=== PATIENT | female | born 1935 | race Caucasian/White ===

== ENCOUNTER 2017-10-09 12:12 | Inpatient (IN) | payer MEDICARE, OTHER ==
[~2017-10-09] VITALS: Ht 152.4 cm; Wt 46.4 kg
[2017-10-09] VITALS (8 sets, daily range): BP systolic 124–179; BP diastolic 59–77; PULSE 78–100; RESP 18–35; TEMP 97.6–98.8; O2SAT 95–99
[~2017-10-09 12:12] MED LIST: ADVAI250I PO; BACL10TA PO; CARI350T19 PO; CHOL4POW4 PO; CITA20 PO; CYPR4TAB PO; DUONI NEB; ENAL10 PO; FURO1TAB93 PO; HYDR10SO PO; IPRAAER INH; KLOR20TA6 PO; LIDO5T TOP; MONT5CHW2 PO; NEBUMIS6 INH; ONDA4 PO; PRED5TAB PO; PREV30CA36 PO; PROM6.257 PO; SPIRCAP INH; SUMA100T2 PO; SYNT100T PO; VALI10TA PO; VIGA0.5D EACH EYE; ZOLP10TA3 PO
[2017-10-09] MEDS ORDERED: IOHEXOL 350 MG/ML 10 ML VIAL (for RAD DIAG) IVCONTRAST ONE (12:13)
--- NOTE | 2017-10-09 12:39 | PD ---
HPI Chief Complaint: Abdominal Pain Time Seen by Provider: 12:16 Travel History International Travel<30 days: No Contact w/Intl Traveler<30days: No Traveled to known affect area: No History of Present Illness HPI The patient is a 82-year-old female who presents to the emergency department with her son from their physician's office for evaluation of chronic abdominal pain. The patient was seen by her primary physician earlier today, Dr. Donald, and sent to the emergency department for evaluation of chronic ongoing abdominal pain. The patient has had severe epigastric abdominal pain for approximately 1 year. She underwent outpatient endoscopy by her range aide, Dr. Del Cid, and was placed on Carafate. However, the patient continues to have pain and now complains of generalized abdominal pain. She also complains of pain from "my toes to my head ", as well as chronic low back pain, and occasional shortness of breath. The patient does have a history of COPD and CHF, states the shortness of breath is intermittent and occasionally exacerbated by pain. She denies any current nausea, vomiting, or diarrhea. She does have a history of multiple abdominal surgeries in the past including hysterectomy, appendectomy, cholecystectomy, and removal of small bowel. She denies any current fever, chills, or sweats. She does complain of intermittent dysuria. PFSH Past Medical History Hx Anticoagulant Therapy: Yes Arthritis: Yes Asthma: No Anxiety: Yes Depression: Yes Heart Rhythm Problems: No Cancer: No Cardiovascular Problems: Yes High Cholesterol: Yes Chest Pain: Yes Congestive Heart Failure: Yes COPD: Yes Cerebrovascular Accident: Yes Diabetes: No Diminished Hearing: No Endocrine: Yes GERD: Yes Genitourinary: Yes Headaches: Yes Hepatitis: No Hiatal Hernia: No Hypertension: Yes Immune Disorder: No Kidney Stones: Yes Musculoskeletal: Yes Neurologic: Yes Psychiatric: Yes Reproductive: No Respiratory: Yes Migraines: Yes Pneumonia: Yes Renal Failure: No Seizures: No Sleep Apnea: No Thyroid Disease: Yes Ulcer: No : 2 Para: 2 Past Surgical History Abdominal Surgery: Yes (PARTIAL SMALL BOWEL REMOVAL) Body Medical Devices: plates in neck Cholecystectomy: Yes Endocrine Surgery: Yes (THYROID) Gynecologic Surgery: Yes Hysterectomy: Yes Neurologic Surgery: Yes (CERVICAL FUSION) Pacemaker: No Social History Alcohol Use: Yes (OCCASSIONAL) Tobacco Use: Yes (1 PPD) Substance Use: No Allergies-Medications (Allergen,Severity, Reaction): Coded Allergies: levofloxacin (Unverified Allergy, Severe, HEADACHE, NAUSEA, VOMITING, 01/23) meperidine (Unverified Adverse Reaction, Unknown, HALLUCINATIONS, 01/23/17) Reported Meds & Prescriptions Reported Meds & Active Scripts Active K-Dur (Potassium Chloride) 20 Meq Tabcr 20 Meq PO DAILY 30 Days Nebulizer (Miscellaneous Medication) Mis 1 Unit INH DIRECTED Resp: Albuterol/Ipratropium 2.5 Mg/0.5 Mg (Albuterol/Ipratropium) 1 Amp Nebu 1 Ampule NEB Q6HR NEB PRN Prednisone 5 Mg Tab 5 Mg PO DIRECTED 10 Days 40 mg po daily for two days then 30 mg po daily for two days then 20 mg po daily for two days then 10 mg po daily for two days then 5 mg po daily for two days then stop. Reported Lidoderm Patch 5% (Lidocaine HCl) 1 Patch Patch 1 Patch TOP DAILY PRN Apply patch to the most painful area. Patch(es) may remain in place for up to 12 hours in any 24 hour period. Lioresal 10 Mg Tab (Baclofen) 10 Mg Tab 10 Mg PO TID Cyproheptadine Hcl (Cyproheptadine HCl) 4 Mg Tab 4 Mg PO DAILY Ambien 10 Mg Tab (Zolpidem Tartrate) 10 Mg Tab 10 Mg PO HS Vigamox Opth (Moxifloxacin HCl) 0.5 % Thony 1 Drop EACH EYE QID Celexa 20 Mg Tab (Citalopram Hydrobromide) 20 Mg Tab 20 Mg PO DAILY Prevacid (Lansoprazole) 30 Mg Capcr 30 Mg PO DAILY Phenergan W/Codeine (Promethazine W/Codeine) 6.25-10 mg/5 ml Ml 5 Ml PO Q8HR Cholestyramine (Cholestyramine Resin) 4 Gm Pow 4 Gm PO TID PRN Advair Diskus 250/50 (Salmeterol Xinafoate/Fluticasone) Fluticasone/Salmeterol 250/50 Inh 1 Puff PO BID PRN Zofran 4 Mg Tab (Ondansetron Hcl) 4 Mg Tab 4 Mg PO DAILY PRN Combivent Respimat (Albuterol/Ipratropium) Respimat Aer 2 Puff INH TID Spiriva Handihaler (Tiotropium [place]) 18 Mcg Cap 1 Puff INH DAILY DO NOT SWALLOW CAPSULES Singulair (Montelukast Sodium) 5 Mg Chw 10 Mg PO DAILY Hydrocodone/Acetaminophen 10 mg/325 mg 1 Tab 1 Tab PO 3-4TIMES PER DAY PRN Imitrex (Sumatriptan Succinate) 100 Mg Tab 100 Mg PO DIRECTED PRN Carisoprodol 350 Mg Tab 350 Mg PO BID PRN Valium (Diazepam) 10 Mg Tab 10 Mg PO TID PRN Synthroid (Levothyroxine Sodium) 100 Mcg Tab 100 Mcg PO DAILY Vasotec 10 Mg Tab (Enalapril Maleate) 10 Mg Tab 10 Mg PO DAILY Lasix (Furosemide) 40 Mg Tab 40 Mg PO DAILY Review of Systems Except as stated in HPI: all other systems reviewed are Neg Cardiovascular: No: Chest Pain or Discomfort Respiratory: Positive: Shortness of Breath Gastrointestinal: Positive: Abdominal Pain, No: Nausea, Vomiting, Diarrhea Genitourinary: Positive: Dysuria Musculoskeletal: Positive: Weakness, Pain Neurologic: No: Change in Mentation Physical Exam Narrative GENERAL: Awake, alert, pleasant 82-year-old female who appears her stated age and is in no acute respiratory distress. SKIN: Focused skin assessment warm/dry. HEAD: Atraumatic. Normocephalic. EYES: No injection or drainage. ENT: No nasal bleeding or discharge. Mucous membranes pink and moist. NECK: Trachea midline. No JVD. CARDIOVASCULAR: Regular, tachycardic with a heart rate of 110. RESPIRATORY: No accessory muscle use. Few scattered wheezes and a few rhonchi right base. GASTROINTESTINAL: Abdomen soft, diffuse tenderness. Well-healed scar midline of the abdomen as well as the upper quadrants bilaterally. MUSCULOSKELETAL: No obvious deformities. No clubbing. No cyanosis. Bilateral lower extremity pitting edema. NEUROLOGICAL: Awake and alert. No obvious cranial nerve deficits. Motor grossly within normal limits. Normal speech. PSYCHIATRIC: Appropriate mood and affect; insight and judgment normal. Data Data Last Documented VS Vital Signs Date Time Temp Pulse Resp B/P (MAP) Pulse Ox O2 Delivery O2 Flow Rate FiO2 10/09/17 16:48 87 25 143/64 (90) 98 Nasal Cannula 3.00 10/09/17 12:32 98.8 Orders Orders Complete Blood Count With Diff (10/09/17 12:31) Comprehensive Metabolic Panel (10/09/17 12:31) Lipase (10/09/17 12:31) Lactic Acid (10/09/17 12:31) Urinalysis - C+S If Indicated (10/09/17 12:31) Ct Abd/Pel W Iv Contrast(Rout) (10/09/17 12:31) Iv Access Insert/Monitor (10/09/17 12:31) Ecg Monitoring (10/09/17 12:31) Oximetry (10/09/17 12:31) Morphine Inj (Morphine Inj) (10/09/17 12:45) Ondansetron Inj (Zofran Inj) (10/09/17 12:45) Sodium Chloride 0.9% Flush (Ns Flush) (10/09/17 12:45) Electrocardiogram (10/09/17 12:31) Chest, Single Ap (10/09/17 12:31) Famotidine Inj (Pepcid Inj) (10/09/17 12:45) Sodium Chlorid 0.9% 500 Ml Inj (Ns 500 M (10/09/17 12:45) Albuterol-Ipratropium Neb (Duoneb Neb) (10/09/17 12:45) Oral Contrast - Adult (10/09/17 12:44) B-Type Natriuretic Peptide (10/09/17 14:20) Diatrizoate Liq ( Gastroview Liq) (10/09/17 14:26) Morphine Inj (Morphine Inj) (10/09/17 15:00) Iohexol 350 Inj (Omnipaque 350 Inj) (10/09/17 12:13) Furosemide Inj (Lasix Inj) (10/09/17 16:30) Admit Order (Ed Use Only) (10/09/17 16:52) Labs Laboratory Tests Test 10/09/17 13:00 10/09/17 13:05 White Blood Count 9.7 TH/MM3 Red Blood Count 3.74 MIL/MM3 Hemoglobin 8.6 GM/DL Hematocrit 28.3 % Mean Corpuscular Volume 75.6 FL Mean Corpuscular Hemoglobin 23.0 PG Mean Corpuscular Hemoglobin Concent 30.4 % Red Cell Distribution Width 19.1 % Platelet Count 228 TH/MM3 Mean Platelet Volume 8.4 FL Neutrophils (%) (Auto) 84.6 % Lymphocytes (%) (Auto) 6.5 % Monocytes (%) (Auto) 8.1 % Eosinophils (%) (Auto) 0.1 % Basophils (%) (Auto) 0.7 % Neutrophils # (Auto) 8.2 TH/MM3 Lymphocytes # (Auto) 0.6 TH/MM3 Monocytes # (Auto) 0.8 TH/MM3 Eosinophils # (Auto) 0.0 TH/MM3 Basophils # (Auto) 0.1 TH/MM3 CBC Comment DIFF FINAL Differential Comment Blood Urea Nitrogen 9 MG/DL Creatinine 0.44 MG/DL Random Glucose 145 MG/DL Total Protein 6.6 GM/DL Albumin 3.1 GM/DL Calcium Level 8.0 MG/DL Alkaline Phosphatase 126 U/L Aspartate Amino Transf (AST/SGOT) 13 U/L Alanine Aminotransferase (ALT/SGPT) 11 U/L Total Bilirubin 0.2 MG/DL Sodium Level 137 MEQ/L Potassium Level 3.3 MEQ/L Chloride Level 93 MEQ/L Carbon Dioxide Level 38.1 MEQ/L Anion Gap 6 MEQ/L Estimat Glomerular Filtration Rate 137 ML/MIN Lactic Acid Level 3.0 mmol/L B-Type Natriuretic Peptide 1073 PG/ML Lipase 152 U/L Urine Color LIGHT-YELLOW Urine Turbidity CLEAR Urine pH 7.0 Urine Specific [place] 1.008 Urine Protein 30 mg/dL Urine Glucose (UA) NEG mg/dL Urine Ketones NEG mg/dL Urine Occult Blood NEG Urine Nitrite NEG Urine Bilirubin NEG Urine Urobilinogen LESS THAN 2.0 MG/DL Urine Leukocyte Esterase TRACE Urine WBC LESS THAN 1 /hpf Urine Squamous Epithelial Cells 5 /hpf Urine Bacteria OCC /hpf Microscopic Urinalysis Comment CULT NOT INDICATED MDM Medical Decision Making Medical Screen Exam Complete: Yes Emergency Medical Condition: Yes Medical Record Reviewed: Yes Interpretation(s) EKG reveals sinus rhythm with occasional supraventricular premature complex. Minimal voltage criteria for LVH. Q-wave noted in lead V1 and V2. Laboratory Tests Test 10/09/17 13:00 10/09/17 13:05 White Blood Count 9.7 TH/MM3 Red Blood Count 3.74 MIL/MM3 Hemoglobin 8.6 GM/DL Hematocrit 28.3 % Mean Corpuscular Volume 75.6 FL Mean Corpuscular Hemoglobin 23.0 PG Mean Corpuscular Hemoglobin Concent 30.4 % Red Cell Distribution Width 19.1 % Platelet Count 228 TH/MM3 Mean Platelet Volume 8.4 FL Neutrophils (%) (Auto) 84.6 % Lymphocytes (%) (Auto) 6.5 % Monocytes (%) (Auto) 8.1 % Eosinophils (%) (Auto) 0.1 % Basophils (%) (Auto) 0.7 % Neutrophils # (Auto) 8.2 TH/MM3 Lymphocytes # (Auto) 0.6 TH/MM3 Monocytes # (Auto) 0.8 TH/MM3 Eosinophils # (Auto) 0.0 TH/MM3 Basophils # (Auto) 0.1 TH/MM3 CBC Comment DIFF FINAL Differential Comment Blood Urea Nitrogen 9 MG/DL Creatinine 0.44 MG/DL Random Glucose 145 MG/DL Total Protein 6.6 GM/DL Albumin 3.1 GM/DL Calcium Level 8.0 MG/DL Alkaline Phosphatase 126 U/L Aspartate Amino Transf (AST/SGOT) 13 U/L Alanine Aminotransferase (ALT/SGPT) 11 U/L Total Bilirubin 0.2 MG/DL Sodium Level 137 MEQ/L Potassium Level 3.3 MEQ/L Chloride Level 93 MEQ/L Carbon Dioxide Level 38.1 MEQ/L Anion Gap 6 MEQ/L Estimat Glomerular Filtration Rate 137 ML/MIN Lactic Acid Level 3.0 mmol/L Lipase 152 U/L Urine Color LIGHT-YELLOW Urine Turbidity CLEAR Urine pH 7.0 Urine Specific [place] 1.008 Urine Protein 30 mg/dL Urine Glucose (UA) NEG mg/dL Urine Ketones NEG mg/dL Urine Occult Blood NEG Urine Nitrite NEG Urine Bilirubin NEG Urine Urobilinogen LESS THAN 2.0 MG/DL Urine Leukocyte Esterase TRACE Urine WBC LESS THAN 1 /hpf Urine Squamous Epithelial Cells 5 /hpf Urine Bacteria OCC /hpf Microscopic Urinalysis Comment CULT NOT INDICATED Last Impressions Chest X-Ray 10/09/17 1231 Signed Impressions: Service Date/Time: Monday, October 09, 2017 12:40 - CONCLUSION: Chronic left lower lobe infiltrates. Mild central vascular engorgement. Joby Bell MD Abdomen/Pelvis CT 10/09/17 1231 Signed Impressions: Service Date/Time: Monday, October 09, 2017 15:27 - CONCLUSION: 1. Abnormal appearance to the lower pole left kidney with 1.8 cm smooth margined intermediate density lesion suggesting possible mass. 2. Expected findings post cholecystectomy. Joby Bell MD Differential Diagnosis Differential diagnosis includes peptic ulcer disease, gastritis, pancreatitis, chronic pain, mesenteric ischemia, abdominal adhesions, chronic pain. Narrative Course IV was established, labs are drawn and sent, the patient was placed on cardiac telemetry monitoring and continuous pulse oximetry monitoring. The patient was administered morphine, Zofran, and IV fluids. CT of the abdomen and pelvis with IV and oral contrast was ordered. Chest x-ray was obtained. EKG was ordered and interpreted. X-ray reveals mild central vascular engorgement. The patient was administered Lasix 40 mg intravenously. Patient is on home oxygen at 3 L, when taken off oxygen the emergency department her O2 sat falls into the 60s, she was placed on 4 L which brought her oxygen saturation up to 92%. The patient CT the abdomen and pelvis does reveal a left renal smooth mass that measures 1.8 cm, otherwise laboratory evaluation is unremarkable. The patient does have CHF with hypoxia, elevated heart rate and lactic acid, therefore, will be admitted. Possible left kidney mass can be worked up as an outpatient. The patient's primary physician is Dr. Donald, therefore, the on-call medical service was paged for admission. The patient may benefit from diuresis and echocardiogram. I discussed the patient with Dr. Castillo who agrees with admission. Physician Communication Physician Communication The on-call medical service was paged for admission. I discussed the patient with Dr. Castillo who agrees with admission. Diagnosis Primary Impression: CHF (congestive heart failure) Qualified Codes: I50.9 - Heart failure, unspecified Additional Impressions: Hypoxia Chronic abdominal pain Admitting Information Admitting Physician Requests: Admit Condition: Stable Luis Mccoy MD October 09, 2017 12:39
[2017-10-09] MEDS ORDERED: RESP: ALBUTEROL 2.5 MG/IPRATROPIUM 0.5 MG NEB (SCH) NEB ONE (12:45)
[2017-10-09] MEDS ORDERED: MORPHINE SULFATE 4 MG/ML INJ IV PUSH ONE ×2 (12:45→15:00)
[2017-10-09] MEDS ORDERED: ONDANSETRON HCL 4 MG/2 ML VIAL IVP ONE (12:45)
[2017-10-09] MEDS ORDERED: SODIUM CHLORID 0.9% 500 ML INJ 500 ML IV ONE (12:45)
[2017-10-09] MEDS ORDERED: FAMOTIDINE 20 MG/2 ML VIAL IV PUSH ONE (12:45)
--- NOTE | 2017-10-09 13:09 | RADRPT ---
EXAM DATE/TIME: 10/09/2017 12:40 [facility] COMPARISON: CHEST SINGLE AP, October 22, 2015, 15:34. INDICATIONS : Stomach pains with upper abdomen pressure. Shortness of breath with wheezing. MEDICAL HISTORY : Cardiovascular disease. Hypertension SURGICAL HISTORY : None. ENCOUNTER: Initial ACUITY: 1 day PAIN SCORE: 0/10 LOCATION: Bilateral chest FINDINGS: There is mild indistinctness of the central bronchopulmonary markings, similar to prior. Ill-defined infiltrates in the left lower lung similar to prior. Both hemidiaphragms are well delineated. Mild patient rotation towards the left. CONCLUSION: Chronic left lower lobe infiltrates. Mild central vascular engorgement. Joby Bell MD on October 09, 2017 at 13:06 Board Certified Radiologist. This report was verified electronically.
[2017-10-09 13:20] LABS: BACTERIA, URINE OCC /hpf; BILIRUBIN, URINE NEG (NEG); BLOOD, URINE NEG (NEG); GLUCOSE,URINE NEG (NEG); KETONE, URINE NEG (NEG); NITRITE,URINE NEG (NEG); SQUAMOUS EPITHELIAL CELL URINE 5 /hpf (0-5); URINE COLOR LIGHT-YELLOW (YELLW/STRAW); URINE LEUKOCYTE ESTERASE TRACE (NEG)
[2017-10-09 13:24] LABS: AUTOMATED NEUTROPHIL # 8.2 TH/MM3 (1.8-7.7); BASOPHIL # 0.1 TH/MM3 (0-0.2); BASOPHIL % 0.7 % (0.0-2.0); EOSINOPHIL % 0.1 % (0.0-4.0); HEMATOCRIT 28.3 % (35.0-46.0); HEMOGLOBIN 8.6 GM/DL (11.6-15.3); LYMPH % 6.5 % (9.0-44.0); LYMPHOCYTE # 0.6 TH/MM3 (1.0-4.8); MEAN CELL VOLUME 75.6 FL (80.0-100.0); MEAN CORPUSCULAR HGB CONC 30.4 % (32.0-36.0); MEAN PLATELET VOLUME 8.4 FL (7.0-11.0); MONO % 8.1 % (0.0-8.0); MONOCYTE # 0.8 TH/MM3 (0-0.9); NEUT % 84.6 % (16.0-70.0); PLATELET COUNT 228 TH/MM3 (150-450); RED BLOOD COUNT 3.74 MIL/MM3 (4.00-5.30); RED CELL DISTRIBUTION WIDTH 19.1 % (11.6-17.2); WHITE BLOOD COUNT 9.7 TH/MM3 (4.0-11.0)
[2017-10-09 13:36] LABS: ALBUMIN 3.1 GM/DL (3.4-5.0); ALT (GPT) 11 U/L (10-53); AST (GOT) 13 U/L (15-37); BICARBONATE 38.1 MEQ/L (21.0-32.0); BLOOD UREA NITROGEN 9 MG/DL (7-18); CHLORIDE 93 MEQ/L (98-107); CREATININE 0.44 MG/DL (0.50-1.00); GLOMERULAR FILTRATION RATE 137 ML/MIN (>89); GLUCOSE,RANDOM 145 MG/DL (74-106); SODIUM (NA) 137 MEQ/L (136-145)
[2017-10-09 13:39] LABS: ALKALINE PHOSPHATASE 126 U/L (45-117); TOTAL BILIRUBIN ADULT 0.2 MG/DL (0.2-1.0); TOTAL PROTEIN 6.6 GM/DL (6.4-8.2)
[2017-10-09] MEDS ORDERED: DIATRIZOATE MEGLUM/DIATRIZOATE SOD 9 ML CUP ONE (14:26)
[2017-10-09] MEDS ORDERED: MORPHINE SULFATE 2 MG/ML SYRINGE IV PUSH ONE (14:45)
--- NOTE | 2017-10-09 16:14 | RADRPT ---
EXAM DATE/TIME: 10/09/2017 15:27 [facility] COMPARISON: No previous studies available for comparison. INDICATIONS : Diffuse abdomen pain IV CONTRAST: 75 cc Omnipaque 350 (iohexol) IV ORAL CONTRAST: Prescribed oral contrast ingested. RADIATION DOSE: 6.64 CTDIvol (mGy) MEDICAL HISTORY : Cerebrovascular disease. Cardiovascular disease Hypertension.COPD SURGICAL HISTORY : Appendectomy. Cholecystectomy.Hysterectomy. ENCOUNTER: Initial ACUITY: 2 months PAIN SCALE: 10/10 LOCATION: abdomen/pelvis TECHNIQUE: Volumetric scanning of the abdomen and pelvis was performed. Using automated exposure control and ad justment of the mA and/or kV according to patient size, radiation dose was kept as low as reasonably achievable to obtain optimal diagnostic quality images. DICOM format image data is available electro nically for review and comparison. FINDINGS: LOWER LUNGS: The visualized lower lungs are clear. LIVER: Cholecystectomy with gas in the biliary system of the left lobe stop no solid or cystic lesion seen i n the hepatic parenchyma stop SPLEEN: Normal size without lesion. PANCREAS: Within normal limits. KIDNEYS: Right kidney is normal in appearance. There is focal atrophy of the cortex lower pole and there is a n oval 1.8 cm intermediate density lesion in the lower pole left kidney, mean CT density 87 Hounsfiel d units. ADRENAL GLANDS: Within normal limits. VASCULAR: There is no aortic aneurysm. BOWEL/MESENTERY: No dilated loops of small or large bowel. Oral contrast passes through to the right colon. ABDOMINAL WALL: Within normal limits. RETROPERITONEUM: There is no lymphadenopathy. BLADDER: No wall thickening or mass. REPRODUCTIVE: Within normal limits. INGUINAL: There is no lymphadenopathy or hernia. MUSCULOSKELETAL: Diffuse osteopenia. Moderate scoliosis of the thoracolumbar spine convex to the left with discogenic degenerative changes. No focal destructive lesions. CONCLUSION: 1. Abnormal appearance to the lower pole left kidney with 1.8 cm smooth margined intermediate density lesion suggesting possible mass. 2. Expected findings post cholecystectomy. Joby Bell MD on October 09, 2017 at 15:59 Board Certified Radiologist. This report was verified electronically.
[2017-10-09] MEDS ORDERED: FUROSEMIDE 40 MG/4 ML VIAL IV PUSH ONE (16:30)
--- NOTE | 2017-10-09 17:15 | HHI.HP ---
[facility] Primary [facility] Physician Unknown Admission Diagnosis Congestive heart failure, tachypnea, hypoxia, chronic abdominal pain Diagnoses: (1) COPD exacerbation (2) CHF (congestive heart failure) (3) Blood in stool (4) Hypoxia (5) Chronic abdominal pain Chief Complaint: abdominal pain Travel History International Travel<30 Days: No Contact w/Intl Traveler <30 Da: No Traveled to Known Affected Are: No History of Present Illness 82-year-old female with past medical history significant for CHF, aortic regurgitation, anasarca, COPD on home O2, depression, hypothyroidism, lumbar/ cervical radiculopathy, multiple gastrointestinal surgeries, chronic abdominal pain, and stomach ulcers who presents to the emergency department with complaints of worsening abdominal pain, nausea, black stools, and overall not feeling well. Patient is seen and examined in her room with son at bedside. Son reports patients PCP was called to to make him aware of patient's abdominal pain, patient was directed to the emergency department by her PCP. She reports that she has a long history of abdominal surgeries dating back to the 70s. Patient is not the best historian and son who was at bedside does not know exact dates or procedures patient has had in the past. She reports that pain has been chronic since the 70s although has been worsening in the past several weeks. She is unable to describe the pain but states that it is in her lower part and radiates across. She also endorses some nausea with no vomiting , able to eat and drink and keep food down Son reports that he has also noticed blood in patient's stool ranging from a color of dark red to black for the past several weeks as well. She also suffers from chronic diarrhea but this will vary. Her last endoscopy and colonoscopy was about 8 months ago with her grid trimmer Dr. Soler. She was told that she had stomach ulcers and was placed on oral Carafate. Patient is noted to be in mild respiratory distress, when asked about how long this has been going on patient reports that she is very tired and does not answer further questioning. Son reports that patient wears 3 L of oxygen at home for her COPD and is on multiple inhalers however does not regularly use albuterol as these will trigger migraines. She does report that she has been chewing on more ice chips than usual recently. She has also been taking Lasix at home as instructed by her PCP, at times she will take 40 mg and at times only 20.She denies any fevers, chills, or chest pain. Review of Systems Except as stated in HPI: all other systems reviewed are Neg Past Family Social History Past Medical History COPD on home O2 3L CHF HTN HLD ? 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 Stomach ulcers Past Surgical History 2 cervical surgeries portions of intestine removed appendix gallbladder total hysterectomy eye surgery with implants Reported Medications Medication reconciliation yet to be completed by nurse. Allergies: Coded Allergies: levofloxacin (Unverified Allergy, Severe, HEADACHE, NAUSEA, VOMITING, 01/23) meperidine (Unverified Adverse Reaction, Unknown, HALLUCINATIONS, 01/23/17) Active Ordered Medications Current Medications Medications (Trade) Dose Ordered Sig/Karen Route Start Time Stop Time Status Last Admin (NS Flush) 2 ml UNSCH PRN IV FLUSH 10/09/17 12:45 (Tylenol) 650 mg Q4H PRN PO 10/09/17 17:45 UNV (Zofran Inj) 4 mg Q6H PRN IVP 10/09/17 17:45 UNV ([facility] Mary 10-325 Mg) 1 tab Q4H PRN PO 10/09/17 17:45 UNV (Percocet 5-325 Mg) 1 tab Q6H PRN PO 10/09/17 17:45 UNV (Morphine Inj) 2 mg Q3H PRN IV PUSH 10/09/17 17:45 UNV (Narcan Inj) 0.4 mg UNSCH PRN IV PUSH 10/09/17 17:45 UNV (Shannon-Colace) 1 tab BID PO 10/09/17 21:00 UNV (Milk Of Magnesia Liq) 30 ml Q12H PRN PO 10/09/17 17:45 UNV (Senokot) 17.2 mg Q12H PRN PO 10/09/17 17:45 UNV (Dulcolax Supp) 10 mg DAILY PRN RECTAL 10/09/17 17:45 UNV (Lactulose Liq) 30 ml DAILY PRN PO 10/09/17 17:45 UNV (KCl) 40 meq ONCE ONCE PO 10/09/17 17:45 10/09/17 17:46 UNV (KCl) 20 meq DAILY PO 10/10/17 09:00 UNV (Lasix Inj) 20 mg DAILY IV PUSH 10/10/17 09:00 UNV (Protonix Inj) 40 mg Q12H IV PUSH 10/09/17 17:45 UNV Family History Father: cancer 2 brothers: back problems Social History Tobacco: 1/2 PPD X40yrs Alcohol use: one Illicit drug use: denies Physical Exam Vital Signs Vital Signs Date Time Temp Pulse Resp B/P (MAP) Pulse Ox O2 Delivery O2 Flow Rate FiO2 10/09/17 16:48 87 25 143/64 (90) 98 Nasal Cannula 3.00 10/09/17 15:09 98 22 145/68 (93) 95 Nasal Cannula 3.00 10/09/17 13:14 93 35 124/59 (80) 97 Nasal Cannula 3.00 10/09/17 12:32 98.8 100 28 179/77 (111) 96 Physical Exam GENERAL: Well-developed thin female who appears stated age in mild respiratory distress after coming off of bedpan. SKIN: No rashes, ecchymoses or lesions. Cool and dry, pale. HEAD: Atraumatic. Normocephalic. EYES: Pupils equal round. Extraocular motions intact. No scleral icterus. No injection or drainage. ENT: Nose without bleeding, throat without erythema or exudate. Airway patent. NECK: Trachea midline. No JVD or lymphadenopathy. Supple, nontender, no meningeal signs. CARDIOVASCULAR: Regular rate and rhythm without murmurs, gallops, or rubs. RESPIRATORY: Diminished at bases with scattered expiratory wheezing. No rales, or rhonchi. GASTROINTESTINAL: Abdomen soft, nondistended. No hepato-splenomegaly, or palpable masses. Tenderness along lower abdomen. Normal active bowel sounds. MUSCULOSKELETAL: Extremities without clubbing or cyanosis. No joint tenderness, effusion, or edema noted. No calf tenderness. Leg with bilateral trace edema. NEUROLOGICAL: Awake and alert oriented x3. Cranial nerves II through XII grossly intact. Motor and sensory grossly within normal limits. 4/5 muscle strength in all muscle groups. Normal speech. Laboratory Laboratory Tests Test 10/09/17 13:00 10/09/17 13:05 White Blood Count 9.7 Red Blood Count 3.74 Hemoglobin 8.6 Hematocrit 28.3 Mean Corpuscular Volume 75.6 Mean Corpuscular Hemoglobin 23.0 Mean Corpuscular Hemoglobin Concent 30.4 Red Cell Distribution Width 19.1 Platelet Count 228 Mean Platelet Volume 8.4 Neutrophils (%) (Auto) 84.6 Lymphocytes (%) (Auto) 6.5 Monocytes (%) (Auto) 8.1 Eosinophils (%) (Auto) 0.1 Basophils (%) (Auto) 0.7 Neutrophils # (Auto) 8.2 Lymphocytes # (Auto) 0.6 Monocytes # (Auto) 0.8 Eosinophils # (Auto) 0.0 Basophils # (Auto) 0.1 CBC Comment DIFF FINAL Differential Comment Blood Urea Nitrogen 9 Creatinine 0.44 Random Glucose 145 Total Protein 6.6 Albumin 3.1 Calcium Level 8.0 Alkaline Phosphatase 126 Aspartate Amino Transf (AST/SGOT) 13 Alanine Aminotransferase (ALT/SGPT) 11 Total Bilirubin 0.2 Sodium Level 137 Potassium Level 3.3 Chloride Level 93 Carbon Dioxide Level 38.1 Anion Gap 6 Estimat Glomerular Filtration Rate 137 Lactic Acid Level 3.0 B-Type Natriuretic Peptide 1073 Lipase 152 Urine Color LIGHT-YELLOW Urine Turbidity CLEAR Urine pH 7.0 Urine Specific Somers 1.008 Urine Protein 30 Urine Glucose (UA) NEG Urine Ketones NEG Urine Occult Blood NEG Urine Nitrite NEG Urine Bilirubin NEG Urine Urobilinogen LESS THAN 2.0 Urine Leukocyte Esterase TRACE Urine WBC LESS THAN 1 Urine Squamous Epithelial Cells 5 Urine Bacteria OCC Microscopic Urinalysis Comment CULT NOT INDICATED Result Diagram: 10/09/17 1300 10/09/17 1300 Imaging Last Impressions Chest X-Ray 10/09/17 1231 Signed Impressions: Service Date/Time: Monday, October 09, 2017 12:40 - CONCLUSION: Chronic left lower lobe infiltrates. Mild central vascular engorgement. Joby Bell MD Abdomen/Pelvis CT 10/09/17 1231 Signed Impressions: Service Date/Time: Monday, October 09, 2017 15:27 - CONCLUSION: 1. Abnormal appearance to the lower pole left kidney with 1.8 cm smooth margined intermediate density lesion suggesting possible mass. 2. Expected findings post cholecystectomy. MD Roseline Hidalgoi VTE Risk Assessment Eddyrinrey VTE Risk Assessment: Mod/High Risk (score >= 2) VTE Pharm Contraindication: Concern for GI bleed Caprini Risk Assessment Model Point Value = 1 Point Value = 2 Point Value = 3 Point Value = 5 Age 41-60 Minor surgery BMI > 25 kg/m2 Swollen legs Varicose veins or History of unexplained or recurrent spontaneous Oral contraceptives or hormone replacement Sepsis (< 1 month) Serious lung disease, including pneumonia (< 1 month) Abnormal pulmonary function Acute myocardial infarction Congestive heart failure (< 1 month) History of inflammatory bowel disease Medical patient at bed rest Age 61-74 Arthroscopic surgery Major open surgery (> 45 min) Laparoscopic surgery (> 45 min) Malignancy Confined to bed (> 72 hours) Immobilizing plaster cast Central venous access Age >= 75 History of VTE Family history of VTE Factor V Leiden Prothrombin [id number] Lupus anticoagulant Anticardiolipin antibodies Elevated serum homocysteine Heparin-induced thrombocytopenia Other congenital or acquired thrombophilia Stroke (< 1 month) Elective arthroplasty Hip, pelvis, or leg fracture Acute spinal cord injury (< 1 month) Prophylaxis Regimen Total Risk Factor Score Risk Level Prophylaxis Regimen 0-1 Low Early ambulation 2 Moderate Order ONE of the following: *Sequential Compression Device (SCD) *Heparin 5000 units SQ BID 3-4 Higher Order ONE of the following medications: *Heparin 5000 units SQ TID *Enoxaparin/Lovenox 40 mg SQ daily (WT < 150 kg, CrCl > 30 mL/min) *Enoxaparin/Lovenox 30 mg SQ daily (WT < 150 kg, CrCl > 10-29 mL/min) *Enoxaparin/Lovenox 30 mg SQ BID (WT < 150 kg, CrCl > 30 mL/min) AND/OR *Sequential Compression Device (SCD) 5 or more Highest Order ONE of the following medications: *Heparin 5000 units SQ TID (Preferred with Epidurals) *Enoxaparin/Lovenox 40 mg SQ daily (WT < 150 kg, CrCl > 30 mL/min) *Enoxaparin/Lovenox 30 mg SQ daily (WT < 150 kg, CrCl > 10-29 mL/min) *Enoxaparin/Lovenox 30 mg SQ BID (WT < 150 kg, CrCl > 30 mL/min) AND *Sequential Compression Device (SCD) Assessment and Plan Assessment and Plan 82-year-old female with past medical history significant for CHF, aortic regurgitation, anasarca, COPD on home O2, depression, hypothyroidism, lumbar/ cervical radiculopathy, multiple gastrointestinal surgeries, chronic abdominal pain, and stomach ulcers who presents to the emergency department with complaints of worsening abdominal pain, nausea, black stools, and overall not feeling well. Patient is seen and examined in her room with son at bedside. Son reports patients PCP was called to to make him aware of patient's abdominal pain, patient was directed to the emergency department by her PCP. Intractable abdominal pain Black/maroon stools -Patient with history of multiple abdominal surgeries in the past, and chronic pain in the abdomen now worsening. -Microcytic anemia noted on CBC, appears chronic compared to priors, however reports of changes in stool color -CT of abdomen and pelvis reviewed, abnormal appearance of lower pole and the left kidneys with possible mass, no dilated loops of small or large bowel, no lymphadenopathy. -Will check Hemoccult -Consult GI for further evaluation of possible GI bleed (last endoscopy/ colonoscopy was about 8 months ago with ulcers identified per son), evaluation and recommendations greatly appreciated. -Pain control with oral [facility] Mary and IV morphine for breakthrough pain -IV Protonix 40 mg twice daily, as needed Zofran for nausea Microcytic anemia -Looking back through prior hospitalizations in 2016, her labs on presentation are similar to priors although RDW is slightly higher at 19.1 -Check iron studies - ? [facility] GI services consulted, appreciate recommendations. CHF exacerbation -Chest x-ray reviewed, mild indistinctness of the central bronchial pulmonary markings, infiltrates in the left lower lung similar to priors, mild central vascular engorgement. -BNP 1073, on admission tachypneic with respiratory rate of 28. CBC with microcytic anemia -EKG reviewed, sinus rhythm with occasional supraventricular premature complexes -Will check 2D echo -Received 40 mg of IV Lasix in the ED, continue IV Lasix 20 mg daily along with 20 meq's of KCl p.o. -Monitor electrolytes & response COPD mildly exacerbated -Patient wears chronic O2 at home 3 L nasal cannula -Uses multiple inhalers at home, avoid albuterol due to migraines -Scattered wheezing on exam, will provide prednisone 40 mg p.o. 5 days -DuoNeb treatments as needed, Imitrex for possible migraines per -Incentive spirometer, PT/OT -Continue Combivent, Advair, and Singulair. -Continue home dose Valium 10 mg 3 times daily as needed for anxiety Hypothyroidism -Continue home dose of levothyroxine 100 MCG's daily Hypokalemia -Potassium on admission 3.3, will provide with 40 meq's of KCl p.o. - Recheck labs in the AM Left lower pole renal mass - CT of abd/pelvis with incidental finding of 1.8 cm intermediate density lesion in the lower pole of the left kidney -Can follow-up as outpatient for further evaluation Insomnia Chronic neck and back pain -Continue home dose of Ambien 10 mg nightly -As needed Saint Mary, IV morphine for breakthrough pain. We will also continue home dose of baclofen 10 mg 3 times a day. Tobacco abuse -Reiterated importance of tobacco cessation DVT prophylaxis-SCDs secondary to suspected GI Discussed with patient and son at bedside. Discussed with The exam, history, and the medical decision-making described in the above note were completed with the assistance of the mid-level provider. I reviewed and agree with the findings presented. I attest that I had a [id number] encounter with the patient on the same day, and personally performed and documented my assessment and findings in the medical record. Patient reports feeling tired. Very poor historian. - [place] as above - GI consult. -Incidental finding of left kidney needs outpatient follow up. Physician Certification 2 Midnight Certification Type: Admission for Inpatient Services Order for Inpatient Services The services are ordered in accordance with Medicare regulations or non- Medicare payer requirements, as applicable. In the case of services not specified as inpatient-only, they are appropriately provided as inpatient services in accordance with the 2-midnight benchmark. Estimated LOS (days): 4 days is the estimated time the patient will need to remain in the hospital, assuming treatment plan goals are met and no additional complications. Post-Hospital Plan: Not yet determined Problem Qualifiers (1) CHF (congestive heart failure): Qualified Codes: I50.9 - Heart failure, unspecified Osman Yarbrough October 09, 2017 17:15 Paddy Castillo MD October 09, 2017 19:52
[2017-10-09] MEDS ORDERED: PROT40TA PO (17:41)
[2017-10-09] MEDS ORDERED: RESP: ALBUTEROL 2.5 MG/IPRATROPIUM 0.5 MG NEB (PRN) NEB (17:45)
[2017-10-09] MEDS ORDERED: MORPHINE SULFATE 2 MG/ML SYRINGE IV PUSH PRN (17:45)
[2017-10-09] MEDS ORDERED: NALOXONE HCL 0.4 MG/ML AMP IV PUSH PRN (17:45)
[2017-10-09] MEDS ORDERED: oxyCODONE/ACETAMINOPHEN 5 MG/325 MG TAB PO PRN (17:45)
[2017-10-09] MEDS ORDERED: POTASSIUM CHLORIDE 20 MEQ CONTROLLED RELEASE TAB PO ONE (17:45)
[2017-10-09] MEDS ORDERED: LACTULOSE SYRUP 20 GM/30 ML CUP PO PRN (17:45)
[2017-10-09] MEDS ORDERED: SENNOSIDES 8.6 MG TAB PO PRN (17:45)
[2017-10-09] MEDS ORDERED: BISACODYL 10 MG SUPP RECTAL PRN (17:45)
[2017-10-09] MEDS ORDERED: ACETAMINOPHEN 325 MG TAB PO PRN (17:45)
[2017-10-09] MEDS ORDERED: MAGNESIUM HYDROXIDE SUSP 30 ML CUP PO PRN (17:45)
[2017-10-09] MEDS ORDERED: SPIRCAP INH (18:01)
[2017-10-09] MEDS ORDERED: POTA-163 PO (18:01)
[2017-10-09] MEDS ORDERED: IMIT100T PO (18:01)
[2017-10-09] MEDS ORDERED: VIGA0.5D EACH EYE (18:01)
[2017-10-09] MEDS ORDERED: LIDO1PAD52 TOPICAL (18:01)
[2017-10-09] MEDS ORDERED: SOMA350T PO (18:01)
[2017-10-09] MEDS ORDERED: ZOFR4TAB PO (18:01)
[2017-10-09] MEDS ORDERED: LEVO100T5 PO (18:01)
[2017-10-09] MEDS ORDERED: DIAZ10 PO (18:01)
[2017-10-09] MEDS ORDERED: FURO1TAB60 PO (18:01)
[2017-10-09] MEDS ORDERED: BACL10TA PO (18:01)
[2017-10-09] MEDS ORDERED: AMBI10TA PO (18:01)
[2017-10-09] MEDS ORDERED: ADVA250A INH (18:01)
[2017-10-09] MEDS ORDERED: VASO10TA8 PO (18:01)
[2017-10-09] MEDS ORDERED: MONT10TA2 PO (18:01)
[2017-10-09] MEDS ORDERED: IPRASOL NEB (18:01)
[2017-10-09] MEDS ORDERED: IPRAAER INH (18:01)
[2017-10-09] MEDS ORDERED: PROM6.256 PO (18:01)
[2017-10-09] MEDS ORDERED: MORPHINE SULFATE 4 MG/ML INJ IV PUSH PRN (18:15)
[2017-10-09] MEDS ORDERED: NON-FORMULARY DRUG (Fluticasone-Salmeterol Inh (Advair Diskus Inh) 1 PUFF) INH PRN (18:30)
[2017-10-09] MEDS ORDERED: SUMAtriptan SUCCINATE 25 MG TAB PO PRN (18:30)
[2017-10-09] MEDS ORDERED: ACETAMINOPHEN/HYDROcodone 325 MG/5 MG TAB PO PRN (18:45)
[2017-10-09] MEDS ORDERED: BUDESONIDE-FORMOTEROL 160/4.5 MCG INHALER INH PRN (19:15)
[2017-10-09] MEDS: ZOLPIDEM TARTRATE 10 MG TAB PO SCH (21:00)
[2017-10-09] MEDS ORDERED: methylPREDNISolone SOD SUCC 40 MG/1 ML VIAL IV PUSH SCH (21:00)
[2017-10-09] MEDS: DOCUSATE SODIUM 50 MG/SENNA 8.6 MG TAB PO SCH (21:06)
[2017-10-09] MEDS: PANTOPRAZOLE SODIUM 40 MG VIAL IV PUSH SCH (21:06)
[2017-10-09] MEDS: ACETAMINOPHEN/HYDROcodone 325 MG/10 MG TAB PO PRN (23:15)
[2017-10-09] MEDS: ONDANSETRON HCL 4 MG/2 ML VIAL IVP PRN (23:15)
[2017-10-10] VITALS (7 sets, daily range): BP systolic 115–153; BP diastolic 55–68; PULSE 78–92; RESP 17–20; TEMP 97.3–98.7; O2SAT 92–98
[2017-10-10] MEDS: LEVOTHYROXINE SODIUM 100 MCG TAB PO SCH (05:20)
[2017-10-10] MEDS: DOCUSATE SODIUM 50 MG/SENNA 8.6 MG TAB PO SCH ×2 (08:40→20:44)
[2017-10-10] MEDS: PANTOPRAZOLE SODIUM 40 MG VIAL IV PUSH SCH ×2 (08:40→20:44)
[2017-10-10] MEDS: POTASSIUM CHLORIDE 20 MEQ CONTROLLED RELEASE TAB PO SCH (08:40)
[2017-10-10] MEDS: FUROSEMIDE 20 MG/2 ML VIAL IV PUSH SCH (08:40)
[2017-10-10] MEDS: predniSONE 20 MG TAB PO SCH (08:40)
[2017-10-10] MEDS: ENALAPRIL MALEATE 10 MG TAB PO SCH (08:40)
[2017-10-10] MEDS: BACLOFEN 10 MG TAB PO SCH ×3 (08:40→17:10)
[2017-10-10] MEDS: MONTELUKAST SODIUM 10 MG TAB PO SCH (08:41)
[2017-10-10 08:52] LABS: % SATURATION IRON PROFILE 1.2 % (20-50); ALBUMIN 2.8 GM/DL (3.4-5.0); ALKALINE PHOSPHATASE 120 U/L (45-117); ALT (GPT) 12 U/L (10-53); AST (GOT) 16 U/L (15-37); BICARBONATE 42.8 MEQ/L (21.0-32.0); BLOOD UREA NITROGEN 8 MG/DL (7-18); CHLORIDE 91 MEQ/L (98-107); CREATININE 0.29 MG/DL (0.50-1.00); GLOMERULAR FILTRATION RATE 221 ML/MIN (>89); GLUCOSE,RANDOM 96 MG/DL (74-106); IRON (FE) 6 MCG/DL (50-170); SODIUM (NA) 137 MEQ/L (136-145); TOTAL BILIRUBIN ADULT 0.2 MG/DL (0.2-1.0); TOTAL IRON BINDING CAPACITY 487 MCG/DL (250-450)
[2017-10-10] MEDS ORDERED: NON-FORMULARY DRUG (Ipratropium-Albuterol Inh (Combivent Respimat Inh) 2 PUFF) INH SCH (09:00)
--- NOTE | 2017-10-10 09:45 | EKG ---
Date Performed: 10/09/2017 Time Performed: 12:51:35 PTAGE: 82 years EKG: Sinus rhythm WITH OCCASIONAL SUPRAVENTRICULAR PREMATURE COMPLEXES MINIMAL VOLTAGE CRITERIA FOR LVH, CONSIDER NORM AL VARIANT Possible SEPTAL MYOCARDIAL INFARCTION Nonspecific ST abnormality ABNORMAL ECG PREVIOUS TRACING : 10/23/2015 07.53 DOCTOR: Polo Barrow Interpretating Date/Time 10/10/2017 09:44:34
[2017-10-10 11:54] LABS: AUTOMATED NEUTROPHIL # 6.2 TH/MM3 (1.8-7.7); BASOPHIL # 0.1 TH/MM3 (0-0.2); EOSINOPHIL % 0.1 % (0.0-4.0); HEMATOCRIT 29.7 % (35.0-46.0); HEMOGLOBIN 8.6 GM/DL (11.6-15.3); LYMPH % 6.3 % (9.0-44.0); LYMPHOCYTE # 0.4 TH/MM3 (1.0-4.8); MEAN CORPUSCULAR HEMOGLOBIN 22.4 PG (27.0-34.0); MEAN PLATELET VOLUME 8.3 FL (7.0-11.0); MONO % 6.5 % (0.0-8.0); MONOCYTE # 0.5 TH/MM3 (0-0.9); NEUT % 86.1 % (16.0-70.0); PLATELET COUNT 201 TH/MM3 (150-450); RED BLOOD COUNT 3.86 MIL/MM3 (4.00-5.30); WHITE BLOOD COUNT 7.2 TH/MM3 (4.0-11.0)
[2017-10-10] MEDS: ALBUTEROL SULFATE 90 MCG/ACT HFA 8 GM INHALER INH SCH ×3 (12:32→17:17)
[2017-10-10] MEDS: ACETAMINOPHEN/HYDROcodone 325 MG/10 MG TAB PO PRN ×2 (14:14→18:04)
--- NOTE | 2017-10-10 14:22 | HHI.PR ---
Subjective Remarks Follow up GI bleed, CHF, COPD. Patient states that she is very hungry. Waiting on lunch tray. No further bleeding reported. Denies chest pain. Still some dyspnea. Objective Vitals Vital Signs Date Time Temp Pulse Resp B/P (MAP) Pulse Ox O2 Delivery O2 Flow Rate FiO2 10/10/17 12:00 98.7 92 19 151/67 (95) 96 10/10/17 08:46 97.3 80 17 153/68 (96) 95 10/10/17 04:00 97.6 78 18 126/60 (82) 97 10/10/17 00:00 97.6 84 18 130/63 (85) 97 10/09/17 22:00 Nasal Cannula 4.00 10/09/17 20:00 97.6 78 18 127/62 (83) 97 10/09/17 19:14 10/09/17 19:00 97.6 78 18 127/62 (83) 97 10/09/17 18:46 87 28 124/61 (82) 95 Nasal Cannula 4.00 10/09/17 17:54 99 Nasal Cannula 3.00 10/09/17 16:48 87 25 143/64 (90) 98 Nasal Cannula 3.00 10/09/17 15:09 98 22 145/68 (93) 95 Nasal Cannula 3.00 I/O 10/09/17 10/09/17 10/09/17 10/10/17 10/10/17 10/10/17 07:00 15:00 23:00 07:00 15:00 23:00 Intake Total 500 ml 240 ml Balance 500 ml 240 ml Intake Oral 240 ml IV Total 500 ml # Voids 3 Result Diagram: 10/10/17 1133 10/10/17 0736 Imaging Last Impressions Chest X-Ray 10/09/17 1231 Signed Impressions: Service Date/Time: Monday, October 09, 2017 12:40 - CONCLUSION: Chronic left lower lobe infiltrates. Mild central vascular engorgement. Jboy Bell MD Abdomen/Pelvis CT 10/09/17 1231 Signed Impressions: Service Date/Time: Monday, October 09, 2017 15:27 - CONCLUSION: 1. Abnormal appearance to the lower pole left kidney with 1.8 cm smooth margined intermediate density lesion suggesting possible mass. 2. Expected findings post cholecystectomy. Joby Bell MD Objective Remarks General: Elderly female in no acute distress. Heart: Regular rate and rhythm. No murmur. Lungs: Decreased breath sounds in both bases. Mild scattered wheeze. Breathing is nonlabored. Abdomen: Soft, mild diffuse tenderness to palpation without rebound or guarding , nondistended. Extremities: No lower extremity edema. Psych: Alert and oriented. Neuro: Normal speech. No focal deficits noted. Procedures None Urinary Catheter: No Vascular Central Line Catheter: No A/P Problem List: (1) COPD exacerbation ICD Code: J44.1 - Chronic obstructive pulmonary disease with (acute) exacerbation Status: Acute (2) CHF (congestive heart failure) ICD Code: I50.9 - Heart failure, unspecified Status: Acute (3) Blood in stool ICD Code: K92.1 - Melena (4) Hypoxia ICD Code: R09.02 - Hypoxemia; G89.29 - Other chronic pain Status: Acute (5) Chronic abdominal pain ICD Code: R10.9 - Unspecified abdominal pain; G89.29 - Other chronic pain Status: Acute Assessment and Plan 1. Abdominal pain, dark stools: Patient has had multiple abdominal surgeries in the past and has chronic abdominal pain. She was noted to have anemia. GI consult is pending for evaluation of possible GI bleed. Continue pain control, PPI, Zofran. 2. Microcytic anemia: Possibly secondary to GI bleed. H&H low, but stable. Monitor labs. Transfuse if necessary. 3. CHF exacerbation: Echocardiogram ordered. BNP elevated. Continue Lasix. 4. COPD: Continue oxygen. Patient is on chronic home O2 at 3 L continuous. Continue prednisone, bronchodilators. 5. Anxiety: Valium as needed. 6. Hypothyroidism: Continue Synthroid. 7. Hypokalemia: Supplement potassium. Monitor labs. 8. Left lower pole renal mass: Incidental finding on CT. Outpatient follow-up. 9. Insomnia: Continue Ambien. 10. Chronic neck and back pain: Continue pain control. Continue home dose of baclofen. 11. Tobacco abuse: Patient has been counseled to quit smoking. 12. DVT prophylaxis: SCDs. Avoid chemical prophylaxis secondary to possible GI bleed. Problem Qualifiers (1) CHF (congestive heart failure): Qualified Codes: I50.9 - Heart failure, unspecified Itz Trevino MD October 10, 2017 14:22
--- NOTE | 2017-10-10 14:25 | PD.CONS ---
HPI History of Present Illness This is a 82 year old frail elderly female who entered the hospital on 10/09/2017 with admission diagnosis of hypoxia, chronic abdominal pain, and congestive heart failure. According to the record patient has had multiple gastrointestinal surgeries and has been treated for stomach ulcers and chronic abdominal pain nausea and a history of melena. According to the nurse that is caring for her she has had no melena to her knowledge and notes that stools are dark green today according to the record son states that patient has had some dark red to black stools over the past few weeks. Current hemoglobin is 8.6, normal WBC count is 7.2, normal LFTs and bilirubin count and low albumin 2.8. She also has iron deficiency anemia according to the labs. Currently patient is very drowsy and is unable to answer any simple questions during my exam she is moaning to any tactile stimulation. According to the record patient has been nauseated and unable to keep any food down. Patient does wear home O2 3 L nasal cannula and does have a history of COPD. Abdominal pelvic CT scan was done on 10/09/2017 show an abnormal appearance to the lower pole left kidney with a 1.8 cm smooth margined intermediate density lesion suggesting a possible mass. Expected findings post cholecystectomy. There is no family present. GI was consulted for her chronic abdominal pain and noted some possible dark tarry stools. PFSH Past Medical History COPD on home O2 3L CHF HTN HLD ? 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 Stomach ulcers Past Surgical History 2 cervical surgeries portions of intestine removed appendix gallbladder total hysterectomy eye surgery with implants Coded Allergies: levofloxacin (Unverified Allergy, Severe, HEADACHE, NAUSEA, VOMITING, 01/23) meperidine (Unverified Adverse Reaction, Unknown, HALLUCINATIONS, 01/23/17) Medications Administered Medications Medications (Trade) Dose Ordered Sig/Karen Route PRN Reason Start Time Stop Time Status Last Admin Dose Admin Ondansetron HCl (Zofran Inj) 4 mg Q6H PRN IVP NAUSEA OR VOMITING 10/09/17 17:45 10/09/17 23:15 Acetaminophen/ Hydrocodone Bitart (Hazel 10-325 Mg) 1 tab Q4H PRN PO PAIN SCALE 6 TO 10 10/09/17 17:45 10/09/17 23:15 Senna/Docusate Sodium (Shannon-Colace) 1 tab BID PO 10/09/17 21:00 10/10/17 08:40 Potassium Chloride (KCl) 20 meq DAILY PO 10/10/17 09:00 10/10/17 08:40 Furosemide (Lasix Inj) 20 mg DAILY IV PUSH 10/10/17 09:00 10/10/17 08:40 Pantoprazole Sodium (Protonix Inj) 40 mg Q12H IV PUSH 10/09/17 20:00 10/10/17 08:40 Montelukast Sodium (Singulair) 10 mg DAILY PO 10/10/17 09:00 10/10/17 08:41 Enalapril Maleate (Vasotec) 10 mg DAILY PO 10/10/17 09:00 10/10/17 08:40 Levothyroxine Sodium (Synthroid) 100 mcg DAILY@0600 PO 10/10/17 06:00 10/10/17 05:20 Baclofen (Lioresal) 10 mg TID PO 10/10/17 09:00 10/10/17 12:32 Prednisone (Deltasone) 40 mg DAILY PO 10/10/17 09:00 10/15/17 08:59 10/10/17 08:40 Albuterol Sulfate (Proair Hfa Inh) 2 puff TID INH 10/10/17 09:00 10/10/17 12:32 Family History Father: cancer 2 brothers: back problems Social History Tobacco: 1/2 PPD X40yrs Alcohol use: one Illicit drug use: denies GI Exam Vitals I&O Vital Signs Date Time Temp Pulse Resp B/P (MAP) Pulse Ox O2 Delivery O2 Flow Rate FiO2 10/10/17 12:00 98.7 92 19 151/67 (95) 96 10/10/17 08:46 97.3 80 17 153/68 (96) 95 10/10/17 04:00 97.6 78 18 126/60 (82) 97 10/10/17 00:00 97.6 84 18 130/63 (85) 97 10/09/17 22:00 Nasal Cannula 4.00 10/09/17 20:00 97.6 78 18 127/62 (83) 97 10/09/17 19:14 10/09/17 19:00 97.6 78 18 127/62 (83) 97 10/09/17 18:46 87 28 124/61 (82) 95 Nasal Cannula 4.00 10/09/17 17:54 99 Nasal Cannula 3.00 10/09/17 16:48 87 25 143/64 (90) 98 Nasal Cannula 3.00 10/09/17 15:09 98 22 145/68 (93) 95 Nasal Cannula 3.00 I/O 10/09/17 10/09/17 10/09/17 10/10/17 10/10/17 10/10/17 07:00 15:00 23:00 07:00 15:00 23:00 Intake Total 500 ml 240 ml Balance 500 ml 240 ml Intake Oral 240 ml IV Total 500 ml # Voids 3 Imaging Last Impressions Chest X-Ray 10/09/17 1231 Signed Impressions: Service Date/Time: Monday, October 09, 2017 12:40 - CONCLUSION: Chronic left lower lobe infiltrates. Mild central vascular engorgement. Joby Bell MD Abdomen/Pelvis CT 10/09/17 1231 Signed Impressions: Service Date/Time: Monday, October 09, 2017 15:27 - CONCLUSION: 1. Abnormal appearance to the lower pole left kidney with 1.8 cm smooth margined intermediate density lesion suggesting possible mass. 2. Expected findings post cholecystectomy. Joby Bell MD Laboratory Test 10/09/17 21:23 10/10/17 07:36 10/10/17 11:33 Lactic Acid Level 0.7 mmol/L Blood Urea Nitrogen 8 MG/DL Creatinine 0.29 MG/DL Random Glucose 96 MG/DL Total Protein 6.0 GM/DL Albumin 2.8 GM/DL Calcium Level 8.0 MG/DL Alkaline Phosphatase 120 U/L Aspartate Amino Transf (AST/SGOT) 16 U/L Alanine Aminotransferase (ALT/SGPT) 12 U/L Total Bilirubin 0.2 MG/DL Sodium Level 137 MEQ/L Potassium Level 4.3 MEQ/L Chloride Level 91 MEQ/L Carbon Dioxide Level 42.8 MEQ/L Anion Gap 3 MEQ/L Estimat Glomerular Filtration Rate 221 ML/MIN Iron Level 6 MCG/DL Total Iron Binding Capacity 487 MCG/DL Percent Iron Saturation 1.2 % White Blood Count 7.2 TH/MM3 Red Blood Count 3.86 MIL/MM3 Hemoglobin 8.6 GM/DL Hematocrit 29.7 % Mean Corpuscular Volume 77.0 FL Mean Corpuscular Hemoglobin 22.4 PG Mean Corpuscular Hemoglobin Concent 29.0 % Red Cell Distribution Width 19.0 % Platelet Count 201 TH/MM3 Mean Platelet Volume 8.3 FL Neutrophils (%) (Auto) 86.1 % Lymphocytes (%) (Auto) 6.3 % Monocytes (%) (Auto) 6.5 % Eosinophils (%) (Auto) 0.1 % Basophils (%) (Auto) 1.0 % Neutrophils # (Auto) 6.2 TH/MM3 Lymphocytes # (Auto) 0.4 TH/MM3 Monocytes # (Auto) 0.5 TH/MM3 Eosinophils # (Auto) 0.0 TH/MM3 Basophils # (Auto) 0.1 TH/MM3 CBC Comment DIFF FINAL Differential Comment Physical Examination HEENT: Pale, frail, normocephalic; atraumatic; no jaundice. NECK: Neck is supple, thin CHEST: Generalized diminished breath sounds but no obvious rhonchi or wheezing CARDIAC: Distant, regular ABDOMEN: Soft, nondistended, increased moaning with light palpation with some possible diffuse discomfort, bowel sounds are present in all four quadrants. EXTREMITIES: No lower extremity edema. SKIN: Pale, no rash; no jaundice. 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 Nurse denies any dark melena stools today states they are dark green, according to the record son states dark red to black off and on for the last few weeks. Also noted chronic diarrhea off the known in the record but no diarrhea none today. According to the record her last EGD and colonoscopy were about [address] Ryder FRITZ Iron deficiency anemia per patient's labs Anemia with current hemoglobin 8.6, 7.2 WBC count. If patient has been on iron supplements or vitamins or received any Pepto-Bismol, unknown, this could contribute to dark stools Patient has normal bilirubin and LFT counts albumin low at 2.8. Currently patient is very lethargic and unable to answer simple questions most of my information is being gathered from the record. Nurse also states no melena stools today, dark green According to CT scan that was done on 10/09/2017 with abnormal left kidney lesion with possible mass. Possible evaluation? Plan Diet as tolerated but caution due to lethargy Hemoccult stool Monitor labs with special attention to hemoglobin PPI Antiemetics Monitor intake and output Consider EGD if patient is symptomatic with possible melena stools or GI bleeding. Further recommendations to follow Patient was seen per myself and Dr. Gaytan, note was written on his behalf Monie Stevens October 10, 2017 14:25
--- NOTE | 2017-10-10 15:52 | PD.CONS ---
HPI Service Urology Consult Requested By Dr Trevino Reason for Consult Left renal lesion Primary Care Physician Unknown Diagnosis: (1) COPD exacerbation ICD Code: J44.1 - Chronic obstructive pulmonary disease with (acute) exacerbation (2) CHF (congestive heart failure) ICD Code: I50.9 - Heart failure, unspecified (3) Blood in stool ICD Code: K92.1 - Melena (4) Hypoxia ICD Code: R09.02 - Hypoxemia; G89.29 - Other chronic pain (5) Chronic abdominal pain ICD Code: R10.9 - Unspecified abdominal pain; G89.29 - Other chronic pain (6) Lesion of left [place] kidney ICD Code: N28.9 - Disorder of kidney and ureter, unspecified History of Present Illness 82-year-old female with past medical history significant for CHF, aortic regurgitation, anasarca, COPD on home O2, depression, hypothyroidism, lumbar/ cervical radiculopathy, multiple gastrointestinal surgeries, chronic abdominal pain, and stomach ulcers who presented to the emergency department on 10/09/17 with complaints of worsening abdominal pain, nausea, black stools, and overall not feeling well. She is not a good historian so other doctor's notes were used to write HPI as well. Patient also noted to be in mild respiratory distress at ER. Son reports that patient wears 3 L of oxygen at home for her COPD and is on multiple inhalers however does not regularly use albuterol as these will trigger migraines. She does report that she has been chewing on more ice chips than usual recently. She has also been taking Lasix at home as instructed by her PCP, at times she will take 40 mg and at times only 20.She denies any fevers, chills, or chest pain. Urology consulted for a finding of left renal lesion on CT scan 1.8cm in size. Pt has no c/o. no f/c/n/v, no related pain, no hematuria. Voids mostly in diaper due to UUI. Labs are ok in terms of Cr level and WBCs, but has anemia. Urine is normal. She is being evaluated for possible GI bleeding and COPD/CHF with SOB Review of Systems Except as stated in HPI: all other systems reviewed are Neg Past Family Social History Past Medical History COPD on home O2 3L CHF HTN HLD ? 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 Stomach ulcers Past Surgical History 2 cervical surgeries portions of intestine removed appendix gallbladder total hysterectomy eye surgery with implants Allergies: Coded Allergies: levofloxacin (Unverified Allergy, Severe, HEADACHE, NAUSEA, VOMITING, 01/23) meperidine (Unverified Adverse Reaction, Unknown, HALLUCINATIONS, 01/23/17) Family History Father: cancer 2 brothers: back problems Social History Tobacco: 1/2 PPD X40yrs Alcohol use: occasional Illicit drug use: denies Physical Exam Vital Signs Date Time Temp Pulse Resp B/P (MAP) Pulse Ox O2 Delivery O2 Flow Rate FiO2 10/10/17 12:00 98.7 92 19 151/67 (95) 96 10/10/17 08:46 97.3 80 17 153/68 (96) 95 10/10/17 04:00 97.6 78 18 126/60 (82) 97 10/10/17 00:00 97.6 84 18 130/63 (85) 97 10/09/17 22:00 Nasal Cannula 4.00 10/09/17 20:00 97.6 78 18 127/62 (83) 97 10/09/17 19:14 10/09/17 19:00 97.6 78 18 127/62 (83) 97 10/09/17 18:46 87 28 124/61 (82) 95 Nasal Cannula 4.00 10/09/17 17:54 99 Nasal Cannula 3.00 10/09/17 16:48 87 25 143/64 (90) 98 Nasal Cannula 3.00 Physical Exam GENERAL: This is a well-nourished, well-developed patient, in no apparent distress. SKIN: No rashes, ecchymoses or lesions. Cool and dry. HEAD: Atraumatic. Normocephalic. CARDIOVASCULAR: Regular rate and rhythm without murmurs, gallops, or rubs. RESPIRATORY: Breath sounds diminished, + Wheezing GASTROINTESTINAL: Abdomen soft, nondistended. No hepato-splenomegaly, or palpable masses. Slightly tender GENITOURINARY: Bladder is not distended, no CVAT MUSCULOSKELETAL: Extremities without clubbing, cyanosis, or edema. . NEUROLOGICAL: Awake and alert. Cranial nerves II through XII intact. Lab results reviewed: Yes Laboratory Tests Test 10/09/17 21:23 10/10/17 07:36 10/10/17 11:33 Lactic Acid Level 0.7 Blood Urea Nitrogen 8 Creatinine 0.29 Random Glucose 96 Total Protein 6.0 Albumin 2.8 Calcium Level 8.0 Alkaline Phosphatase 120 Aspartate Amino Transf (AST/SGOT) 16 Alanine Aminotransferase (ALT/SGPT) 12 Total Bilirubin 0.2 Sodium Level 137 Potassium Level 4.3 Chloride Level 91 Carbon Dioxide Level 42.8 Anion Gap 3 Estimat Glomerular Filtration Rate 221 Iron Level 6 Total Iron Binding Capacity 487 Percent Iron Saturation 1.2 White Blood Count 7.2 Red Blood Count 3.86 Hemoglobin 8.6 Hematocrit 29.7 Mean Corpuscular Volume 77.0 Mean Corpuscular Hemoglobin 22.4 Mean Corpuscular Hemoglobin Concent 29.0 Red Cell Distribution Width 19.0 Platelet Count 201 Mean Platelet Volume 8.3 Neutrophils (%) (Auto) 86.1 Lymphocytes (%) (Auto) 6.3 Monocytes (%) (Auto) 6.5 Eosinophils (%) (Auto) 0.1 Basophils (%) (Auto) 1.0 Neutrophils # (Auto) 6.2 Lymphocytes # (Auto) 0.4 Monocytes # (Auto) 0.5 Eosinophils # (Auto) 0.0 Basophils # (Auto) 0.1 CBC Comment DIFF FINAL Differential Comment Result Diagram: 10/10/17 1133 10/10/17 0736 Personally reviewed images: Yes Imaging Last Impressions Chest X-Ray 10/09/17 1231 Signed Impressions: Service Date/Time: Monday, October 09, 2017 12:40 - CONCLUSION: Chronic left lower lobe infiltrates. Mild central vascular engorgement. Joby Bell MD Abdomen/Pelvis CT 10/09/17 1231 Signed Impressions: Service Date/Time: Monday, October 09, 2017 15:27 - CONCLUSION: 1. Abnormal appearance to the lower pole left kidney with 1.8 cm smooth margined intermediate density lesion suggesting possible mass. 2. Expected findings post cholecystectomy. Joby Bell MD Assessment and Plan Assessment and Plan 82y.o F with other medical issues. CT scan found possible left 1.8cm renal mass - Continue care as per primary team - No acute intervention - Renal US to evaluate mass with another study - Renal mass less than 3cm can be observed and does not require any intervention - Pt will need to f/u with Urologist after discharge Urology remains available as needed. Discussed Condition With Dr Lawindy attending who agrees with this plan Problem Qualifiers (1) CHF (congestive heart failure): Qualified Codes: I50.9 - Heart failure, unspecified Malik Tillman October 10, 2017 15:52
[2017-10-10] MEDS: TIOTROPIUM BROMIDE 18 MCG INH INH SCH (17:17)
[2017-10-10] MEDS ORDERED: SUMAtriptan SUCCINATE 50 MG TAB PO PRN (18:45)
--- NOTE | 2017-10-10 19:16 | RADRPT ---
EXAM DATE/TIME: 10/10/2017 18:29 [facility] COMPARISON: CT ABDOMEN & PELVIS W CONTRAST, October 09, 2017, 15:27. INDICATIONS : Abnormal CT. MEDICAL HISTORY : Stroke. Congestive heart failure. Hypercholesterolemia. Thyroid disease. Glasses. Anticoagulant thera py. Chest pain. Hypertension. COPD. Dyspnea. Gastroesophageal reflux disease. Kidney stones. Arthriti s. Depression. Anxiety. SURGICAL HISTORY : Appendectomy. Cholecystectomy. Hysterectomy. Cervical fusion. ENCOUNTER: Initial ACUITY: 1 day PAIN SCORE: 3/10 LOCATION: Bilateral flank MEASUREMENTS: RIGHT KIDNEY: 9.9 x 5.1 x 4.7 cm LEFT KIDNEY: 10.6 x 4.2 x 4.3 cm FINDINGS: RIGHT KIDNEY: Renal cortex is normal in thickness and echotexture. No hydronephrosis, stone, or mass. LEFT KIDNEY: Renal cortex is normal in thickness and echotexture. No hydronephrosis or stone. Questionable mass c entrally measuring 2.7 x 2.2 x 1.8 cm. Minimally complex cyst along the lower pole left kidney. This measures 13 x 14 x 12 mm. BLADDER: Within normal limits given the degree of distension. CONCLUSION: 1. Questionable central mass left kidney measuring 2.7 cm. Contrasted MRI recommended. 2. Minimally complex cyst lower pole left kidney Abhijeet Mahan MD on October 10, 2017 at 19:11 Board Certified Radiologist. This report was verified electronically.
[2017-10-10] MEDS: SODIUM CHLORIDE 0.9% FLUSH 10 ML FLUSH IV FLUSH PRN (20:43)
[2017-10-10] MEDS: ZOLPIDEM TARTRATE 10 MG TAB PO SCH (20:43)
[2017-10-11] VITALS (7 sets, daily range): BP systolic 121–149; BP diastolic 50–71; PULSE 79–86; RESP 18–24; TEMP 98–98.6; O2SAT 91–100
[2017-10-11] MEDS: ACETAMINOPHEN/HYDROcodone 325 MG/10 MG TAB PO PRN ×4 (05:37→23:01)
[2017-10-11] MEDS: LEVOTHYROXINE SODIUM 100 MCG TAB PO SCH (05:37)
[2017-10-11 06:52] LABS: HEMATOCRIT 27.2 % (35.0-46.0); MEAN CELL VOLUME 76.8 FL (80.0-100.0); MEAN CORPUSCULAR HEMOGLOBIN 22.6 PG (27.0-34.0); MEAN PLATELET VOLUME 8.7 FL (7.0-11.0); PLATELET COUNT 163 TH/MM3 (150-450); RED BLOOD COUNT 3.54 MIL/MM3 (4.00-5.30); WHITE BLOOD COUNT 8.5 TH/MM3 (4.0-11.0)
[2017-10-11 07:03] LABS: MEAN CORPUSCULAR HGB CONC 29.4 % (32.0-36.0)
[2017-10-11 07:17] LABS: BICARBONATE 41.6 MEQ/L (21.0-32.0); CALCIUM 8.4 MG/DL (8.5-10.1); CREATININE 0.41 MG/DL (0.50-1.00)
[2017-10-11 09:12] LABS: BASOPHILS 1 % (0-2); LYMPHOCYTES 5 % (9-44); MONOCYTES 3 % (0-8); NEUTROPHIL # MANUAL DIFF 7.7 TH/MM3 (1.8-7.7); POLYS (SEG NEUTROPHILS) 91 % (16-70)
[2017-10-11] MEDS: MONTELUKAST SODIUM 10 MG TAB PO SCH (10:08)
[2017-10-11] MEDS: DOCUSATE SODIUM 50 MG/SENNA 8.6 MG TAB PO SCH ×2 (10:08→20:59)
[2017-10-11] MEDS: BACLOFEN 10 MG TAB PO SCH ×3 (10:08→19:27)
[2017-10-11] MEDS: predniSONE 20 MG TAB PO SCH (10:08)
[2017-10-11] MEDS: FUROSEMIDE 20 MG/2 ML VIAL IV PUSH SCH (10:09)
[2017-10-11] MEDS: POTASSIUM CHLORIDE 20 MEQ CONTROLLED RELEASE TAB PO SCH (10:09)
[2017-10-11] MEDS: PANTOPRAZOLE SODIUM 40 MG VIAL IV PUSH SCH ×2 (10:10→20:59)
[2017-10-11] MEDS: ALBUTEROL SULFATE 90 MCG/ACT HFA 8 GM INHALER INH SCH ×3 (10:10→19:28)
[2017-10-11] MEDS: FLUTICASONE PROPIONATE 50 MCG/ACT 16 GM NASAL SPRAY NASAL SCH (10:10)
[2017-10-11] MEDS: ENALAPRIL MALEATE 10 MG TAB PO SCH (10:11)
[2017-10-11] MEDS: TIOTROPIUM BROMIDE 18 MCG INH INH SCH (10:11)
[2017-10-11] MEDS: ONDANSETRON HCL 4 MG/2 ML VIAL IVP PRN (12:00)
--- NOTE | 2017-10-11 13:27 | HHI.GIFU ---
Subjective Remarks Pt resting in bed, lying on her side Complaining of generalized abdominal pain, states chronic 3 BMs documented since yesterday Reports some nausea, denies vomiting (Didi Knox) Objective Vitals I&O Vital Signs Date Time Temp Pulse Resp B/P (MAP) Pulse Ox O2 Delivery O2 Flow Rate FiO2 10/11/17 06:53 22 10/11/17 04:00 98.1 85 19 138/52 (80) 100 10/11/17 00:00 98.3 82 19 131/59 (83) 100 10/10/17 20:15 Nasal Cannula 4.00 10/10/17 20:00 98.2 88 20 117/55 (75) 92 10/10/17 19:41 98 21 10/10/17 16:00 98.1 81 19 115/56 (75) 98 I/O 10/10/17 10/10/17 10/10/17 10/11/17 10/11/17 10/11/17 07:00 15:00 23:00 07:00 15:00 23:00 Intake Total 240 ml 240 ml Balance 240 ml 240 ml Intake Oral 240 ml 240 ml # Voids 3 3 Laboratory Laboratory Tests Test 10/11/17 05:20 White Blood Count 8.5 Red Blood Count 3.54 Hemoglobin 8.0 Hematocrit 27.2 Mean Corpuscular Volume 76.8 Mean Corpuscular Hemoglobin 22.6 Mean Corpuscular Hemoglobin Concent 29.4 Red Cell Distribution Width 19.0 Platelet Count 163 Mean Platelet Volume 8.7 CBC Comment AUTO DIFF Differential Total Cells Counted 100 Neutrophils % (Manual) 91 Lymphocytes % 5 Monocytes % 3 Basophils % 1 Neutrophils # (Manual) 7.7 Differential Comment FINAL DIFF MANUAL Platelet Estimate NORMAL Platelet Morphology Comment NORMAL Blood Urea Nitrogen 15 Creatinine 0.41 Random Glucose 88 Calcium Level 8.4 Sodium Level 136 Potassium Level 5.0 Chloride Level 92 Carbon Dioxide Level 41.6 Anion Gap 2 Estimat Glomerular Filtration Rate 149 Physical Exam HEENT: Normocephalic; atraumatic CHEST: Diffuse wheezing - 4 L O2 via NC CARDIAC: RRR ABDOMEN: Soft, diffuse tenderness, bowel sounds active EXTREMITIES: No clubbing, cyanosis, or edema. SKIN: Normal; no rash; no jaundice. 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 Expected findings post cholecystectomy. 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 Also has history of PUD. Last EGD and colonoscopy [address] Del Cid - Constipation- takes chronic laxatives which cause diarrhea- states would rather have diarrhea then be constipated - Nausea- chronic, states occasional emesis in the morning. Denies relation to food. - Anemia- Microcytic, reports intermittent black stools but does not think she has had any recently Iron-6 [id number] %sat-01.2 Plan: Pt unlikely to tolerate prep for colonoscopy, will do EGD tomorrow Obtain consent NPO after MN Monitor H/H Transfuse as needed Protonix Stool studies Further recommendations based on findings of above Pt has been seen and examined by myself and Dr. Gaytan and this note is written on his behalf (Didi Knox) Plan Patient was seen and examined, agree with above note, patient would agree to have an upper endoscopy tomorrow so we will obtain that the prep for colonoscopy (Tash Gaytan MD) Didi Knox October 11, 2017 13:27 Tash Gaytan MD October 11, 2017 20:22
--- NOTE | 2017-10-11 15:06 | HHI.PR ---
Subjective Remarks Follow up GI bleed, CHF, COPD. Patient states that she feels "not very good" today. She just returned from echocardiogram. Reports pain "all over". Feels hungry. No nausea or vomiting. No chest pain. She does report dyspnea with any exertion. Objective Vitals Vital Signs Date Time Temp Pulse Resp B/P (MAP) Pulse Ox O2 Delivery O2 Flow Rate FiO2 10/11/17 14:50 21 10/11/17 12:00 98.6 79 22 121/50 (73) 98 10/11/17 08:00 98.5 86 20 137/62 (87) 94 10/11/17 08:00 Nasal Cannula 4.00 10/11/17 06:53 22 10/11/17 04:00 98.1 85 19 138/52 (80) 100 10/11/17 00:00 98.3 82 19 131/59 (83) 100 10/10/17 20:15 Nasal Cannula 4.00 10/10/17 20:00 98.2 88 20 117/55 (75) 92 10/10/17 19:41 98 21 10/10/17 16:00 98.1 81 19 115/56 (75) 98 I/O 10/10/17 10/10/17 10/10/17 10/11/17 10/11/17 10/11/17 07:00 15:00 23:00 07:00 15:00 23:00 Intake Total 240 ml 240 ml Balance 240 ml 240 ml Intake Oral 240 ml 240 ml # Voids 3 3 Result Diagram: 10/11/17 0520 10/11/17 0520 Imaging Last Impressions Renal Ultrasound 10/10/17 0000 Signed Impressions: Service Date/Time: Tuesday, October 10, 2017 18:29 - CONCLUSION: 1. Questionable central mass left kidney measuring 2.7 cm. Contrasted MRI recommended. 2. Minimally complex cyst lower pole left kidney Abhijeet Mahan MD Chest X-Ray 10/09/17 1231 Signed Impressions: Service Date/Time: Monday, October 09, 2017 12:40 - CONCLUSION: Chronic left lower lobe infiltrates. Mild central vascular engorgement. Joby Bell MD Abdomen/Pelvis CT 10/09/17 1231 Signed Impressions: Service Date/Time: Monday, October 09, 2017 15:27 - CONCLUSION: 1. Abnormal appearance to the lower pole left kidney with 1.8 cm smooth margined intermediate density lesion suggesting possible mass. 2. Expected findings post cholecystectomy. Joby Bell MD Objective Remarks General: Elderly female in no acute distress. Heart: Regular rate and rhythm. No murmur. Lungs: Decreased breath sounds in both bases. Mild scattered wheeze. Breathing is nonlabored. Abdomen: Soft, mild diffuse tenderness to palpation without rebound or guarding , nondistended. Extremities: No lower extremity edema. Psych: Alert and oriented. Neuro: Normal speech. No focal deficits noted. Procedures None Urinary Catheter: No Vascular Central Line Catheter: No A/P Problem List: (1) COPD exacerbation ICD Code: J44.1 - Chronic obstructive pulmonary disease with (acute) exacerbation Status: Acute (2) CHF (congestive heart failure) ICD Code: I50.9 - Heart failure, unspecified Status: Acute (3) Blood in stool ICD Code: K92.1 - Melena (4) Hypoxia ICD Code: R09.02 - Hypoxemia; G89.29 - Other chronic pain Status: Acute (5) Chronic abdominal pain ICD Code: R10.9 - Unspecified abdominal pain; G89.29 - Other chronic pain Status: Acute (6) Lesion of left [place] kidney ICD Code: N28.9 - Disorder of kidney and ureter, unspecified Assessment and Plan 1. Abdominal pain, dark stools: Patient has had multiple abdominal surgeries in the past and has chronic abdominal pain. She was noted to have anemia. Appreciate GI recommendations. Planning for EGD tomorrow. Continue pain control, PPI, Zofran. 2. Microcytic anemia: Possibly secondary to GI bleed. H&H low, but stable. Monitor labs. Transfuse if necessary. 3. CHF exacerbation: Echocardiogram ordered. BNP elevated. Continue Lasix. 4. COPD: Continue oxygen. Patient is on chronic home O2 at 3 L continuous. Continue prednisone, bronchodilators. 5. Anxiety: Valium as needed. 6. Hypothyroidism: Continue Synthroid. 7. Hypokalemia: Improved. 8. Left lower pole renal mass: Incidental finding on CT. Appreciate urology recommendations. Follow-up as outpatient. 9. Insomnia: Continue Ambien. 10. Chronic neck and back pain: Continue pain control. Continue home dose of baclofen. 11. Tobacco abuse: Patient has been counseled to quit smoking. 12. DVT prophylaxis: SCDs. Avoid chemical prophylaxis secondary to possible GI bleed. 13. Consult palliative care for assistance with symptom control and for clarification of goals of care. Discharge Planning Pending clinical improvement. Problem Qualifiers (1) CHF (congestive heart failure): Qualified Codes: I50.9 - Heart failure, unspecified Itz Trevino MD October 11, 2017 15:06
--- NOTE | 2017-10-11 16:34 | PD.CONS ---
Consult Service Palliative Care Consult Requested By [facility] Primary Care Physician Unknown Reason for Consultation a. To assist with evaluation and management of symptoms including:pain b. To assist medical decision maker(s) with: better understanding of current medical conditions; weighing benefits/burdens of medical treatment options; making medical treatment decisions. HPI History of Present Illness Patient is a 82-year-old that came to the emergency department on 10/09/2017 from the physician's office for evaluation of chronic abdominal pain. Patient also has significant history of CHF and COPD. Patient reportedly has severe epigastric abdominal pain for approximately 1 year. Patient underwent outpatient endoscopy and was placed on Carafate. However patient continues to complain of generalized abdominal pain. Is reported by the patient in the ER the patient hurts from head to toe. Patient has had multiple abdominal surgeries including hysterectomy, appendectomy, cholecystectomy, removal of small bowels. Patient has a history of chronic back pain. In the ER: * Temperature is 90.1, pulse is 100, respirations 28, blood pressure is 179/77 * WBCs 9.7, hemoglobin is 8.6, hematocrit is 28.3, platelet is 228 * Sodium is 137, potassium 3.3, chloride 93, bicarb is 30.1, BUN is 9, creatinine 0.44 * AST is 13, ALT is 11, alk phos is 126 * Albumin 3.1 * BNP is 1073 * Chest x-ray shows chronic left lower lobe infiltrates. Mild central vascular engorgement. * CT of the abdomen and the pelvis shows a 1.8 cm smooth margined intermediate density lesion suggests thinning possible mass. * Abnormal appearance to the lower pole left kidney with 1.8 cm smooth margins and intermediate density lesion suggesting possible mass. Expected finding post cholecystectomy. Patient was admitted to the hospital with CHF and hypoxia, elevated heart rate and lactic acid. Is also a possible left kidney mass. Patient is transferred to hospitalist care. There is report of change in stool color. GI was consulted for further evaluation of possible GI bleed. Patient given IV fluids, morphine and Berwyn for breakthrough pain. 2D echo was ordered. Lasix was given. Nebulizers, O2 was provided. Patient's Combivent and Advair and Singulair was continued. 10/10/2017-GI was consulted for her chronic abdominal pain and possibly dark tarry stool. GI ordered Hemoccult of stool. Labs is monitored. PPI given. GI noted will consider EGD if patient is symptomatic with possible melena stools. Urology was also consulted. They have stated that the renal mass less than 3 cm time be observed but does not require any intervention. Recommend follow-up with urologist after discharge. 10/11/2017-patient reports some nausea, denies vomiting. Continue to complain about generalized abdominal pain. Patient has had 3 BMs documented since yesterday. GI stated that patient unlikely to tolerate prep for colonoscopy. GI will do EGD tomorrow. Patient did her echocardiogram today. Results are still pending. Palliative care was consulted to provide assistance in pain management and review goals of treatment. Today patient has had 1 dose of morphine 2 mg IV. Patient has also had 2 doses of Berwyn 10 mg p.o. every 4 as needed pain. Patient received Zofran 4 mg every 6 hours as needed nausea and has had 1 dose. Patient also is on prednisone daily. On my visit pt has abdominal pain that rate as 10/10, generalized, constant, dull. Pt also complain of back pain, and neck. Pain. She has endorse she has had pain for the past 18 years, its been chronic. She endorse no one knows why she is in such pain. She states every time I come to the hospital, they try to get wean me off pain meds. She states she has had hospitalization in [facility]. Pt's sons at bedside. In terms of pain managment, I had a very long discussion with the patient and family. I review with them there is no "perfect" pain medications and it is very difficulty to bring the pain down to 0 with no side effects. Pt with end stage condition who need liberalization of pain meds, where goals of treatment is purely comfort oriented is mostly in a hospice setting. Given pt's ongoing decision is to proceed with her procedure and medical workup , chronic pain history in excess of 10 years, underlying chronic condition such as copd and chf where pt can decompensate, realistically I don't think I can bring the pain score down to 0 without side effects. Initial step would be to get pain score to 6-7/10. That may be as reasonable as we can get during this hospitalization. Expectation was reviewed with pt and family and they seem amenable. At this point pt is a full code, She as well as the sons want continue workup and treatment as this point, so goals of care is not hospice appropriate. Given pt's currently is npo, the adjustment I will make will be pt's iv morphine. Given pt's usually take 10 mg of hydrocodone at home po. 2 mg of IV morphine is likely insufficient. We will increase that today. Titratition of oral meds will need to commence after EGD. I suspect given pt's chronic pain history, she has a lot of tolerance to pain meds. Likely will need to change it another class of opiates such as oxycodone. Function/Cognitive Trajectory copd, dependent of O2 3L. She has had chronic pain for many years. She gets dyspneic on exertion. There is no weight loss, and pt state she has been stable. Review of Systems ROS Limitations: Clinical Condition Constitutional: COMPLAINS OF: Fatigue, DENIES: Weight loss Endocrine: DENIES: Heat/cold intolerance Eyes: DENIES: Eye inflammation Ears, nose, mouth, throat: DENIES: Vertigo Respiratory: COMPLAINS OF: Shortness of breath Cardiovascular: COMPLAINS OF: Dyspnea on Exertion, DENIES: Palpitations Gastrointestinal: COMPLAINS OF: Abdominal pain, Black stools Musculoskeletal: COMPLAINS OF: Muscle aches, Stiffness, Back pain Integumentary: DENIES: Abnormal pigmentation Hematologic/Lymphatics: DENIES: Lymphadenopathy Neurologic: COMPLAINS OF: Headache (migraines) Psychiatric: DENIES: Anxiety, Confusion Past Family Social History Coded Allergies: levofloxacin (Unverified Allergy, Severe, HEADACHE, NAUSEA, VOMITING, 01/23) meperidine (Unverified Adverse Reaction, Unknown, HALLUCINATIONS, 01/23/17) Past Medical History COPD on home O2 3L CHF HTN HLD ? 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 Stomach ulcers Past Surgical History 2 cervical surgeries portions of intestine removed appendix gallbladder total hysterectomy eye surgery with implants Reported Medications Combivent Duo nebs Spiriva Comparison of Toradol Baclofen Enalapril Diazepam Ambien Imitrex Furosemide Advair Singular Vigamox Zofran Protonix Levothyroxine Lidocaine patch daily Current Medications Medications (Trade) Dose Ordered Sig/Karen Route Start Time Stop Time Status Last Admin (NS Flush) 2 ml UNSCH PRN IV FLUSH 10/09/17 12:45 10/10/17 20:43 (Tylenol) 650 mg Q4H PRN PO 10/09/17 17:45 (Zofran Inj) 4 mg Q6H PRN IVP 10/09/17 17:45 10/11/17 12:00 (Berwyn 10-325 Mg) 1 tab Q4H PRN PO 10/09/17 17:45 10/11/17 10:11 (Narcan Inj) 0.4 mg UNSCH PRN IV PUSH 10/09/17 17:45 (Shannon-Colace) 1 tab BID PO 10/09/17 21:00 10/11/17 10:08 (Milk Of Magnesia Liq) 30 ml Q12H PRN PO 10/09/17 17:45 (Senokot) 17.2 mg Q12H PRN PO 10/09/17 17:45 (Dulcolax Supp) 10 mg DAILY PRN RECTAL 10/09/17 17:45 (Lactulose Liq) 30 ml DAILY PRN PO 10/09/17 17:45 (KCl) 20 meq DAILY PO 10/10/17 09:00 Future Hold 10/11/17 10:09 (Lasix Inj) 20 mg DAILY IV PUSH 10/10/17 09:00 10/11/17 10:09 (Protonix Inj) 40 mg Q12H IV PUSH 10/09/17 20:00 10/11/17 10:10 (Duoneb Neb) 1 ampule Q4HR NEB PRN NEB 10/09/17 17:45 (Morphine Inj) 2 mg Q3H PRN IV PUSH 10/09/17 18:15 10/11/17 06:53 (Singulair) 10 mg DAILY PO 10/10/17 09:00 10/11/17 10:08 (Vasotec) 10 mg DAILY PO 10/10/17 09:00 10/11/17 10:11 (Synthroid) 100 mcg DAILY@0600 PO 10/10/17 06:00 10/11/17 05:37 (Lioresal) 10 mg TID PO 10/10/17 09:00 10/11/17 10:08 (Valium) 10 mg TID PRN PO 10/09/17 18:45 (Ambien) 10 mg HS PO 10/09/17 21:00 10/10/17 20:43 (Berwyn 5-325 Mg) 1 tab Q4H PRN PO 10/09/17 18:45 (Deltasone) 40 mg DAILY PO 10/10/17 09:00 10/15/17 08:59 10/11/17 10:08 (Symbicort 160-4.5 Mcg Inh) 2 puff BID PRN INH 10/09/17 19:15 (Proair Hfa Inh) 2 puff TID INH 10/10/17 09:00 10/11/17 10:10 (Spiriva Inh) 18 mcg DAILY INH 10/10/17 09:00 10/11/17 10:11 (Imitrex) 100 mg DAILY PRN PO 10/10/17 18:45 (Flonase Roderick Spr) 1 spray DAILY NASAL 10/11/17 09:00 10/11/17 10:10 Family History Father: cancer 2 brothers: back problems Substance Use Tobacco: Half pack per day for 40 years Alcohol: No Prescription med abuse: No Illicits: No Psychosocial History Originally from [place], [place]. - spouse from cancer. Have 2 sons. 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 Living Will: Never completed Health Care Surrogate: Never completed Durable Power of [employer] Laborer: Never completed Physical Exam Vital Signs Date Time Temp Pulse Resp B/P (MAP) Pulse Ox O2 Delivery O2 Flow Rate FiO2 10/11/17 14:50 21 10/11/17 12:00 98.6 79 22 121/50 (73) 98 10/11/17 08:00 98.5 86 20 137/62 (87) 94 10/11/17 08:00 Nasal Cannula 4.00 10/11/17 06:53 22 10/11/17 04:00 98.1 85 19 138/52 (80) 100 10/11/17 00:00 98.3 82 19 131/59 (83) 100 10/10/17 20:15 Nasal Cannula 4.00 10/10/17 20:00 98.2 88 20 117/55 (75) 92 10/10/17 19:41 98 21 Exam Draft CONSTITUTIONAL/GENERAL: This is an adequately nourished patient, in no apparent distress. TUBES/LINES/DRAINS: SKIN: No jaundice, rashes, or lesions. Ecchymoses on upper extremities. No wounds seen anteriorly. Skin temperature appropriate. Not diaphoretic. HEAD: Atraumatic. Normocephalic. EYES: Pupils equal and round and reactive. Extraocular motions intact. No scleral icterus. No injection or drainage. Fundi not examined. ENT: Hearing grossly normal. Nose without bleeding or purulent drainage. Throat without visible erythema, exudates, masses, or lesions. NECK: Trachea midline. Supple, nontender. No palpable thyroid enlargement or nodularity. CARDIOVASCULAR: Regular rate and rhythm without murmurs, gallops, or rubs. No JVD. Peripheral pulses symmetric. RESPIRATORY/CHEST: Symmetric, unlabored respirations. Clear to auscultation. Breath sounds equal bilaterally. No wheezes, rales, or rhonchi. GASTROINTESTINAL: Abdomen soft, non-tender, nondistended. No hepato-splenomegaly , or palpable masses. No guarding. Bowel sounds present. GENITOURINARY: Without palpable bladder distension. Johnson catheter in place. MUSCULOSKELETAL: Extremities without clubbing, cyanosis, or edema. No joint tenderness or effusion noted. No calf tenderness. No mottling or clubbing. LYMPHATICS: No palpable cervical or supraclavicular adenopathy. NEUROLOGICAL: Awake and alert. Motor and sensory grossly within normal limits. Follows commands. Cognitively sharp. Moves all extremities. PSYCHIATRIC: No obvious anxiety/depression. no apparent hallucinations or other psychotic thought process. Diagnostic Tests Laboratory Laboratory Tests Test 10/09/17 13:00 10/09/17 13:05 10/09/17 21:23 10/10/17 07:36 White Blood Count 9.7 TH/MM3 (4.0-11.0) Red Blood Count 3.74 MIL/MM3 (4.00-5.30) Hemoglobin 8.6 GM/DL (11.6-15.3) Hematocrit 28.3 % (35.0-46.0) Mean Corpuscular Volume 75.6 FL (80.0-100.0) Mean Corpuscular Hemoglobin 23.0 PG (27.0-34.0) Mean Corpuscular Hemoglobin Concent 30.4 % (32.0-36.0) Red Cell Distribution Width 19.1 % (11.6-17.2) Platelet Count 228 TH/MM3 (150-450) Mean Platelet Volume 8.4 FL (7.0-11.0) Neutrophils (%) (Auto) 84.6 % (16.0-70.0) Lymphocytes (%) (Auto) 6.5 % (9.0-44.0) Monocytes (%) (Auto) 8.1 % (0.0-8.0) Eosinophils (%) (Auto) 0.1 % (0.0-4.0) Basophils (%) (Auto) 0.7 % (0.0-2.0) Neutrophils # (Auto) 8.2 TH/MM3 (1.8-7.7) Lymphocytes # (Auto) 0.6 TH/MM3 (1.0-4.8) Monocytes # (Auto) 0.8 TH/MM3 (0-0.9) Eosinophils # (Auto) 0.0 TH/MM3 (0-0.4) Basophils # (Auto) 0.1 TH/MM3 (0-0.2) CBC Comment DIFF FINAL Differential Comment Blood Urea Nitrogen 9 MG/DL (7-18) 8 MG/DL (7-18) Creatinine 0.44 MG/DL (0.50-1.00) 0.29 MG/DL (0.50-1.00) Random Glucose 145 MG/DL (74-106) 96 MG/DL (74-106) Total Protein 6.6 GM/DL (6.4-8.2) 6.0 GM/DL (6.4-8.2) Albumin 3.1 GM/DL (3.4-5.0) 2.8 GM/DL (3.4-5.0) Calcium Level 8.0 MG/DL (8.5-10.1) 8.0 MG/DL (8.5-10.1) Alkaline Phosphatase 126 U/L (45-117) 120 U/L (45-117) Aspartate Amino Transf (AST/SGOT) 13 U/L (15-37) 16 U/L (15-37) Alanine Aminotransferase (ALT/SGPT) 11 U/L (10-53) 12 U/L (10-53) Total Bilirubin 0.2 MG/DL (0.2-1.0) 0.2 MG/DL (0.2-1.0) Sodium Level 137 MEQ/L (136-145) 137 MEQ/L (136-145) Potassium Level 3.3 MEQ/L (3.5-5.1) 4.3 MEQ/L (3.5-5.1) Chloride Level 93 MEQ/L (98-107) 91 MEQ/L (98-107) Carbon Dioxide Level 38.1 MEQ/L (21.0-32.0) 42.8 MEQ/L (21.0-32.0) Anion Gap 6 MEQ/L (5-15) 3 MEQ/L (5-15) Estimat Glomerular Filtration Rate 137 ML/MIN (>89) 221 ML/MIN (>89) Lactic Acid Level 3.0 mmol/L (0.4-2.0) 0.7 mmol/L (0.4-2.0) B-Type Natriuretic Peptide 1073 PG/ML (0-100) Lipase 152 U/L (73-393) Urine Color LIGHT-YELLOW (YELLW/STRAW) Urine Turbidity CLEAR (CLEAR) Urine pH 7.0 (5.0-8.5) Urine Specific [place] 1.008 (1.002-1.035) Urine Protein 30 mg/dL (NEG-TRACE) Urine Glucose (UA) NEG mg/dL (NEG) Urine Ketones NEG mg/dL (NEG) Urine Occult Blood NEG (NEG) Urine Nitrite NEG (NEG) Urine Bilirubin NEG (NEG) Urine Urobilinogen LESS THAN 2.0 MG/DL (LESS Urine Leukocyte Esterase TRACE (NEG) Urine WBC LESS THAN 1 /hpf (0-5) Urine Squamous Epithelial Cells 5 /hpf (0-5) Urine Bacteria OCC /hpf (NONE) Microscopic Urinalysis Comment CULT NOT INDICATED Iron Level 6 MCG/DL (50-170) Total Iron Binding Capacity 487 MCG/DL (250-450) Percent Iron Saturation 1.2 % (20-50) Test 10/10/17 11:33 10/11/17 05:20 White Blood Count 7.2 TH/MM3 (4.0-11.0) 8.5 TH/MM3 (4.0-11.0) Red Blood Count 3.86 MIL/MM3 (4.00-5.30) 3.54 MIL/MM3 (4.00-5.30) Hemoglobin 8.6 GM/DL (11.6-15.3) 8.0 GM/DL (11.6-15.3) Hematocrit 29.7 % (35.0-46.0) 27.2 % (35.0-46.0) Mean Corpuscular Volume 77.0 FL (80.0-100.0) 76.8 FL (80.0-100.0) Mean Corpuscular Hemoglobin 22.4 PG (27.0-34.0) 22.6 PG (27.0-34.0) Mean Corpuscular Hemoglobin Concent 29.0 % (32.0-36.0) 29.4 % (32.0-36.0) Red Cell Distribution Width 19.0 % (11.6-17.2) 19.0 % (11.6-17.2) Platelet Count 201 TH/MM3 (150-450) 163 TH/MM3 (150-450) Mean Platelet Volume 8.3 FL (7.0-11.0) 8.7 FL (7.0-11.0) Neutrophils (%) (Auto) 86.1 % (16.0-70.0) Lymphocytes (%) (Auto) 6.3 % (9.0-44.0) Monocytes (%) (Auto) 6.5 % (0.0-8.0) Eosinophils (%) (Auto) 0.1 % (0.0-4.0) Basophils (%) (Auto) 1.0 % (0.0-2.0) Neutrophils # (Auto) 6.2 TH/MM3 (1.8-7.7) Lymphocytes # (Auto) 0.4 TH/MM3 (1.0-4.8) Monocytes # (Auto) 0.5 TH/MM3 (0-0.9) Eosinophils # (Auto) 0.0 TH/MM3 (0-0.4) Basophils # (Auto) 0.1 TH/MM3 (0-0.2) CBC Comment DIFF FINAL AUTO DIFF Differential Comment FINAL DIFF MANUAL Differential Total Cells Counted 100 Neutrophils % (Manual) 91 % (16-70) Lymphocytes % 5 % (9-44) Monocytes % 3 % (0-8) Basophils % 1 % (0-2) Neutrophils # (Manual) 7.7 TH/MM3 (1.8-7.7) Platelet Estimate NORMAL (NORMAL) Platelet Morphology Comment NORMAL (NORMAL) Blood Urea Nitrogen 15 MG/DL (7-18) Creatinine 0.41 MG/DL (0.50-1.00) Random Glucose 88 MG/DL (74-106) Calcium Level 8.4 MG/DL (8.5-10.1) Sodium Level 136 MEQ/L (136-145) Potassium Level 5.0 MEQ/L (3.5-5.1) Chloride Level 92 MEQ/L (98-107) Carbon Dioxide Level 41.6 MEQ/L (21.0-32.0) Anion Gap 2 MEQ/L (5-15) Estimat Glomerular Filtration Rate 149 ML/MIN (>89) Result Diagram: 10/11/17 0520 10/11/17 0520 Imaging Last Impressions Renal Ultrasound 10/10/17 0000 Signed Impressions: Service Date/Time: Tuesday, October 10, 2017 18:29 - CONCLUSION: 1. Questionable central mass left kidney measuring 2.7 cm. Contrasted MRI recommended. 2. Minimally complex cyst lower pole left kidney Abhijeet Mahan MD Chest X-Ray 10/09/17 1231 Signed Impressions: Service Date/Time: Monday, October 09, 2017 12:40 - CONCLUSION: Chronic left lower lobe infiltrates. Mild central vascular engorgement. Joby Bell MD Abdomen/Pelvis CT 10/09/17 1231 Signed Impressions: Service Date/Time: Monday, October 09, 2017 15:27 - CONCLUSION: 1. Abnormal appearance to the lower pole left kidney with 1.8 cm smooth margined intermediate density lesion suggesting possible mass. 2. Expected findings post cholecystectomy. Joby Bell MD Patient/Family Conference Present at Family Conference: priyanka blackman Family Conference Time (mins): 45 Family Conference Location: Bedside Issues Discussed: * Palliative care role, purpose, approach * Additional medical, psychosocial, and spiritual history * Patients general health, functional status, and cognitive changes in the months leading up to the current hospitalization * Patient/family understanding of the current medical problems * Patient/family understanding of prognosis * Patients goals of care as best understood from advance directives and/or conversations and/or values * Current medical treatment options and benefits/burdens of those options * Likely scenarios comparing ongoing aggressive care with a transition to comfort measures only * Questions answered to the best of my ability * Palliative care contact information provided Assessment and Plan Disease Oriented Problem List: (1) CHF (congestive heart failure) (2) Blood in stool (3) Shortness of breath (4) COPD exacerbation (5) Pain Symptom Scale: (1) Pain 0-10 Scale: 10 (2) Dyspnea 0-10 Scale: 0 Pertinent Non-Medical Issues Psychosocial: Originally from [place]. - spouse from cancer. Have 2 sons. 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 did not give denomination Legal: did not want to complete advance directives today. Ethical issues impacting care: none at this point. Important Contacts Angela Waters- [phone] and other son: Prognosis 82 year old with chf, copd, chronic pain, multiple surgeries. EF pending. Echo peding. May be appropriate for hospice if goals of care was comforted oriented. Currently it is not. Code Status: Full Code Plan == code: Full. Reviewed with sons at bedside. Did not want to talk about trach or peg. == health care proxy- no health care surrogate designated. Patient is . Sons will would be health care proxies. == goals of therapy.: no comfort oriented at this point. Family/pt want continue workup for abdominal pain. Hospice was introduced during review of pain management. goals of care is not comfort oriented. == Pain: abdominal back/ neck: mulitifactorial- has hx of chornic pain, numerous abdominal surgeries, tolerance to pain meds. Pt's sons at bedside during discussion on pain management. In terms of pain management, I had a very long discussion with the patient and family. I review with them there is no "perfect' pain medications and it is very difficulty to bring the pain down to 0 with no side effects. Pt with end stage condition who need liberalization of pain meds, where goals of treatment is purely comfort oriented is mostly in a hospice setting. Given pt's ongoing decision is to proceed with her procedure and medical workup , chronic pain history in excess of 10 years, underlying chronic condition such as copd and chf where pt can decompensate, realistically I don't think I can bring the pain score down to 0 without side effects. Initial step would be to get pain score to 6-7/10. That may be as reasonable as we can get during this hospitalization. Expectation was reviewed with pt and family and they seem amenable. Given pt's currently is npo, the adjustment I will make will be pt's iv morphine. Given pt's usually take 10 mg of hydrocodone at home po. 2 mg of IV morphine is likely insufficient. We will increase that today, Morphine 3 mg iv q 3 hours prn. Risk was reviewed with pt and family. Titratition of oral meds will need to commence after EGD pt is NPO. I suspect given pt's chronic pain history, she has a lot of tolerance to pain meds. Likely will need to change it another med such as oxycodone 10 mg po/sl q 4 hours prn. Again as pt is npo, I will hold off on titrating oral pain meds. == palliative care will continue to follow to make recommendation for symptom management, and review goals of treatment. Thank you for the opportunity to participate in the care of Ms. Moy. Attestation To help prompt me to consider important information that might be impacting today's encounter and assessment, information from prior notes written by myself or my colleagues may have been "brought forward" into today's note. My signature on this note, however, is an attestation that I personally performed the exam, history, and/or decision-making noted today, and, unless otherwise indicated, the interactions with patient, family, and staff as well as the review of records all occurred today. I also attest that the listed assessment and stated plan reflect my best clinical judgment today based on the combination of historical information, prior notes, and today's exam/ interactions. When time spent is documented, it refers only to time spent today by the signer, or if indicated, combined time spent today by collaborating physician/nurse practitioner. Jase Estrada MD October 11, 2017 16:34
--- NOTE | 2017-10-11 17:09 | PD.CONS ---
Consult Service Palliative Care Consult Requested By Dr. Trevino . Primary Care Physician Dr. Donald . Reason for Consultation a. To assist with evaluation and management of symptoms including: b. To assist medical decision maker(s) with: better understanding of current medical conditions; weighing benefits/burdens of medical treatment options; making medical treatment decisions. HPI History of Present Illness Ms. Moy is a 82-year-old female with a past medical history of CHF, aortic regurgitation, anasarca, COPD and O2 dependent, lumbar/cervical radiculopathy, hypothyroidism, depression, chronic abdominal pain, GERD and stomach ulcers. Patient presented to the ER on 0 10/09/17 with complaints of worsening abdominal pain, nausea, and black stools. Patient reported in the ER that she has had multiple abdominal surgeries in the past. Prior to presenting to the ER patient and family called PCP to inform him of worsening symptoms and patient was advised to go to the emergency room. Patient`s last endoscopy and colonoscopy by Dr. Del Cid were done approximately 8 months ago and she was notified that she had stomach ulcers and was placed on oral Carafate. ER course: * Vital signs: Temperature 98.8, pulse 87, respirations 25, BP 143/64, O2 saturation 98% on O2 3 L nasal cannula * EKG reveals sinus rhythm with occasional supraventricular premature complex. Minimal voltage criteria for LVH. Q waves noted in lead V1 and V2 * Laboratory workup revealing WBC 9.7, hemoglobin 8.6, hematocrit 28.3, platelet count 228, sodium 137, potassium 3.3, BUN/creatinine 9/0.44, random glucose 145, total bilirubin 0.2, AST 1 3, ALT 11, alkaline phosphatase 126, total protein 6.6, albumin 3.1, lipase 152. * Urinalysis negative * Chest x-ray revealed chronic left lower lobe infiltrates and mild central vascular engorgement. * Abdomen/pelvis CT revealed abnormal appearance of the lower pole left kidney with 0.8 cm smooth margined intermediate density patient suggesting possible mass. Expected findings post cholecystectomy. * Morphine Sulfate, Furosemide and Zofran administered in ER * Patient admitted under the services of [facility] for further evaluation. GI Dr. Gaytan consulted on 10/10/2017 for evaluation of patient with chronic abdominal pain and possible dark tarry stools, recommended consideration of EGD if patient is symptomatic or his GI bleeding. Urology Dr. Hernández consulted on 10/10/17 for evaluation of patient with a left renal lesion, recommended renal ultrasound to evaluate mass with them at this time. Urology also noted that a renal mass less than 3 cm can be observed with no requirement of any intervention. Clinical course complicated with nausea, and abdominal pain. Patient GI notes plan is to do EGD tomorrow 10/12/17. Review of Systems Gastrointestinal: COMPLAINS OF: Abdominal pain, Black stools, DENIES: Diarrhea Hematologic/Lymphatics: COMPLAINS OF: Bruising Past Family Social History Coded Allergies: levofloxacin (Unverified Allergy, Severe, HEADACHE, NAUSEA, VOMITING, 01/23) meperidine (Unverified Adverse Reaction, Unknown, HALLUCINATIONS, 01/23/17) Past Medical History Congestive heart failure COPD on home O2 3 L Aortic regurgitation Depression Hypothyroidism Lumbar radiculopathy Cervical radiculopathy s/p cervical fusion Urinary tract infection Hypertension Hyperlipidemia ? 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 Past Surgical History Norma small bowel removal Appendectomy Cholecystectomy x2 Cervical surgeries Hysterectomy and left oophorectomy eye surgery with implants . Reported Medications Ambien (Zolpidem Tartrate) 10 Mg Tab 10 Mg PO HS Spiriva Handihaler (Tiotropium Inh) 18 Mcg Cap 1 Puff INH DAILY Imitrex (Sumatriptan Succinate) 100 Mg Tab 100 Mg PO DAILY PRN Promethazine-Codeine Liq 6.25-10 Mg/5 Ml Syrp 5 Ml PO Q8HR Potassium Chloride ER (Potassium Chloride) 20 Meq Tab 20 Meq PO DAILY Zofran (Ondansetron HCl) 4 Mg Tab 4 Mg PO DAILY PRN Vigamox Opth Drops (Moxifloxacin Opth Drops) 0.5 % Soln 1 Drop EACH EYE QID Singulair (Montelukast Sodium) 10 Mg Tab 10 Mg PO DAILY Lidocaine Patch 12 HR (Lidocaine) 5 % Patch 1 Patch TOPICAL DAILY PRN Levothyroxine (Levothyroxine Sodium) 100 Mcg Tab 100 Mcg PO DAILY Combivent Respimat Inh (Ipratropium-Albuterol Inh) 20-100 Intermediate/Act Aero 2 Puff INH TID Lasix (Furosemide) 40 Mg Tab 40 Mg PO DAILY Advair Diskus Inh (Fluticasone-Salmeterol Inh) 250-50 Mcg/Blist Aer 1 Puff INH BID PRN Vasotec (Enalapril Maleate) 10 Mg Tab 10 Mg PO DAILY Valium (Diazepam) 10 Mg Tab 10 Mg PO TID PRN Soma (Carisoprodol) 350 Mg Tab 350 Mg PO BID PRN Baclofen 10 Mg Tab 10 Mg PO TID Duoneb (Ipratropium-Albuterol Neb) 0.5-2.5 Mg/3 Ml Neb 3 Ml NEB Q6HR PRN Protonix (Pantoprazole Sodium) 40 Mg Tab 40 Mg PO DAILY . Current Medications Medications (Trade) Dose Ordered Sig/Karen Route Start Time Stop Time Status Last Admin (NS Flush) 2 ml UNSCH PRN IV FLUSH 10/09/17 12:45 10/10/17 20:43 (Tylenol) 650 mg Q4H PRN PO 10/09/17 17:45 (Zofran Inj) 4 mg Q6H PRN IVP 10/09/17 17:45 10/11/17 12:00 ([place] 10-325 Mg) 1 tab Q4H PRN PO 10/09/17 17:45 10/11/17 10:11 (Narcan Inj) 0.4 mg UNSCH PRN IV PUSH 10/09/17 17:45 (Shannon-Colace) 1 tab BID PO 10/09/17 21:00 10/11/17 10:08 (Milk Of Magnesia Liq) 30 ml Q12H PRN PO 10/09/17 17:45 (Senokot) 17.2 mg Q12H PRN PO 10/09/17 17:45 (Dulcolax Supp) 10 mg DAILY PRN RECTAL 10/09/17 17:45 (Lactulose Liq) 30 ml DAILY PRN PO 10/09/17 17:45 (KCl) 20 meq DAILY PO 10/10/17 09:00 Future Hold 10/11/17 10:09 (Lasix Inj) 20 mg DAILY IV PUSH 10/10/17 09:00 10/11/17 10:09 (Protonix Inj) 40 mg Q12H IV PUSH 10/09/17 20:00 10/11/17 10:10 (Duoneb Neb) 1 ampule Q4HR NEB PRN NEB 10/09/17 17:45 (Morphine Inj) 2 mg Q3H PRN IV PUSH 10/09/17 18:15 10/11/17 06:53 (Singulair) 10 mg DAILY PO 10/10/17 09:00 10/11/17 10:08 (Vasotec) 10 mg DAILY PO 10/10/17 09:00 10/11/17 10:11 (Synthroid) 100 mcg DAILY@0600 PO 10/10/17 06:00 10/11/17 05:37 (Lioresal) 10 mg TID PO 10/10/17 09:00 10/11/17 10:08 (Valium) 10 mg TID PRN PO 10/09/17 18:45 (Ambien) 10 mg HS PO 10/09/17 21:00 10/10/17 20:43 ([place] 5-325 Mg) 1 tab Q4H PRN PO 10/09/17 18:45 (Deltasone) 40 mg DAILY PO 10/10/17 09:00 10/15/17 08:59 10/11/17 10:08 (Symbicort 160-4.5 Mcg Inh) 2 puff BID PRN INH 10/09/17 19:15 (Proair Hfa Inh) 2 puff TID INH 10/10/17 09:00 10/11/17 10:10 (Spiriva Inh) 18 mcg DAILY INH 10/10/17 09:00 10/11/17 10:11 (Imitrex) 100 mg DAILY PRN PO 10/10/17 18:45 (Flonase Roderick Spr) 1 spray DAILY NASAL 10/11/17 09:00 10/11/17 10:10 Family History Father had cancer 2 brothers have back problems . Substance Use Tobacco: Half pack per day 40 years Alcohol: Prescription med abuse: Denies Illicits: Denies . Ethical and Legal Issues None identified at this time. . Physical Exam Vital Signs Date Time Temp Pulse Resp B/P (MAP) Pulse Ox O2 Delivery O2 Flow Rate FiO2 10/11/17 14:50 21 10/11/17 12:00 98.6 79 22 121/50 (73) 98 10/11/17 08:00 98.5 86 20 137/62 (87) 94 10/11/17 08:00 Nasal Cannula 4.00 10/11/17 06:53 22 10/11/17 04:00 98.1 85 19 138/52 (80) 100 10/11/17 00:00 98.3 82 19 131/59 (83) 100 10/10/17 20:15 Nasal Cannula 4.00 10/10/17 20:00 98.2 88 20 117/55 (75) 92 10/10/17 19:41 98 21 Exam CONSTITUTIONAL/GENERAL: This is an adequately nourished patient, in no apparent distress. TUBES/LINES/DRAINS: SKIN: No jaundice, rashes, or lesions. Ecchymoses on upper extremities. No wounds seen anteriorly. Skin temperature appropriate. Not diaphoretic. HEAD: Atraumatic. Normocephalic. EYES: Pupils equal and round and reactive. Extraocular motions intact. No scleral icterus. No injection or drainage. Fundi not examined. ENT: Hearing grossly normal. Nose without bleeding or purulent drainage. Throat without visible erythema, exudates, masses, or lesions. NECK: Trachea midline. Supple, nontender. No palpable thyroid enlargement or nodularity. CARDIOVASCULAR: Regular rate and rhythm without murmurs, gallops, or rubs. No JVD. Peripheral pulses symmetric. RESPIRATORY/CHEST: Symmetric, unlabored respirations. Clear to auscultation. Breath sounds equal bilaterally. No wheezes, rales, or rhonchi. GASTROINTESTINAL: Abdomen soft, non-tender, nondistended. No hepato-splenomegaly , or palpable masses. No guarding. Bowel sounds present. GENITOURINARY: Without palpable bladder distension. Johnson catheter in place. MUSCULOSKELETAL: Extremities without clubbing, cyanosis, or edema. No joint tenderness or effusion noted. No calf tenderness. No mottling or clubbing. LYMPHATICS: No palpable cervical or supraclavicular adenopathy. NEUROLOGICAL: Awake and alert. Motor and sensory grossly within normal limits. Follows commands. Cognitively sharp. Moves all extremities. PSYCHIATRIC: No obvious anxiety/depression. no apparent hallucinations or other psychotic thought process. Diagnostic Tests Laboratory Laboratory Tests Test 10/09/17 13:00 10/09/17 13:05 10/09/17 21:23 10/10/17 07:36 White Blood Count 9.7 TH/MM3 (4.0-11.0) Red Blood Count 3.74 MIL/MM3 (4.00-5.30) Hemoglobin 8.6 GM/DL (11.6-15.3) Hematocrit 28.3 % (35.0-46.0) Mean Corpuscular Volume 75.6 FL (80.0-100.0) Mean Corpuscular Hemoglobin 23.0 PG (27.0-34.0) Mean Corpuscular Hemoglobin Concent 30.4 % (32.0-36.0) Red Cell Distribution Width 19.1 % (11.6-17.2) Platelet Count 228 TH/MM3 (150-450) Mean Platelet Volume 8.4 FL (7.0-11.0) Neutrophils (%) (Auto) 84.6 % (16.0-70.0) Lymphocytes (%) (Auto) 6.5 % (9.0-44.0) Monocytes (%) (Auto) 8.1 % (0.0-8.0) Eosinophils (%) (Auto) 0.1 % (0.0-4.0) Basophils (%) (Auto) 0.7 % (0.0-2.0) Neutrophils # (Auto) 8.2 TH/MM3 (1.8-7.7) Lymphocytes # (Auto) 0.6 TH/MM3 (1.0-4.8) Monocytes # (Auto) 0.8 TH/MM3 (0-0.9) Eosinophils # (Auto) 0.0 TH/MM3 (0-0.4) Basophils # (Auto) 0.1 TH/MM3 (0-0.2) CBC Comment DIFF FINAL Differential Comment Blood Urea Nitrogen 9 MG/DL (7-18) 8 MG/DL (7-18) Creatinine 0.44 MG/DL (0.50-1.00) 0.29 MG/DL (0.50-1.00) Random Glucose 145 MG/DL (74-106) 96 MG/DL (74-106) Total Protein 6.6 GM/DL (6.4-8.2) 6.0 GM/DL (6.4-8.2) Albumin 3.1 GM/DL (3.4-5.0) 2.8 GM/DL (3.4-5.0) Calcium Level 8.0 MG/DL (8.5-10.1) 8.0 MG/DL (8.5-10.1) Alkaline Phosphatase 126 U/L (45-117) 120 U/L (45-117) Aspartate Amino Transf (AST/SGOT) 13 U/L (15-37) 16 U/L (15-37) Alanine Aminotransferase (ALT/SGPT) 11 U/L (10-53) 12 U/L (10-53) Total Bilirubin 0.2 MG/DL (0.2-1.0) 0.2 MG/DL (0.2-1.0) Sodium Level 137 MEQ/L (136-145) 137 MEQ/L (136-145) Potassium Level 3.3 MEQ/L (3.5-5.1) 4.3 MEQ/L (3.5-5.1) Chloride Level 93 MEQ/L (98-107) 91 MEQ/L (98-107) Carbon Dioxide Level 38.1 MEQ/L (21.0-32.0) 42.8 MEQ/L (21.0-32.0) Anion Gap 6 MEQ/L (5-15) 3 MEQ/L (5-15) Estimat Glomerular Filtration Rate 137 ML/MIN (>89) 221 ML/MIN (>89) Lactic Acid Level 3.0 mmol/L (0.4-2.0) 0.7 mmol/L (0.4-2.0) B-Type Natriuretic Peptide 1073 PG/ML (0-100) Lipase 152 U/L (73-393) Urine Color LIGHT-YELLOW (YELLW/STRAW) Urine Turbidity CLEAR (CLEAR) Urine pH 7.0 (5.0-8.5) Urine Specific [place] 1.008 (1.002-1.035) Urine Protein 30 mg/dL (NEG-TRACE) Urine Glucose (UA) NEG mg/dL (NEG) Urine Ketones NEG mg/dL (NEG) Urine Occult Blood NEG (NEG) Urine Nitrite NEG (NEG) Urine Bilirubin NEG (NEG) Urine Urobilinogen LESS THAN 2.0 MG/DL (LESS Urine Leukocyte Esterase TRACE (NEG) Urine WBC LESS THAN 1 /hpf (0-5) Urine Squamous Epithelial Cells 5 /hpf (0-5) Urine Bacteria OCC /hpf (NONE) Microscopic Urinalysis Comment CULT NOT INDICATED Iron Level 6 MCG/DL (50-170) Total Iron Binding Capacity 487 MCG/DL (250-450) Percent Iron Saturation 1.2 % (20-50) Test 5/2/18 11:33 10/11/17 05:20 White Blood Count 7.2 TH/MM3 (4.0-11.0) 8.5 TH/MM3 (4.0-11.0) Red Blood Count 3.86 MIL/MM3 (4.00-5.30) 3.54 MIL/MM3 (4.00-5.30) Hemoglobin 8.6 GM/DL (11.6-15.3) 8.0 GM/DL (11.6-15.3) Hematocrit 29.7 % (35.0-46.0) 27.2 % (35.0-46.0) Mean Corpuscular Volume 77.0 FL (80.0-100.0) 76.8 FL (80.0-100.0) Mean Corpuscular Hemoglobin 22.4 PG (27.0-34.0) 22.6 PG (27.0-34.0) Mean Corpuscular Hemoglobin Concent 29.0 % (32.0-36.0) 29.4 % (32.0-36.0) Red Cell Distribution Width 19.0 % (11.6-17.2) 19.0 % (11.6-17.2) Platelet Count 201 TH/MM3 (150-450) 163 TH/MM3 (150-450) Mean Platelet Volume 8.3 FL (7.0-11.0) 8.7 FL (7.0-11.0) Neutrophils (%) (Auto) 86.1 % (16.0-70.0) Lymphocytes (%) (Auto) 6.3 % (9.0-44.0) Monocytes (%) (Auto) 6.5 % (0.0-8.0) Eosinophils (%) (Auto) 0.1 % (0.0-4.0) Basophils (%) (Auto) 1.0 % (0.0-2.0) Neutrophils # (Auto) 6.2 TH/MM3 (1.8-7.7) Lymphocytes # (Auto) 0.4 TH/MM3 (1.0-4.8) Monocytes # (Auto) 0.5 TH/MM3 (0-0.9) Eosinophils # (Auto) 0.0 TH/MM3 (0-0.4) Basophils # (Auto) 0.1 TH/MM3 (0-0.2) CBC Comment DIFF FINAL AUTO DIFF Differential Comment FINAL DIFF MANUAL Differential Total Cells Counted 100 Neutrophils % (Manual) 91 % (16-70) Lymphocytes % 5 % (9-44) Monocytes % 3 % (0-8) Basophils % 1 % (0-2) Neutrophils # (Manual) 7.7 TH/MM3 (1.8-7.7) Platelet Estimate NORMAL (NORMAL) Platelet Morphology Comment NORMAL (NORMAL) Blood Urea Nitrogen 15 MG/DL (7-18) Creatinine 0.41 MG/DL (0.50-1.00) Random Glucose 88 MG/DL (74-106) Calcium Level 8.4 MG/DL (8.5-10.1) Sodium Level 136 MEQ/L (136-145) Potassium Level 5.0 MEQ/L (3.5-5.1) Chloride Level 92 MEQ/L (98-107) Carbon Dioxide Level 41.6 MEQ/L (21.0-32.0) Anion Gap 2 MEQ/L (5-15) Estimat Glomerular Filtration Rate 149 ML/MIN (>89) Result Diagram: 10/11/17 0520 10/11/17 0520 Imaging Last Impressions Renal Ultrasound 10/10/17 0000 Signed Impressions: Service Date/Time: Tuesday, October 10, 2017 18:29 - CONCLUSION: 1. Questionable central mass left kidney measuring 2.7 cm. Contrasted MRI recommended. 2. Minimally complex cyst lower pole left kidney Abhijeet Mahan MD Chest X-Ray 10/09/17 1231 Signed Impressions: Service Date/Time: Monday, October 09, 2017 12:40 - CONCLUSION: Chronic left lower lobe infiltrates. Mild central vascular engorgement. Joby Bell MD Abdomen/Pelvis CT 10/09/17 1231 Signed Impressions: Service Date/Time: Monday, October 09, 2017 15:27 - CONCLUSION: 1. Abnormal appearance to the lower pole left kidney with 1.8 cm smooth margined intermediate density lesion suggesting possible mass. 2. Expected findings post cholecystectomy. Joby Bell MD Patient/Family Conference Issues Discussed: * Palliative care role, purpose, approach * Additional medical, psychosocial, and spiritual history * Patients general health, functional status, and cognitive changes in the months leading up to the current hospitalization * Patient/family understanding of the current medical problems * Patient/family understanding of prognosis * Patients goals of care as best understood from advance directives and/or conversations and/or values * Current medical treatment options and benefits/burdens of those options * Likely scenarios comparing ongoing aggressive care with a transition to comfort measures only * Questions answered to the best of my ability * Palliative care contact information provided Assessment and Plan Disease Oriented Problem List: (1) COPD exacerbation (2) CHF (congestive heart failure) (3) Blood in stool (4) Hypoxia Symptom Scale: (1) Pain (2) Shortness of breath Pertinent Non-Medical Issues Psychosocial: Spiritual: Legal: Ethical issues impacting care: Important Contacts Spouse-Chinmay Root [phone] Son- Angela Waters [phone] . Plan PLAN: Legal decision maker: Goals: CODE STATUS: SYMPTOMS: Palliative care will continue to follow the patient during hospital course as condition evolves, to assist patient/decision-maker with understanding of their medical conditions, weighing benefits/burdens of treatment options, for clarification of goals of treatment. Additionally will assist with any symptoms of palliative concern Thank you for the opportunity to participate in the care of Ms. Moy. Jaclyn Man October 11, 2017 17:09
[2017-10-11] MEDS ORDERED: MORPHINE SULFATE 4 MG/ML INJ IV PUSH ONE (18:00)
--- NOTE | 2017-10-11 20:51 | ECHRPT ---
Indication: HEART FAILURE CONCLUSIONS Normal left ventricular size. Wall thickness is normal. Normal LV systolic function (EF 60%). The left atrial size is mlmo-ar-nyfxtbdowu dilated. The right atrial size is moderately dilated. Mitral valve sclerosis. Tdsc-ot-jqccumnt mitral valve regurgitation. Mild thickening of the aortic valve leaflets. Bcuu-cx-ufoyjodh aortic valve regurgitation. There is moderate tricuspid valve regurgitation. The estimated pulmonary arterial pressure is 59 mmHg. Mild pulmonary valve regurgitation. BP: 138 / 52 HR: 85 Rhythm: Sinus MEASUREMENTS (Male / Female) Normal Values Technical Quality:Fair 2D ECHO LVOT Diameter 1.8 cm Aortic Root Diameter 2.8 cm M-MODE LV Diastolic Diameter MM 4.7 cm 4.2 - 5.9 / 3.9 - 5.3 cm LV Systolic Diameter MM 3.4 cm LV Ejection Fraction MM Teich 52.7 % IVS Diastolic Thickness MM 0.8 cm 0.6 - 1.0 / 0.6 - 0.9 cm LVPW Diastolic Thickness MM 0.8 cm 0.6 - 1.0 / 0.6 - 0.9 cm LV Relative Wall Thickness MM 0.3 0.24 - 0.42 / 0.22 - 0.42 RV Diastolic Diameter MM 2.8 cm AV Cusp Separation MM 1.8 cm DOPPLER AV Peak Velocity 154.0 cm/s AV Peak Gradient 9.5 mmHg AV Mean Gradient 5.0 mmHg AV Velocity Time Integral 32.7 cm LVOT Peak Velocity 98.2 cm/s LVOT Peak Gradient 3.9 mmHg LVOT Velocity Time Integral 17.2 cm AV Area Cont Eq vti 1.3 cm AV Area Cont Eq pk 1.6 cm Mitral E Point Velocity 117.5 cm/s Mitral A Point Velocity 131.0 cm/s Mitral E to A Ratio 0.9 LV E' Lateral Velocity 6.8 cm/s Mitral E to LV E' Lateral Ratio 17.2 LV E' Septal Velocity 6.8 cm/s Mitral E to LV E' Septal Ratio 17.2 TR Peak Velocity 350.0 cm/s TR Peak Gradient 49.0 mmHg Right Atrial Pressure 10.0 mmHg Pulmonary Artery Systolic Pressu 59.0 mmHg Right Ventricular Systolic Press 59.0 mmHg PV Peak Velocity 51.1 cm/s PV Peak Gradient 1.0 mmHg FINDINGS LEFT VENTRICLE Normal left ventricular size. The left ventricular systolic function is normal with an estimated ejection fraction of 60%. Wall thickness is normal. RIGHT VENTRICLE Normal right ventricular size and systolic function. LEFT ATRIUM The left atrial size is rbxd-cj-sdjmbozvcx dilated. RIGHT ATRIUM The right atrial size is moderately dilated. ATRIAL SEPTUM No atrial level shunt is demonstrated by color flow Doppler interrogation. AORTA The aortic root and proximal ascending aorta are normal in size on limited imaging. MITRAL VALVE Puzf-lz-qliukbzt mitral valve regurgitation. AORTIC VALVE Mild thickening of the aortic valve leaflets. Cwrt-hf-fnqxpilc aortic valve regurgitation. TRICUSPID VALVE There is moderate tricuspid valve regurgitation. The estimated pulmonary arterial pressure is 59 mmHg. There is estimated moderate pulmonary hypertension present (range 50-60 mmHg). PULMONARY VALVE Mild pulmonary valve regurgitation. VESSELS The inferior vena cava is normal in size. PERICARDIUM No pericardial effusion. Soraya Leo MD, FACC (Electronically Signed) Final Date:11 Oct 2017 20:49
[2017-10-11] MEDS: SODIUM CHLORIDE 0.9% FLUSH 10 ML FLUSH IV FLUSH PRN (20:59)
[2017-10-11] MEDS: ZOLPIDEM TARTRATE 10 MG TAB PO SCH (20:59)
[2017-10-12] VITALS (10 sets, daily range): BP systolic 101–151; BP diastolic 56–66; PULSE 73–91; RESP 16–22; TEMP 97.3–99.1; O2SAT 90–98
[2017-10-12] MEDS: SODIUM CHLORIDE 0.9% FLUSH 10 ML FLUSH IV FLUSH PRN ×2 (00:02→08:36)
[2017-10-12] MEDS: MORPHINE SULFATE 4 MG/ML INJ IV PUSH PRN ×3 (00:02→19:13)
[2017-10-12] MEDS: ACETAMINOPHEN/HYDROcodone 325 MG/10 MG TAB PO PRN ×4 (02:54→20:51)
[2017-10-12] MEDS: LEVOTHYROXINE SODIUM 100 MCG TAB PO SCH (06:41)
[2017-10-12 07:38] LABS: AUTOMATED NEUTROPHIL # 10.4 TH/MM3 (1.8-7.7); BASOPHIL % 0.3 % (0.0-2.0); EOSINOPHIL % 0.1 % (0.0-4.0); HEMATOCRIT 29.3 % (35.0-46.0); HEMOGLOBIN 8.5 GM/DL (11.6-15.3); LYMPH % 9.3 % (9.0-44.0); LYMPHOCYTE # 1.2 TH/MM3 (1.0-4.8); MEAN CELL VOLUME 76.1 FL (80.0-100.0); MONOCYTE # 0.9 TH/MM3 (0-0.9); NEUT % 83.3 % (16.0-70.0); PLATELET COUNT 161 TH/MM3 (150-450); RED BLOOD COUNT 3.85 MIL/MM3 (4.00-5.30); WHITE BLOOD COUNT 12.5 TH/MM3 (4.0-11.0)
[2017-10-12 08:04] LABS: BICARBONATE 38.8 MEQ/L (21.0-32.0); CREATININE 0.37 MG/DL (0.50-1.00)
[2017-10-12] MEDS: DOCUSATE SODIUM 50 MG/SENNA 8.6 MG TAB PO SCH ×2 (08:33→20:51)
[2017-10-12] MEDS: predniSONE 20 MG TAB PO SCH (08:33)
[2017-10-12] MEDS: FUROSEMIDE 20 MG/2 ML VIAL IV PUSH SCH (08:34)
[2017-10-12] MEDS: ENALAPRIL MALEATE 10 MG TAB PO SCH (08:36)
[2017-10-12] MEDS: MONTELUKAST SODIUM 10 MG TAB PO SCH (08:36)
[2017-10-12] MEDS: BACLOFEN 10 MG TAB PO SCH ×3 (08:36→20:51)
[2017-10-12] MEDS: PANTOPRAZOLE SODIUM 40 MG VIAL IV PUSH SCH ×2 (08:36→20:51)
[2017-10-12] MEDS: FLUTICASONE PROPIONATE 50 MCG/ACT 16 GM NASAL SPRAY NASAL SCH (08:37)
[2017-10-12] MEDS: ALBUTEROL SULFATE 90 MCG/ACT HFA 8 GM INHALER INH SCH ×3 (08:38→18:00)
[2017-10-12] MEDS: TIOTROPIUM BROMIDE 18 MCG INH INH SCH (08:38)
--- NOTE | 2017-10-12 12:50 | HHI.HCPN ---
Reason for visit a. To assist with evaluation and management of symptoms including:pain b. To assist medical decision maker(s) with: better understanding of current medical conditions; weighing benefits/burdens of medical treatment options; making medical treatment decisions. Subjective/Interval History Pt's son is at bedside. Patient and son both endorse increase of pain did help. She did say pain is still there, but improved. Pain is abdominal, and back. She could not rate her pain for me. Son at bedside said it was better. Patient is getting ready for EGD. Review again that hydrocodone may not be as effective anymore as she likely has a tolerance to it. We would likely need to switch to another class of opiates. Again a emphasize pain could not be controlled to a pain level of 0 withough side effects such as sedation. Family expectation is that the pain is tolerable enough to go home with. Also they understand titration of pain meds, likely will need out patient managment by primary care after discharge. They were appreciative of visit. Family/friend interactions see hpi Advance Directives Living Will: Never completed Health Care Surrogate: Never completed Durable Power of Communications Equipment Operator: Never completed Objective Vital Signs Date Time Temp Pulse Resp B/P (MAP) Pulse Ox O2 Delivery O2 Flow Rate FiO2 10/12/17 10:35 75 142/57 (85) 91 10/12/17 08:00 98.8 91 18 141/60 (87) 93 10/12/17 04:00 97.5 82 18 117/66 (83) 95 10/12/17 04:00 Nasal Cannula 3.00 10/12/17 00:00 98.0 87 19 151/63 (92) 90 10/12/17 00:00 Nasal Cannula 3.00 10/11/17 20:30 94 Nasal Cannula 3.00 10/11/17 20:00 Nasal Cannula 3.00 10/11/17 20:00 98.0 80 18 141/67 (91) 94 10/11/17 16:00 98.1 84 24 149/71 (97) 91 10/11/17 14:50 21 Physical Exam CONSTITUTIONAL/GENERAL: This is an adequately nourished patient, in no apparent distress. TUBES/LINES/DRAINS: SKIN: No jaundice, rashes, or lesions. Ecchymoses on upper extremities. No wounds seen anteriorly. Skin temperature appropriate. Not diaphoretic. HEAD: Atraumatic. Normocephalic. EYES: Pupils equal and round and reactive. Extraocular motions intact. No scleral icterus. No injection or drainage. Fundi not examined. ENT: Hearing grossly normal. Nose without bleeding or purulent drainage. Throat without visible erythema, exudates, masses, or lesions. NECK: Trachea midline. Supple, nontender. No palpable thyroid enlargement or nodularity. CARDIOVASCULAR: Regular rate and rhythm without murmurs, gallops, or rubs. No JVD. Peripheral pulses symmetric. RESPIRATORY/CHEST: Symmetric, unlabored respirations. Clear to auscultation. Breath sounds equal bilaterally. No wheezes, rales, or rhonchi. GASTROINTESTINAL: Abdomen soft, non-tender, nondistended. No hepato-splenomegaly , or palpable masses. No guarding. Bowel sounds present. GENITOURINARY: Without palpable bladder distension. Johnson catheter in place. MUSCULOSKELETAL: Extremities without clubbing, cyanosis, or edema. No joint tenderness or effusion noted. No calf tenderness. No mottling or clubbing. LYMPHATICS: No palpable cervical or supraclavicular adenopathy. NEUROLOGICAL: Awake and alert. Motor and sensory grossly within normal limits. Follows commands. Cognitively sharp. Moves all extremities. PSYCHIATRIC: No obvious anxiety/depression. no apparent hallucinations or other psychotic thought process. Diagnostic Tests Laboratory Laboratory Tests Test 10/09/17 13:00 10/09/17 13:05 10/09/17 21:23 10/10/17 07:36 White Blood Count 9.7 TH/MM3 (4.0-11.0) Red Blood Count 3.74 MIL/MM3 (4.00-5.30) Hemoglobin 8.6 GM/DL (11.6-15.3) Hematocrit 28.3 % (35.0-46.0) Mean Corpuscular Volume 75.6 FL (80.0-100.0) Mean Corpuscular Hemoglobin 23.0 PG (27.0-34.0) Mean Corpuscular Hemoglobin Concent 30.4 % (32.0-36.0) Red Cell Distribution Width 19.1 % (11.6-17.2) Platelet Count 228 TH/MM3 (150-450) Mean Platelet Volume 8.4 FL (7.0-11.0) Neutrophils (%) (Auto) 84.6 % (16.0-70.0) Lymphocytes (%) (Auto) 6.5 % (9.0-44.0) Monocytes (%) (Auto) 8.1 % (0.0-8.0) Eosinophils (%) (Auto) 0.1 % (0.0-4.0) Basophils (%) (Auto) 0.7 % (0.0-2.0) Neutrophils # (Auto) 8.2 TH/MM3 (1.8-7.7) Lymphocytes # (Auto) 0.6 TH/MM3 (1.0-4.8) Monocytes # (Auto) 0.8 TH/MM3 (0-0.9) Eosinophils # (Auto) 0.0 TH/MM3 (0-0.4) Basophils # (Auto) 0.1 TH/MM3 (0-0.2) CBC Comment DIFF FINAL Differential Comment Blood Urea Nitrogen 9 MG/DL (7-18) 8 MG/DL (7-18) Creatinine 0.44 MG/DL (0.50-1.00) 0.29 MG/DL (0.50-1.00) Random Glucose 145 MG/DL (74-106) 96 MG/DL (74-106) Total Protein 6.6 GM/DL (6.4-8.2) 6.0 GM/DL (6.4-8.2) Albumin 3.1 GM/DL (3.4-5.0) 2.8 GM/DL (3.4-5.0) Calcium Level 8.0 MG/DL (8.5-10.1) 8.0 MG/DL (8.5-10.1) Alkaline Phosphatase 126 U/L (45-117) 120 U/L (45-117) Aspartate Amino Transf (AST/SGOT) 13 U/L (15-37) 16 U/L (15-37) Alanine Aminotransferase (ALT/SGPT) 11 U/L (10-53) 12 U/L (10-53) Total Bilirubin 0.2 MG/DL (0.2-1.0) 0.2 MG/DL (0.2-1.0) Sodium Level 137 MEQ/L (136-145) 137 MEQ/L (136-145) Potassium Level 3.3 MEQ/L (3.5-5.1) 4.3 MEQ/L (3.5-5.1) Chloride Level 93 MEQ/L (98-107) 91 MEQ/L (98-107) Carbon Dioxide Level 38.1 MEQ/L (21.0-32.0) 42.8 MEQ/L (21.0-32.0) Anion Gap 6 MEQ/L (5-15) 3 MEQ/L (5-15) Estimat Glomerular Filtration Rate 137 ML/MIN (>89) 221 ML/MIN (>89) Lactic Acid Level 3.0 mmol/L (0.4-2.0) 0.7 mmol/L (0.4-2.0) B-Type Natriuretic Peptide 1073 PG/ML (0-100) Lipase 152 U/L (73-393) Urine Color LIGHT-YELLOW (YELLW/STRAW) Urine Turbidity CLEAR (CLEAR) Urine pH 7.0 (5.0-8.5) Urine Specific [place] 1.008 (1.002-1.035) Urine Protein 30 mg/dL (NEG-TRACE) Urine Glucose (UA) NEG mg/dL (NEG) Urine Ketones NEG mg/dL (NEG) Urine Occult Blood NEG (NEG) Urine Nitrite NEG (NEG) Urine Bilirubin NEG (NEG) Urine Urobilinogen LESS THAN 2.0 MG/DL (LESS Urine Leukocyte Esterase TRACE (NEG) Urine WBC LESS THAN 1 /hpf (0-5) Urine Squamous Epithelial Cells 5 /hpf (0-5) Urine Bacteria OCC /hpf (NONE) Microscopic Urinalysis Comment CULT NOT INDICATED Iron Level 6 MCG/DL (50-170) Total Iron Binding Capacity 487 MCG/DL (250-450) Percent Iron Saturation 1.2 % (20-50) Test 10/10/17 11:33 10/11/17 05:20 10/12/17 06:41 White Blood Count 7.2 TH/MM3 (4.0-11.0) 8.5 TH/MM3 (4.0-11.0) 12.5 TH/MM3 (4.0-11.0) Red Blood Count 3.86 MIL/MM3 (4.00-5.30) 3.54 MIL/MM3 (4.00-5.30) 3.85 MIL/MM3 (4.00-5.30) Hemoglobin 8.6 GM/DL (11.6-15.3) 8.0 GM/DL (11.6-15.3) 8.5 GM/DL (11.6-15.3) Hematocrit 29.7 % (35.0-46.0) 27.2 % (35.0-46.0) 29.3 % (35.0-46.0) Mean Corpuscular Volume 77.0 FL (80.0-100.0) 76.8 FL (80.0-100.0) 76.1 FL (80.0-100.0) Mean Corpuscular Hemoglobin 22.4 PG (27.0-34.0) 22.6 PG (27.0-34.0) 22.0 PG (27.0-34.0) Mean Corpuscular Hemoglobin Concent 29.0 % (32.0-36.0) 29.4 % (32.0-36.0) 29.0 % (32.0-36.0) Red Cell Distribution Width 19.0 % (11.6-17.2) 19.0 % (11.6-17.2) 19.0 % (11.6-17.2) Platelet Count 201 TH/MM3 (150-450) 163 TH/MM3 (150-450) 161 TH/MM3 (150-450) Mean Platelet Volume 8.3 FL (7.0-11.0) 8.7 FL (7.0-11.0) 9.0 FL (7.0-11.0) Neutrophils (%) (Auto) 86.1 % (16.0-70.0) 83.3 % (16.0-70.0) Lymphocytes (%) (Auto) 6.3 % (9.0-44.0) 9.3 % (9.0-44.0) Monocytes (%) (Auto) 6.5 % (0.0-8.0) 7.0 % (0.0-8.0) Eosinophils (%) (Auto) 0.1 % (0.0-4.0) 0.1 % (0.0-4.0) Basophils (%) (Auto) 1.0 % (0.0-2.0) 0.3 % (0.0-2.0) Neutrophils # (Auto) 6.2 TH/MM3 (1.8-7.7) 10.4 TH/MM3 (1.8-7.7) Lymphocytes # (Auto) 0.4 TH/MM3 (1.0-4.8) 1.2 TH/MM3 (1.0-4.8) Monocytes # (Auto) 0.5 TH/MM3 (0-0.9) 0.9 TH/MM3 (0-0.9) Eosinophils # (Auto) 0.0 TH/MM3 (0-0.4) 0.0 TH/MM3 (0-0.4) Basophils # (Auto) 0.1 TH/MM3 (0-0.2) 0.0 TH/MM3 (0-0.2) CBC Comment DIFF FINAL AUTO DIFF DIFF FINAL Differential Comment FINAL DIFF MANUAL Differential Total Cells Counted 100 Neutrophils % (Manual) 91 % (16-70) Lymphocytes % 5 % (9-44) Monocytes % 3 % (0-8) Basophils % 1 % (0-2) Neutrophils # (Manual) 7.7 TH/MM3 (1.8-7.7) Platelet Estimate NORMAL (NORMAL) Platelet Morphology Comment NORMAL (NORMAL) Blood Urea Nitrogen 15 MG/DL (7-18) 13 MG/DL (7-18) Creatinine 0.41 MG/DL (0.50-1.00) 0.37 MG/DL (0.50-1.00) Random Glucose 88 MG/DL (74-106) 78 MG/DL (74-106) Calcium Level 8.4 MG/DL (8.5-10.1) 9.0 MG/DL (8.5-10.1) Sodium Level 136 MEQ/L (136-145) 133 MEQ/L (136-145) Potassium Level 5.0 MEQ/L (3.5-5.1) 5.3 MEQ/L (3.5-5.1) Chloride Level 92 MEQ/L (98-107) 90 MEQ/L (98-107) Carbon Dioxide Level 41.6 MEQ/L (21.0-32.0) 38.8 MEQ/L (21.0-32.0) Anion Gap 2 MEQ/L (5-15) 4 MEQ/L (5-15) Estimat Glomerular Filtration Rate 149 ML/MIN (>89) 167 ML/MIN (>89) Result Diagram: 10/12/1741 10/12/17640 Assessment and Plan Disease Oriented Problem List: (1) CHF (congestive heart failure) (2) Blood in stool (3) Shortness of breath (4) COPD exacerbation (5) Pain Symptom Scale: (1) Pain 0-10 Scale: Unable to quantify (2) Dyspnea 0-10 Scale: 0 Pertinent Non-Medical Issues Psychosocial: Originally from [place], Iived in [place] for many years. - spouse from cancer. Have 2 sons. 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 Spiritual:rastafari. did not give denomination Legal: did not want to complete advance directives today. Ethical issues impacting care: none at this point. Important Contacts Angela Waters- [phone] and other son: Prognosis 82 year old with chf, copd, chronic pain, multiple surgeries. EF pending. Echo peding. May be appropriate for hospice if goals of care was comforted oriented. Currently it is not. Code Status: Full Code Plan == code: Full. Reviewed with sons at bedside. Did not want to talk about trach or peg. == health care proxy- no health care surrogate designated. Patient is . Pt's 2 Sons will would be health care proxies. == goals of therapy.: no comfort oriented at this point. Family/pt want continue workup for abdominal pain. Hospice was introduced during review of pain management. goals of care is not comfort oriented. == Pain: abdominal back/ neck: mulitifactorial- has hx of chornic pain, numerous abdominal surgeries, tolerance to pain meds. Again today spoke about pain mangement. Pt's son at bedside during discussion on pain management. I review with them there is no perfect pain medications and it is very difficulty to bring the pain down to 0 with no side effects. Pt with end stage condition who need liberalization of pain meds, where goals of treatment is purely comfort oriented is mostly in a hospice setting. Given pt's ongoing decision is to proceed with her procedure and medical workup , chronic pain history in excess of 10 years, underlying chronic condition such as copd and chf where pt can decompensate, realistically I don't think I can bring the pain score down to 0 without side effects. Initial step would be to get pain score to 6-7/10. That may be as reasonable as we can get during this hospitalization. Expectation was reviewed with pt and family and they seem amenable. Continue Morphine 3 mg iv q 3 hours prn. Risk was reviewed with pt and family. Titratition of oral meds will need to commence after EGD pt is NPO. I suspect given pt's chronic pain history, she has a lot of tolerance to hydrocodone. Likely will need to change it another med such as oxycodone 10 mg po/sl q 4 hours prn pain. If not effective may consider oxycodon 15 mg po/sl q 4 hours prn. Further titration may need to be done as an outpatient with pt's primary care. == palliative care will continue to follow to make recommendation for symptom management, and review goals of treatment. Attestation To help prompt me to consider important information that might be impacting today's encounter and assessment, information from prior notes written by myself or my colleagues may have been "brought forward" into today's note. My signature on this note, however, is an attestation that I personally performed the exam, history, and/or decision-making noted today, and, unless otherwise indicated, the interactions with patient, family, and staff as well as the review of records all occurred today. I also attest that the listed assessment and stated plan reflect my best clinical judgment today based on the combination of historical information, prior notes, and today's exam/ interactions. When time spent is documented, it refers only to time spent today by the signer, or if indicated, combined time spent today by collaborating physician/nurse practitioner. Jase Estrada MD October 12, 2017 12:50
--- NOTE | 2017-10-12 13:20 | HHI.PR ---
Subjective Remarks Follow up GI bleed, CHF, COPD. Patient reporting back pain. Dyspnea is stable. Objective Vitals Vital Signs Date Time Temp Pulse Resp B/P (MAP) Pulse Ox O2 Delivery O2 Flow Rate FiO2 10/12/17 12:53 98.4 85 22 109/56 (73) 92 10/12/17 10:35 75 142/57 (85) 91 10/12/17 08:00 98.8 91 18 141/60 (87) 93 10/12/17 04:00 97.5 82 18 117/66 (83) 95 10/12/17 04:00 Nasal Cannula 3.00 10/12/17 00:00 98.0 87 19 151/63 (92) 90 10/12/17 00:00 Nasal Cannula 3.00 10/11/17 20:30 94 Nasal Cannula 3.00 10/11/17 20:00 Nasal Cannula 3.00 10/11/17 20:00 98.0 80 18 141/67 (91) 94 10/11/17 16:00 98.1 84 24 149/71 (97) 91 10/11/17 14:50 21 I/O 10/11/17 10/11/17 10/11/17 10/12/17 10/12/17 10/12/17 07:00 15:00 23:00 07:00 15:00 23:00 Intake Total 240 ml 540 ml Output Total 800 ml Balance 240 ml -260 ml Intake Oral 240 ml 540 ml Output Urine Total 800 ml # Voids 3 # Bowel Movements 0 Result Diagram: 10/12/17 0641 10/12/17 0641 Imaging Last Impressions Renal Ultrasound 10/10/17 0000 Signed Impressions: Service Date/Time: Tuesday, October 10, 2017 18:29 - CONCLUSION: 1. Questionable central mass left kidney measuring 2.7 cm. Contrasted MRI recommended. 2. Minimally complex cyst lower pole left kidney Abhijeet Mahan MD Chest X-Ray 10/09/17 1231 Signed Impressions: Service Date/Time: Monday, October 09, 2017 12:40 - CONCLUSION: Chronic left lower lobe infiltrates. Mild central vascular engorgement. Joby Bell MD Abdomen/Pelvis CT 10/09/17 1231 Signed Impressions: Service Date/Time: Genie, October 09, 2017 15:27 - CONCLUSION: 1. Abnormal appearance to the lower pole left kidney with 1.8 cm smooth margined intermediate density lesion suggesting possible mass. 2. Expected findings post cholecystectomy. Joby Bell MD Objective Remarks General: Elderly female in no acute distress. Heart: Regular rate and rhythm. No murmur. Lungs: Decreased breath sounds in both bases. Scattered rhonchi. Breathing is nonlabored. Abdomen: Soft, nontender, nondistended. Extremities: No lower extremity edema. Psych: Alert and oriented. Neuro: Normal speech. No focal deficits noted. Procedures None Urinary Catheter: No Vascular Central Line Catheter: No A/P Problem List: (1) COPD exacerbation ICD Code: J44.1 - Chronic obstructive pulmonary disease with (acute) exacerbation Status: Acute (2) CHF (congestive heart failure) ICD Code: I50.9 - Heart failure, unspecified Status: Acute (3) Blood in stool ICD Code: K92.1 - Melena (4) Hypoxia ICD Code: R09.02 - Hypoxemia; G89.29 - Other chronic pain Status: Acute (5) Chronic abdominal pain ICD Code: R10.9 - Unspecified abdominal pain; G89.29 - Other chronic pain Status: Acute (6) Lesion of left [place] kidney ICD Code: N28.9 - Disorder of kidney and ureter, unspecified Assessment and Plan 1. Abdominal pain, dark stools: Patient has had multiple abdominal surgeries in the past and has chronic abdominal pain. She was noted to have anemia. Appreciate GI recommendations. Going for EGD now. Continue pain control, PPI, Zofran. 2. Microcytic anemia: Possibly secondary to GI bleed. H&H low, but stable. Monitor labs. Transfuse if necessary. 3. CHF exacerbation: Echocardiogram shows ejection fraction of 60% with mild to moderate mitral valve regurgitation and mild to moderate aortic valve regurgitation. BNP elevated on admission. Continue Lasix. 4. COPD: Continue oxygen. Patient is on chronic home O2 at 3 L continuous. Continue prednisone, bronchodilators. 5. Anxiety: Valium as needed. 6. Hypothyroidism: Continue Synthroid. 7. Hypokalemia: Improved. 8. Left lower pole renal mass: Incidental finding on CT. Appreciate urology recommendations. Follow-up as outpatient. 9. Insomnia: Continue Ambien. 10. Chronic neck and back pain: Continue pain control. Continue home dose of baclofen. 11. Tobacco abuse: Patient has been counseled to quit smoking. 12. DVT prophylaxis: SCDs. Avoid chemical prophylaxis secondary to possible GI bleed. 13. Appreciate palliative care assistance. Discussed with Dr. Estrada. 14. Pulmonary hypertension: Consult pulmonology. Discharge Planning Pending clinical improvement. Problem Qualifiers (1) CHF (congestive heart failure): Qualified Codes: I50.9 - Heart failure, unspecified Itz Trevino MD October 12, 2017 13:20
[2017-10-12] MEDS ORDERED: POVIDONE IODINE 5% (ANTISEPSIS KIT) 4 APPLICATIONS EACH NARE PRN (14:00)
[2017-10-12] MEDS ORDERED: SODIUM CHLORID 0.9% 500 ML IV PRN (14:00)
[2017-10-12] MEDS ORDERED: METOPROLOL TARTRATE 25 MG TAB PO PRN (14:00)
[2017-10-12] MEDS ORDERED: CHLORHEXIDINE GLUCONATE 2 % 1 PACK (2 CLOTHS) TOPICAL PRN (14:00)
[2017-10-12] MEDS ORDERED: LACTATED RINGER'S 1000 ML IV PRN (14:00)
[2017-10-12] MEDS ORDERED: INSULIN HUMAN REGULAR 1,000 UNITS/10 ML VIAL SQ PRN (14:00)
--- NOTE | 2017-10-12 14:35 | PD.PROCEDR ---
GI Procedure PROCEDURE PERFORMED Upper endoscopy INDICATION FOR PROCEDURE Anemia, abdominal pain PROCEDURE: The procedure, risks and benefits were discussed with Ms. Moy and informed consent was obtained. Anesthesia sedated her with Diprivan. She was placed in the left lateral decubitus position. EGD: The Pentax videoscope was introduced through the oropharynx and advanced to the second portion of the duodenum under direct visualization. Retroflexion was performed in the stomach. ESTIMATED BLOOD LOSS: None SPECIMENS REMOVED: None COMPLICATIONS: None IMPRESSION: Normal upper endoscopy PLAN: Colonoscopy tomorrow if patient agreeable Clear liquid diet Tash Gaytan MD October 12, 2017 14:35
--- NOTE | 2017-10-12 14:36 | HHI.GIFU ---
Subjective Remarks Patient still having some abdominal discomfort no sign of active bleeding Objective Vitals I&O Vital Signs Date Time Temp Pulse Resp B/P (MAP) Pulse Ox O2 Delivery O2 Flow Rate FiO2 10/12/17 12:53 98.4 85 22 109/56 (73) 92 10/12/17 10:35 75 142/57 (85) 91 10/12/17 08:00 98.8 91 18 141/60 (87) 93 10/12/17 04:00 97.5 82 18 117/66 (83) 95 10/12/17 04:00 Nasal Cannula 3.00 10/12/17 00:00 98.0 87 19 151/63 (92) 90 10/12/17 00:00 Nasal Cannula 3.00 10/11/17 20:30 94 Nasal Cannula 3.00 10/11/17 20:00 Nasal Cannula 3.00 10/11/17 20:00 98.0 80 18 141/67 (91) 94 10/11/17 16:00 98.1 84 24 149/71 (97) 91 10/11/17 14:50 21 I/O 10/11/17 10/11/17 10/11/17 10/12/17 10/12/17 10/12/17 07:00 15:00 23:00 07:00 15:00 23:00 Intake Total 240 ml 540 ml Output Total 800 ml Balance 240 ml -260 ml Intake Oral 240 ml 540 ml Output Urine Total 800 ml # Voids 3 1 # Bowel Movements 0 Laboratory Laboratory Tests Test 10/12/17 06:41 White Blood Count 12.5 Red Blood Count 3.85 Hemoglobin 8.5 Hematocrit 29.3 Mean Corpuscular Volume 76.1 Mean Corpuscular Hemoglobin 22.0 Mean Corpuscular Hemoglobin Concent 29.0 Red Cell Distribution Width 19.0 Platelet Count 161 Mean Platelet Volume 9.0 Neutrophils (%) (Auto) 83.3 Lymphocytes (%) (Auto) 9.3 Monocytes (%) (Auto) 7.0 Eosinophils (%) (Auto) 0.1 Basophils (%) (Auto) 0.3 Neutrophils # (Auto) 10.4 Lymphocytes # (Auto) 1.2 Monocytes # (Auto) 0.9 Eosinophils # (Auto) 0.0 Basophils # (Auto) 0.0 CBC Comment DIFF FINAL Differential Comment Blood Urea Nitrogen 13 Creatinine 0.37 Random Glucose 78 Calcium Level 9.0 Sodium Level 133 Potassium Level 5.3 Chloride Level 90 Carbon Dioxide Level 38.8 Anion Gap 4 Estimat Glomerular Filtration Rate 167 Physical Exam HEENT: Normocephalic; atraumatic CHEST: Diffuse wheezing - 4 L O2 via NC CARDIAC: RRR ABDOMEN: Soft, diffuse tenderness, bowel sounds active EXTREMITIES: No clubbing, cyanosis, or edema. SKIN: Normal; no rash; no jaundice. SPA RECEPTIONIST: Awake, answers questions appropriately Assessment and Plan Assessment: (1) Chronic abdominal pain ICD Codes: R10.9 - Unspecified abdominal pain; G89.29 - Other chronic pain Status: Acute Plan Patient was seen and examined, upper endoscopy was done IMPRESSION: Erythema in the ascending colon consistent with mild colitis biopsy was done Not able to see any large lesion or severe colitis This could be changes post C. difficile PLAN: Follow-up biopsy Diet as tolerated Okay to discharge home from GI Follow-up as an outpatient in 2 weeks Consider colonoscopy again with longer prep Asacol 800 HD 3 times daily Tash Gaytan MD October 12, 2017 14:36
[2017-10-12] MEDS ORDERED: MIDAZOLAM HCL 2 MG/2 ML VIAL ONE (15:10)
[2017-10-12] MEDS ORDERED: DO NOT ADM ANY ANTICOAGULANT DRUGS PRN (15:15)
[2017-10-12] MEDS ORDERED: PEG (High)/E-LYTE SOLN 4000 ML BTL PO ONE (16:00)
--- NOTE | 2017-10-12 18:57 | MB ---
cc: Wilfrido Yin MD DATE: 10/12/2017 REQUESTING PHYSICIAN: Dr. Reinaldo Trevino. REASON FOR CONSULTATION: Evaluate shortness of breath and pulmonary hypertension. HISTORY OF PRESENT ILLNESS: Ms. Moy is an 83-year-old female with a history of COPD. She is oxygen dependent with a history of nicotine use and continues to smoke at least 1 pack of cigarettes a day. She also has a history of aortic regurgitation, CHF, chronic pain and multiple abdominal surgeries. The patient came to the hospital with nausea, black stools, feeling very weak. Because of abdominal pain and black stool, she was sent to the emergency room. She had a workup done. Her WBC count is 12.5, hemoglobin 8.5, hematocrit 29.3, MCV 76, platelet count 161. Sodium 133, potassium 5, chloride 90, CO2 38, BUN 13, creatinine 0.37. Chest x-ray shows mild central bronchopulmonary markings, possible ill-defined infiltrate in the left lung. PAST MEDICAL HISTORY: Significant for a history of COPD. She is oxygen dependent. Nicotine use, anxiety, depression, multiple abdominal surgeries, hypertension, and congestive heart failure. PAST SURGICAL HISTORY: History of cholecystectomy, total hysterectomy, bilateral cataract surgery. MEDICATIONS: She is currently takin. Metoprolol 25 mg. 2. Insulin coverage. 3. Flonase nasal spray. 4. Imitrex p.r.n. 5. Lasix 20 mg a day. 6. Singulair 10 mg a day. 7. Enalapril 10 mg a day. 8. Prednisone 40 mg a day. 9. Albuterol/Atrovent nebulizer treatment. 10. Levothyroxine 100 mcg a day. 11. Ambien 10 mg. 12. Protonix 40 mg. 13. Symbicort 160/4.5. 14. Hydrocodone p.r.n. ALLERGIES: SHE IS ALLERGIC TO LEVAQUIN AND MEPERIDINE. 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 Long history of smoking and continues to smoke at least a half pack of cigarettes. No alcohol use. FAMILY HISTORY: Her recently a couple of months ago. She is trying to put everything together. She has 2 children. REVIEW OF SYSTEMS: She feels weak and tired. No seizure, stroke or epilepsy. No malignancy. PHYSICAL EXAMINATION: GENERAL: This is a frail, elderly female mildly short of breath. VITAL SIGNS: Blood pressure 150/65, heart rate 91, respirations 17, temperature 97.6. HEENT: Pupils are equal and reactive to light. She has bilateral cataract surgery done. Oral mucosa and nasal mucosa normal. NECK: Supple. JVP not raised. CHEST: Equal bilaterally. She has a few scattered rales. CARDIOVASCULAR: S1 and S2 normal. ABDOMEN: Benign. EXTREMITIES: No edema. IMPRESSION: 1. Chronic obstructive pulmonary disease. 2. Moderate pulmonary hypertension. 3. Congestive heart failure. 4. Aortic regurgitation. 5. Abdominal pain. 6. Active Depression. 7. Chronic pain. PLAN: I discussed with the patient. We will check pulmonary function studies, supplemental oxygen and continue aerosol treatment. Monitor her hemoglobin and hematocrit. Her pulmonary hypertension is multifactorial including possible underlying sleep apnea and cardiac problem. Clinically, there is no evidence of any connective tissue disorder; however, she will need a full complete workup as an outpatient. Further recommendations will depend upon the course in the hospital. Thank you, Dr. Trevino, for this consult. Wilfrido Yin MD ADA/DL , 06:32 PM , 06:56 PM
[2017-10-12 19:27] LABS: CALCIUM 8.1 MG/DL (8.5-10.1); CREATININE 0.42 MG/DL (0.50-1.00)
[2017-10-12] MEDS: ZOLPIDEM TARTRATE 10 MG TAB PO SCH (20:51)
[2017-10-13 03:42] VITALS: BP 143/66; PULSE 77; RESP 16; TEMP 97.5; O2SAT 96
[2017-10-13] MEDS: LEVOTHYROXINE SODIUM 100 MCG TAB PO SCH (05:32)
[2017-10-13 08:00] VITALS: BP 112/68; PULSE 87; PULSE 88; RESP 20; TEMP 97.7; O2SAT 90
[2017-10-13 08:58] LABS: HEMOGLOBIN 8.6 GM/DL (11.6-15.3); MEAN CELL VOLUME 74.2 FL (80.0-100.0); MEAN CORPUSCULAR HEMOGLOBIN 21.9 PG (27.0-34.0); MEAN PLATELET VOLUME 8.4 FL (7.0-11.0); PLATELET COUNT 157 TH/MM3 (150-450); RED BLOOD COUNT 3.91 MIL/MM3 (4.00-5.30); RED CELL DISTRIBUTION WIDTH 19.1 % (11.6-17.2)
[2017-10-13 08:59] LABS: MEAN CORPUSCULAR HGB CONC 29.6 % (32.0-36.0)
[2017-10-13] MEDS: DOCUSATE SODIUM 50 MG/SENNA 8.6 MG TAB PO SCH ×2 (09:00→20:44)
[2017-10-13] MEDS: BACLOFEN 10 MG TAB PO SCH ×3 (09:17→17:25)
[2017-10-13] MEDS: predniSONE 20 MG TAB PO SCH (09:17)
[2017-10-13] MEDS: MONTELUKAST SODIUM 10 MG TAB PO SCH (09:17)
[2017-10-13] MEDS: ENALAPRIL MALEATE 10 MG TAB PO SCH (09:17)
[2017-10-13] MEDS: FUROSEMIDE 20 MG/2 ML VIAL IV PUSH SCH (09:18)
[2017-10-13 09:19] LABS: BICARBONATE 37.8 MEQ/L (21.0-32.0); CALCIUM 8.8 MG/DL (8.5-10.1); CREATININE 0.37 MG/DL (0.50-1.00)
[2017-10-13] MEDS: ALBUTEROL SULFATE 90 MCG/ACT HFA 8 GM INHALER INH SCH ×3 (09:20→17:25)
[2017-10-13] MEDS: TIOTROPIUM BROMIDE 18 MCG INH INH SCH (09:20)
[2017-10-13] MEDS: FLUTICASONE PROPIONATE 50 MCG/ACT 16 GM NASAL SPRAY NASAL SCH (09:21)
[2017-10-13] MEDS: PANTOPRAZOLE SODIUM 40 MG VIAL IV PUSH SCH ×2 (09:21→20:44)
[2017-10-13] MEDS: ACETAMINOPHEN/HYDROcodone 325 MG/10 MG TAB PO PRN ×3 (09:27→20:44)
[2017-10-13 09:32] LABS: LYMPHOCYTES 7 % (9-44); MONOCYTES 4 % (0-8); NEUTROPHIL # MANUAL DIFF 8.9 TH/MM3 (1.8-7.7); POLYS (SEG NEUTROPHILS) 89 % (16-70)
[2017-10-13 09:33] LABS: TARGET CELLS 1+ (NORMAL)
[2017-10-13 12:00] VITALS: BP 171/75; PULSE 78; RESP 22; TEMP 99; O2SAT 94
[2017-10-13] MEDS ORDERED: PROPOFOL 200 MG/20 ML AMP IV ONE (12:00)
[2017-10-13] MEDS: MORPHINE SULFATE 4 MG/ML INJ IV PUSH PRN (12:12)
[2017-10-13 13:19] VITALS: O2SAT 93
--- NOTE | 2017-10-13 13:26 | HHI.PR ---
Subjective Remarks Follow up abdominal pain. Patient reports increased abdominal pain today. She reports dry heaves. Dyspnea is stable. She is complaining of chronic back/neck pain as well. Objective Vitals Vital Signs Date Time Temp Pulse Resp B/P (MAP) Pulse Ox O2 Delivery O2 Flow Rate FiO2 10/13/17 13:19 93 Nasal Cannula 4.00 10/13/17 09:36 Nasal Cannula 4.00 10/13/17 08:00 88 10/13/17 08:00 97.7 87 20 112/68 (83) 90 10/13/17 03:42 97.5 77 16 143/66 (91) 96 10/12/17 23:12 97.3 73 16 101/63 (76) 97 10/12/17 21:00 Nasal Cannula 4.00 10/12/17 19:32 97.4 84 18 145/60 (88) 93 10/12/17 17:59 91 Nasal Cannula 3.00 10/12/17 16:00 97.6 91 17 150/65 (93) 91 10/12/17 15:07 71 22 113/56 (75) 98 Nasal Cannula 4 10/12/17 14:44 76 22 111/53 (72) 97 Nasal Cannula 4 10/12/17 14:37 98.2 80 22 109/53 (71) 98 Nasal Cannula 4 I/O 10/12/17 10/12/17 10/12/17 10/13/17 10/13/17 10/13/17 07:00 15:00 23:00 07:00 15:00 23:00 Intake Total 100 ml 480 ml Balance 100 ml 480 ml Intake Oral 480 ml Other 100 ml # Voids 1 5 1 # Bowel Movements 0 0 Result Diagram: 10/13/17 0815 10/13/17 0815 Imaging Last Impressions Renal Ultrasound 10/10/17 0000 Signed Impressions: Service Date/Time: Tuesday, October 10, 2017 18:29 - CONCLUSION: 1. Questionable central mass left kidney measuring 2.7 cm. Contrasted MRI recommended. 2. Minimally complex cyst lower pole left kidney Abhijeet Mahan MD Chest X-Ray 10/09/17 1231 Signed Impressions: Service Date/Time: Monday, October 09, 2017 12:40 - CONCLUSION: Chronic left lower lobe infiltrates. Mild central vascular engorgement. Joby Bell MD Abdomen/Pelvis CT 10/09/17 1231 Signed Impressions: Service Date/Time: Monday, October 09, 2017 15:27 - CONCLUSION: 1. Abnormal appearance to the lower pole left kidney with 1.8 cm smooth margined intermediate density lesion suggesting possible mass. 2. Expected findings post cholecystectomy. Joby Bell MD Objective Remarks General: Elderly female in no acute distress. Appears uncomfortable. Heart: Regular rate and rhythm. No murmur. Lungs: Decreased breath sounds in both bases. Scattered rhonchi. Breathing is nonlabored. Abdomen: Soft, diffusely tender, nondistended. Extremities: No lower extremity edema. Psych: Alert, somewhat confused. Oriented to month, city, hospital. Not oriented to year (1981). Neuro: Normal speech. No focal deficits noted. Procedures 10/12/17 EGD Urinary Catheter: No Vascular Central Line Catheter: No A/P Problem List: (1) COPD exacerbation ICD Code: J44.1 - Chronic obstructive pulmonary disease with (acute) exacerbation Status: Acute (2) CHF (congestive heart failure) ICD Code: I50.9 - Heart failure, unspecified Status: Acute (3) Blood in stool ICD Code: K92.1 - Melena (4) Hypoxia ICD Code: R09.02 - Hypoxemia; G89.29 - Other chronic pain Status: Acute (5) Chronic abdominal pain ICD Code: R10.9 - Unspecified abdominal pain; G89.29 - Other chronic pain Status: Acute (6) Lesion of left [facility] [place] kidney ICD Code: N28.9 - Disorder of kidney and ureter, unspecified Assessment and Plan 1. Abdominal pain, dark stools: Patient has had multiple abdominal surgeries in the past and has chronic abdominal pain. She was noted to have anemia. Appreciate GI recommendations. S/P EGD. Continue pain control, PPI, Zofran. Plan is for colonoscopy per GI. 2. Microcytic anemia: Possibly secondary to GI bleed. H&H low, but stable. Monitor labs. Transfuse if necessary. 3. CHF exacerbation: Echocardiogram shows ejection fraction of 60% with mild to moderate mitral valve regurgitation and mild to moderate aortic valve regurgitation. BNP elevated on admission. Continue Lasix. 4. COPD: Continue oxygen. Patient is on chronic home O2 at 3 L continuous. Continue prednisone, bronchodilators. 5. Anxiety: Valium as needed. 6. Hypothyroidism: Continue Synthroid. 7. Hypokalemia: Improved. 8. Left lower pole renal mass: Incidental finding on CT. Appreciate urology recommendations. Follow-up as outpatient. 9. Insomnia: Continue Ambien. 10. Chronic neck and back pain: Continue pain control. Continue home dose of baclofen. 11. Tobacco abuse: Patient has been counseled to quit smoking. 12. DVT prophylaxis: SCDs. Avoid chemical prophylaxis secondary to possible GI bleed. 13. Appreciate palliative care assistance. 14. Pulmonary hypertension: Appreciate pulmonology recommendations. Discharge Planning Pending clinical improvement. Problem Qualifiers (1) CHF (congestive heart failure): Qualified Codes: I50.9 - Heart failure, unspecified Itz Trevino MD October 13, 2017 13:26
[2017-10-13 16:00] VITALS: BP 147/77; PULSE 77; RESP 20; TEMP 98.2; O2SAT 94
[2017-10-13] MEDS ORDERED: MIDAZOLAM HCL 2 MG/2 ML VIAL ONE (16:19)
--- NOTE | 2017-10-13 16:20 | GIPROC ---
[facility] [address] [facility]. [facility], [address] COLONOSCOPY PROCEDURE REPORT EXAM DATE: 10/13/2017 PATIENT NAME: Betty Moy MR #: [id number] BIRTHDATE: 1935 ENDOSCOPIST: Eulalia Coronado MD ORDER #: [id number] SENIOR ANALYTIC CONSULTANT: Jenny Thurston STATUS: inpatient INDICATIONS: The patient is a 82 yr old female here for a colonoscopy due to anemia , abdominal pain PROCEDURE PERFORMED: Colonoscopy, diagnostic MEDICATIONS: None and Per Anesthesia. PREP QUALITY: fair PREP TYPE:Other: ESTIMATED BLOOD LOSS: None CONSENT: The patient understands the risks and benefits of the procedure and understands that these risks include, but are not limited to: sedation, allergic reaction, infection, perforation and/or bleeding. Alternative means of evaluation and treatment include, among others: physical exam, x-rays, and/or surgical intervention. The patient elects to proceed with this endoscopic procedure. medical equipment was checked for proper function. Hand hygiene and appropriate measures for infection prevention was taken. After the risks, benefits and alternatives of the procedure were thoroughly explained, Informed consent was verified, confirmed and timeout was successfully executed by the treatment team. A digital exam revealed decreased sphincter tone and revealed external hemorrhoids The Pentax [id number] endoscope was introduced through the anus and advanced to the cecum, which was identified by both the appendix and ileocecal valve. The instrument was then slowly withdrawn as the colon was fully examined. COLON FINDINGS: Diverticulosis sigmoid,descending. Retroflexed views revealed internal hemorrhoids and Retroflexed views revealed small internal hemorrhoids The scope was then completely withdrawn from the patient and the procedure terminated. PROCEDURE WITHDRAWAL TIME:6minutes ADVERSE EVENTS: There were no complications. IMPRESSIONS: 1. Diverticulosis sigmoid,descending 2. Retroflexed views revealed internal hemorrhoids 3. Retroflexed views revealed small internal hemorrhoids 4. Revealed decreased sphincter tone 5. Revealed external hemorrhoids RECOMMENDATIONS: 1. Benefiber 2 tsp daily 2. Probiotics from any [employer] or health food store 3. Yearly rectal exams 4. Capsule endoscopy start iron supplementation vit b12, folic acid celiac panel ok to dc from [facility] in 2 weeks hematology evaluation RECALL: Return 3 years Colonoscopy Eulalia Coronado MD eSigned: Eulalia Coronado MD 10/13/2017 4:19 PM cc: PATIENT NAME: ChinmayBetty MR#: [id number]
[2017-10-13] MEDS ORDERED: DO NOT ADM ANY ANTICOAGULANT DRUGS PRN (16:45)
[2017-10-13 20:00] VITALS: BP 119/60; PULSE 76; PULSE 80; RESP 20; TEMP 98.1; O2SAT 94
[2017-10-13] MEDS: ZOLPIDEM TARTRATE 10 MG TAB PO SCH (20:44)
[2017-10-14] VITALS (9 sets, daily range): BP systolic 113–183; BP diastolic 50–79; PULSE 61–93; RESP 18–20; TEMP 97.2–98.6; O2SAT 91–99
[2017-10-14] MEDS: LEVOTHYROXINE SODIUM 100 MCG TAB PO SCH (06:16)
[2017-10-14 07:40] LABS: HEMATOCRIT 25.8 % (35.0-46.0); MEAN CELL VOLUME 72.3 FL (80.0-100.0); MEAN CORPUSCULAR HEMOGLOBIN 22.5 PG (27.0-34.0); MEAN CORPUSCULAR HGB CONC 31.2 % (32.0-36.0); MEAN PLATELET VOLUME 8.8 FL (7.0-11.0); PLATELET COUNT 153 TH/MM3 (150-450); RED BLOOD COUNT 3.57 MIL/MM3 (4.00-5.30); RED CELL DISTRIBUTION WIDTH 19.1 % (11.6-17.2); WHITE BLOOD COUNT 9.6 TH/MM3 (4.0-11.0)
[2017-10-14 08:08] LABS: BICARBONATE 39.3 MEQ/L (21.0-32.0); CALCIUM 7.9 MG/DL (8.5-10.1); CREATININE 0.43 MG/DL (0.50-1.00); MAGNESIUM 1.3 MG/DL (1.5-2.5); TROPONIN I 0.06 NG/ML (0.02-0.05)
[2017-10-14 08:16] LABS: LYMPHOCYTES 2 % (9-44); MONOCYTES 7 % (0-8); NEUTROPHIL # MANUAL DIFF 8.7 TH/MM3 (1.8-7.7); POLYS (SEG NEUTROPHILS) 91 % (16-70); TARGET CELLS 1+ (NORMAL)
[2017-10-14 08:17] LABS: ACANTHOCYTES OCC (NORMAL)
[2017-10-14] MEDS: DOCUSATE SODIUM 50 MG/SENNA 8.6 MG TAB PO SCH ×2 (08:49→20:28)
[2017-10-14] MEDS: predniSONE 20 MG TAB PO SCH (08:50)
[2017-10-14] MEDS: BACLOFEN 10 MG TAB PO SCH ×3 (08:50→16:39)
[2017-10-14] MEDS: ENALAPRIL MALEATE 10 MG TAB PO SCH (08:50)
[2017-10-14] MEDS: MONTELUKAST SODIUM 10 MG TAB PO SCH (08:50)
[2017-10-14] MEDS: FLUTICASONE PROPIONATE 50 MCG/ACT 16 GM NASAL SPRAY NASAL SCH (08:51)
[2017-10-14] MEDS: FUROSEMIDE 20 MG/2 ML VIAL IV PUSH SCH (08:52)
[2017-10-14] MEDS: PANTOPRAZOLE SODIUM 40 MG VIAL IV PUSH SCH ×2 (08:52→20:28)
[2017-10-14] MEDS: ALBUTEROL SULFATE 90 MCG/ACT HFA 8 GM INHALER INH SCH ×3 (08:52→16:40)
[2017-10-14] MEDS: TIOTROPIUM BROMIDE 18 MCG INH INH SCH (08:52)
[2017-10-14] MEDS: ACETAMINOPHEN/HYDROcodone 325 MG/10 MG TAB PO PRN ×3 (11:46→20:28)
[2017-10-14] MEDS: MAGNESIUM SULFATE 1 GM PREMIX 100 ML IV SCH ×2 (11:48→17:22)
--- NOTE | 2017-10-14 12:33 | EKG ---
Date Performed: 10/14/2017 Time Performed: 06:42:16 PTAGE: 82 years EKG: Sinus arrhythmia Rightward axis Possible anteroseptal infarct - age undetermined Abnormal E CG PREVIOUS TRACING 10/09/2017 12.35 DOCTOR: Tolu John Interpretating Date/Time 10/14/2017 12:32:24
--- NOTE | 2017-10-14 13:14 | HHI.PR ---
Subjective Remarks Also complaining of sharp chest pain. She reports associated shortness of breath. States that she feels "not good". Objective Vitals Vital Signs Date Time Temp Pulse Resp B/P (MAP) Pulse Ox O2 Delivery O2 Flow Rate FiO2 10/14/17 09:28 Nasal Cannula 4.00 10/14/17 08:53 Nasal Cannula 4.00 10/14/17 08:00 87 10/14/17 08:00 98.3 87 18 183/72 (109) 92 10/14/17 04:00 98.6 81 20 165/59 (94) 97 10/14/17 04:00 Nasal Cannula 4.00 10/14/17 04:00 92 10/14/17 00:06 76 10/14/17 00:00 98.0 75 20 129/58 (81) 96 10/14/17 00:00 Nasal Cannula 4.00 10/13/17 20:21 Nasal Cannula 4.00 10/13/17 20:00 98.1 80 20 119/60 (79) 94 10/13/17 20:00 76 10/13/17 20:00 Nasal Cannula 4.00 10/13/17 16:30 65 20 144/61 (88) 92 Nasal Cannula 3 10/13/17 16:15 97.3 81 16 154/65 (94) 98 Nasal Cannula 4 10/13/17 16:00 98.2 77 20 147/77 (100) 94 10/13/17 13:19 93 Nasal Cannula 4.00 I/O 10/13/17 10/13/17 10/13/17 10/14/17 10/14/17 10/14/17 07:00 15:00 23:00 07:00 15:00 23:00 Intake Total 480 ml 510 ml Output Total 100 ml Balance 480 ml 410 ml Intake Oral 480 ml 360 ml Other 150 ml Output Urine Total 100 ml Estimated Blood Loss 0 ml # Voids 1 3 # Bowel Movements 0 Result Diagram: 10/14/1771610/14/1717 Imaging Last Impressions Renal Ultrasound 10/10/17 0000 Signed Impressions: Service Date/Time: Tuesday, October 10, 2017 18:29 - CONCLUSION: 1. Questionable central mass left kidney measuring 2.7 cm. Contrasted MRI recommended. 2. Minimally complex cyst lower pole left kidney Abhijeet Mahan MD Chest X-Ray 10/09/17 1231 Signed Impressions: Service Date/Time: Monday, October 09, 2017 12:40 - CONCLUSION: Chronic left lower lobe infiltrates. Mild central vascular engorgement. Joby Bell MD Abdomen/Pelvis CT 10/09/17 1231 Signed Impressions: Service Date/Time: Monday, October 09, 2017 15:27 - CONCLUSION: 1. Abnormal appearance to the lower pole left kidney with 1.8 cm smooth margined intermediate density lesion suggesting possible mass. 2. Expected findings post cholecystectomy. Joby Bell MD Objective Remarks General: Elderly female in no acute distress. Heart: Regular rate and rhythm. No murmur. Lungs: Decreased breath sounds in both bases. Scattered rhonchi. Breathing is nonlabored. Abdomen: Soft, mild diffuse tenderness to palpation without rebound or guarding , nondistended. Extremities: No lower extremity edema. Psych: Alert, somewhat confused. Neuro: Normal speech. No focal deficits noted. Procedures 10/12/17 EGD Urinary Catheter: No Vascular Central Line Catheter: No A/P Problem List: (1) COPD exacerbation ICD Code: J44.1 - Chronic obstructive pulmonary disease with (acute) exacerbation Status: Acute (2) CHF (congestive heart failure) ICD Code: I50.9 - Heart failure, unspecified Status: Acute (3) Blood in stool ICD Code: K92.1 - Melena (4) Hypoxia ICD Code: R09.02 - Hypoxemia; G89.29 - Other chronic pain Status: Acute (5) Chronic abdominal pain ICD Code: R10.9 - Unspecified abdominal pain; G89.29 - Other chronic pain Status: Acute (6) Lesion of left [place] kidney ICD Code: N28.9 - Disorder of kidney and ureter, unspecified Assessment and Plan 1. Abdominal pain, dark stools: Patient has had multiple abdominal surgeries in the past and has chronic abdominal pain. She was noted to have anemia. Appreciate GI recommendations. S/P EGD. S/P colonoscopy. Continue pain control , PPI, Zofran. 2. Microcytic anemia: Possibly secondary to GI bleed. H&H low, but stable. Monitor labs. Transfuse if necessary. 3. CHF exacerbation: Echocardiogram shows ejection fraction of 60% with mild to moderate mitral valve regurgitation and mild to moderate aortic valve regurgitation. BNP elevated on admission. Continue Lasix. 4. COPD: Continue oxygen. Patient is on chronic home O2 at 3 L continuous. Continue prednisone, bronchodilators. 5. Anxiety: Valium as needed. 6. Hypothyroidism: Continue Synthroid. 7. Hypokalemia: Improved. 8. Left lower pole renal mass: Incidental finding on CT. Appreciate urology recommendations. Follow-up as outpatient. 9. Insomnia: Continue Ambien. 10. Chronic neck and back pain: Continue pain control. Continue home dose of baclofen. 11. Tobacco abuse: Patient has been counseled to quit smoking. 12. DVT prophylaxis: SCDs. Avoid chemical prophylaxis secondary to possible GI bleed. 13. Appreciate palliative care assistance. 14. Pulmonary hypertension: Appreciate pulmonology recommendations. 15. Hypomagnesemia: Supplement magnesium. Recheck labs in the morning. 16. Chest pain: Atypical. Initial troponin slightly elevated. Check serial cardiac enzymes and EKGs. Discharge Planning Pending clinical improvement. Problem Qualifiers (1) CHF (congestive heart failure): Qualified Codes: I50.9 - Heart failure, unspecified Itz Trevino MD October 14, 2017 13:14
--- NOTE | 2017-10-14 14:59 | HHI.GIFU ---
Subjective Remarks Pt resting in bed, very confused today Son at bedside (Didi Knox KEON) Objective Vitals I&O Vital Signs Date Time Temp Pulse Resp B/P (MAP) Pulse Ox O2 Delivery O2 Flow Rate FiO2 10/14/17 12:00 93 10/14/17 09:28 Nasal Cannula 4.00 10/14/17 08:53 Nasal Cannula 4.00 10/14/17 08:00 87 10/14/17 08:00 98.3 87 18 183/72 (109) 92 10/14/17 04:00 98.6 81 20 165/59 (94) 97 10/14/17 04:00 Nasal Cannula 4.00 10/14/17 04:00 92 10/14/17 00:06 76 10/14/17 00:00 98.0 75 20 129/58 (81) 96 10/14/17 00:00 Nasal Cannula 4.00 10/13/17 20:21 Nasal Cannula 4.00 10/13/17 20:00 98.1 80 20 119/60 (79) 94 10/13/17 20:00 76 10/13/17 20:00 Nasal Cannula 4.00 10/13/17 16:30 65 20 144/61 (88) 92 Nasal Cannula 3 10/13/17 16:15 97.3 81 16 154/65 (94) 98 Nasal Cannula 4 10/13/17 16:00 98.2 77 20 147/77 (100) 94 I/O 10/13/17 10/13/17 10/13/17 10/14/17 10/14/17 10/14/17 07:00 15:00 23:00 07:00 15:00 23:00 Intake Total 480 ml 510 ml Output Total 100 ml Balance 480 ml 410 ml Intake Oral 480 ml 360 ml Other 150 ml Output Urine Total 100 ml Estimated Blood Loss 0 ml # Voids 1 3 # Bowel Movements 0 Laboratory Laboratory Tests Test 10/14/17 07:17 White Blood Count 9.6 Red Blood Count 3.57 Hemoglobin 8.0 Hematocrit 25.8 Mean Corpuscular Volume 72.3 Mean Corpuscular Hemoglobin 22.5 Mean Corpuscular Hemoglobin Concent 31.2 Red Cell Distribution Width 19.1 Platelet Count 153 Mean Platelet Volume 8.8 CBC Comment AUTO DIFF Differential Total Cells Counted 100 Neutrophils % (Manual) 91 Lymphocytes % 2 Monocytes % 7 Neutrophils # (Manual) 8.7 Differential Comment FINAL DIFF MANUAL Platelet Estimate NORMAL Platelet Morphology Comment NORMAL Target Cells 1+ Acanthocytes OCC Blood Urea Nitrogen 11 Creatinine 0.43 Random Glucose 91 Calcium Level 7.9 Magnesium Level 1.3 Sodium Level 136 Potassium Level 3.9 Chloride Level 90 Carbon Dioxide Level 39.3 Anion Gap 7 Estimat Glomerular Filtration Rate 141 Total Creatine Kinase 24 Troponin I 0.06 B-Type Natriuretic Peptide 486 Imaging Last Impressions Renal Ultrasound 10/10/17 0000 Signed Impressions: Service Date/Time: Tuesday, October 10, 2017 18:29 - CONCLUSION: 1. Questionable central mass left kidney measuring 2.7 cm. Contrasted MRI recommended. 2. Minimally complex cyst lower pole left kidney Abhijeet Mahan MD Chest X-Ray 10/09/17 1231 Signed Impressions: Service Date/Time: Monday, October 09, 2017 12:40 - CONCLUSION: Chronic left lower lobe infiltrates. Mild central vascular engorgement. Joby Bell MD Abdomen/Pelvis CT 10/09/17 1231 Signed Impressions: Service Date/Time: Monday, October 09, 2017 15:27 - CONCLUSION: 1. Abnormal appearance to the lower pole left kidney with 1.8 cm smooth margined intermediate density lesion suggesting possible mass. 2. Expected findings post cholecystectomy. Joby Bell MD Physical Exam HEENT: Normocephalic; atraumatic CHEST: Diffuse wheezing - 4 L O2 via NC CARDIAC: RRR ABDOMEN: Soft, diffuse tenderness, bowel sounds active EXTREMITIES: No clubbing, cyanosis, or edema. SKIN: Normal; no rash; no jaundice. SWITCH MAKER: Awake, confused (Didi Knox [employer] SUPERVISOR) Assessment and Plan Assessment: (1) Chronic abdominal pain ICD Codes: R10.9 - Unspecified abdominal pain; G89.29 - Other chronic pain Status: Acute Plan Assessment: - Chronic abdominal pain- unable to localize the pain, seems to be more tender in epigastric region CT abdomen and pelvis W IV contrast (10/09) --> Abnormal appearance to the lower pole left kidney with 1.8 cm smooth margined intermediate density lesion suggesting possible mass. Expected findings post cholecystectomy. 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 Also has history of PUD. Last EGD and colonoscopy [address] Del Cid - Constipation- takes chronic laxatives which cause diarrhea- states would rather have diarrhea then be constipated - Nausea- chronic, states occasional emesis in the morning. Denies relation to food. - Anemia- Microcytic, reports intermittent black stools but does not think she has had any recently Iron-6 TIBC-487 %sat-01.2 (10/14) S/P EGD --> Normal upper endoscopy Colonoscopy --> Diverticulosis in the sigmoid and descending colon. Internal and external hemorrhoids. Decreased sphincter tone. H/H remains low- no obvious source of GIB Plan: Bowel regimen as needed Probiotics Benefiber Start iron supplementation Serum B12, folic acid, celiac panel Capsule endoscopy outpatient for anemia GI will sign off, please reconsult as needed Have pt follow up with GI after DC Pt has been seen and examined by myself and Dr. Coronado and this note is written on her behalf (Didi Knox) Didi Knox October 14, 2017 14:59 Eulalia Coronado MD October 14, 2017 17:24
[2017-10-14 16:03] LABS: TROPONIN I 0.04 NG/ML (0.02-0.05)
[2017-10-14] MEDS: ZOLPIDEM TARTRATE 10 MG TAB PO SCH (20:28)
[2017-10-14 20:49] LABS: FOLATE 3.8 NG/ML (3.1-17.5); TROPONIN I 0.05 NG/ML (0.02-0.05)
[2017-10-15] VITALS (7 sets, daily range): BP systolic 118–130; BP diastolic 55–64; PULSE 60–74; RESP 18–20; TEMP 97.8–98; O2SAT 99–100
[2017-10-15] MEDS: DIAZEPAM 10 MG TAB PO PRN ×2 (01:34→13:37)
[2017-10-15] MEDS: ACETAMINOPHEN/HYDROcodone 325 MG/10 MG TAB PO PRN ×3 (01:34→09:55)
[2017-10-15] MEDS: LEVOTHYROXINE SODIUM 100 MCG TAB PO SCH (05:52)
[2017-10-15 08:49] LABS: BICARBONATE 39.4 MEQ/L (21.0-32.0); CALCIUM 7.9 MG/DL (8.5-10.1); CREATININE 0.36 MG/DL (0.50-1.00)
[2017-10-15] MEDS: ENALAPRIL MALEATE 10 MG TAB PO SCH (09:54)
[2017-10-15] MEDS: PANTOPRAZOLE SODIUM 40 MG VIAL IV PUSH SCH (09:54)
[2017-10-15] MEDS: MONTELUKAST SODIUM 10 MG TAB PO SCH (09:54)
[2017-10-15] MEDS: DOCUSATE SODIUM 50 MG/SENNA 8.6 MG TAB PO SCH (09:55)
[2017-10-15] MEDS: BACLOFEN 10 MG TAB PO SCH ×2 (09:55→13:36)
[2017-10-15] MEDS: ALBUTEROL SULFATE 90 MCG/ACT HFA 8 GM INHALER INH SCH ×2 (09:55→13:36)
[2017-10-15] MEDS: TIOTROPIUM BROMIDE 18 MCG INH INH SCH (09:55)
[2017-10-15] MEDS: FUROSEMIDE 20 MG/2 ML VIAL IV PUSH SCH (09:56)
[2017-10-15] MEDS: FLUTICASONE PROPIONATE 50 MCG/ACT 16 GM NASAL SPRAY NASAL SCH (09:56)
[2017-10-15] MEDS ORDERED: HYDR-3516 PO (10:59)
--- NOTE | 2017-10-15 11:03 | HHI.FF ---
Face to Face Verification Diagnosis: (1) Renal mass, left (2) Abdominal pain (3) Hypothyroidism (4) Hypomagnesemia (5) Hypokalemia (6) Pulmonary hypertension (7) COPD (chronic obstructive pulmonary disease) Physical Therapy Order: Evaluate and Treat Home Health Nursing Order: Nursing assessment with vital signs I have seen patient Betty Moy on 10/15/17. My clinical findings support the need for the requested home health care services because: Patient has SOB I certify that my clinical findings support that this patient is homebound because: Hx COPD- exertion dyspnea/weakness Itz Trevino MD October 15, 2017 11:03
--- NOTE | 2017-10-15 11:03 | HHI.DCPOC ---
Discharge Care Plan Diagnosis: (1) COPD (chronic obstructive pulmonary disease) (2) Pulmonary hypertension (3) Hypokalemia (4) Hypomagnesemia (5) Renal mass, left (6) Abdominal pain (7) Hypothyroidism Goals to Promote Your Health * To prevent worsening of your condition and complications * To maintain your health at the optimal level Directions to Meet Your Goals Take your medications as prescribed Follow your dietary instruction Follow activity as directed Keep your appointments as scheduled Take your immunizations and boosters as scheduled If your symptoms worsen call your PCP, if no PCP go to Urgent Care Center or Emergency Room Smoking is Dangerous to Your Health. Avoid second hand smoke Call the 24-hour hour crisis hotline for domestic abuse at Itz Trevino MD October 15, 2017 11:02
--- NOTE | 2017-10-15 11:07 | HHI.DS ---
Discharge Summary Admission Date October 09, 2017 at 16:55 Discharge Date: October 15, 2017 Admitting Diagnosis Congestive heart failure, tachypnea, hypoxia, chronic abdominal pain (1) COPD exacerbation ICD Code: J44.1 - Chronic obstructive pulmonary disease with (acute) exacerbation Status: Acute (2) CHF (congestive heart failure) ICD Code: I50.9 - Heart failure, unspecified Status: Acute (3) Blood in stool ICD Code: K92.1 - Melena (4) Hypoxia ICD Code: R09.02 - Hypoxemia; G89.29 - Other chronic pain Status: Acute (5) Chronic abdominal pain ICD Code: R10.9 - Unspecified abdominal pain; G89.29 - Other chronic pain Status: Acute (6) Lesion of left [place] kidney ICD Code: N28.9 - Disorder of kidney and ureter, unspecified Procedures 10/12/17 EGD Brief History - From Admission 82-year-old female with past medical history significant for CHF, aortic regurgitation, anasarca, COPD on home O2, depression, hypothyroidism, lumbar/ cervical radiculopathy, multiple gastrointestinal surgeries, chronic abdominal pain, and stomach ulcers who presents to the emergency department with complaints of worsening abdominal pain, nausea, black stools, and overall not feeling well. Patient is seen and examined in her room with son at bedside. Son reports patients PCP was called to to make him aware of patient's abdominal pain, patient was directed to the emergency department by her PCP. She reports that she has a long history of abdominal surgeries dating back to the 70s. Patient is not the best historian and son who was at bedside does not know exact dates or procedures patient has had in the past. She reports that pain has been chronic since the 70s although has been worsening in the past several weeks. She is unable to describe the pain but states that it is in her lower part and radiates across. She also endorses some nausea with no vomiting , able to eat and drink and keep food down Son reports that he has also noticed blood in patient's stool ranging from a color of dark red to black for the past several weeks as well. She also suffers from chronic diarrhea but this will vary. Her last endoscopy and colonoscopy was about 8 months ago with her research associate quality control qc Dr. Soler. She was told that she had stomach ulcers and was placed on oral Carafate. Patient is noted to be in mild respiratory distress, when asked about how long this has been going on patient reports that she is very tired and does not answer further questioning. Son reports that patient wears 3 L of oxygen at home for her COPD and is on multiple inhalers however does not regularly use albuterol as these will trigger migraines. She does report that she has been chewing on more ice chips than usual recently. She has also been taking Lasix at home as instructed by her PCP, at times she will take 40 mg and at times only 20.She denies any fevers, chills, or chest pain. CBC/BMP: 10/14/17 0717 10/15/17 0800 Significant Findings Laboratory Tests Test 10/12/17 18:28 10/13/17 08:15 10/14/17 07:17 10/14/17 14:22 Creatinine 0.42 MG/DL (0.50-1.00) 0.37 MG/DL (0.50-1.00) 0.43 MG/DL (0.50-1.00) Random Glucose 138 MG/DL (74-106) Calcium Level 8.1 MG/DL (8.5-10.1) 7.9 MG/DL (8.5-10.1) Sodium Level 132 MEQ/L (136-145) 131 MEQ/L (136-145) Potassium Level 5.3 MEQ/L (3.5-5.1) Chloride Level 86 MEQ/L (98-107) 85 MEQ/L (98-107) 90 MEQ/L (98-107) Carbon Dioxide Level 40.0 MEQ/L (21.0-32.0) 37.8 MEQ/L (21.0-32.0) 39.3 MEQ/L (21.0-32.0) Red Blood Count 3.91 MIL/MM3 (4.00-5.30) 3.57 MIL/MM3 (4.00-5.30) Hemoglobin 8.6 GM/DL (11.6-15.3) 8.0 GM/DL (11.6-15.3) Hematocrit 29.0 % (35.0-46.0) 25.8 % (35.0-46.0) Mean Corpuscular Volume 74.2 FL (80.0-100.0) 72.3 FL (80.0-100.0) Mean Corpuscular Hemoglobin 21.9 PG (27.0-34.0) 22.5 PG (27.0-34.0) Mean Corpuscular Hemoglobin Concent 29.6 % (32.0-36.0) 31.2 % (32.0-36.0) Red Cell Distribution Width 19.1 % (11.6-17.2) 19.1 % (11.6-17.2) Neutrophils % (Manual) 89 % (16-70) 91 % (16-70) Lymphocytes % 7 % (9-44) 2 % (9-44) Neutrophils # (Manual) 8.9 TH/MM3 (1.8-7.7) 8.7 TH/MM3 (1.8-7.7) Platelet Estimate LOW (NORMAL) Target Cells 1+ (NORMAL) 1+ (NORMAL) Acanthocytes OCC (NORMAL) Magnesium Level 1.3 MG/DL (1.5-2.5) Total Creatine Kinase 24 U/L (26-192) 25 U/L (26-192) Troponin I 0.06 NG/ML (0.02-0.05) B-Type Natriuretic Peptide 486 PG/ML (0-100) Test 10/14/17 19:10 10/15/17 08:00 Creatinine 0.36 MG/DL (0.50-1.00) Calcium Level 7.9 MG/DL (8.5-10.1) Sodium Level 133 MEQ/L (136-145) Chloride Level 89 MEQ/L (98-107) Carbon Dioxide Level 39.4 MEQ/L (21.0-32.0) Imaging Last Impressions Renal Ultrasound 10/10/17 0000 Signed Impressions: Service Date/Time: Tuesday, October 10, 2017 18:29 - CONCLUSION: 1. Questionable central mass left kidney measuring 2.7 cm. Contrasted MRI recommended. 2. Minimally complex cyst lower pole left kidney Abhijeet Mahan MD Chest X-Ray 10/09/17 1231 Signed Impressions: Service Date/Time: Monday, October 09, 2017 12:40 - CONCLUSION: Chronic left lower lobe infiltrates. Mild central vascular engorgement. Joby Bell MD Abdomen/Pelvis CT 10/09/17 1231 Signed Impressions: Service Date/Time: Monday, October 09, 2017 15:27 - CONCLUSION: 1. Abnormal appearance to the lower pole left kidney with 1.8 cm smooth margined intermediate density lesion suggesting possible mass. 2. Expected findings post cholecystectomy. Joby Bell MD PE at Discharge General: Elderly female in no acute distress. Heart: Regular rate and rhythm. No murmur. Lungs: Decreased breath sounds in both bases. Otherwise clear. Breathing is nonlabored. Abdomen: Soft, mild diffuse tenderness to palpation without rebound or guarding , nondistended. Extremities: No lower extremity edema. Psych: Alert, answers questions appropriately. Neuro: Normal speech. No focal deficits noted. Pt update on day of discharge The patient continues to complain of abdominal pain. She states that she is back to her "normal" self. She wants to go home. PT has recommended rehab, but patient refuses and wants to go home with [facility]. I spoke with her son, who will be living with her, and he is OK with her going home. Hospital Course The patient was admitted for further evaluation and management of abdominal pain , dark stools, anemia, and CHF exacerbation. She was diuresed with IV Lasix. Gastroenterology was consulted. Patient had EGD on 10/12/17 and colonoscopy on 10/13/17. She continued to have abdominal pain. No obvious source of the pain was found on workup. This was felt to be chronic abdominal pain and she stated that it had actually returned to its baseline by the time of discharge. She also felt that her respiratory status improved throughout the hospitalization and on the day of discharge felt that she was at her baseline breathing status as well. Palliative care was consulted during the hospitalization for assistance with pain control. Urology was consulted for evaluation of left renal mass found incidentally on imaging. Outpatient follow-up was recommended. It was recommended that the patient go to SNF at discharge after initial physical therapy evaluation. The patient requested discharge home with home health. She was reevaluated by physical therapy on the day of discharge, and was felt to be safe for discharge home with home health. Pt Condition on Discharge: Stable Discharge Disposition: Disch w/ Home Health Serv Discharge Time: > 30 minutes Discharge Instructions DIET: Follow Instructions for: Heart Healthy Diet Activities you can perform: Regular-No Restrictions Follow up Referrals: Gastroenterology - 1 Week with Eulalia Coronado MD PCP Follow-up - 1 Week Pulmonology - 1 Week with Wilfrido Yin MD Urology - 1 Week with Malachi Hernández MD New Medications: Hydrocodone/Acetaminophen (Hydrocodone-Acetamin 5-325 mg) 5 Mg-325 Mg Tablet 1 TAB PO Q4H PRN for PAIN SCALE 1 TO 10 for 3 Days, #18 TAB 0 Refills Continued Medications: Baclofen (Baclofen) 10 Mg Tab 10 MG PO TID, TAB 0 Refills Diazepam (Valium) 10 Mg Tab 10 MG PO TID PRN for ANXIETY, TAB 0 Refills Enalapril (Vasotec) 10 Mg Tab 10 MG PO DAILY, #30 TAB 0 Refills Fluticasone-Salmeterol Inh (Advair Diskus Inh) 250-50 Mcg/Blist Aer 1 PUFF INH BID PRN for SHORTNESS OF BREATH, #1 INHALER 0 Refills Rinse mouth after use. Furosemide (Lasix) 40 Mg Tab 40 MG PO DAILY, #30 TAB 0 Refills Ipratropium-Albuterol Neb (Duoneb) 0.5-2.5 Mg/3 Ml Neb 3 ML NEB Q6HR PRN for SHORTNESS OF BREATH, #30 NEBULE 0 Refills Levothyroxine (Levothyroxine) 100 Mcg Tab 100 MCG PO DAILY for Thyroid, #30 TAB 0 Refills Montelukast (Singulair) 10 Mg Tab 10 MG PO DAILY, #30 TAB 0 Refills Ondansetron (Zofran) 4 Mg Tab 4 MG PO DAILY PRN for NAUSEA OR VOMITING, TAB 0 Refills Pantoprazole (Protonix) 40 Mg Tab 40 MG PO DAILY for Reflux, #30 TAB 0 Refills Potassium Chloride ER (Potassium Chloride ER) 20 Meq Tab 20 MEQ PO DAILY for Electrolyte Replacement, #30 TAB 0 Refills Sumatriptan (Imitrex) 100 Mg Tab 100 MG PO DAILY PRN for MIGRAINE HEADACHE, TAB 0 Refills If a satisfactory response has not been obtained at 2 hours, a second dose may be administered Tiotropium Inh (Spiriva Handihaler) 18 Mcg Cap 1 PUFF INH DAILY for COPD, #30 CAP 0 Refills Do Not Swallow Capsules Zolpidem (Ambien) 10 Mg Tab 10 MG PO HS, TAB 0 Refills Discontinued Medications: Carisoprodol (Soma) 350 Mg Tab 350 MG PO BID PRN for MUSCLE SPASM, TAB 0 Refills Ipratropium-Albuterol Inh (Combivent Respimat Inh) 20-100 Nursing Home/Act Aero 2 PUFF INH TID for Asthma Management, #1 INHALER 0 Refills Lidocaine Patch 12 HR (Lidocaine Patch 12 HR) 5 % Patch 1 PATCH TOPICAL DAILY PRN for PAIN, #1 BOX 0 Refills Remove patch after 12 hours Moxifloxacin Opth Drops (Vigamox Opth Drops) 0.5 % Soln 1 DROP EACH EYE QID for Infection, #1 BOTTLE 0 Refills Promethazine-Codeine Liq (Promethazine-Codeine Liq) 6.25-10 Mg/5 Ml Syrp 5 ML PO Q8HR, ML 0 Refills Itz Trevino MD October 15, 2017 11:07
== END 2017-10-15 14:17 | disposition home health service (06) | DRG 292 ==
LOC: NEPC 12:12 → NEDA 16:55 → N04B 19:18
PROVIDERS: ADMIT Family Medicine; ATTEND Family Medicine
PROC: 0DJ08ZZ Inspection of Upper Intestinal Tract, Via Natural or Artificial Opening Endoscopic (ICD-10-PCS; principal; 2017-10-12 14:20)
PROC: 0DJD8ZZ Inspection of Lower Intestinal Tract, Via Natural or Artificial Opening Endoscopic (ICD-10-PCS; 2017-10-13)
DX: I11.0 Hypertensive heart disease with heart failure (principal); J44.1 Chronic obstructive pulmonary disease with (acute) exacerbation; I27.20 Pulmonary hypertension, unspecified; R06.03 Acute respiratory distress; E83.42 Hypomagnesemia; Z99.81 Dependence on supplemental oxygen; K92.1 Melena; D50.9 Iron deficiency anemia, unspecified; N28.89 Other specified disorders of kidney and ureter; R09.02 Hypoxemia; K21.9 Gastro-esophageal reflux disease without esophagitis; E78.5 Hyperlipidemia, unspecified; G43.909 Migraine, unspecified, not intractable, without status migrainosus; E03.9 Hypothyroidism, unspecified; E87.6 Hypokalemia; M54.2 Cervicalgia; M54.9 Dorsalgia, unspecified; R10.9 Unspecified abdominal pain; G89.29 Other chronic pain; F17.210 Nicotine dependence, cigarettes, uncomplicated; I08.0 Rheumatic disorders of both mitral and aortic valves; I49.1 Atrial premature depolarization; I50.9 Heart failure, unspecified; K52.9 Noninfective gastroenteritis and colitis, unspecified; K57.30 Diverticulosis of large intestine without perforation or abscess without bleeding; G47.00 Insomnia, unspecified; K59.00 Constipation, unspecified; K64.4 Residual hemorrhoidal skin tags; K64.8 Other hemorrhoids; F32.9 Major depressive disorder, single episode, unspecified; M54.16 Radiculopathy, lumbar region; M54.12 Radiculopathy, cervical region; R60.1 Generalized edema; F41.9 Anxiety disorder, unspecified; Z86.73 Personal history of transient ischemic attack (TIA), and cerebral infarction without residual deficits; Z87.11 Personal history of peptic ulcer disease; Z98.1 Arthrodesis status; Z51.5 Encounter for palliative care
CPT/HCPCS: 71045; 74177; 76775; 76937; 80048; 80053; 81001; 82550; 82607; 82746; 82784; 83516; 83540; 83550; 83605; 83690; 83735; 83880; 84484; 85007; 85025; 85027; 93005; 93306; 94664; 96361; 96374; 96375; 96376; C9113; J1940; J2250; J2270; J2405; J3475; J7040; J7120; J7512; Q9963; Q9967

== ENCOUNTER 2017-10-19 10:11 | Inpatient (IN) | payer MEDICARE, OTHER ==
[2017-10-19 11:19] LABS: HEMATOCRIT 26.2 % (35.0-46.0); HEMOGLOBIN 7.5 GM/DL (11.6-15.3); MEAN CELL VOLUME 76.8 FL (80.0-100.0); MEAN PLATELET VOLUME 8.8 FL (7.0-11.0); PLATELET COUNT 145 TH/MM3 (150-450); RED BLOOD COUNT 3.42 MIL/MM3 (4.00-5.30); RED CELL DISTRIBUTION WIDTH 19.1 % (11.6-17.2); WHITE BLOOD COUNT 9.2 TH/MM3 (4.0-11.0)
[2017-10-19 11:21] LABS: HEMO FLAGS AUTO DIFF; MEAN CORPUSCULAR HGB CONC 28.7 % (32.0-36.0)
[2017-10-19 11:26] LABS: AMORPHOUS SEDIMENT, URINE RARE; BACTERIA, URINE OCC /hpf; BILIRUBIN, URINE NEG (NEG); BLOOD, URINE NEG (NEG); COMMENT (UR) CATH-CULTURE IND; CULTURE IF INDICATED CATH CULTURE IND; GLUCOSE,URINE NEG (NEG); HYALINE CAST, URINE 5 /lpf (RARE); KETONE, URINE NEG (NEG); MUCUS URINE FEW /lpf (OCC); NITRITE,URINE NEG (NEG); PH, URINE 5.5 (5.0-8.5); URINE COLOR YELLOW (YELLW/STRAW); URINE LEUKOCYTE ESTERASE NEG (NEG)
[2017-10-19 11:37] LABS: ALBUMIN 2.8 GM/DL (3.4-5.0); ALT (GPT) 18 U/L (10-53); ANION GAP 9 MEQ/L (5-15); AST (GOT) 23 U/L (15-37); BICARBONATE 33.4 MEQ/L (21.0-32.0); BLOOD UREA NITROGEN 26 MG/DL (7-18); CALCIUM 7.8 MG/DL (8.5-10.1); CHLORIDE 96 MEQ/L (98-107); GLOMERULAR FILTRATION RATE 96 ML/MIN (>89); GLUCOSE,RANDOM 104 MG/DL (74-106); POTASSIUM 3.5 MEQ/L (3.5-5.1); SODIUM (NA) 138 MEQ/L (136-145)
[2017-10-19 11:41] LABS: ALKALINE PHOSPHATASE 100 U/L (45-117); TOTAL BILIRUBIN ADULT 0.2 MG/DL (0.2-1.0)
[2017-10-19 11:44] LABS: CREATINE KINASE 39 U/L (26-192)
[2017-10-19 11:45] LABS: TROPONIN I 0.63 NG/ML (0.02-0.05)
[2017-10-19 11:55] LABS: B-TYPE NATRIURETIC PEPTIDE 1584 PG/ML (0-100)
[2017-10-19 12:06] LABS: LYMPHOCYTES 6 % (9-44); MONOCYTES 2 % (0-8); NEUTROPHIL # MANUAL DIFF 8.5 TH/MM3 (1.8-7.7); POLYS (SEG NEUTROPHILS) 92 % (16-70); WBC DIFF SAMPLE 100
[2017-10-19 12:07] LABS: OVALOCYTES 1+ (NORMAL); PLATELET ESTIMATE SMEAR LOW (NORMAL); PLATELET MORPHOLOGY NORMAL (NORMAL); SCAN/DIFF FINAL DIFF MANUAL; TARGET CELLS 1+ (NORMAL)
[2017-10-19] MEDS ORDERED: RESP: ALBUTEROL 2.5 MG/IPRATROPIUM 0.5 MG NEB (PRN) NEB (13:30)
[2017-10-19] MEDS ORDERED: NON-FORMULARY DRUG (Fluticasone-Salmeterol Inh (Advair Diskus Inh) 1 PUFF) INH (13:30)
[2017-10-19] MEDS ORDERED: RESP: ALBUTEROL 1.25 MG/3 ML NEB (PRN) NEB (14:00)
[2017-10-19] MEDS: FUROSEMIDE 40 MG/4 ML VIAL IV PUSH (14:34)
[2017-10-19] MEDS: ASPIRIN EC 81 MG TABEC PO (14:34)
[2017-10-19] MEDS ORDERED: RESP: ALBUTEROL 2.5 MG/IPRATROPIUM 0.5 MG NEB (SCH) NEB (16:00)
[2017-10-19] MEDS: RESP: ALBUTEROL 2.5 MG/IPRATROPIUM 0.5 MG NEB (SCH) NEB ×2 (16:00→21:02)
[2017-10-19] MEDS ORDERED: ACETAMINOPHEN 325 MG TAB PO (16:45)
[2017-10-19] MEDS: BACLOFEN 10 MG TAB PO (17:08)
[2017-10-19] MEDS: ACETAMINOPHEN/HYDROcodone 325 MG/5 MG TAB PO ×2 (17:11→21:56)
[2017-10-19 20:03] LABS: HEMOGLOBIN 7.2 GM/DL (11.6-15.3)
[2017-10-19 20:03] LABS: HEMATOCRIT 25.2 % (35.0-46.0)
[2017-10-19] MEDS: SODIUM CHLORIDE 0.9% FLUSH 10 ML FLUSH IVF (21:49)
[2017-10-19] MEDS: DIAZEPAM 10 MG TAB PO (21:50)
[2017-10-19] MEDS: POTASSIUM CHLORIDE 20 MEQ CONTROLLED RELEASE TAB PO (21:50)
[2017-10-19] MEDS: FERROUS SULFATE 325 MG (65 MG ELEMENTAL IRON) TAB PO (21:50)
[2017-10-20 01:39] LABS: ANION GAP 5 MEQ/L (5-15); BLOOD UREA NITROGEN 24 MG/DL (7-18); CALCIUM 7.4 MG/DL (8.5-10.1); CHLORIDE 97 MEQ/L (98-107); CREATININE 0.58 MG/DL (0.50-1.00); GLOMERULAR FILTRATION RATE 100 ML/MIN (>89); GLUCOSE,RANDOM 84 MG/DL (74-106); POTASSIUM 3.8 MEQ/L (3.5-5.1); SODIUM (NA) 141 MEQ/L (136-145)
[2017-10-20 01:44] LABS: TROPONIN I 0.88 NG/ML (0.02-0.05)
[2017-10-20 02:02] LABS: CALCIUM-PROTEIN CORRECTED 8.2 MG/DL (8.5-10.1); TOTAL PROTEIN 5.6 GM/DL (6.4-8.2)
[2017-10-20] MEDS: ACETAMINOPHEN/HYDROcodone 325 MG/5 MG TAB PO ×3 (03:57→16:33)
[2017-10-20] MEDS: RESP: ALBUTEROL 2.5 MG/IPRATROPIUM 0.5 MG NEB (SCH) NEB ×4 (04:00→12:00)
[2017-10-20 06:08] LABS: AUTOMATED NEUTROPHIL # 5.6 TH/MM3 (1.8-7.7); BASOPHIL % 0.5 % (0.0-2.0); EOSINOPHIL % 0.5 % (0.0-4.0); HEMATOCRIT 24.2 % (35.0-46.0); HEMO FLAGS DIFF FINAL; HEMOGLOBIN 7.1 GM/DL (11.6-15.3); LYMPHOCYTE # 0.5 TH/MM3 (1.0-4.8); MEAN CELL VOLUME 75.4 FL (80.0-100.0); MEAN CORPUSCULAR HEMOGLOBIN 22.2 PG (27.0-34.0); MONO % 7.7 % (0.0-8.0); MONOCYTE # 0.5 TH/MM3 (0-0.9); NEUT % 83.3 % (16.0-70.0); PLATELET COUNT 145 TH/MM3 (150-450); RED BLOOD COUNT 3.21 MIL/MM3 (4.00-5.30); RED CELL DISTRIBUTION WIDTH 19.5 % (11.6-17.2); WHITE BLOOD COUNT 6.7 TH/MM3 (4.0-11.0)
[2017-10-20 06:12] LABS: MEAN CORPUSCULAR HGB CONC 29.5 % (32.0-36.0)
[2017-10-20] MEDS: LEVOTHYROXINE SODIUM 100 MCG TAB PO (06:35)
[2017-10-20] MEDS ORDERED: POTASSIUM CHLORIDE 20 MEQ CONTROLLED RELEASE TAB PO (09:00)
[2017-10-20] MEDS: ASPIRIN EC 81 MG TABEC PO (09:06)
[2017-10-20] MEDS: PANTOPRAZOLE SOD 40 MG DELAYED RELEASE TAB PO (09:06)
[2017-10-20] MEDS: BACLOFEN 10 MG TAB PO ×2 (09:07→12:28)
[2017-10-20] MEDS: POTASSIUM CHLORIDE 20 MEQ CONTROLLED RELEASE TAB PO (09:07)
[2017-10-20] MEDS: MONTELUKAST SODIUM 10 MG TAB PO (09:07)
[2017-10-20] MEDS: ENALAPRIL MALEATE 10 MG TAB PO (09:07)
[2017-10-20] MEDS: FERROUS SULFATE 325 MG (65 MG ELEMENTAL IRON) TAB PO (09:07)
[2017-10-20] MEDS: FUROSEMIDE 40 MG/4 ML VIAL IV PUSH (09:08)
[2017-10-20] MEDS: INFLUENZA VIRUS VACCINE (QUADRIVALENT) 0.5 ML SYR IM (12:52)
[2017-10-20] MEDS: TIOTROPIUM BROMIDE 18 MCG INH INH (13:45)
[2017-10-20] MEDS: BUDESONIDE-FORMOTEROL 160/4.5 MCG INHALER INH (13:45)
[2017-10-20] MEDS ORDERED: NITROFURANTOIN MONOHYD MACROCR 100 MG CAP PO (16:15)
[2017-10-20] MEDS ORDERED: PRAVASTATIN SOD 20 MG TAB PO (21:00)
== END 2017-10-20 17:26 | disposition home or self-care (01) | DRG 280 ==
LOC: NEPE 10:11 → NEDA 13:26 → N04A 15:00
DX: I11.0 Hypertensive heart disease with heart failure (principal); J96.21 Acute and chronic respiratory failure with hypoxia; I21.A1 Myocardial infarction type 2; I50.33 Acute on chronic diastolic (congestive) heart failure; J44.9 Chronic obstructive pulmonary disease, unspecified; I25.10 Atherosclerotic heart disease of native coronary artery without angina pectoris; Z99.81 Dependence on supplemental oxygen; D50.9 Iron deficiency anemia, unspecified; F17.210 Nicotine dependence, cigarettes, uncomplicated; E03.9 Hypothyroidism, unspecified; Z98.1 Arthrodesis status; Z23 Encounter for immunization
CPT/HCPCS: 71045; 80048; 80053; 81001; 82550; 83880; 84155; 84484; 85007; 85014; 85018; 85025; 85027; 87086; 90686; 93005; 94640; 94664; 99285-25

== ENCOUNTER 2017-10-28 18:37 | Inpatient (IN) | payer MEDICARE, OTHER ==
[~2017-10-28] VITALS: Ht 152.4 cm; Wt 45.1 kg
[2017-10-28] VITALS (9 sets, daily range): BP systolic 105–123; BP diastolic 49–60; PULSE 79–97; RESP 17–34; TEMP 97.8–98; O2SAT 94–100
[~2017-10-28 18:37] MED LIST changes: +ADVA250A INH; -ADVAI250I PO; +AMBI10TA PO; -CARI350T19 PO; -CHOL4POW4 PO; -CITA20 PO; -CYPR4TAB PO; +DIAZ10 PO; -DUONI NEB; +ECASA81 PO; -ENAL10 PO; +FURO1TAB60 PO; -FURO1TAB93 PO; +HYDR-3516 PO; -HYDR10SO PO; +IMIT100T PO; -IPRAAER INH; +IPRASOL NEB; -KLOR20TA6 PO; +LEVO100T5 PO; -LIDO5T TOP; +MACR100C2 PO; +MONT10TA2 PO; -MONT5CHW2 PO; -NEBUMIS6 INH; -ONDA4 PO; +POTA-163 PO; +PRAV20TA PO; -PRED5TAB PO; -PREV30CA36 PO; -PROM6.257 PO; +PROT40TA PO; -SUMA100T2 PO; -SYNT100T PO; -VALI10TA PO; +VASO10TA8 PO; -VIGA0.5D EACH EYE; +ZOFR4TAB PO; -ZOLP10TA3 PO
[2017-10-28] MEDS ORDERED: IOHEXOL 350 MG/ML 10 ML VIAL (for RAD DIAG) IVCONTRAST ONE (18:38)
--- NOTE | 2017-10-28 18:55 | PD ---
HPI Chief Complaint: General Weakness Time Seen by Provider: 18:43 Travel History International Travel<30 days: No Contact w/Intl Traveler<30days: No Traveled to known affect area: No History of Present Illness HPI 82-year-old female presents to the emergency department via EMS for evaluation of failure to thrive, weakness, shortness of breath for 1 day. Patient apparently wears O2 nasal cannula at home. Upon EMS arrival the patient home, saturation was 86% on 2 L. She was transported on 6 L O2 nasal cannula. Patient has past medical history of CHF, COPD- on home oxygen, hypertension, anemia. Patient appears pale on exam. She is tachypneic and using accessory muscles. She states that is a poor historian. She is unsure if she is running fever. She denies shortness of breath to me. She states she has been intubated in the past. Critical severity. PFSH Past Medical History Hx Anticoagulant Therapy: Yes Arthritis: Yes Asthma: No Anxiety: Yes Depression: Yes Heart Rhythm Problems: No Cancer: No Cardiovascular Problems: Yes High Cholesterol: Yes Chemotherapy: No Chest Pain: Yes Congestive Heart Failure: Yes COPD: Yes Cerebrovascular Accident: Yes Diabetes: No Diminished Hearing: No Endocrine: No Gastrointestinal Disorders: Yes GERD: Yes Genitourinary: Yes Headaches: Yes Hepatitis: No Hiatal Hernia: No Hypertension: Yes Immune Disorder: No Implanted Vascular Access Dvce: Yes Kidney Stones: Yes Musculoskeletal: Yes Neurologic: Yes Psychiatric: No Reproductive: No Respiratory: Yes Migraines: Yes Pneumonia: Yes Radiation Therapy: No Renal Failure: No Seizures: No Sleep Apnea: No Thyroid Disease: No Ulcer: No : 2 Para: 2 Past Surgical History Abdominal Surgery: Yes (HYSTERECTOMY ) Appendectomy: Yes Body Medical Devices: plates in neck Cardiac Surgery: No Cholecystectomy: Yes Ear Surgery: No Endocrine Surgery: No Eye Surgery: Yes (BILATERAL EYE IMPLANTS ) Genitourinary Surgery: No Gynecologic Surgery: Yes (HYSTERECTOMY ) Hysterectomy: Yes Neurologic Surgery: Yes (CERVICAL FUSION) Oral Surgery: No Pacemaker: No Thoracic Surgery: No Social History Alcohol Use: Yes (OCCASSIONAL) Tobacco Use: Yes (1 PPD) Substance Use: No Allergies-Medications (Allergen,Severity, Reaction): Coded Allergies: levofloxacin (Unverified Allergy, Severe, HEADACHE, NAUSEA, VOMITING, 10/28) meperidine (Unverified Adverse Reaction, Unknown, HALLUCINATIONS, 10/28/17) Reported Meds & Prescriptions Reported Meds & Active Scripts Active Aspirin DR (Aspirin) 81 Mg Tabdr 81 Mg PO DAILY Pravachol (Pravastatin) 20 Mg Tab 20 Mg PO HS Hydrocodone-Acetamin 5-325 mg (Hydrocodone/Acetaminophen) 5 Mg-325 Mg Tablet 1 Tab PO Q4H PRN 3 Days Reported Valium (Diazepam) 5 Mg Tab 5 Mg PO TID PRN Ambien (Zolpidem Tartrate) 10 Mg Tab 10 Mg PO HS Spiriva Handihaler (Tiotropium Inh) 18 Mcg Cap 1 Puff INH DAILY Do Not Swallow Capsules Imitrex (Sumatriptan Succinate) 100 Mg Tab 100 Mg PO DAILY PRN If a satisfactory response has not been obtained at 2 hours, a second dose may be administered Potassium Chloride ER (Potassium Chloride) 20 Meq Tab 20 Meq PO DAILY Zofran (Ondansetron HCl) 4 Mg Tab 4 Mg PO DAILY PRN Levothyroxine (Levothyroxine Sodium) 100 Mcg Tab 100 Mcg PO DAILY Lasix (Furosemide) 40 Mg Tab 40 Mg PO DAILY Advair Diskus Inh (Fluticasone-Salmeterol Inh) 250-50 Mcg/Blist Aer 1 Puff INH BID PRN Rinse mouth after use. Vasotec (Enalapril Maleate) 10 Mg Tab 10 Mg PO DAILY Baclofen 10 Mg Tab 10 Mg PO TID Duoneb (Ipratropium-Albuterol Neb) 0.5-2.5 Mg/3 Ml Neb 3 Ml NEB Q6HR PRN Protonix (Pantoprazole Sodium) 40 Mg Tab 40 Mg PO DAILY Review of Systems Except as stated in HPI: all other systems reviewed are Neg Physical Exam Narrative GENERAL: Well-nourished, well-developed elderly female patient, afebrile. SKIN: Focused skin assessment warm/dry. Patient is pale. HEAD: Normocephalic. Atraumatic. EYES: No scleral icterus. No injection or drainage. Drainage noted from right eye. NECK: Supple, trachea midline. No JVD or lymphadenopathy. CARDIOVASCULAR: Regular rate and rhythm without murmurs, gallops, or rubs. RESPIRATORY: Breath sounds equal bilaterally. Patient is tachypneic and using accessory muscles. She has extra wheezes noted throughout with rales in the bases. GASTROINTESTINAL: Abdomen soft, non-tender, nondistended. MUSCULOSKELETAL: No cyanosis. 2+ bilateral lower extremity edema. BACK: Nontender without obvious deformity. No CVA tenderness. Data Data Last Documented VS Vital Signs Date Time Temp Pulse Resp B/P (MAP) Pulse Ox O2 Delivery O2 Flow Rate FiO2 10/28/17 19:52 80 24 123/58 (79) 94 BiPAP 40 10/28/17 18:48 98.0 Orders Orders Complete Blood Count With Diff (10/28/17 18:52) Basic Metabolic Panel (Bmp) (10/28/17 18:52) B-Type Natriuretic Peptide (10/28/17 18:52) Act Partial Throm Time (Ptt) (10/28/17 18:52) Prothrombin Time / Inr (Pt) (10/28/17 18:52) Magnesium (Mg) (10/28/17 18:52) Ckmb (Isoenzyme) Profile (10/28/17 18:52) Troponin I (10/28/17 18:52) Blood Culture (10/28/17 18:52) Iv Access Insert/Monitor (10/28/17 18:52) Electrocardiogram (10/28/17 18:52) Ecg Monitoring (10/28/17 18:52) Oximetry (10/28/17 18:52) Oxygen Administration (10/28/17 18:52) Chest, Single Ap (10/28/17 18:52) Sodium Chloride 0.9% Flush (Ns Flush) (10/28/17 19:00) Albuterol-Ipratropium Neb (Duoneb Neb) (10/28/17 19:00) Lactic Acid Sepsis Protocol (10/28/17 18:52) Arterial Blood Gas (Abg) (10/28/17 ) Type And Screen (10/28/17 18:55) Arterial Blood Gas (Abg) (10/28/17 20:00) CKMB (10/28/17 19:05) CKMB% (10/28/17 19:05) Aspirin Chew (Aspirin Chew) (10/28/17 20:15) Ct Pulmonary Angiogram (10/28/17 ) Iohexol 350 Inj (Omnipaque 350 Inj) (10/28/17 18:38) Admit Order (Ed Use Only) (10/28/17 20:46) Labs Laboratory Tests Test 10/28/17 18:54 10/28/17 19:05 10/28/17 20:16 Blood Gas Puncture Site RT RADIAL RT RADIAL Blood Gas Patient Temperature 98.6 98.6 Blood Gas HCO3 32 mmol/L 32 mmol/L Blood Gas Base Excess 4.1 mmol/L 4.6 mmol/L Blood Gas Oxygen Saturation 97 % 93 % Arterial Blood pH 7.16 7.24 Arterial Blood Partial Pressure CO2 96 mmHg 77 mmHg Arterial Blood Partial Pressure O2 185 mmHG 77 mmHG Arterial Blood Oxygen Content 10.9 Vol % 9.8 Vol % Arterial Blood Carboxyhemoglobin 1.8 % 2.1 % Arterial Blood Methemoglobin 0.7 % 0.4 % Blood Gas Hemoglobin 7.7 G/DL 7.5 G/DL Oxygen Delivery Device NRB BiPAP Blood Gas Liter Flow 12 L/M Blood Gas Inspired Oxygen 100 % 40 % White Blood Count 10.3 TH/MM3 Red Blood Count 3.56 MIL/MM3 Hemoglobin 7.9 GM/DL Hematocrit 28.1 % Mean Corpuscular Volume 78.9 FL Mean Corpuscular Hemoglobin 22.2 PG Mean Corpuscular Hemoglobin Concent 28.2 % Red Cell Distribution Width 20.5 % Platelet Count 296 TH/MM3 Mean Platelet Volume 8.3 FL Neutrophils (%) (Auto) 86.6 % Lymphocytes (%) (Auto) 4.5 % Monocytes (%) (Auto) 8.4 % Eosinophils (%) (Auto) 0.1 % Basophils (%) (Auto) 0.4 % Neutrophils # (Auto) 8.9 TH/MM3 Lymphocytes # (Auto) 0.5 TH/MM3 Monocytes # (Auto) 0.9 TH/MM3 Eosinophils # (Auto) 0.0 TH/MM3 Basophils # (Auto) 0.0 TH/MM3 CBC Comment DIFF FINAL Differential Comment Prothrombin Time 10.8 SEC Prothromb Time International Ratio 1.1 RATIO Activated Partial Thromboplast Time 26.2 SEC Blood Urea Nitrogen 23 MG/DL Creatinine 0.57 MG/DL Random Glucose 98 MG/DL Calcium Level 7.5 MG/DL Magnesium Level 1.5 MG/DL Sodium Level 140 MEQ/L Potassium Level 4.0 MEQ/L Chloride Level 102 MEQ/L Carbon Dioxide Level 32.0 MEQ/L Anion Gap 6 MEQ/L Estimat Glomerular Filtration Rate 102 ML/MIN Lactic Acid Level 0.9 mmol/L Total Creatine Kinase 557 U/L Creatine Kinase MB 32.0 NG/ML Creatine Kinase MB % 5.7 % Troponin I 5.94 NG/ML B-Type Natriuretic Peptide 1685 PG/ML Blood Gas Ventilator Setting [id number] [facility] Medical Decision Making Medical Screen Exam Complete: Yes Emergency Medical Condition: Yes Medical Record Reviewed: Yes Differential Diagnosis COPD exacerbation versus CHF exacerbation versus pneumonia versus pneumothorax versus ACS versus PE Narrative Course 82-year-old female presents to the emergency department via EMS. Patient is content neck and short of breath. She was recently discharged from the hospital on 10/19. She was 59% on room air. She went up to 86% on nasal cannula. She then was placed on nonrebreather. ABG shows PH 7.16, CO2 96. Patient was evaluated by my attending physician, Dr. Mccoy, as well and was placed on bipap 15/5 80%. EKG, CBC, BMP, BNP, Magnesium, CK, troponin, lactic acid, PTT, PT/INR, type and screen, blood cultures x 2, chest x-ray. Patient is given duonebs. ABG will be repeated in one hour after bipap. Dr. Mccoy resumed care and admitted to patient to nutritional services host. Leticia Fairchild October 28, 2017 18:55
[2017-10-28] MEDS ORDERED: SODIUM CHLORIDE 0.9% FLUSH 10 ML FLUSH IVF PRN (19:00)
--- NOTE | 2017-10-28 19:12 | PD ---
Physical Exam Date Seen by Provider: October 28, 2017 Time Seen by Provider: 19:10 Narrative The patient is a 82-year-old female was initially evaluated by the mid-level provider and Dr. Gutierrez. The patient was just recently discharged from the hospital for COPD and CHF exacerbation. She returns emergency department with increasing hypoxia. The patient was noted to have an oxygen saturation level in the 50s and elevated respiratory rate. The patient was placed on nonrebreather at 15 L which brought her oxygen saturation up to 96%. However, ABG did reveal significant acidosis with a PCO2 of 95 and a pH of 7.15. Patient was placed on BiPAP when I arrived in the emergency department. The patient was oriented to out of 4, with short of breath and a poor historian. She was only able to speak in one-word sentences. Data Data Last Documented VS Vital Signs Date Time Temp Pulse Resp B/P (MAP) Pulse Ox O2 Delivery O2 Flow Rate FiO2 10/28/17 19:52 80 24 123/58 (79) 94 BiPAP 40 10/28/17 18:48 98.0 Orders Orders Complete Blood Count With Diff (10/28/17 18:52) Basic Metabolic Panel (Bmp) (10/28/17 18:52) B-Type Natriuretic Peptide (10/28/17 18:52) Act Partial Throm Time (Ptt) (10/28/17 18:52) Prothrombin Time / Inr (Pt) (10/28/17 18:52) Magnesium (Mg) (10/28/17 18:52) Ckmb (Isoenzyme) Profile (10/28/17 18:52) Troponin I (10/28/17 18:52) Blood Culture (10/28/17 18:52) Iv Access Insert/Monitor (10/28/17 18:52) Electrocardiogram (10/28/17 18:52) Ecg Monitoring (10/28/17 18:52) Oximetry (10/28/17 18:52) Oxygen Administration (10/28/17 18:52) Chest, Single Ap (10/28/17 18:52) Sodium Chloride 0.9% Flush (Ns Flush) (10/28/17 19:00) Albuterol-Ipratropium Neb (Duoneb Neb) (10/28/17 19:00) Lactic Acid Sepsis Protocol (10/28/17 18:52) Arterial Blood Gas (Abg) (10/28/17 ) Type And Screen (10/28/17 18:55) Arterial Blood Gas (Abg) (10/28/17 20:00) CKMB (10/28/17 19:05) CKMB% (10/28/17 19:05) Aspirin Chew (Aspirin Chew) (10/28/17 20:15) Ct Pulmonary Angiogram (10/28/17 ) Iohexol 350 Inj (Omnipaque 350 Inj) (10/28/17 18:38) Admit Order (Ed Use Only) (10/28/17 20:46) Labs Laboratory Tests Test 10/28/17 18:54 10/28/17 19:05 10/28/17 20:16 Blood Gas Puncture Site RT RADIAL RT RADIAL Blood Gas Patient Temperature 98.6 98.6 Blood Gas HCO3 32 mmol/L 32 mmol/L Blood Gas Base Excess 4.1 mmol/L 4.6 mmol/L Blood Gas Oxygen Saturation 97 % 93 % Arterial Blood pH 7.16 7.24 Arterial Blood Partial Pressure CO2 96 mmHg 77 mmHg Arterial Blood Partial Pressure O2 185 mmHG 77 mmHG Arterial Blood Oxygen Content 10.9 Vol % 9.8 Vol % Arterial Blood Carboxyhemoglobin 1.8 % 2.1 % Arterial Blood Methemoglobin 0.7 % 0.4 % Blood Gas Hemoglobin 7.7 G/DL 7.5 G/DL Oxygen Delivery Device NRB BiPAP Blood Gas Liter Flow 12 L/M Blood Gas Inspired Oxygen 100 % 40 % White Blood Count 10.3 TH/MM3 Red Blood Count 3.56 MIL/MM3 Hemoglobin 7.9 GM/DL Hematocrit 28.1 % Mean Corpuscular Volume 78.9 FL Mean Corpuscular Hemoglobin 22.2 PG Mean Corpuscular Hemoglobin Concent 28.2 % Red Cell Distribution Width 20.5 % Platelet Count 296 TH/MM3 Mean Platelet Volume 8.3 FL Neutrophils (%) (Auto) 86.6 % Lymphocytes (%) (Auto) 4.5 % Monocytes (%) (Auto) 8.4 % Eosinophils (%) (Auto) 0.1 % Basophils (%) (Auto) 0.4 % Neutrophils # (Auto) 8.9 TH/MM3 Lymphocytes # (Auto) 0.5 TH/MM3 Monocytes # (Auto) 0.9 TH/MM3 Eosinophils # (Auto) 0.0 TH/MM3 Basophils # (Auto) 0.0 TH/MM3 CBC Comment DIFF FINAL Differential Comment Prothrombin Time 10.8 SEC Prothromb Time International Ratio 1.1 RATIO Activated Partial Thromboplast Time 26.2 SEC Blood Urea Nitrogen 23 MG/DL Creatinine 0.57 MG/DL Random Glucose 98 MG/DL Calcium Level 7.5 MG/DL Magnesium Level 1.5 MG/DL Sodium Level 140 MEQ/L Potassium Level 4.0 MEQ/L Chloride Level 102 MEQ/L Carbon Dioxide Level 32.0 MEQ/L Anion Gap 6 MEQ/L Estimat Glomerular Filtration Rate 102 ML/MIN Lactic Acid Level 0.9 mmol/L Total Creatine Kinase 557 U/L Creatine Kinase MB 32.0 NG/ML Creatine Kinase MB % 5.7 % Troponin I 5.94 NG/ML B-Type Natriuretic Peptide 1685 PG/ML Blood Gas Ventilator Setting IPAP15/EPAP5 MDM Medical Record Reviewed: Yes Supervised Visit with ANTWON: Yes Interpretation(s) EKG reveals sinus rhythm with a rate 89. Short OH interval of 150 ms. Q-wave in lead V1 and V2. Last Impressions Chest X-Ray 10/28/171851 Signed Impressions: Service Date/Time: Saturday, October 28, 2017 19:16 - CONCLUSION: 1. Stable left lower lobe airspace disease with more apparent small left pleural effusion. Dean Emanuel MD Laboratory Tests Test 10/28/17 18:54 10/28/17 19:05 10/28/17 20:16 Blood Gas Puncture Site RT RADIAL RT RADIAL Blood Gas Patient Temperature 98.6 98.6 Blood Gas HCO3 32 mmol/L 32 mmol/L Blood Gas Base Excess 4.1 mmol/L 4.6 mmol/L Blood Gas Oxygen Saturation 97 % 93 % Arterial Blood pH 7.16 7.24 Arterial Blood Partial Pressure CO2 96 mmHg 77 mmHg Arterial Blood Partial Pressure O2 185 mmHG 77 mmHG Arterial Blood Oxygen Content 10.9 Vol % 9.8 Vol % Arterial Blood Carboxyhemoglobin 1.8 % 2.1 % Arterial Blood Methemoglobin 0.7 % 0.4 % Blood Gas Hemoglobin 7.7 G/DL 7.5 G/DL Oxygen Delivery Device NRB BiPAP Blood Gas Liter Flow 12 L/M Blood Gas Inspired Oxygen 100 % 40 % White Blood Count 10.3 TH/MM3 Red Blood Count 3.56 MIL/MM3 Hemoglobin 7.9 GM/DL Hematocrit 28.1 % Mean Corpuscular Volume 78.9 FL Mean Corpuscular Hemoglobin 22.2 PG Mean Corpuscular Hemoglobin Concent 28.2 % Red Cell Distribution Width 20.5 % Platelet Count 296 TH/MM3 Mean Platelet Volume 8.3 FL Neutrophils (%) (Auto) 86.6 % Lymphocytes (%) (Auto) 4.5 % Monocytes (%) (Auto) 8.4 % Eosinophils (%) (Auto) 0.1 % Basophils (%) (Auto) 0.4 % Neutrophils # (Auto) 8.9 TH/MM3 Lymphocytes # (Auto) 0.5 TH/MM3 Monocytes # (Auto) 0.9 TH/MM3 Eosinophils # (Auto) 0.0 TH/MM3 Basophils # (Auto) 0.0 TH/MM3 CBC Comment DIFF FINAL Differential Comment Prothrombin Time 10.8 SEC Prothromb Time International Ratio 1.1 RATIO Activated Partial Thromboplast Time 26.2 SEC Blood Urea Nitrogen 23 MG/DL Creatinine 0.57 MG/DL Random Glucose 98 MG/DL Calcium Level 7.5 MG/DL Magnesium Level 1.5 MG/DL Sodium Level 140 MEQ/L Potassium Level 4.0 MEQ/L Chloride Level 102 MEQ/L Carbon Dioxide Level 32.0 MEQ/L Anion Gap 6 MEQ/L Estimat Glomerular Filtration Rate 102 ML/MIN Lactic Acid Level 0.9 mmol/L Total Creatine Kinase 557 U/L Creatine Kinase MB 32.0 NG/ML Creatine Kinase MB % 5.7 % Troponin I 5.94 NG/ML B-Type Natriuretic Peptide 1685 PG/ML Blood Gas Ventilator Setting IPAP15/EPAP5 Differential Diagnosis Differential diagnosis includes COPD exacerbation, CHF, end-of-life care, pleural effusion, pulmonary edema, hypercapnia, pneumonia, pulmonary embolism, pericardial effusion. Narrative Course Patient was initially evaluated by the mid-level provider and Dr. Gutierrez. Please refer to the initial history and physical by Leticia Fairchild. When I arrived in the emergency department the patient was on a nonrebreather 15 L satting in the mid 90s, ABG did reveal elevated PCO2 of 95 the pH is 7.15. The patient was placed on BiPAP and repeat ABG at 1 hour was obtained. The patient's troponin was noted to be 5.94, this is a significant elevation when compared to previous troponins which were always less than 1 and her previous 3 admissions. EKG revealed a sinus rhythm with Q waves in V1 and V2, but no acute STEMI. The patient was administered and aspirin 162 mg orally. The patient is hypoxic with elevated troponin, may be underlying pulmonary embolism. I discussed the patient with the on-call java support engineer who agrees with admission. Repeat ABG reveals a decrease in PCO2 and an increase in pH, patient appears to be improving. Therefore, no emergent intubation was performed. I did have a discussion with the family members at bedside that the patient may benefit from palliative care consultation while in the hospital determine what her goals of life are for further evaluations in the emergency department. Critical Care Narrative Aggregate critical care time was 40 minutes. Time to perform other separately billable procedures was not included in the critical care time. My time did not include minutes spent treating any other patients simultaneously or on activities that did not directly contribute to the patient's treatment. The services I provided to this patient were to treat and/or prevent clinically significant deterioration that could result in: Anoxia, hypoxia, hypercapnia arrhythmia, . I provided critical care services requiring my management, as noted below: Chart data review, documentation time, medication orders and management, vital sign assessments/reviewing monitor data, ordering and reviewing lab tests, ordering and interpreting/reviewing x-rays and diagnostic studies, care of the patient and discussion of the patient with the admitting physicians. Physician Communication Physician Communication I discussed the patient with Dr. Acosta who agrees with admission. Diagnosis Primary Impression: CHF (congestive heart failure) Qualified Codes: I50.9 - Heart failure, unspecified Additional Impressions: NSTEMI, initial episode of care Hypoxia Admitting Information Admitting Physician Requests: Admit Luis Mccoy MD October 28, 2017 19:12
[2017-10-28 19:23] LABS: AUTOMATED NEUTROPHIL # 8.9 TH/MM3 (1.8-7.7); BASOPHIL % 0.4 % (0.0-2.0); EOSINOPHIL % 0.1 % (0.0-4.0); HEMATOCRIT 28.1 % (35.0-46.0); HEMOGLOBIN 7.9 GM/DL (11.6-15.3); LYMPH % 4.5 % (9.0-44.0); LYMPHOCYTE # 0.5 TH/MM3 (1.0-4.8); MEAN CELL VOLUME 78.9 FL (80.0-100.0); MEAN CORPUSCULAR HEMOGLOBIN 22.2 PG (27.0-34.0); MEAN PLATELET VOLUME 8.3 FL (7.0-11.0); MONO % 8.4 % (0.0-8.0); MONOCYTE # 0.9 TH/MM3 (0-0.9); NEUT % 86.6 % (16.0-70.0); PLATELET COUNT 296 TH/MM3 (150-450); RED BLOOD COUNT 3.56 MIL/MM3 (4.00-5.30); RED CELL DISTRIBUTION WIDTH 20.5 % (11.6-17.2); WHITE BLOOD COUNT 10.3 TH/MM3 (4.0-11.0)
[2017-10-28 19:24] LABS: MEAN CORPUSCULAR HGB CONC 28.2 % (32.0-36.0)
[2017-10-28] MEDS: RESP: ALBUTEROL 2.5 MG/IPRATROPIUM 0.5 MG NEB (SCH) INH ×2 (19:25→19:26)
--- NOTE | 2017-10-28 19:30 | RADRPT ---
EXAM DATE/TIME: 10/28/2017 19:16 [facility] COMPARISON: CHEST SINGLE AP, October 19, 2017, 10:46. INDICATIONS : Shortness of breath. MEDICAL HISTORY : Hypertension. Cardiovascular disease. SURGICAL HISTORY : None. ENCOUNTER: Initial ACUITY: 1 day PAIN SCORE: Non-responsive. LOCATION: Bilateral chest FINDINGS: Persistent mild left lower lobe airspace disease with slight blunting of the costophrenic angle which may reflect trace pleural effusion. Cardiac silhouette is enlarged. Bony thorax is intact. CONCLUSION: 1. Stable left lower lobe airspace disease with more apparent small left pleural effusion. Dean Emanuel MD on October 28, 2017 at 19:26 Board Certified Radiologist. This report was verified electronically.
[2017-10-28 19:44] LABS: INTERNATIONAL NORMALIZED RATIO 1.1 RATIO; PROTHROMBIN TIME - PATIENT 10.8 SEC (9.8-11.6)
[2017-10-28 19:52] LABS: CALCIUM 7.5 MG/DL (8.5-10.1); CREATININE 0.57 MG/DL (0.50-1.00); MAGNESIUM 1.5 MG/DL (1.5-2.5)
[2017-10-28 20:06] LABS: TROPONIN I 5.94 NG/ML (0.02-0.05)
[2017-10-28] MEDS ORDERED: ASPIRIN 81 MG CHEW TAB CHEW ONE (20:15)
[2017-10-28] MEDS ORDERED: DIAZ5 PO (20:29)
[2017-10-28] MEDS ORDERED: NON-FORMULARY DRUG (Fluticasone-Salmeterol Inh (Advair Diskus Inh) 1 PUFF) INH PRN (21:00)
--- NOTE | 2017-10-28 21:08 | HHI.HP ---
HPI Service Critical Care Medicine Primary Care Physician Elizabeth Donald MD Admission Diagnosis CHF exacerbation, NSTEMI, hypoxia Diagnosis: Travel History International Travel<30 Days: No Contact w/Intl Traveler <30 Da: No Traveled to Known Affected Are: No History of Present Illness 82-year-old female with past medical history of past medical history of CHF, COPD- on home oxygen, hypertension, anemia, presents to for evaluation of failure to thrive, weakness, shortness of breath for 1 day. Upon EMS arrival the patient home, saturation was 86% on 2 L. She was transported on 6 L O2 nasal cannula. In the emergency department she appears to be tachypneic and using accessory muscles. She was emergently placed on the BiPAP with improvement of her oxygenation immediately. She states she has been intubated in the past. She was admitted with a similar symptoms 10/19 and previously 10/09 with abdominal pain and anemia. Review of Systems ROS Unable to obtain patients on facemask BiPAP in respiratory distress Past Family Social History Allergies: Coded Allergies: levofloxacin (Unverified Allergy, Severe, HEADACHE, NAUSEA, VOMITING, 10/28) meperidine (Unverified Adverse Reaction, Unknown, HALLUCINATIONS, 10/28/17) Past Medical History COPD on home O2 3L CHF HTN HLD ? 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 Stomach ulcers Past Surgical History 2 cervical surgeries portions of intestine removed appendix gallbladder total hysterectomy eye surgery with implants Reported Medications Reported Meds & Active Scripts Active Aspirin DR (Aspirin) 81 Mg Tabdr 81 Mg PO DAILY Pravachol (Pravastatin) 20 Mg Tab 20 Mg PO HS Hydrocodone-Acetamin 5-325 mg (Hydrocodone/Acetaminophen) 5 Mg-325 Mg Tablet 1 Tab PO Q4H PRN 3 Days Reported Valium (Diazepam) 5 Mg Tab 5 Mg PO TID PRN Ambien (Zolpidem Tartrate) 10 Mg Tab 10 Mg PO HS Spiriva Handihaler (Tiotropium Inh) 18 Mcg Cap 1 Puff INH DAILY Do Not Swallow Capsules Imitrex (Sumatriptan Succinate) 100 Mg Tab 100 Mg PO DAILY PRN If a satisfactory response has not been obtained at 2 hours, a second dose may be administered Potassium Chloride ER (Potassium Chloride) 20 Meq Tab 20 Meq PO DAILY Zofran (Ondansetron HCl) 4 Mg Tab 4 Mg PO DAILY PRN Levothyroxine (Levothyroxine Sodium) 100 Mcg Tab 100 Mcg PO DAILY Lasix (Furosemide) 40 Mg Tab 40 Mg PO DAILY Advair Diskus Inh (Fluticasone-Salmeterol Inh) 250-50 Mcg/Blist Aer 1 Puff INH BID PRN Rinse mouth after use. Vasotec (Enalapril Maleate) 10 Mg Tab 10 Mg PO DAILY Baclofen 10 Mg Tab 10 Mg PO TID Duoneb (Ipratropium-Albuterol Neb) 0.5-2.5 Mg/3 Ml Neb 3 Ml NEB Q6HR PRN Protonix (Pantoprazole Sodium) 40 Mg Tab 40 Mg PO DAILY Active Ordered Medications Current Medications Medications (Trade) Dose Ordered Sig/Karen Route PRN Reason Start Time Stop Time Status Last Admin Dose Admin Aspirin (Ecotrin Ec) 81 mg DAILY PO 10/29/17 09:00 Baclofen (Lioresal) 10 mg TID PO 10/29/17 09:00 Diazepam (Valium) 5 mg TID PRN PO ANXIETY 10/28/17 21:00 Enalapril Maleate (Vasotec) 10 mg DAILY PO 10/29/17 09:00 Furosemide (Lasix) 40 mg DAILY PO 10/29/17 09:00 Acetaminophen/ Hydrocodone Bitart ([place] 5-325 Mg) 1 tab Q4H PRN PO PAIN SCALE 1 TO 10 10/28/17 21:00 Levothyroxine Sodium (Synthroid) 100 mcg DAILY@0600 PO 10/29/17 06:00 Potassium Chloride (KCl) 20 meq DAILY PO 10/29/17 09:00 Pravastatin Sodium (Pravachol) 20 mg HS PO 10/28/17 21:00 10/28/17 22:10 Sumatriptan Succinate (Imitrex) 100 mg DAILY PRN PO MIGRAINE HEADACHE 10/28/17 21:00 Zolpidem Tartrate (Ambien) 10 mg HS PO 10/28/17 21:00 10/28/17 23:12 Sodium Chloride (NS Flush) 2 ml UNSCH PRN IV FLUSH FLUSH AFTER USING IV ACCESS 10/28/17 21:15 Sodium Chloride (NS Flush) 2 ml BID IV FLUSH 10/29/17 09:00 Acetaminophen (Tylenol) 650 mg Q6H PRN PO FEVER >101F 10/28/17 21:15 Famotidine (Pepcid Inj) 20 mg Q12HR IV PUSH 10/29/17 09:00 Ondansetron HCl (Zofran Inj) 4 mg Q6H PRN IV PUSH NAUSEA OR VOMITING 10/28/17 21:15 Temazepam (Restoril) 15 mg HS PRN PO INSOMNIA 10/28/17 21:15 Albuterol/ Ipratropium (Duoneb Neb) 1 ampule Q4HR NEB INH 10/29/17 00:00 10/29/17 00:02 Albuterol/ Ipratropium (Duoneb Neb) 1 ampule Q2HR NEB PRN INH WHEEZING 10/28/17 21:15 Miscellaneous Information ([facility] [place] [facility]) 1 [id number] XX 10/28/17 21:15 Chlorhexidine Gluconate (Chlorhexidine 2% Cloth) 3 pack Taper DAILY@04 TOP 10/29/17 04:00 10/25/18 03:59 10/28/17 22:30 Chlorhexidine Gluconate (Chlorhexidine 2% Cloth) 3 pack UNSCH PRN TOP HYGIENIC CARE 10/28/17 21:15 Senna/Docusate Sodium (Shannon-Colace) 1 tab BID PO 10/29/17 09:00 Magnesium Hydroxide (Milk Of Magnesia Liq) 30 ml Q12H PRN PO Mild constipation 10/28/17 21:15 Sennosides (Senokot) 17.2 mg Q12H PRN PO Moderate constipation 10/28/17 21:15 Bisacodyl (Dulcolax Supp) 10 mg DAILY PRN RECTAL SEVERE CONSITIPATION 10/28/17 21:15 Lactulose (Lactulose Liq) 30 ml DAILY PRN PO SEVERE CONSITIPATION 10/28/17 21:15 Enoxaparin Sodium (Lovenox Inj) 50 mg Q12H SQ 10/28/17 22:00 10/28/17 21:49 Budesonide/ Formoterol Fumarate (Symbicort 160-4.5 Mcg Inh) 2 puff BID PRN INH SHORTNESS OF BREATH 10/28/17 21:45 Family History No family history significant of lung malignancy Social History Patient lives with her sons and continues to smoke. No history of alcohol or illicit drug abuse Physical Exam Vital Signs Vital Signs Date Time Temp Pulse Resp B/P (MAP) Pulse Ox O2 Delivery O2 Flow Rate FiO2 10/28/17 21:04 85 18 105/49 (67) 97 BiPAP 40 10/28/17 19:52 80 24 123/58 (79) 94 BiPAP 40 10/28/17 19:31 99 40 10/28/17 19:10 95 50 10/28/17 19:10 98 BiPAP 50 10/28/17 19:10 95 BiPAP 50 10/28/17 18:54 90 34 117/60 (79) 98 Non-Rebreather 10/28/17 18:54 99 Non-Rebreather 10/28/17 18:54 29 98 Non-Rebreather 10/28/17 18:54 99 Non-Rebreather 10/28/17 18:48 98.0 97 117/60 (79) Physical Exam GENERAL: Elderly appearing female in moderate respiratory distress on facemask BiPAP SKIN: Warm and dry. HEAD: Normocephalic. EYES: No scleral icterus. No injection or drainage. NECK: Supple, trachea midline. No JVD or lymphadenopathy. CARDIOVASCULAR: Regular rate and rhythm without murmurs, gallops, or rubs. RESPIRATORY: Breath sounds equal bilaterally. Accessory muscle use. Occasional wheezes more on the left GASTROINTESTINAL: Abdomen soft, non-tender, nondistended. MUSCULOSKELETAL: No cyanosis, or edema. BACK: Nontender without obvious deformity. NEURO EXAM: GCS: 15 Mental Status: The patient is alert and oriented to person, place, and time with normal speech. Laboratory Laboratory Tests Test 10/28/17 18:54 10/28/17 19:05 10/28/17 20:16 Blood Gas Puncture Site RT RADIAL RT RADIAL Blood Gas Patient Temperature 98.6 98.6 Blood Gas HCO3 32 32 Blood Gas Base Excess 4.1 4.6 Blood Gas Oxygen Saturation 97 93 Arterial Blood pH 7.16 7.24 Arterial Blood Partial Pressure CO2 96 77 Arterial Blood Partial Pressure O2 185 77 Arterial Blood Oxygen Content 10.9 9.8 Arterial Blood Carboxyhemoglobin 1.8 2.1 Arterial Blood Methemoglobin 0.7 0.4 Blood Gas Hemoglobin 7.7 7.5 Oxygen Delivery Device NRB BiPAP Blood Gas Liter Flow 12 Blood Gas Inspired Oxygen 100 40 White Blood Count 10.3 Red Blood Count 3.56 Hemoglobin 7.9 Hematocrit 28.1 Mean Corpuscular Volume 78.9 Mean Corpuscular Hemoglobin 22.2 Mean Corpuscular Hemoglobin Concent 28.2 Red Cell Distribution Width 20.5 Platelet Count 296 Mean Platelet Volume 8.3 Neutrophils (%) (Auto) 86.6 Lymphocytes (%) (Auto) 4.5 Monocytes (%) (Auto) 8.4 Eosinophils (%) (Auto) 0.1 Basophils (%) (Auto) 0.4 Neutrophils # (Auto) 8.9 Lymphocytes # (Auto) 0.5 Monocytes # (Auto) 0.9 Eosinophils # (Auto) 0.0 Basophils # (Auto) 0.0 CBC Comment DIFF FINAL Differential Comment Prothrombin Time 10.8 Prothromb Time International Ratio 1.1 Activated Partial Thromboplast Time 26.2 Blood Urea Nitrogen 23 Creatinine 0.57 Random Glucose 98 Calcium Level 7.5 Magnesium Level 1.5 Sodium Level 140 Potassium Level 4.0 Chloride Level 102 Carbon Dioxide Level 32.0 Anion Gap 6 Estimat Glomerular Filtration Rate 102 Lactic Acid Level 0.9 Total Creatine Kinase 557 Creatine Kinase MB 32.0 Creatine Kinase MB % 5.7 Troponin I 5.94 B-Type Natriuretic Peptide 1685 Blood Gas Ventilator Setting IPAP15/EPAP5 Date/Time Source Procedure Growth Status 10/28/17 19:05 Blood Peripheral Aerobic Blood Culture Pending Received 10/28/17 19:05 Blood Peripheral Anaerobic Blood Culture Pending Received Result Diagram: 10/28/17 1905 10/28/17 190 Imaging Last 24 hours Impressions Chest X-Ray 10/28/17 1852 Signed Impressions: Service Date/Time: Saturday, October 28, 2017 19:16 - CONCLUSION: 1. Stable left lower lobe airspace disease with more apparent small left pleural effusion. Dean Emanuel MD Septic Shock Reassessment Septic shock perfusion: reassessment completed Caprini VTE Risk Assessment Caprini VTE Risk Assessment: Mod/High Risk (score >= 2) Caprini Risk Assessment Model Point Value = 1 Point Value = 2 Point Value = 3 Point Value = 5 Age 41-60 Minor surgery BMI > 25 kg/m2 Swollen legs Varicose veins or History of unexplained or recurrent spontaneous Oral contraceptives or hormone replacement Sepsis (< 1 month) Serious lung disease, including pneumonia (< 1 month) Abnormal pulmonary function Acute myocardial infarction Congestive heart failure (< 1 month) History of inflammatory bowel disease Medical patient at bed rest Age 61-74 Arthroscopic surgery Major open surgery (> 45 min) Laparoscopic surgery (> 45 min) Malignancy Confined to bed (> 72 hours) Immobilizing plaster cast Central venous access Age >= 75 History of VTE Family history of VTE Factor V Leiden Prothrombin [id number] Lupus anticoagulant Anticardiolipin antibodies Elevated serum homocysteine Heparin-induced thrombocytopenia Other congenital or acquired thrombophilia Stroke (< 1 month) Elective arthroplasty Hip, pelvis, or leg fracture Acute spinal cord injury (< 1 month) Prophylaxis Regimen Total Risk Factor Score Risk Level Prophylaxis Regimen 0-1 Low Early ambulation 2 Moderate Order ONE of the following: *Sequential Compression Device (SCD) *Heparin 5000 units SQ BID 3-4 Higher Order ONE of the following medications: *Heparin 5000 units SQ TID *Enoxaparin/Lovenox 40 mg SQ daily (WT < 150 kg, CrCl > 30 mL/min) *Enoxaparin/Lovenox 30 mg SQ daily (WT < 150 kg, CrCl > 10-29 mL/min) *Enoxaparin/Lovenox 30 mg SQ BID (WT < 150 kg, CrCl > 30 mL/min) AND/OR *Sequential Compression Device (SCD) 5 or more Highest Order ONE of the following medications: *Heparin 5000 units SQ TID (Preferred with Epidurals) *Enoxaparin/Lovenox 40 mg SQ daily (WT < 150 kg, CrCl > 30 mL/min) *Enoxaparin/Lovenox 30 mg SQ daily (WT < 150 kg, CrCl > 10-29 mL/min) *Enoxaparin/Lovenox 30 mg SQ BID (WT < 150 kg, CrCl > 30 mL/min) AND *Sequential Compression Device (SCD) Assessment and Plan Assessment and Plan Respiratory failure -COPD exacerbation -DuoNeb scheduled and as needed -IV steroids -Empiric antibiotic -BiPAP as needed -Palliative care consultation Elevated troponin -Patient denies chest pain -Monitor trend -No ST elevations on EKG -Series of EKGs and troponins -Lovenox 1 mg/kg every 12 hours -Cardiology consultation -Aspirin/pravastatin CHF -Enalapril -Lasix HTN -Enalapril HLD -Pravastatin Hypothyroidism -Levothyroxine History of peptic ulcer disease -IV Pepcid DVT GI prophylaxis -Jae's and SCDs -Lovenox -Pepcid Critical Care: The total critical care time was 35 minutes. Time to perform other separately billable procedures was not included in the critical care time. Wayne Acosta MD October 28, 2017 9:08 pm
--- NOTE | 2017-10-28 21:12 | RADRPT ---
EXAM DATE/TIME: 10/28/2017 20:32 [facility] COMPARISON: CT PULMONARY ANGIOGRAM, October 26, 2015, 10:21. INDICATIONS : Rule out pulmonary embolism. IV CONTRAST: 74 cc Omnipaque 350 (iohexol) IV RADIATION DOSE: 8.79 CTDIvol (mGy) MEDICAL HISTORY : Cerebrovascular disease. Cardiovascular disease Congestive heart failure.Hypertension. SURGICAL HISTORY : Hysterectomy. Appendectomy.Cholecystectomy. ENCOUNTER: Initial ACUITY: 1 day PAIN SCALE: 0/10 LOCATION: chest TECHNIQUE: Volumetric scanning of the chest was performed using a pulmonary embolism protocol MIP images were re constructed. Using automated exposure control and adjustment of the mA and/or kV according to patien t size, radiation dose was kept as low as reasonably achievable to obtain optimal diagnostic quality images. DICOM format image data is available electronically for review and comparison. Follow-up recommendations for detected pulmonary nodules are based at a minimum on nodule size and pa tient risk factors according to Fleischner Society Guidelines. FINDINGS: PULMONARY ARTERIES: Focal nonfilling defect of a segmental branch of the right lower lobe is similar to prior CTA examina tion and may reflect chronic occlusion. No acute filling defects are seen in the pulmonary arteries t hrough the segmental level. LUNGS: Moderate severe diffuse upper lobe predominant centrilobular emphysema with mild airspace consolidati on adjacent small pleural effusions at the bases. Mild right apical scarring. PLEURAE: Small bilateral pleural effusions. MEDIASTINUM: Mild four-chamber cardiac enlargement. No significant pericardial effusion. No gross adenopathy. MUSCULOSKELETAL: Multilevel degenerative spondylosis of the thoracic spine. MISCELLANEOUS: The visualized upper abdominal organs demonstrate no acute abnormality. CONCLUSION: 1. Apparently chronic focal filling defect in an isolated right lower lobe pulmonary artery segmental branch. 2. No CT evidence for acute pulmonary artery embolism. 3. Moderate to severe diffuse upper lobe predominant centrilobular emphysema. 4. Small bilateral pleural effusions with minimal airspace consolidation at the lung bases, presumabl y atelectasis. 5. Mild cardiomegaly. Dean Emanuel MD on October 28, 2017 at 21:04 Board Certified Radiologist. This report was verified electronically.
[2017-10-28] MEDS ORDERED: SENNOSIDES 8.6 MG TAB PO PRN (21:15)
[2017-10-28] MEDS ORDERED: ACETAMINOPHEN 325 MG TAB PO PRN (21:15)
[2017-10-28] MEDS ORDERED: MAGNESIUM HYDROXIDE SUSP 30 ML CUP PO PRN (21:15)
[2017-10-28] MEDS ORDERED: LACTULOSE SYRUP 20 GM/30 ML CUP PO PRN (21:15)
[2017-10-28] MEDS ORDERED: CHLORHEXIDINE GLUCONATE 2 % 1 PACK (2 CLOTHS) TOP PRN (21:15)
[2017-10-28] MEDS ORDERED: HEPARIN SODIUM - SQ 10,000 UNITS/ML VIAL SQ SCH (21:15)
[2017-10-28] MEDS ORDERED: BISACODYL 10 MG SUPP RECTAL PRN (21:15)
[2017-10-28] MEDS ORDERED: TEMAZEPAM 15 MG CAP PO PRN (21:15)
[2017-10-28] MEDS ORDERED: NURSING INFORMATION XX SCH (21:15)
[2017-10-28] MEDS ORDERED: SODIUM CHLORIDE 0.9% FLUSH 10 ML FLUSH IV FLUSH PRN (21:15)
[2017-10-28] MEDS ORDERED: BUDESONIDE-FORMOTEROL 160/4.5 MCG INHALER INH PRN (21:45)
[2017-10-28] MEDS: ENOXAPARIN SODIUM 60 MG/0.6 ML SYRINGE SQ SCH (21:49)
[2017-10-28] MEDS: PRAVASTATIN SOD 20 MG TAB PO SCH (22:10)
[2017-10-28] MEDS: CHLORHEXIDINE GLUCONATE 2 % 1 PACK (2 CLOTHS) TOP SCH (22:30)
--- NOTE | 2017-10-28 22:39 | EKG ---
Date Performed: 10/28/2017 Time Performed: 19:12:11 PTAGE: 82 years EKG: Sinus rhythm WITH SHORT GA INTERVAL RIGHT AXIS DEVIATION POOR R WAVE PROGRESSION NONSPECIFIC ST/T CHANGES SEPTAL MYOCARDIAL INFARCTION ABNORMAL ECG PREVIOUS TRACING : 10/19/2017 14.33 No significant change from previous tracing noted. DOCTOR: Yusuf Moraes Interpretating Date/Time 10/28/2017 22:39:02
[2017-10-28 23:06] LABS: BACTERIA, URINE RARE /hpf; BILIRUBIN, URINE NEG (NEG); BLOOD, URINE SMALL (NEG); GLUCOSE,URINE NEG (NEG); KETONE, URINE TRACE mg/dL (NEG); MUCUS URINE FEW /lpf (OCC); NITRITE,URINE NEG (NEG); PH, URINE 5.5 (5.0-8.5); SQUAMOUS EPITHELIAL CELL URINE 10 /hpf (0-5); TRANSITIONAL EPI CELLS, URINE 1 /hpf; URINE COLOR LIGHT-YELLOW (YELLW/STRAW); URINE LEUKOCYTE ESTERASE NEG (NEG); WAXY CAST, URINE 15 /lpf; WHITE BLOOD CELL CLUMPS MOD
[2017-10-28] MEDS: ZOLPIDEM TARTRATE 10 MG TAB PO SCH (23:12)
[2017-10-29] VITALS (51 sets, daily range): BP systolic 115–159; BP diastolic 53–108; PULSE 81–101; RESP 20–24; TEMP 97.5–98; O2SAT 69–100
[2017-10-29] MEDS: RESP: ALBUTEROL 2.5 MG/IPRATROPIUM 0.5 MG NEB (SCH) INH ×7 (00:02→23:35)
[2017-10-29] MEDS: AZITHROMYCIN INJ 500 MG in SODIUM CHLOR 0.9% 250 ML INJ 250 ML IV SCH ×2 (01:57→23:51)
[2017-10-29] MEDS: methylPREDNISolone SOD SUCC 40 MG/1 ML VIAL IV PUSH SCH ×4 (01:57→23:50)
[2017-10-29 01:59] LABS: AUTOMATED NEUTROPHIL # 7.7 TH/MM3 (1.8-7.7); BASOPHIL % 0.4 % (0.0-2.0); EOSINOPHIL % 0.1 % (0.0-4.0); HEMATOCRIT 27.7 % (35.0-46.0); HEMOGLOBIN 7.8 GM/DL (11.6-15.3); LYMPHOCYTE # 0.4 TH/MM3 (1.0-4.8); MEAN CELL VOLUME 78.4 FL (80.0-100.0); MEAN CORPUSCULAR HEMOGLOBIN 22.1 PG (27.0-34.0); MEAN PLATELET VOLUME 8.4 FL (7.0-11.0); MONOCYTE # 0.8 TH/MM3 (0-0.9); NEUT % 86.5 % (16.0-70.0); PLATELET COUNT 305 TH/MM3 (150-450); RED BLOOD COUNT 3.54 MIL/MM3 (4.00-5.30); RED CELL DISTRIBUTION WIDTH 20.3 % (11.6-17.2); WHITE BLOOD COUNT 8.9 TH/MM3 (4.0-11.0)
[2017-10-29 02:00] LABS: MEAN CORPUSCULAR HGB CONC 28.2 % (32.0-36.0)
[2017-10-29 02:13] LABS: INTERNATIONAL NORMALIZED RATIO 1.1 RATIO
[2017-10-29 02:23] LABS: ALBUMIN 2.8 GM/DL (3.4-5.0); ALT (GPT) 22 U/L (10-53); AST (GOT) 77 U/L (15-37); BICARBONATE 34.9 MEQ/L (21.0-32.0); BLOOD UREA NITROGEN 21 MG/DL (7-18); CALCIUM 7.8 MG/DL (8.5-10.1); CHLORIDE 101 MEQ/L (98-107); GLOMERULAR FILTRATION RATE 80 ML/MIN (>89); GLUCOSE,RANDOM 111 MG/DL (74-106); MAGNESIUM 1.7 MG/DL (1.5-2.5); PHOSPHORUS 3.5 MG/DL (2.5-4.9); SODIUM (NA) 143 MEQ/L (136-145)
[2017-10-29 02:25] LABS: ALKALINE PHOSPHATASE 135 U/L (45-117); TOTAL BILIRUBIN ADULT 0.2 MG/DL (0.2-1.0)
[2017-10-29] MEDS: cefTRIAXone INJ 1,000 MG in SODIUM CHLORIDE 0.9% INJ 100 ML IV SCH ×2 (02:54→14:09)
[2017-10-29] MEDS: ACETAMINOPHEN/HYDROcodone 325 MG/5 MG TAB PO PRN ×3 (04:53→14:08)
[2017-10-29] MEDS: LEVOTHYROXINE SODIUM 100 MCG TAB PO SCH (04:53)
--- NOTE | 2017-10-29 08:00 | EKG ---
Date Performed: 10/29/2017 Time Performed: 03:05:20 PTAGE: 82 years EKG: Sinus rhythm . Rightward axis Possible septal infarct - age undetermined Inferior T wave changes are nonspecific A bnormal ECG NO PREVIOUS TRACING DOCTOR: Yusuf Moraes Interpretating Date/Time 10/29/2017 07:58:49
--- NOTE | 2017-10-29 08:04 | PD.CONS ---
HPI Service cardiology Consult Requested By Reason for Consult NSTEMI Primary Care Physician Elizabeth Donald MD History of Present Illness This is an 82 yo WF with CHF, O2 dep COPD, HTN and anemia admitted for weakness , SOB and failure to thrive. EMS found her to be hypoxic (O2 86% on 2L O2) and she was recently admitted two times earlier this month for CHF. She is currently resting comfortably on Bipap with improved O2 sats. Last echo from earlier this month shows an EF 60% with moderate TR and pulmonary hypertension. Troponins elevated 5.94, 5.76. Hgb low (7.8) which appears to be stable from last visit. UA positive for infection. CXR shows small L-sided pleural effusion. The patient is alert and somewhat disoriented; she admits to pain all over and mild R-sided chest discomfort x 1 year. Review of Systems Consitutional: COMPLAINS OF: Fatigue, Weight loss, DENIES: Fever, Chills, Weight gain Respiratory: COMPLAINS OF: See HPI, Shortness of breath, DENIES: Cough, Snoring , Wheezing, Sputum production Cardiovascular: COMPLAINS OF: See HPI, Chest pain, DENIES: Palpitations, Syncope, Tachycardia Gastrointestinal: COMPLAINS OF: Bloody stools, Melena, DENIES: Nausea, Vomiting , Change in bowel habits, Reflux Past Family Social History Allergies: Coded Allergies: levofloxacin (Unverified Allergy, Severe, HEADACHE, NAUSEA, VOMITING, 10/28) meperidine (Unverified Adverse Reaction, Unknown, HALLUCINATIONS, 10/28/17) Past Medical History Past Medical History COPD on home O2 3L CHF HTN HLD ? 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 Stomach ulcers Past Surgical History 2 cervical surgeries portions of intestine removed appendix gallbladder total hysterectomy eye surgery with implants Reported Medications Reported Meds & Active Scripts Active Aspirin DR (Aspirin) 81 Mg Tabdr 81 Mg PO DAILY Pravachol (Pravastatin) 20 Mg Tab 20 Mg PO HS Hydrocodone-Acetamin 5-325 mg (Hydrocodone/Acetaminophen) 5 Mg-325 Mg Tablet 1 Tab PO Q4H PRN 3 Days Reported Valium (Diazepam) 5 Mg Tab 5 Mg PO TID PRN Ambien (Zolpidem Tartrate) 10 Mg Tab 10 Mg PO HS Spiriva Handihaler (Tiotropium Inh) 18 Mcg Cap 1 Puff INH DAILY Do Not Swallow Capsules Imitrex (Sumatriptan Succinate) 100 Mg Tab 100 Mg PO DAILY PRN If a satisfactory response has not been obtained at 2 hours, a second dose may be administered Potassium Chloride ER (Potassium Chloride) 20 Meq Tab 20 Meq PO DAILY Zofran (Ondansetron HCl) 4 Mg Tab 4 Mg PO DAILY PRN Levothyroxine (Levothyroxine Sodium) 100 Mcg Tab 100 Mcg PO DAILY Lasix (Furosemide) 40 Mg Tab 40 Mg PO DAILY Advair Diskus Inh (Fluticasone-Salmeterol Inh) 250-50 Mcg/Blist Aer 1 Puff INH BID PRN Rinse mouth after use. Vasotec (Enalapril Maleate) 10 Mg Tab 10 Mg PO DAILY Baclofen 10 Mg Tab 10 Mg PO TID Duoneb (Ipratropium-Albuterol Neb) 0.5-2.5 Mg/3 Ml Neb 3 Ml NEB Q6HR PRN Protonix (Pantoprazole Sodium) 40 Mg Tab 40 Mg PO DAILY Active Ordered Medications Current Medications Medications (Trade) Dose Ordered Sig/Karen Route Start Time Stop Time Status Last Admin (Ecotrin Ec) 81 mg DAILY PO 10/29/17 09:00 (Lioresal) 10 mg TID PO 10/29/17 09:00 (Valium) 5 mg TID PRN PO 10/28/17 21:00 (Vasotec) 10 mg DAILY PO 10/29/17 09:00 (Lasix) 40 mg DAILY PO 10/29/17 09:00 ([place] 5-325 Mg) 1 tab Q4H PRN PO 10/28/17 21:00 10/29/17 04:53 (Synthroid) 100 mcg DAILY@0600 PO 10/29/17 06:00 10/29/17 04:53 (KCl) 20 meq DAILY PO 10/29/17 09:00 (Pravachol) 20 mg HS PO 10/28/17 21:00 10/28/17 22:10 (Imitrex) 100 mg DAILY PRN PO 10/28/17 21:00 (Ambien) 10 mg HS PO 10/28/17 21:00 10/28/17 23:12 (NS Flush) 2 ml UNSCH PRN IV FLUSH 10/28/17 21:15 (NS Flush) 2 ml BID IV FLUSH 10/29/17 09:00 (Tylenol) 650 mg Q6H PRN PO 10/28/17 21:15 (Pepcid Inj) 20 mg Q12HR IV PUSH 10/29/17 09:00 (Zofran Inj) 4 mg Q6H PRN IV PUSH 10/28/17 21:15 (Restoril) 15 mg HS PRN PO 10/28/17 21:15 (Duoneb Neb) 1 ampule Q4HR NEB INH 10/29/17 00:00 10/29/17 07:22 (Duoneb Neb) 1 ampule Q2HR NEB PRN INH 10/28/17 21:15 ([facility] 1 Q361D XX 10/28/17 21:15 (Chlorhexidine 2% Cloth) 3 pack Taper DAILY@04 TOP 10/29/17 04:00 10/25/18 03:59 10/28/17 22:30 (Chlorhexidine 2% Cloth) 3 pack UNSCH PRN TOP 10/28/17 21:15 (Shannon-Colace) 1 tab BID PO 10/29/17 09:00 (Milk Of Magnesia Liq) 30 ml Q12H PRN PO 10/28/17 21:15 (Senokot) 17.2 mg Q12H PRN PO 10/28/17 21:15 (Dulcolax Supp) 10 mg DAILY PRN RECTAL 10/28/17 21:15 (Lactulose Liq) 30 ml DAILY PRN PO 10/28/17 21:15 (Lovenox Inj) 50 mg Q12H SQ 10/28/17 22:00 10/28/17 21:49 (Symbicort 160-4.5 Mcg Inh) 2 puff BID PRN INH 10/28/17 21:45 (SoluMEDROL INJ) 40 mg Q8H IV PUSH 10/29/17 01:00 10/29/17 01:57 Azithromycin 500 mg/Sodium Chloride 250 ml @ 250 mls/hr Q24H IV 10/29/17 01:00 10/29/17 01:57 Ceftriaxone Sodium 1000 mg/ Sodium Chloride 100 ml @ 200 mls/hr Q12H IV 10/29/17 02:00 10/29/17 02:54 Family History non-contributory Social History current tobacco user, no illicit drug use, no etoh Physical Exam Vital Signs Vital Signs Date Time Temp Pulse Resp B/P (MAP) Pulse Ox O2 Delivery O2 Flow Rate FiO2 10/29/17 07:23 97 30 10/29/17 06:00 92 10/29/17 04:22 94 30 10/29/17 04:00 89 10/29/17 04:00 98.0 89 20 154/67 (96) 97 10/29/17 02:00 85 10/29/17 00:04 92 30 10/29/17 00:00 81 10/29/17 00:00 81 22 115/53 (73) 97 10/28/17 22:35 88 10/28/17 22:30 97.8 88 24 120/56 (77) 100 10/28/17 22:30 88 10/28/17 21:54 10/28/17 21:30 79 17 105/51 (69) 100 BiPAP 40 10/28/17 21:04 85 18 105/49 (67) 97 BiPAP 40 10/28/17 19:52 80 24 123/58 (79) 94 BiPAP 40 10/28/17 19:31 99 40 10/28/17 19:10 95 50 10/28/17 19:10 98 BiPAP 50 10/28/17 19:10 95 BiPAP 50 10/28/17 18:54 90 34 117/60 (79) 98 Non-Rebreather 10/28/17 18:54 99 Non-Rebreather 10/28/17 18:54 29 98 Non-Rebreather 10/28/17 18:54 99 Non-Rebreather 10/28/17 18:48 98.0 97 117/60 (79) Physical Exam GENERAL: SKIN: Warm and dry. HEAD: Atraumatic. Normocephalic. EYES: Pupils equal and round. No scleral icterus. ENT: No nasal bleeding or discharge. NECK: Trachea midline. No JVD. CARDIOVASCULAR: Regular rate and rhythm. no murmur RESPIRATORY: No accessory muscle use. diminished breath sounds L lower base GASTROINTESTINAL: Abdomen soft, non-tender, nondistended. Hepatic and splenic margins not palpable. MUSCULOSKELETAL: Extremities without clubbing, cyanosis, or edema. No obvious deformities. NEUROLOGICAL: Awake and alert. No obvious cranial nerve deficits. Normal speech. PSYCHIATRIC: Appropriate mood and affect; insight and judgment normal. Laboratory Laboratory Tests Test 10/28/17 18:54 10/28/17 19:05 10/28/17 20:16 10/28/17 22:14 Blood Gas Puncture Site RT RADIAL RT RADIAL Blood Gas Patient Temperature 98.6 98.6 Blood Gas HCO3 32 32 Blood Gas Base Excess 4.1 4.6 Blood Gas Oxygen Saturation 97 93 Arterial Blood pH 7.16 7.24 Arterial Blood Partial Pressure CO2 96 77 Arterial Blood Partial Pressure O2 185 77 Arterial Blood Oxygen Content 10.9 9.8 Arterial Blood Carboxyhemoglobin 1.8 2.1 Arterial Blood Methemoglobin 0.7 0.4 Blood Gas Hemoglobin 7.7 7.5 Oxygen Delivery Device NRB BiPAP Blood Gas Liter Flow 12 Blood Gas Inspired Oxygen 100 40 White Blood Count 10.3 Red Blood Count 3.56 Hemoglobin 7.9 Hematocrit 28.1 Mean Corpuscular Volume 78.9 Mean Corpuscular Hemoglobin 22.2 Mean Corpuscular Hemoglobin Concent 28.2 Red Cell Distribution Width 20.5 Platelet Count 296 Mean Platelet Volume 8.3 Neutrophils (%) (Auto) 86.6 Lymphocytes (%) (Auto) 4.5 Monocytes (%) (Auto) 8.4 Eosinophils (%) (Auto) 0.1 Basophils (%) (Auto) 0.4 Neutrophils # (Auto) 8.9 Lymphocytes # (Auto) 0.5 Monocytes # (Auto) 0.9 Eosinophils # (Auto) 0.0 Basophils # (Auto) 0.0 CBC Comment DIFF FINAL Differential Comment Prothrombin Time 10.8 Prothromb Time International Ratio 1.1 Activated Partial Thromboplast Time 26.2 Blood Urea Nitrogen 23 Creatinine 0.57 Random Glucose 98 Calcium Level 7.5 Magnesium Level 1.5 Sodium Level 140 Potassium Level 4.0 Chloride Level 102 Carbon Dioxide Level 32.0 Anion Gap 6 Estimat Glomerular Filtration Rate 102 Lactic Acid Level 0.9 Total Creatine Kinase 557 Creatine Kinase MB 32.0 Creatine Kinase MB % 5.7 Troponin I 5.94 B-Type Natriuretic Peptide 1685 Blood Gas Ventilator Setting IPAP15/EPAP5 Urine Color LIGHT-YELLOW Urine Turbidity HAZY Urine pH 5.5 Urine Specific [place] 1.015 Urine Protein 30 Urine Glucose (UA) NEG Urine Ketones TRACE Urine Occult Blood SMALL Urine Nitrite NEG Urine Bilirubin NEG Urine Urobilinogen LESS THAN 2.0 Urine Leukocyte Esterase NEG Urine RBC 2 Urine WBC 19 Urine WBC Clumps MOD Urine Squamous Epithelial Cells 10 Urine Transitional Epithelial Cells 1 Urine Bacteria RARE Urine Waxy Casts 15 Urine Mucus FEW Urine Yeast (Budding) OCC Microscopic Urinalysis Comment CATH-CULTURE IND Test 10/28/17 22:30 10/29/17 01:50 Nasal Screen MRSA (PCR) MRSA NOT DETECTED White Blood Count 8.9 Red Blood Count 3.54 Hemoglobin 7.8 Hematocrit 27.7 Mean Corpuscular Volume 78.4 Mean Corpuscular Hemoglobin 22.1 Mean Corpuscular Hemoglobin Concent 28.2 Red Cell Distribution Width 20.3 Platelet Count 305 Mean Platelet Volume 8.4 Neutrophils (%) (Auto) 86.5 Lymphocytes (%) (Auto) 4.0 Monocytes (%) (Auto) 9.0 Eosinophils (%) (Auto) 0.1 Basophils (%) (Auto) 0.4 Neutrophils # (Auto) 7.7 Lymphocytes # (Auto) 0.4 Monocytes # (Auto) 0.8 Eosinophils # (Auto) 0.0 Basophils # (Auto) 0.0 CBC Comment DIFF FINAL Differential Comment Prothrombin Time 11.0 Prothromb Time International Ratio 1.1 Activated Partial Thromboplast Time 25.2 Blood Urea Nitrogen 21 Creatinine 0.70 Random Glucose 111 Total Protein 6.0 Albumin 2.8 Calcium Level 7.8 Phosphorus Level 3.5 Magnesium Level 1.7 Alkaline Phosphatase 135 Aspartate Amino Transf (AST/SGOT) 77 Alanine Aminotransferase (ALT/SGPT) 22 Total Bilirubin 0.2 Sodium Level 143 Potassium Level 3.9 Chloride Level 101 Carbon Dioxide Level 34.9 Anion Gap 7 Estimat Glomerular Filtration Rate 80 Lactic Acid Level 3.0 Troponin I 5.76 Date/Time Source Procedure Growth Status 10/28/17 19:05 Blood Peripheral Aerobic Blood Culture Pending Received 10/28/17 19:05 Blood Peripheral Anaerobic Blood Culture Pending Received 10/28/17 22:14 Urine Catheterized Urine Urine Culture Pending Received Result Diagram: 10/29/17 0150 10/29/17 0150 Imaging Last 24 hours Impressions Chest X-Ray 10/28/17 [id number] Signed Impressions: Service Date/Time: Saturday, October 28, 2017 19:16 - CONCLUSION: 1. Stable left lower lobe airspace disease with more apparent small left pleural effusion. Dean Emanuel MD Assessment and Plan Problem List: (1) Dyspnea ICD Codes: R06.00 - Dyspnea, unspecified (2) Pulmonary hypertension ICD Codes: I27.20 - Pulmonary hypertension, unspecified (3) NSTEMI, initial episode of care ICD Codes: I21.4 - Non-ST elevation (NSTEMI) myocardial infarction Status: Acute (4) CHF (congestive heart failure) ICD Codes: I50.9 - Heart failure, unspecified Status: Acute Assessment and Plan 82 yo WF with CHF, O2 dep COPD, HTN and anemia admitted for weakness, SOB and failure to thrive. EMS found her to be hypoxic (O2 86% on 2L O2) and she was recently admitted two times earlier this month for CHF. She is currently resting comfortably on Bipap with improved O2 sats. Last echo from earlier this month shows an EF 60% with moderate TR and pulmonary hypertension. Troponins elevated 5.94, 5.76. Hgb low (7.8) which appears to be stable from last visit. UA positive for infection. CXR shows small L-sided pleural effusion. The patient is alert and somewhat disoriented; she admits to pain all over and mild R-sided chest discomfort x 1 year. NSTEMI- patient is quite frail and palliative care has been consulted. Due to her end stage COPD she is not likely to be a good candidate for intervention at this time. continue medical management Problem Qualifiers (1) CHF (congestive heart failure): Qualified Codes: I50.9 - Heart failure, unspecified Flavia Mercado October 29, 2017 08:04
[2017-10-29] MEDS: SODIUM CHLORIDE 0.9% FLUSH 10 ML FLUSH IV FLUSH SCH ×2 (09:00→21:27)
[2017-10-29] MEDS: BACLOFEN 10 MG TAB PO SCH ×3 (09:14→18:25)
[2017-10-29] MEDS: ASPIRIN EC 81 MG TABEC PO SCH (09:14)
[2017-10-29] MEDS: FUROSEMIDE 40 MG TAB PO SCH (09:14)
[2017-10-29] MEDS: DOCUSATE SODIUM 50 MG/SENNA 8.6 MG TAB PO SCH ×2 (09:14→21:25)
[2017-10-29] MEDS: POTASSIUM CHLORIDE 20 MEQ CONTROLLED RELEASE TAB PO SCH (09:14)
[2017-10-29] MEDS: FAMOTIDINE 20 MG/2 ML VIAL IV PUSH SCH ×2 (09:15→21:26)
[2017-10-29] MEDS: ENALAPRIL MALEATE 10 MG TAB PO SCH (09:15)
[2017-10-29] MEDS: ENOXAPARIN SODIUM 60 MG/0.6 ML SYRINGE SQ SCH ×2 (10:00→21:26)
[2017-10-29] MEDS ORDERED: FUROSEMIDE 20 MG/2 ML VIAL IV PUSH ONE (10:15)
[2017-10-29] MEDS ORDERED: SODIUM CHLOR 0.9% 250 ML INJ 250 ML IV ONE (10:15)
--- NOTE | 2017-10-29 12:06 | HHI.CCPN ---
Subjective Remarks/Hospital Course 10/28: 82-year-old female with past medical history of past medical history of CHF, COPD- on home oxygen, hypertension, anemia, presents to for evaluation of failure to thrive, weakness, shortness of breath for 1 day. Upon EMS arrival the patient home, saturation was 86% on 2 L. She was transported on 6 L O2 nasal cannula. In the emergency department she appears to be tachypneic and using accessory muscles. She was emergently placed on the BiPAP with improvement of her oxygenation immediately. She states she has been intubated in the past. She was admitted with a similar symptoms 10/19 and previously 10/09 with abdominal pain and anemia. 10/29: Remains on BiPAP with full facemask. Cardiology consult noted Objective Vital Signs Date Time Temp Pulse Resp B/P (MAP) Pulse Ox O2 Delivery O2 Flow Rate FiO2 10/29/17 10:00 81 10/29/17 07:23 97 30 10/29/17 04:00 98.0 20 154/67 (96) 10/28/17 21:30 BiPAP Intake and Output 10/29/17 10/29/17 10/30/17 08:00 16:00 00:00 Intake Total 350 ml Balance 350 ml Result Diagram: 10/29/17 0150 10/29/17 0150 Other Results Laboratory Tests Test 10/28/17 18:54 10/28/17 20:16 Blood Gas Puncture Site RT RADIAL RT RADIAL Blood Gas Patient Temperature 98.6 98.6 Blood Gas HCO3 32 mmol/L (22-26) 32 mmol/L (22-26) Blood Gas Base Excess 4.1 mmol/L (-2-2) 4.6 mmol/L (-2-2) Blood Gas Oxygen Saturation 97 % (90-100) 93 % (90-100) Arterial Blood pH 7.16 (7.380-7.420) 7.24 (7.380-7.420) Arterial Blood Partial Pressure CO2 96 mmHg (38-42) 77 mmHg (38-42) Arterial Blood Partial Pressure O2 185 mmHG (61-120) 77 mmHG (61-120) Arterial Blood Oxygen Content 10.9 Vol % (12.0-20.0) 9.8 Vol % (12.0-20.0) Arterial Blood Carboxyhemoglobin 1.8 % (0-4) 2.1 % (0-4) Arterial Blood Methemoglobin 0.7 % (0-2) 0.4 % (0-2) Blood Gas Hemoglobin 7.7 G/DL (12.0-16.0) 7.5 G/DL (12.0-16.0) Oxygen Delivery Device NRB BiPAP Blood Gas Liter Flow 12 L/M Blood Gas Inspired Oxygen 100 % 40 % Blood Gas Ventilator Setting IPAP15/EPAP5 Imaging Last 24 hours Impressions Chest X-Ray 10/28/17 [id number] Signed Impressions: Service Date/Time: Saturday, October 28, 2017 19:16 - CONCLUSION: 1. Stable left lower lobe airspace disease with more apparent small left pleural effusion. Dean Emanuel MD Objective Remarks GENERAL: Elderly appearing female in moderate respiratory distress on facemask BiPAP SKIN: Warm and dry. HEAD: Normocephalic. EYES: No scleral icterus. No injection or drainage. NECK: Supple, trachea midline. No JVD or lymphadenopathy. CARDIOVASCULAR: Regular rate and rhythm without murmurs, gallops, or rubs. RESPIRATORY: Breath sounds equal bilaterally. Accessory muscle use. Occasional wheezes more on the left GASTROINTESTINAL: Abdomen soft, non-tender, nondistended. MUSCULOSKELETAL: No cyanosis, or edema. BACK: Nontender without obvious deformity. NEURO EXAM: GCS: 15 Mental Status: The patient is alert and oriented to person, place, and time with normal speech. A/P Assessment and Plan Respiratory failure -COPD exacerbation -DuoNeb scheduled and as needed -IV steroids -Empiric antibiotic -BiPAP as needed -Palliative care consultation Elevated troponin -Patient denies chest pain -Monitor trend -No ST elevations on EKG -Series of EKGs and troponins -Lovenox 1 mg/kg every 12 hours -Cardiology consultation -Aspirin/pravastatin CHF -Enalapril -Lasix Anemia - Transfuse 1 unit PRBCs to keep Hgb greater than 8gm% HTN -Enalapril HLD -Pravastatin Hypothyroidism -Levothyroxine History of peptic ulcer disease -IV Pepcid DVT GI prophylaxis -Jae's and SCDs -Lovenox -Pepcid Geovanni Lincoln MD October 29, 2017 12:06
--- NOTE | 2017-10-29 13:37 | PD.CONS ---
Consult Service Palliative Care Consult Requested By [facility] Primary Care Physician Elizabeth Donald MD Reason for Consultation a. To assist with evaluation and management of symptoms including:pain, dyspnea b. To assist medical decision maker(s) with: better understanding of current medical conditions; weighing benefits/burdens of medical treatment options; making medical treatment decisions. HPI History of Present Illness Patient is a 82-year-old that came to the emergency department on 10/09/2017 from the physician's office for evaluation of chronic abdominal pain. Patient also has significant history of CHF and COPD. Patient has previously been seen by palliative care for pain managment and goals of care around 10/11/2017. Patient had abdominal pain, generalized weakness and reported GI bleed, dark tarry stool. Patient subsequently stablelized, and went to home health. Patient returned 10/19/2017 for dyspnea and had copd exacerbation, and CHF, with elevated troponins. Cardiology evaluated, and felt pt copd too severe to allow for beta mark, and just medical management only. Feels pt is too frail to complete any invasive evaluation or workup. Pulmonology feels it is more cardiac than pulmonary. Both specilist feels she is okay to go home on 10/20. Patient return again on 10/28/2017 via EMS. Pt had to be placed emergently on bipap which improved oxygenation. Patient started on steroids, duonbes, antibiotics. Pt found to have elevated tropoinins, but no st elevations. Cardiology consulted again and again feels patient is not a candidate for any further aggresive workup. CTA was ordered which show chronic focal filling defect on right lower lobe pumonary arter. Noo evdice of PE. There is emphysema and small bilateral pleural effusions. Palliative care was consulted to review goals of care. Patient currently is off bipap. She is confused, knows she is in [place], but does not understand what bipap is or the mask she was just on. Pt's son's sees that and noted, her mentation and confusion has fluctuated since GI procedure almost a month ago. She still say she have some dyspnea, but denies pain. I spoke with patient's sons who wants to continue for patient to be treated. However they are agreeable of no re-intubation should she needs that. Goals of treatment is : continue treatment short of intubation. They do want her back on bipap should she become dyspneic again. Function/Cognitive Trajectory Multiple hospitalization for dyspnea, chf exacerbation, and copd. Chronic pain. copd, dependent of O2 3L. She has had chronic pain for many years. She gets dyspneic on exertion. There is no weight loss, and pt state she has been stable. Review of Systems ROS Limitations: Clinical Condition Constitutional: COMPLAINS OF: Fatigue Endocrine: DENIES: Heat/cold intolerance Eyes: DENIES: Eye inflammation Ears, nose, mouth, throat: DENIES: Hearing loss, Vertigo Respiratory: COMPLAINS OF: Cough, Wheezing, Shortness of breath Cardiovascular: COMPLAINS OF: Dyspnea on Exertion Gastrointestinal: COMPLAINS OF: Abdominal pain Genitourinary: DENIES: Abnormal vaginal bleeding Musculoskeletal: COMPLAINS OF: Back pain Integumentary: DENIES: Abnormal pigmentation Hematologic/Lymphatics: DENIES: Lymphadenopathy Immunologic/Allergic: DENIES: Urticaria Neurologic: DENIES: Headache Psychiatric: DENIES: Confusion Past Family Social History Coded Allergies: levofloxacin (Unverified Allergy, Severe, HEADACHE, NAUSEA, VOMITING, 10/28) meperidine (Unverified Adverse Reaction, Unknown, HALLUCINATIONS, 10/28/17) Past Medical History COPD on home O2 3L CHF HTN HLD ? 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 Stomach ulcers Past Surgical History 2 cervical surgeries portions of intestine removed appendix gallbladder total hysterectomy eye surgery with implants Reported Medications Combivent Duo nebs Spiriva Comparison of Toradol Baclofen Enalapril Diazepam Ambien Imitrex Furosemide Advair Singular Vigamox Zofran Protonix Levothyroxine Lidocaine patch daily Current Medications Medications (Trade) Dose Ordered Sig/Karen Route Start Time Stop Time Status Last Admin (Ecotrin Ec) 81 mg DAILY PO 10/29/17 09:00 10/29/17 09:14 (Lioresal) 10 mg TID PO 10/29/17 09:00 10/29/17 09:14 (Valium) 5 mg TID PRN PO 10/28/17 21:00 (Vasotec) 10 mg DAILY PO 10/29/17 09:00 10/29/17 09:15 (Lasix) 40 mg DAILY PO 10/29/17 09:00 10/29/17 09:14 (Clute 5-325 Mg) 1 tab Q4H PRN PO 10/28/17 21:00 10/29/17 09:15 (Synthroid) 100 mcg DAILY@0600 PO 10/29/17 06:00 10/29/17 04:53 (KCl) 20 meq DAILY PO 10/29/17 09:00 10/29/17 09:14 (Pravachol) 20 mg HS PO 10/28/17 21:00 10/28/17 22:10 (Imitrex) 100 mg DAILY PRN PO 10/28/17 21:00 (Ambien) 10 mg HS PO 10/28/17 21:00 10/28/17 23:12 (NS Flush) 2 ml UNSCH PRN IV FLUSH 10/28/17 21:15 (NS Flush) 2 ml BID IV FLUSH 10/29/17 09:00 10/29/17 09:00 (Tylenol) 650 mg Q6H PRN PO 10/28/17 21:15 (Pepcid Inj) 20 mg Q12HR IV PUSH 10/29/17 09:00 10/29/17 09:15 (Zofran Inj) 4 mg Q6H PRN IV PUSH 10/28/17 21:15 (Restoril) 15 mg HS PRN PO 10/28/17 21:15 (Duoneb Neb) 1 ampule Q4HR NEB INH 10/29/17 00:00 10/29/17 12:16 (Duoneb Neb) 1 ampule Q2HR NEB PRN INH 10/28/17 21:15 ([facility]) 1 Q361D XX 10/28/17 21:15 (Chlorhexidine 2% Cloth) 3 pack Taper DAILY@04 TOP 10/29/17 04:00 10/25/18 03:59 10/28/17 22:30 (Chlorhexidine 2% Cloth) 3 pack UNSCH PRN TOP 10/28/17 21:15 (Shannon-Colace) 1 tab BID PO 10/29/17 09:00 10/29/17 09:14 (Milk Of Magnesia Liq) 30 ml Q12H PRN PO 10/28/17 21:15 (Senokot) 17.2 mg Q12H PRN PO 10/28/17 21:15 (Dulcolax Supp) 10 mg DAILY PRN RECTAL 10/28/17 21:15 (Lactulose Liq) 30 ml DAILY PRN PO 10/28/17 21:15 (Lovenox Inj) 50 mg Q12H SQ 10/28/17 22:00 10/29/17 10:00 (Symbicort 160-4.5 Mcg Inh) 2 puff BID PRN INH 10/28/17 21:45 (SoluMEDROL INJ) 40 mg Q8H IV PUSH 10/29/17 01:00 10/29/17 09:14 Azithromycin 500 mg/Sodium Chloride 250 ml @ 250 mls/hr Q24H IV 10/29/17 01:00 10/29/17 01:57 Ceftriaxone Sodium 1000 mg/ Sodium Chloride 100 ml @ 200 mls/hr Q12H IV 10/29/17 02:00 10/29/17 02:54 Sodium Chloride 250 ml @ 15 mls/hr ONCE ONCE IV 10/29/17 10:15 10/30/17 02:54 Family History Father: cancer 2 brothers: back problems Substance Use Tobacco: Half pack per day for 40 years Alcohol: No Prescription med abuse: No Illicits: No Psychosocial History Originally from [place], [place]. - spouse from cancer. Have 2 sons. 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 Spiritual/Cultural Factors orthodoxy. Living Will: Never completed Health Care Surrogate: Never completed Durable Power of Pumping Plant Operator: Never completed Physical Exam Vital Signs Date Time Temp Pulse Resp B/P (MAP) Pulse Ox O2 Delivery O2 Flow Rate FiO2 10/29/17 10:00 81 10/29/17 08:00 81 10/29/17 07:23 97 30 10/29/17 06:00 92 10/29/17 04:22 94 30 10/29/17 04:00 89 10/29/17 04:00 98.0 89 20 154/67 (96) 97 10/29/17 02:00 85 10/29/17 00:04 92 30 10/29/17 00:00 81 10/29/17 00:00 81 22 115/53 (73) 97 10/28/17 22:35 88 10/28/17 22:30 97.8 88 24 120/56 (77) 100 10/28/17 22:30 88 10/28/17 21:54 5/20/18 21:30 79 17 105/51 (69) 100 BiPAP 40 5/2018 21:04 85 18 105/49 (67) 97 BiPAP 40 5/20/18 19:52 80 24 123/58 (79) 94 BiPAP 40 5/2018 19:31 99 40 5/20/18 19:10 95 50 5/20/18 19:10 98 BiPAP 50 5/2018 19:10 95 BiPAP 50 5//18 18:54 90 34 117/60 (79) 98 Non-Rebreather 18 18:54 99 Non-Rebreather 5/18 18:54 29 98 Non-Rebreather 18 18:54 99 Non-Rebreather 18 18:48 98.0 97 117/60 (79) Exam DRAFT CONSTITUTIONAL/GENERAL: This is an adequately nourished patient, in no apparent distress. TUBES/LINES/DRAINS: SKIN: No jaundice, rashes, or lesions. Ecchymoses on upper extremities. No wounds seen anteriorly. Skin temperature appropriate. Not diaphoretic. HEAD: Atraumatic. Normocephalic. EYES: Pupils equal and round and reactive. Extraocular motions intact. No scleral icterus. No injection or drainage. Fundi not examined. ENT: Hearing grossly normal. Nose without bleeding or purulent drainage. Throat without visible erythema, exudates, masses, or lesions. NECK: Trachea midline. Supple, nontender. No palpable thyroid enlargement or nodularity. CARDIOVASCULAR: Regular rate and rhythm without murmurs, gallops, or rubs. No JVD. Peripheral pulses symmetric. RESPIRATORY/CHEST: Symmetric, unlabored respirations. Clear to auscultation. Breath sounds equal bilaterally. No wheezes, rales, or rhonchi. GASTROINTESTINAL: Abdomen soft, non-tender, nondistended. No hepato-splenomegaly , or palpable masses. No guarding. Bowel sounds present. GENITOURINARY: Without palpable bladder distension. Johnson catheter in place. MUSCULOSKELETAL: Extremities without clubbing, cyanosis, or edema. No joint tenderness or effusion noted. No calf tenderness. No mottling or clubbing. LYMPHATICS: No palpable cervical or supraclavicular adenopathy. NEUROLOGICAL: Awake and alert. Motor and sensory grossly within normal limits. Follows commands. Cognitively sharp. Moves all extremities. PSYCHIATRIC: No obvious anxiety/depression. no apparent hallucinations or other psychotic thought process. Diagnostic Tests Laboratory Laboratory Tests Test 10/28/17 18:54 10/28/17 19:05 10/28/17 20:16 10/28/17 22:14 Blood Gas Puncture Site RT RADIAL RT RADIAL Blood Gas Patient Temperature 98.6 98.6 Blood Gas HCO3 32 mmol/L (22-26) 32 mmol/L (22-26) Blood Gas Base Excess 4.1 mmol/L (-2-2) 4.6 mmol/L (-2-2) Blood Gas Oxygen Saturation 97 % (90-100) 93 % (90-100) Arterial Blood pH 7.16 (7.380-7.420) 7.24 (7.380-7.420) Arterial Blood Partial Pressure CO2 96 mmHg (38-42) 77 mmHg (38-42) Arterial Blood Partial Pressure O2 185 mmHG (61-120) 77 mmHG (61-120) Arterial Blood Oxygen Content 10.9 Vol % (12.0-20.0) 9.8 Vol % (12.0-20.0) Arterial Blood Carboxyhemoglobin 1.8 % (0-4) 2.1 % (0-4) Arterial Blood Methemoglobin 0.7 % (0-2) 0.4 % (0-2) Blood Gas Hemoglobin 7.7 G/DL (12.0-16.0) 7.5 G/DL (12.0-16.0) Oxygen Delivery Device NRB BiPAP Blood Gas Liter Flow 12 L/M Blood Gas Inspired Oxygen 100 % 40 % White Blood Count 10.3 TH/MM3 (4.0-11.0) Red Blood Count 3.56 MIL/MM3 (4.00-5.30) Hemoglobin 7.9 GM/DL (11.6-15.3) Hematocrit 28.1 % (35.0-46.0) Mean Corpuscular Volume 78.9 FL (80.0-100.0) Mean Corpuscular Hemoglobin 22.2 PG (27.0-34.0) Mean Corpuscular Hemoglobin Concent 28.2 % (32.0-36.0) Red Cell Distribution Width 20.5 % (11.6-17.2) Platelet Count 296 TH/MM3 (150-450) Mean Platelet Volume 8.3 FL (7.0-11.0) Neutrophils (%) (Auto) 86.6 % (16.0-70.0) Lymphocytes (%) (Auto) 4.5 % (9.0-44.0) Monocytes (%) (Auto) 8.4 % (0.0-8.0) Eosinophils (%) (Auto) 0.1 % (0.0-4.0) Basophils (%) (Auto) 0.4 % (0.0-2.0) Neutrophils # (Auto) 8.9 TH/MM3 (1.8-7.7) Lymphocytes # (Auto) 0.5 TH/MM3 (1.0-4.8) Monocytes # (Auto) 0.9 TH/MM3 (0-0.9) Eosinophils # (Auto) 0.0 TH/MM3 (0-0.4) Basophils # (Auto) 0.0 TH/MM3 (0-0.2) CBC Comment DIFF FINAL Differential Comment Prothrombin Time 10.8 SEC (9.8-11.6) Prothromb Time International Ratio 1.1 RATIO Activated Partial Thromboplast Time 26.2 SEC (24.3-30.1) Blood Urea Nitrogen 23 MG/DL (7-18) Creatinine 0.57 MG/DL (0.50-1.00) Random Glucose 98 MG/DL (74-106) Calcium Level 7.5 MG/DL (8.5-10.1) Magnesium Level 1.5 MG/DL (1.5-2.5) Sodium Level 140 MEQ/L (136-145) Potassium Level 4.0 MEQ/L (3.5-5.1) Chloride Level 102 MEQ/L (98-107) Carbon Dioxide Level 32.0 MEQ/L (21.0-32.0) Anion Gap 6 MEQ/L (5-15) Estimat Glomerular Filtration Rate 102 ML/MIN (>89) Lactic Acid Level 0.9 mmol/L (0.4-2.0) Total Creatine Kinase 557 U/L (26-192) Creatine Kinase MB 32.0 NG/ML (0.5-3.6) Creatine Kinase MB % 5.7 % (0.0-4.0) Troponin I 5.94 NG/ML (0.02-0.05) B-Type Natriuretic Peptide 1685 PG/ML (0-100) Blood Gas Ventilator Setting IPAP15/EPAP5 Urine Color LIGHT-YELLOW (YELLW/STRAW) Urine Turbidity HAZY (CLEAR) Urine pH 5.5 (5.0-8.5) Urine Specific [place] 1.015 (1.002-1.035) Urine Protein 30 mg/dL (NEG-TRACE) Urine Glucose (UA) NEG mg/dL (NEG) Urine Ketones TRACE mg/dL (NEG) Urine Occult Blood SMALL (NEG) Urine Nitrite NEG (NEG) Urine Bilirubin NEG (NEG) Urine Urobilinogen LESS THAN 2.0 MG/DL (LESS Urine Leukocyte Esterase NEG (NEG) Urine RBC 2 /hpf (0-3) Urine WBC 19 /hpf (0-5) Urine WBC Clumps MOD (NONE) Urine Squamous Epithelial Cells 10 /hpf (0-5) Urine Transitional Epithelial Cells 1 /hpf (NONE) Urine Bacteria RARE /hpf (NONE) Urine Waxy Casts 15 /lpf (NONE) Urine Mucus FEW /lpf (OCC) Urine Yeast (Budding) OCC (NONE) Microscopic Urinalysis Comment CATH-CULTURE IND Test 10/28/17 22:30 10/29/17 01:50 10/29/17 11:25 Nasal Screen MRSA (PCR) MRSA NOT DETECTED (NOT White Blood Count 8.9 TH/MM3 (4.0-11.0) Red Blood Count 3.54 MIL/MM3 (4.00-5.30) Hemoglobin 7.8 GM/DL (11.6-15.3) Hematocrit 27.7 % (35.0-46.0) Mean Corpuscular Volume 78.4 FL (80.0-100.0) Mean Corpuscular Hemoglobin 22.1 PG (27.0-34.0) Mean Corpuscular Hemoglobin Concent 28.2 % (32.0-36.0) Red Cell Distribution Width 20.3 % (11.6-17.2) Platelet Count 305 TH/MM3 (150-450) Mean Platelet Volume 8.4 FL (7.0-11.0) Neutrophils (%) (Auto) 86.5 % (16.0-70.0) Lymphocytes (%) (Auto) 4.0 % (9.0-44.0) Monocytes (%) (Auto) 9.0 % (0.0-8.0) Eosinophils (%) (Auto) 0.1 % (0.0-4.0) Basophils (%) (Auto) 0.4 % (0.0-2.0) Neutrophils # (Auto) 7.7 TH/MM3 (1.8-7.7) Lymphocytes # (Auto) 0.4 TH/MM3 (1.0-4.8) Monocytes # (Auto) 0.8 TH/MM3 (0-0.9) Eosinophils # (Auto) 0.0 TH/MM3 (0-0.4) Basophils # (Auto) 0.0 TH/MM3 (0-0.2) CBC Comment DIFF FINAL Differential Comment Prothrombin Time 11.0 SEC (9.8-11.6) Prothromb Time International Ratio 1.1 RATIO Activated Partial Thromboplast Time 25.2 SEC (24.3-30.1) Blood Urea Nitrogen 21 MG/DL (7-18) Creatinine 0.70 MG/DL (0.50-1.00) Random Glucose 111 MG/DL (74-106) Total Protein 6.0 GM/DL (6.4-8.2) Albumin 2.8 GM/DL (3.4-5.0) Calcium Level 7.8 MG/DL (8.5-10.1) Phosphorus Level 3.5 MG/DL (2.5-4.9) Magnesium Level 1.7 MG/DL (1.5-2.5) Alkaline Phosphatase 135 U/L (45-117) Aspartate Amino Transf (AST/SGOT) 77 U/L (15-37) Alanine Aminotransferase (ALT/SGPT) 22 U/L (10-53) Total Bilirubin 0.2 MG/DL (0.2-1.0) Sodium Level 143 MEQ/L (136-145) Potassium Level 3.9 MEQ/L (3.5-5.1) Chloride Level 101 MEQ/L (98-107) Carbon Dioxide Level 34.9 MEQ/L (21.0-32.0) Anion Gap 7 MEQ/L (5-15) Estimat Glomerular Filtration Rate 80 ML/MIN (>89) Lactic Acid Level 3.0 mmol/L (0.4-2.0) Troponin I 5.76 NG/ML (0.02-0.05) 3.92 NG/ML (0.02-0.05) Result Diagram: 10/29/17 0150 10/29/17 0150 Microbiology Microbiology Date/Time Source Procedure Growth Status 10/28/17 19:05 Blood Peripheral Aerobic Blood Culture - Preliminary NO GROWTH IN 1 DAY Resulted 10/28/17 19:05 Blood Peripheral Anaerobic Blood Culture - Preliminary NO GROWTH IN 1 DAY Resulted 10/28/17 18:50 Blood Peripheral Aerobic Blood Culture - Preliminary NO GROWTH IN 1 DAY Resulted 10/28/17 18:50 Blood Peripheral Anaerobic Blood Culture - Preliminary NO GROWTH IN 1 DAY Resulted 10/28/17 22:14 Urine Catheterized Urine Urine Culture Pending Received Imaging Last Impressions Chest X-Ray 10/28/17 1852 Signed Impressions: Service Date/Time: Saturday, October 28, 2017 19:16 - CONCLUSION: 1. Stable left lower lobe airspace disease with more apparent small left pleural effusion. Dean Emanuel MD CT Angiography 10/28/17 0000 Signed Impressions: Service Date/Time: Saturday, October 28, 2017 20:32 - CONCLUSION: 1. Apparently chronic focal filling defect in an isolated right lower lobe pulmonary artery segmental branch. 2. No CT evidence for acute pulmonary artery embolism. 3. Moderate to severe diffuse upper lobe predominant centrilobular emphysema. 4. Small bilateral pleural effusions with minimal airspace consolidation at the lung bases, presumably atelectasis. 5. Mild cardiomegaly. Dean Emanuel MD Patient/Family Conference Present at Family Conference: patient's sons Family Conference Time (mins): 35 Family Conference Location: Bedside Issues Discussed: * Palliative care role, purpose, approach * Additional medical, psychosocial, and spiritual history * Patients general health, functional status, and cognitive changes in the months leading up to the current hospitalization * Patient/family understanding of the current medical problems * Patient/family understanding of prognosis * Patients goals of care as best understood from advance directives and/or conversations and/or values * Current medical treatment options and benefits/burdens of those options * Likely scenarios comparing ongoing aggressive care with a transition to comfort measures only * Questions answered to the best of my ability * Palliative care contact information provided Assessment and Plan Disease Oriented Problem List: (1) CHF (congestive heart failure) (2) Chronic pain (3) COPD (chronic obstructive pulmonary disease) (4) NSTEMI, initial episode of care Symptom Scale: (1) Dyspnea 0-10 Scale: Unable to quantify (2) Chronic pain 0-10 Scale: Unable to quantify Pertinent Non-Medical Issues Psychosocial: Originally from [place], [place]. - spouse from cancer. Have 2 sons. 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 Spiritual:orthodoxy. did not give denomination Legal: did not want to complete advance directives today. Ethical issues impacting care: none at this point. Important Contacts Angela Waters- [phone] and other son: Prognosis multiple hospital admission for dyspnea, with chf and copd. Complicated by chronic pain. She is appropriate for hospice if goals of care was comforted oriented. Code Status: Alternative Code Plan == capacity to make medical decision- currently confused. Pt's son sees her confusion and said that she has been confused since last GI procedure, which was 3 weeks ago. I do not feel patient at this current time have the ability to weigh the risk and benefits of medical decisions. Pt does have potential to regain capacity to make medical decisions, but I suspect it will not last long given pt's clinical condition. == health care decision maker- Pt has no spouse, and pt's 2 sons who are at bedside are the healthcare proxy under [place] statuets. == code: Alternative code: no reintubation if needed. Yes to bipap, cpr/acls. == goals of treatment: Patient currently is off bipap. She is confused, knows she is in [place], but does not understand what bipap is or the mask she was just on. Pt's son's sees that and noted, her mentation and confusion has fluctuated since GI procedure almost a month ago. She still say she have some dyspnea, but denies pain. I spoke with patient's sons who wants to continue for patient to be treated. However they are agreeable of no re-intubation should she needs that. Goals of treatment is : continue treatment short of intubation. They do want her back on bipap should she become dyspneic again. == symptoms. dyspnea- 2nd to longstand copd, with cardiac component. bipap as necessary, continue nebs and other treatment. Pain- has chronic abdominal and back /cervical pain. However given pt is critical condition, and still semi-aggressive goals of care , no further med rec at this current time. == palliative care will continue to make reccomendations for symptoms, and review goals of treatment as clinical conditions evolves. Thank you for the opportunity to participate in the care of Ms. Moy. Attestation To help prompt me to consider important information that might be impacting today's encounter and assessment, information from prior notes written by myself or my colleagues may have been "brought forward" into today's note. My signature on this note, however, is an attestation that I personally performed the exam, history, and/or decision-making noted today, and, unless otherwise indicated, the interactions with patient, family, and staff as well as the review of records all occurred today. I also attest that the listed assessment and stated plan reflect my best clinical judgment today based on the combination of historical information, prior notes, and today's exam/ interactions. When time spent is documented, it refers only to time spent today by the signer, or if indicated, combined time spent today by collaborating physician/nurse practitioner. Jase Estrada MD October 29, 2017 13:37
[2017-10-29] MEDS: ZOLPIDEM TARTRATE 10 MG TAB PO SCH (21:25)
[2017-10-29] MEDS: PRAVASTATIN SOD 20 MG TAB PO SCH (21:25)
[2017-10-29] MEDS: DIAZEPAM 5 MG TAB PO PRN (23:51)
[2017-10-30] VITALS (25 sets, daily range): BP systolic 114–168; BP diastolic 59–90; PULSE 75–97; TEMP 97.3–98.1; O2SAT 87–100
[2017-10-30] MEDS: cefTRIAXone INJ 1,000 MG in SODIUM CHLORIDE 0.9% INJ 100 ML IV SCH ×2 (02:16→12:31)
[2017-10-30] MEDS: ACETAMINOPHEN/HYDROcodone 325 MG/5 MG TAB PO PRN ×3 (03:05→18:06)
[2017-10-30] MEDS: CHLORHEXIDINE GLUCONATE 2 % 1 PACK (2 CLOTHS) TOP SCH (04:00)
[2017-10-30] MEDS: RESP: ALBUTEROL 2.5 MG/IPRATROPIUM 0.5 MG NEB (SCH) INH ×5 (04:34→20:31)
[2017-10-30] MEDS: LEVOTHYROXINE SODIUM 100 MCG TAB PO SCH (05:34)
[2017-10-30 07:22] LABS: AUTOMATED NEUTROPHIL # 6.8 TH/MM3 (1.8-7.7); BASOPHIL % 0.1 % (0.0-2.0); HEMATOCRIT 29.6 % (35.0-46.0); HEMOGLOBIN 8.9 GM/DL (11.6-15.3); LYMPH % 1.9 % (9.0-44.0); LYMPHOCYTE # 0.1 TH/MM3 (1.0-4.8); MEAN CELL VOLUME 75.6 FL (80.0-100.0); MEAN CORPUSCULAR HEMOGLOBIN 22.8 PG (27.0-34.0); MEAN CORPUSCULAR HGB CONC 30.2 % (32.0-36.0); MEAN PLATELET VOLUME 8.8 FL (7.0-11.0); MONO % 1.7 % (0.0-8.0); MONOCYTE # 0.1 TH/MM3 (0-0.9); NEUT % 96.3 % (16.0-70.0); PLATELET COUNT 319 TH/MM3 (150-450); RED BLOOD COUNT 3.91 MIL/MM3 (4.00-5.30); RED CELL DISTRIBUTION WIDTH 20.2 % (11.6-17.2); WHITE BLOOD COUNT 7.1 TH/MM3 (4.0-11.0)
[2017-10-30] MEDS: ASPIRIN EC 81 MG TABEC PO SCH (07:37)
[2017-10-30] MEDS: POTASSIUM CHLORIDE 20 MEQ CONTROLLED RELEASE TAB PO SCH (07:37)
[2017-10-30] MEDS: DIAZEPAM 5 MG TAB PO PRN (07:37)
[2017-10-30] MEDS: DOCUSATE SODIUM 50 MG/SENNA 8.6 MG TAB PO SCH ×2 (07:37→19:13)
[2017-10-30] MEDS: methylPREDNISolone SOD SUCC 40 MG/1 ML VIAL IV PUSH SCH ×2 (07:38→18:04)
[2017-10-30] MEDS: BACLOFEN 10 MG TAB PO SCH ×3 (07:38→18:04)
[2017-10-30] MEDS: FUROSEMIDE 40 MG TAB PO SCH (07:38)
[2017-10-30] MEDS: ENALAPRIL MALEATE 10 MG TAB PO SCH (07:38)
[2017-10-30] MEDS: FAMOTIDINE 20 MG/2 ML VIAL IV PUSH SCH ×2 (07:39→20:08)
[2017-10-30 08:23] LABS: ALBUMIN 2.9 GM/DL (3.4-5.0); ALKALINE PHOSPHATASE 116 U/L (45-117); ALT (GPT) 22 U/L (10-53); AST (GOT) 58 U/L (15-37); BICARBONATE 34.2 MEQ/L (21.0-32.0); BLOOD UREA NITROGEN 18 MG/DL (7-18); CALCIUM 8.5 MG/DL (8.5-10.1); CHLORIDE 99 MEQ/L (98-107); CREATININE 0.59 MG/DL (0.50-1.00); GLOMERULAR FILTRATION RATE 98 ML/MIN (>89); GLUCOSE,RANDOM 128 MG/DL (74-106); MAGNESIUM 1.4 MG/DL (1.5-2.5); PHOSPHORUS 1.8 MG/DL (2.5-4.9); SODIUM (NA) 142 MEQ/L (136-145); TOTAL BILIRUBIN ADULT 0.3 MG/DL (0.2-1.0); TOTAL PROTEIN 6.2 GM/DL (6.4-8.2)
--- NOTE | 2017-10-30 08:46 | PD.CARD.PN ---
Subjective Subjective Remarks less confused but mildly agitated. She is now on nasal O2. continues to report constant chronic chest pain along with chronic generalized pain. (Flavia Mercado) Objective Medications Current Medications Medications (Trade) Dose Ordered Sig/Karen Route Start Time Stop Time Status Last Admin (Ecotrin Ec) 81 mg DAILY PO 10/29/17 09:00 10/30/17 07:37 (Lioresal) 10 mg TID PO 10/29/17 09:00 10/30/17 07:38 (Valium) 5 mg TID PRN PO 10/28/17 21:00 10/30/17 07:37 (Vasotec) 10 mg DAILY PO 10/29/17 09:00 10/30/17 07:38 (Lasix) 40 mg DAILY PO 10/29/17 09:00 10/30/17 07:38 ([place] 5-325 Mg) 1 tab Q4H PRN PO 10/28/17 21:00 10/30/17 08:01 (Synthroid) 100 mcg DAILY@0600 PO 10/29/17 06:00 10/30/17 05:34 (KCl) 20 meq DAILY PO 10/29/17 09:00 10/30/17 07:37 (Pravachol) 20 mg HS PO 10/28/17 21:00 10/29/17 21:25 (Imitrex) 100 mg DAILY PRN PO 10/28/17 21:00 (Ambien) 10 mg HS PO 10/28/17 21:00 10/29/17 21:25 (NS Flush) 2 ml UNSCH PRN IV FLUSH 10/28/17 21:15 (NS Flush) 2 ml BID IV FLUSH 10/29/17 09:00 10/29/17 21:27 (Tylenol) 650 mg Q6H PRN PO 10/28/17 21:15 (Pepcid Inj) 20 mg Q12HR IV PUSH 10/29/17 09:00 10/30/17 07:39 (Zofran Inj) 4 mg Q6H PRN IV PUSH 10/28/17 21:15 (Restoril) 15 mg HS PRN PO 10/28/17 21:15 (Duoneb Neb) 1 ampule Q4HR NEB INH 10/29/17 00:00 10/30/17 07:18 (Duoneb Neb) 1 ampule Q2HR NEB PRN INH 10/28/17 21:15 ([facility]) 1 Q361D XX 10/28/17 21:15 (Chlorhexidine 2% Cloth) 3 pack Taper DAILY@04 TOP 10/29/17 04:00 10/25/18 03:59 10/30/17 04:00 (Chlorhexidine 2% Cloth) 3 pack UNSCH PRN TOP 10/28/17 21:15 (Shannon-Colace) 1 tab BID PO 10/29/17 09:00 10/30/17 07:37 (Milk Of Magnesia Liq) 30 ml Q12H PRN PO 10/28/17 21:15 (Senokot) 17.2 mg Q12H PRN PO 10/28/17 21:15 (Dulcolax Supp) 10 mg DAILY PRN RECTAL 10/28/17 21:15 (Lactulose Liq) 30 ml DAILY PRN PO 10/28/17 21:15 (Lovenox Inj) 50 mg Q12H SQ 10/28/17 22:00 10/29/17 21:26 (Symbicort 160-4.5 Mcg Inh) 2 puff BID PRN INH 10/28/17 21:45 (SoluMEDROL INJ) 40 mg Q8H IV PUSH 10/29/17 01:00 10/30/17 07:38 Azithromycin 500 mg/Sodium Chloride 250 ml @ 250 mls/hr Q24H IV 10/29/17 01:00 10/29/17 23:51 Ceftriaxone Sodium 1000 mg/ Sodium Chloride 100 ml @ 200 mls/hr Q12H IV 10/29/17 02:00 10/30/17 02:16 Vital Signs / I&O Vital Signs Date Time Temp Pulse Resp B/P (MAP) Pulse Ox O2 Delivery O2 Flow Rate FiO2 10/30/17 07:18 94 Nasal Cannula 4.00 10/30/17 07:00 89 150/64 (92) 10/30/17 06:00 87 167/74 (105) 100 10/30/17 05:00 93 162/69 (100) 10/30/17 04:36 99 30 10/30/17 04:35 99 BiPAP 30 10/30/17 04:00 97.5 94 160/72 (101) 87 5/22/18 03:00 93 146/78 (100) 89 18 02:00 97 146/69 (94) 99 18 01:00 91 151/90 (110) 93 10/30/17 00:00 97.8 10/30/17 00:00 90 162/69 (100) 92 10/29/17 23:39 100 30 10/29/17 23:38 100 BiPAP 10/29/17 23:00 90 153/71 (98) 99 10/29/17 22:17 100 30 10/29/17 22:00 90 159/70 (99) 97 10/29/17 21:00 91 134/67 (89) 95 10/29/17 20:00 97.5 87 130/61 (84) 99 10/29/17 20:00 86 10/29/17 19:57 97 Nasal Cannula 3.00 10/29/17 18:00 97 10/29/17 18:00 98.0 92 144/64 (90) 100 10/29/17 17:00 91 137/59 (85) 99 10/29/17 16:45 90 99 10/29/17 16:30 91 100 10/29/17 16:15 93 100 10/29/17 16:00 98.0 92 144/64 (90) 100 10/29/17 16:00 97 10/29/17 15:45 92 10/29/17 15:30 88 10/29/17 15:15 92 87 10/29/17 15:00 91 149/63 (91) 88 10/29/17 14:45 92 96 10/29/17 14:30 96 69 18 14:30 96 69 10/29/17 14:15 96 71 10/29/17 14:00 94 128/59 (82) 83 10/29/17 14:00 97 18 13:45 100 92 10/29/17 13:30 101 97 10/29/17 13:00 98.0 24 154/68 (96) 97 10/29/17 12:15 86 99 10/29/17 12:00 83 151/68 (95) 98 10/29/17 12:00 98.0 24 154/68 (96) 97 10/29/17 12:00 97 10/29/17 11:45 86 98 10/29/17 11:30 90 99 10/29/17 11:15 86 96 10/29/17 11:00 85 149/65 (93) 98 10/29/17 10:45 86 97 10/29/17 10:36 85 145/67 (93) 98 10/29/17 10:30 86 97 10/29/17 10:15 84 98 10/29/17 10:00 88 137/108 (118) 96 10/29/17 10:00 81 10/29/17 09:45 81 98 10/29/17 09:30 88 97 10/29/17 09:15 87 96 10/29/17 09:00 85 143/65 (91) 98 10/29/17 08:45 89 95 I/O 10/29/17 10/29/17 10/29/17 10/30/17 10/30/17 10/30/17 07:00 15:00 23:00 07:00 15:00 23:00 Intake Total 350 ml 20 ml 780 ml 590 ml Output Total 1200 ml 1000 ml Balance 350 ml 20 ml -420 ml -410 ml Intake Oral 380 ml 240 ml IV Total 350 ml 350 ml Packed Cells 400 ml Blood Product IV Normal Saline Flush 20 ml Output Urine Total 1200 ml 1000 ml Physical Exam GENERAL: SKIN: Warm and dry. HEAD: Atraumatic. Normocephalic. EYES: Pupils equal and round. No scleral icterus. No injection or drainage. ENT: No nasal bleeding or discharge. NECK: Trachea midline. No JVD. CARDIOVASCULAR: Regular rate and rhythm. no murmur RESPIRATORY: No accessory muscle use. mild expiratory wheezing bilateral GASTROINTESTINAL: Abdomen soft, non-tender, nondistended. MUSCULOSKELETAL: Extremities without clubbing, cyanosis, or edema. No obvious deformities. NEUROLOGICAL: Awake and alert, mildly confused. Normal speech. Laboratory Laboratory Tests Test 10/29/17 11:25 10/30/17 06:44 Troponin I 3.92 NG/ML White Blood Count 7.1 TH/MM3 Red Blood Count 3.91 MIL/MM3 Hemoglobin 8.9 GM/DL Hematocrit 29.6 % Mean Corpuscular Volume 75.6 FL Mean Corpuscular Hemoglobin 22.8 PG Mean Corpuscular Hemoglobin Concent 30.2 % Red Cell Distribution Width 20.2 % Platelet Count 319 TH/MM3 Mean Platelet Volume 8.8 FL Neutrophils (%) (Auto) 96.3 % Lymphocytes (%) (Auto) 1.9 % Monocytes (%) (Auto) 1.7 % Eosinophils (%) (Auto) 0.0 % Basophils (%) (Auto) 0.1 % Neutrophils # (Auto) 6.8 TH/MM3 Lymphocytes # (Auto) 0.1 TH/MM3 Monocytes # (Auto) 0.1 TH/MM3 Eosinophils # (Auto) 0.0 TH/MM3 Basophils # (Auto) 0.0 TH/MM3 CBC Comment DIFF FINAL Differential Comment Blood Urea Nitrogen 18 MG/DL Creatinine 0.59 MG/DL Random Glucose 128 MG/DL Total Protein 6.2 GM/DL Albumin 2.9 GM/DL Calcium Level 8.5 MG/DL Phosphorus Level 1.8 MG/DL Magnesium Level 1.4 MG/DL Alkaline Phosphatase 116 U/L Aspartate Amino Transf (AST/SGOT) 58 U/L Alanine Aminotransferase (ALT/SGPT) 22 U/L Total Bilirubin 0.3 MG/DL Sodium Level 142 MEQ/L Potassium Level 3.2 MEQ/L Chloride Level 99 MEQ/L Carbon Dioxide Level 34.2 MEQ/L Anion Gap 9 MEQ/L Estimat Glomerular Filtration Rate 98 ML/MIN Imaging Last 48 hours Impressions Chest X-Ray 10/28/17 3772 Signed Impressions: Service Date/Time: Saturday, October 28, 2017 19:16 - CONCLUSION: 1. Stable left lower lobe airspace disease with more apparent small left pleural effusion. Dean Emanuel MD (Flavia Mercado) Assessment and Plan Problem List: (1) Dyspnea ICD Codes: R06.00 - Dyspnea, unspecified (2) Pulmonary hypertension ICD Codes: I27.20 - Pulmonary hypertension, unspecified (3) NSTEMI, initial episode of care ICD Codes: I21.4 - Non-ST elevation (NSTEMI) myocardial infarction Status: Acute (4) CHF (congestive heart failure) ICD Codes: I50.9 - Heart failure, unspecified Status: Acute Assessment and Plan 82 yo WF with CHF, O2 dep COPD, HTN and anemia admitted for weakness, SOB and failure to thrive. EMS found her to be hypoxic (O2 86% on 2L O2) and she was recently admitted two times earlier this month for CHF. Last echo from earlier this month shows an EF 60% with moderate TR and pulmonary hypertension. NSTEMI- patient is quite frail and palliative care has been consulted. Due to her end stage COPD she is not likely to be a good candidate for intervention at this time. troponins trending downward, breathing improving. Has transitioned to nasal cannula O2; more alert today. s/p 1 unit PRBC continue medical management (Flavia Mercado) Assessment and Plan will sign off call with questions no ischemic workup (Gene Fuentes MD) Problem Qualifiers (1) CHF (congestive heart failure): Qualified Codes: I50.9 - Heart failure, unspecified Flavia Mercado October 30, 2017 08:45 Gene Fuentes MD October 30, 2017 10:31
[2017-10-30] MEDS: SODIUM CHLORIDE 0.9% FLUSH 10 ML FLUSH IV FLUSH SCH ×2 (09:00→20:08)
[2017-10-30] MEDS: ENOXAPARIN SODIUM 60 MG/0.6 ML SYRINGE SQ SCH ×2 (10:00→23:01)
--- NOTE | 2017-10-30 11:38 | HHI.HCPN ---
Reason for visit a. To assist with evaluation and management of symptoms including:pain, dyspnea b. To assist medical decision maker(s) with: better understanding of current medical conditions; weighing benefits/burdens of medical treatment options; making medical treatment decisions. Subjective/Interval History Patient is confused, saying her is coming to pick her up (she has been for the past year). She complaints of pain in her back and abdomen, and dyspnea. Patient needed bipap last night, but off bipap this morning. She looks anxious. Family/friend interactions I spoke with pt's son Jt Cedillo. I notify of patient's clinical situation, and that I feel patient is declining, and discomfort. Reviewed pt chronic lung disease and right sided hear disease. I recommend hospice. He states he is coming there this afternoon. He is amenable for me to give some Ativan to calm patient down from feeling too anxious. He wants to talk it over with his brother. Advance Directives Living Will: Never completed Health Care Surrogate: Never completed Durable Power of Weather Algorithm Scientist: Never completed Objective Vital Signs Date Time Temp Pulse Resp B/P (MAP) Pulse Ox O2 Delivery O2 Flow Rate FiO2 10/30/17 07:18 94 Nasal Cannula 4.00 10/30/17 07:00 89 150/64 (92) 10/30/17 06:00 87 167/74 (105) 100 10/30/17 05:00 93 162/69 (100) 10/30/17 04:36 99 30 10/30/17 04:35 99 BiPAP 30 10/30/17 04:00 97.5 94 160/72 (101) 87 10/30/17 03:00 93 146/78 (100) 89 10/30/17 02:00 97 146/69 (94) 99 10/30/17 01:00 91 151/90 (110) 93 10/30/17 00:00 97.8 10/30/17 00:00 90 162/69 (100) 92 10/29/17 23:39 100 30 10/29/17 23:38 100 BiPAP 10/29/17 23:00 90 153/71 (98) 99 10/29/17 22:17 100 30 10/29/17 22:00 90 159/70 (99) 97 10/29/17 21:00 91 134/67 (89) 95 10/29/17 20:00 97.5 87 130/61 (84) 99 10/29/17 20:00 86 10/29/17 19:57 97 Nasal Cannula 3.00 10/29/17 18:00 97 10/29/17 18:00 98.0 92 144/64 (90) 100 10/29/17 17:00 91 137/59 (85) 99 10/29/17 16:45 90 99 10/29/17 16:30 91 100 10/29/17 16:15 93 100 10/29/17 16:00 98.0 92 144/64 (90) 100 10/29/17 16:00 97 10/29/17 15:45 92 10/29/17 15:30 88 10/29/17 15:15 92 87 10/29/17 15:00 91 149/63 (91) 88 10/29/17 14:45 92 96 10/29/17 14:30 96 69 10/29/17 14:30 96 69 10/29/17 14:15 96 71 10/29/17 14:00 94 128/59 (82) 83 10/29/17 14:00 97 10/29/17 13:45 100 92 10/29/17 13:30 101 97 10/29/17 13:00 98.0 24 154/68 (96) 97 10/29/17 12:15 86 99 10/29/17 12:00 83 151/68 (95) 98 10/29/17 12:00 98.0 24 154/68 (96) 97 10/29/17 12:00 97 10/29/17 11:45 86 98 10/29/17 11:30 90 99 Intake & Output 10/30/17 10/30/17 07:00 19:00 Intake Total 590 ml Output Total 1000 ml Balance -410 ml Intake Oral 240 ml IV Total 350 ml Output Urine Total 1000 ml Physical Exam CONSTITUTIONAL/GENERAL: This is frail elderly lady, dyspneic, confused and anxious. TUBES/LINES/DRAINS: SKIN: No jaundice, rashes, or lesions. Ecchymoses on upper extremities. No wounds seen anteriorly. Skin temperature appropriate. Not diaphoretic. HEAD: Atraumatic. Normocephalic. EYES: Pupils equal and round and reactive. Extraocular motions intact. No scleral icterus. No injection or drainage. Fundi not examined. ENT: Hearing grossly normal. Nose without bleeding or purulent drainage. Throat without visible erythema, exudates, masses, or lesions. NECK: Trachea midline. Supple, nontender. No palpable thyroid enlargement or nodularity. CARDIOVASCULAR: Regular rate and rhythm without murmurs, gallops, or rubs. No JVD. Peripheral pulses symmetric. RESPIRATORY/CHEST: Decrease breath sound bilaterally. GASTROINTESTINAL: Abdomen soft, non-tender, nondistended. No hepato-splenomegaly , or palpable masses. No guarding. Bowel sounds present. GENITOURINARY: Without palpable bladder distension. Johnson catheter in place. MUSCULOSKELETAL: Extremities without clubbing, cyanosis, or edema. No joint tenderness or effusion noted. No calf tenderness. No mottling or clubbing. LYMPHATICS: No palpable cervical or supraclavicular adenopathy. NEUROLOGICAL: Awake and alert.confused PSYCHIATRIC: Anxious Diagnostic Tests Laboratory Laboratory Tests Test 10/28/17 18:54 10/28/17 19:05 10/28/17 20:16 10/28/17 22:14 Blood Gas Puncture Site RT RADIAL RT RADIAL Blood Gas Patient Temperature 98.6 98.6 Blood Gas HCO3 32 mmol/L (22-26) 32 mmol/L (22-26) Blood Gas Base Excess 4.1 mmol/L (-2-2) 4.6 mmol/L (-2-2) Blood Gas Oxygen Saturation 97 % (90-100) 93 % (90-100) Arterial Blood pH 7.16 (7.380-7.420) 7.24 (7.380-7.420) Arterial Blood Partial Pressure CO2 96 mmHg (38-42) 77 mmHg (38-42) Arterial Blood Partial Pressure O2 185 mmHG (61-120) 77 mmHG (61-120) Arterial Blood Oxygen Content 10.9 Vol % (12.0-20.0) 9.8 Vol % (12.0-20.0) Arterial Blood Carboxyhemoglobin 1.8 % (0-4) 2.1 % (0-4) Arterial Blood Methemoglobin 0.7 % (0-2) 0.4 % (0-2) Blood Gas Hemoglobin 7.7 G/DL (12.0-16.0) 7.5 G/DL (12.0-16.0) Oxygen Delivery Device NRB BiPAP Blood Gas Liter Flow 12 L/M Blood Gas Inspired Oxygen 100 % 40 % White Blood Count 10.3 TH/MM3 (4.0-11.0) Red Blood Count 3.56 MIL/MM3 (4.00-5.30) Hemoglobin 7.9 GM/DL (11.6-15.3) Hematocrit 28.1 % (35.0-46.0) Mean Corpuscular Volume 78.9 FL (80.0-100.0) Mean Corpuscular Hemoglobin 22.2 PG (27.0-34.0) Mean Corpuscular Hemoglobin Concent 28.2 % (32.0-36.0) Red Cell Distribution Width 20.5 % (11.6-17.2) Platelet Count 296 TH/MM3 (150-450) Mean Platelet Volume 8.3 FL (7.0-11.0) Neutrophils (%) (Auto) 86.6 % (16.0-70.0) Lymphocytes (%) (Auto) 4.5 % (9.0-44.0) Monocytes (%) (Auto) 8.4 % (0.0-8.0) Eosinophils (%) (Auto) 0.1 % (0.0-4.0) Basophils (%) (Auto) 0.4 % (0.0-2.0) Neutrophils # (Auto) 8.9 TH/MM3 (1.8-7.7) Lymphocytes # (Auto) 0.5 TH/MM3 (1.0-4.8) Monocytes # (Auto) 0.9 TH/MM3 (0-0.9) Eosinophils # (Auto) 0.0 TH/MM3 (0-0.4) Basophils # (Auto) 0.0 TH/MM3 (0-0.2) CBC Comment DIFF FINAL Differential Comment Prothrombin Time 10.8 SEC (9.8-11.6) Prothromb Time International Ratio 1.1 RATIO Activated Partial Thromboplast Time 26.2 SEC (24.3-30.1) Blood Urea Nitrogen 23 MG/DL (7-18) Creatinine 0.57 MG/DL (0.50-1.00) Random Glucose 98 MG/DL (74-106) Calcium Level 7.5 MG/DL (8.5-10.1) Magnesium Level 1.5 MG/DL (1.5-2.5) Sodium Level 140 MEQ/L (136-145) Potassium Level 4.0 MEQ/L (3.5-5.1) Chloride Level 102 MEQ/L (98-107) Carbon Dioxide Level 32.0 MEQ/L (21.0-32.0) Anion Gap 6 MEQ/L (5-15) Estimat Glomerular Filtration Rate 102 ML/MIN (>89) Lactic Acid Level 0.9 mmol/L (0.4-2.0) Total Creatine Kinase 557 U/L (26-192) Creatine Kinase MB 32.0 NG/ML (0.5-3.6) Creatine Kinase MB % 5.7 % (0.0-4.0) Troponin I 5.94 NG/ML (0.02-0.05) B-Type Natriuretic Peptide 1685 PG/ML (0-100) Blood Gas Ventilator Setting IPAP15/EPAP5 Urine Color LIGHT-YELLOW (YELLW/STRAW) Urine Turbidity HAZY (CLEAR) Urine pH 5.5 (5.0-8.5) Urine Specific [place] 1.015 (1.002-1.035) Urine Protein 30 mg/dL (NEG-TRACE) Urine Glucose (UA) NEG mg/dL (NEG) Urine Ketones TRACE mg/dL (NEG) Urine Occult Blood SMALL (NEG) Urine Nitrite NEG (NEG) Urine Bilirubin NEG (NEG) Urine Urobilinogen LESS THAN 2.0 MG/DL (LESS Urine Leukocyte Esterase NEG (NEG) Urine RBC 2 /hpf (0-3) Urine WBC 19 /hpf (0-5) Urine WBC Clumps MOD (NONE) Urine Squamous Epithelial Cells 10 /hpf (0-5) Urine Transitional Epithelial Cells 1 /hpf (NONE) Urine Bacteria RARE /hpf (NONE) Urine Waxy Casts 15 /lpf (NONE) Urine Mucus FEW /lpf (OCC) Urine Yeast (Budding) OCC (NONE) Microscopic Urinalysis Comment CATH-CULTURE IND Test 10/28/17 22:30 10/29/17 01:50 10/29/17 11:25 10/30/17 06:44 Nasal Screen MRSA (PCR) MRSA NOT DETECTED (NOT White Blood Count 8.9 TH/MM3 (4.0-11.0) 7.1 TH/MM3 (4.0-11.0) Red Blood Count 3.54 MIL/MM3 (4.00-5.30) 3.91 MIL/MM3 (4.00-5.30) Hemoglobin 7.8 GM/DL (11.6-15.3) 8.9 GM/DL (11.6-15.3) Hematocrit 27.7 % (35.0-46.0) 29.6 % (35.0-46.0) Mean Corpuscular Volume 78.4 FL (80.0-100.0) 75.6 FL (80.0-100.0) Mean Corpuscular Hemoglobin 22.1 PG (27.0-34.0) 22.8 PG (27.0-34.0) Mean Corpuscular Hemoglobin Concent 28.2 % (32.0-36.0) 30.2 % (32.0-36.0) Red Cell Distribution Width 20.3 % (11.6-17.2) 20.2 % (11.6-17.2) Platelet Count 305 TH/MM3 (150-450) 319 TH/MM3 (150-450) Mean Platelet Volume 8.4 FL (7.0-11.0) 8.8 FL (7.0-11.0) Neutrophils (%) (Auto) 86.5 % (16.0-70.0) 96.3 % (16.0-70.0) Lymphocytes (%) (Auto) 4.0 % (9.0-44.0) 1.9 % (9.0-44.0) Monocytes (%) (Auto) 9.0 % (0.0-8.0) 1.7 % (0.0-8.0) Eosinophils (%) (Auto) 0.1 % (0.0-4.0) 0.0 % (0.0-4.0) Basophils (%) (Auto) 0.4 % (0.0-2.0) 0.1 % (0.0-2.0) Neutrophils # (Auto) 7.7 TH/MM3 (1.8-7.7) 6.8 TH/MM3 (1.8-7.7) Lymphocytes # (Auto) 0.4 TH/MM3 (1.0-4.8) 0.1 TH/MM3 (1.0-4.8) Monocytes # (Auto) 0.8 TH/MM3 (0-0.9) 0.1 TH/MM3 (0-0.9) Eosinophils # (Auto) 0.0 TH/MM3 (0-0.4) 0.0 TH/MM3 (0-0.4) Basophils # (Auto) 0.0 TH/MM3 (0-0.2) 0.0 TH/MM3 (0-0.2) CBC Comment DIFF FINAL DIFF FINAL Differential Comment Prothrombin Time 11.0 SEC (9.8-11.6) Prothromb Time International Ratio 1.1 RATIO Activated Partial Thromboplast Time 25.2 SEC (24.3-30.1) Blood Urea Nitrogen 21 MG/DL (7-18) 18 MG/DL (7-18) Creatinine 0.70 MG/DL (0.50-1.00) 0.59 MG/DL (0.50-1.00) Random Glucose 111 MG/DL (74-106) 128 MG/DL (74-106) Total Protein 6.0 GM/DL (6.4-8.2) 6.2 GM/DL (6.4-8.2) Albumin 2.8 GM/DL (3.4-5.0) 2.9 GM/DL (3.4-5.0) Calcium Level 7.8 MG/DL (8.5-10.1) 8.5 MG/DL (8.5-10.1) Phosphorus Level 3.5 MG/DL (2.5-4.9) 1.8 MG/DL (2.5-4.9) Magnesium Level 1.7 MG/DL (1.5-2.5) 1.4 MG/DL (1.5-2.5) Alkaline Phosphatase 135 U/L (45-117) 116 U/L (45-117) Aspartate Amino Transf (AST/SGOT) 77 U/L (15-37) 58 U/L (15-37) Alanine Aminotransferase (ALT/SGPT) 22 U/L (10-53) 22 U/L (10-53) Total Bilirubin 0.2 MG/DL (0.2-1.0) 0.3 MG/DL (0.2-1.0) Sodium Level 143 MEQ/L (136-145) 142 MEQ/L (136-145) Potassium Level 3.9 MEQ/L (3.5-5.1) 3.2 MEQ/L (3.5-5.1) Chloride Level 101 MEQ/L (98-107) 99 MEQ/L (98-107) Carbon Dioxide Level 34.9 MEQ/L (21.0-32.0) 34.2 MEQ/L (21.0-32.0) Anion Gap 7 MEQ/L (5-15) 9 MEQ/L (5-15) Estimat Glomerular Filtration Rate 80 ML/MIN (>89) 98 ML/MIN (>89) Lactic Acid Level 3.0 mmol/L (0.4-2.0) Troponin I 5.76 NG/ML (0.02-0.05) 3.92 NG/ML (0.02-0.05) Result Diagram: 10/30/17 0644 10/30/17 0644 Microbiology Microbiology Date/Time Source Procedure Growth Status 10/28/17 19:05 Blood Peripheral Aerobic Blood Culture - Preliminary Gram Positive Cocci Resulted 10/28/17 19:05 Anaerobic Blood Culture - Preliminary Gram Positive Cocci Resulted 10/28/17 18:50 Blood Peripheral Aerobic Blood Culture - Preliminary Gram Positive Cocci Resulted 10/28/17 18:50 Anaerobic Blood Culture - Preliminary Gram Positive Cocci Resulted 10/28/17 22:14 Urine Catheterized Urine Urine Culture - Preliminary NO GROWTH IN 24 HOURS. Resulted Imaging Last Impressions Chest X-Ray 10/28/17 1852 Signed Impressions: Service Date/Time: Saturday, October 28, 2017 19:16 - CONCLUSION: 1. Stable left lower lobe airspace disease with more apparent small left pleural effusion. Dean Emanuel MD CT Angiography 10/28/17 0000 Signed Impressions: Service Date/Time: Saturday, October 28, 2017 20:32 - CONCLUSION: 1. Apparently chronic focal filling defect in an isolated right lower lobe pulmonary artery segmental branch. 2. No CT evidence for acute pulmonary artery embolism. 3. Moderate to severe diffuse upper lobe predominant centrilobular emphysema. 4. Small bilateral pleural effusions with minimal airspace consolidation at the lung bases, presumably atelectasis. 5. Mild cardiomegaly. Dean Emanuel MD Assessment and Plan Disease Oriented Problem List: (1) CHF (congestive heart failure) (2) Chronic pain (3) COPD (chronic obstructive pulmonary disease) (4) NSTEMI, initial episode of care Symptom Scale: (1) Dyspnea 0-10 Scale: Unable to quantify (2) Chronic pain 0-10 Scale: Unable to quantify Pertinent Non-Medical Issues Psychosocial: Originally from [place], [place]. - spouse from cancer. Have 2 sons. 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 Spiritual:pentecostal. did not give denomination Legal: did not want to complete advance directives today. Ethical issues impacting care: none at this point. Important Contacts Angela Waters- [phone] and other son: Prognosis multiple hospital admission for dyspnea, with chf and copd. Complicated by chronic pain. She is appropriate for hospice if goals of care was comforted oriented. Code Status: Alternative Code Plan == capacity to make medical decision- currently confused. Pt's son sees her confusion and said that she has been confused since last GI procedure, which was 3 weeks ago. I do not feel patient at this current time have the ability to weigh the risk and benefits of medical decisions. Pt does have potential to regain capacity to make medical decisions, but I suspect it will not last long given pt's clinical condition. == health care decision maker- Pt has no spouse, and pt's 2 sons who are at bedside are the healthcare proxy under [place] statuets. == code: Alternative code: no reintubation if needed. Yes to bipap, cpr/acls. == goals of treatment: I spoke with pt's son Jt Cedillo. I notify of patient's clinical situation, and that I feel patient is declining, and discomfort. Reviewed pt chronic lung disease and right sided hear disease. I recommend hospice. He states he is coming there this afternoon. He is amenable for me to give some Ativan to calm patient down from feeling too anxious. He wants to talk it over with his brother. == symptoms. dyspnea- 2nd to longstanding copd, with cardiac component. bipap as necessary, continue nebs and other treatment. Pain- has chronic abdominal and back /cervical pain. However given pt is critical condition, and still semi-aggressive goals of care , no further med rec at this current time. Anxiety: will order prn ativan. == palliative care will continue to make reccomendations for symptoms, and review goals of treatment as clinical conditions evolves. Attestation To help prompt me to consider important information that might be impacting today's encounter and assessment, information from prior notes written by myself or my colleagues may have been "brought forward" into today's note. My signature on this note, however, is an attestation that I personally performed the exam, history, and/or decision-making noted today, and, unless otherwise indicated, the interactions with patient, family, and staff as well as the review of records all occurred today. I also attest that the listed assessment and stated plan reflect my best clinical judgment today based on the combination of historical information, prior notes, and today's exam/ interactions. When time spent is documented, it refers only to time spent today by the signer, or if indicated, combined time spent today by collaborating physician/nurse practitioner. Jase Estrada MD October 30, 2017 11:38
[2017-10-30] MEDS ORDERED: LORazepam 2 MG/ML VIAL IV PUSH ONE (11:45)
--- NOTE | 2017-10-30 13:58 | HHI.CCPN ---
Subjective Remarks/Hospital Course 10/28: 82-year-old female with past medical history of past medical history of CHF, COPD- on home oxygen, hypertension, anemia, presents to for evaluation of failure to thrive, weakness, shortness of breath for 1 day. Upon EMS arrival the patient home, saturation was 86% on 2 L. She was transported on 6 L O2 nasal cannula. In the emergency department she appears to be tachypneic and using accessory muscles. She was emergently placed on the BiPAP with improvement of her oxygenation immediately. She states she has been intubated in the past. She was admitted with a similar symptoms 10/19 and previously 10/09 with abdominal pain and anemia. 10/29: Remains on BiPAP with full facemask. Cardiology consult noted Subjective: 10/30 Was on Bipap overnight. Now on nasal cannula and is taking some bites of food that her son is feeding her. She is tachypneic and has significant wheezing. She had NSTEMI but cardiology recommends no further ischemic workup given her overall condition. I discussed her condition with her son, Jt, who is at bedside. Discussed code status. He states he believes CODE STATUS should be changed to DNR but he would like to discuss with his brother first. They are contemplating hospice; at home if possible. He indicated he would like to wait a couple days to see if she will improve first. He would like to make sure her anxiety is treated. Objective Vital Signs Date Time Temp Pulse Resp B/P (MAP) Pulse Ox O2 Delivery O2 Flow Rate FiO2 10/30/17 12:00 87 167/74 (105) 100 10/30/17 07:18 Nasal Cannula 4.00 10/30/17 04:36 30 10/30/17 04:00 97.5 10/29/17 13:00 24 Intake and Output 10/30/17 10/30/17 10/30/17 07:59 15:59 23:59 Intake Total 590 ml Output Total 1000 ml Balance -410 ml Result Diagram: 10/30/17 0644 10/30/17 0644 Other Results Microbiology Date/Time Source Procedure Growth Status 10/28/17 19:05 Blood Peripheral Aerobic Blood Culture - Final Staph Sp Coagulase Negative Complete 10/28/17 19:05 Anaerobic Blood Culture - Final Staph Sp Coagulase Negative Complete 10/28/17 18:50 Blood Peripheral Aerobic Blood Culture - Final Staph Sp Coagulase Negative Complete 10/28/17 18:50 Anaerobic Blood Culture - Final Staph Sp Coagulase Negative Complete Imaging Last 24 hours Impressions Chest X-Ray 10/28/17 4252 Signed Impressions: Service Date/Time: Saturday, October 28, 2017 19:16 - CONCLUSION: 1. Stable left lower lobe airspace disease with more apparent small left pleural effusion. Dean Emanuel MD Objective Remarks GENERAL: Elderly cachectic and frail -appearing female tachypneic on NC. SKIN: Warm and dry. HEAD: Normocephalic. EYES: No scleral icterus. No injection or drainage. NECK: Supple, trachea midline. No JVD or lymphadenopathy. CARDIOVASCULAR: Irregular, no murmurs rubs or gallops. RESPIRATORY: Mildly tachypneic but no accessory muscle use. Bilateral expiratory wheezes GASTROINTESTINAL: Abdomen soft, non-tender, nondistended. : Johnson in place with light yellow urine output per MUSCULOSKELETAL: SCDs in place. No edema. NEURO: Alert, recognizes her son. No able to answer questions of orientation. She moves extremities spontaneously. A/P Assessment and Plan NEURO: Anxiety Continue baclofen 10 mg p.o. 3 times daily Restoril as needed for sleep RESP: Acute hypercapnic respiratory Acute COPD exacerbation Moderate to severe emphysema DuoNeb's every 4 hours, every 2 hours as needed. Continue Symbicort 160/4.52 puffs inhaled twice daily. Solu-Medrol 40 mg IV every 8 hour Empiric antibiotics Intermittent BiPAP as needed Son is indicated he does not wish to proceed with intubation CV: NSTEMI Hypertension Hyperlipidemia Cardiology has evaluated and recommended no further ischemic workup Continue aspirin/pravastatin 20 mill grams p.o. daily Continue enalapril 10 mg p.o. daily Continue Lasix 40 mg p.o. daily Has been on Lovenox 1 sal subcut q12 for NSTEMI. Will transition to prophylactic dose. GI: History of peptic ulcer disease Famotidine 20 IV every 12 FEN/RENAL: Johnson in place. Monitor intake and output. Monitor elect lites. Replace I's as indicated. ID: Empiric coverage for community acquired organisms with ceftriaxone and azithromycin 10/29 #2 HEME: Anemia Received transfusion of 1 unit packed red cell ENDO: Hypothyroidism Continue synthroid 100 g p.o. daily PROPH: SCDs for DVT prophylaxis. ACCESS: Peripheral IV providing adequate access at this time Patient has end-stage COPD and emphysema with hypercapnic respiratory failure and 3 hospitalizations in the last month. Her condition is end-stage and she would be appropriate for hospice if that is in keeping with patient/family wishes. She is currently not capacitated for medical decision-making. Her sons are collaborating in decision-making. Palliative care medicine is following. I have discussed with patient's son, Jt in detail. Jt is contemplating change of CODE STATUS and possibly transition to comfort measures. I have spoken with Dr. Estrada to update him. Level 3 follow up Norma Schmidt MD October 30, 2017 13:57
[2017-10-30] MEDS: PRAVASTATIN SOD 20 MG TAB PO SCH (20:08)
[2017-10-30] MEDS: ZOLPIDEM TARTRATE 10 MG TAB PO SCH (20:08)
[2017-10-30] MEDS ORDERED: SODIUM PHOSPHATE INJ 30 MMOL in SODIUM CHLOR 0.9% 250 ML INJ 240 ML IV PRN (20:45)
[2017-10-30] MEDS ORDERED: POTASSIUM PHOSPHATE MONOBASIC 500 MG TAB PO/TUBE PRN (20:45)
[2017-10-30] MEDS ORDERED: MAGNESIUM SULFATE INJ 2 GM in SODIUM CHLORIDE 0.9% INJ 96 ML IV PRN (20:45)
[2017-10-30] MEDS ORDERED: POTASSIUM PHOSPHATE INJ 30 MMOL in SODIUM CHLOR 0.9% 250 ML INJ 250 ML IV PRN (20:45)
[2017-10-30] MEDS ORDERED: MAGNESIUM SULFATE INJ 4 GM in SODIUM CHLORIDE 0.9% INJ 92 ML IV PRN (20:45)
[2017-10-30] MEDS ORDERED: POTASSIUM CHLOR 20 MEQ PREMIX 100 ML IV PRN ×2 (20:45)
[2017-10-30] MEDS ORDERED: POTASSIUM CHLOR 40 MEQ PREMIX 100 ML IV PRN ×2 (20:45)
[2017-10-30] MEDS ORDERED: POTASSIUM CHLORIDE 25 MEQ EFFERVESCENT TAB PO PRN (20:45)
[2017-10-30] MEDS ORDERED: POTASSIUM PHOSPHATE MONOBASIC 500 MG TAB PO PRN (20:45)
[2017-10-30] MEDS ORDERED: MAGNESIUM OXIDE 400 MG TAB PO PRN (20:45)
[2017-10-30 22:47] LABS: MAGNESIUM 1.4 MG/DL (1.5-2.5)
[2017-10-31] VITALS (26 sets, daily range): BP systolic 127–161; BP diastolic 57–68; PULSE 73–105; RESP 28–35; TEMP 97.2–98.3; O2SAT 92–100
[2017-10-31] MEDS: methylPREDNISolone SOD SUCC 40 MG/1 ML VIAL IV PUSH SCH ×3 (00:15→17:45)
[2017-10-31] MEDS: AZITHROMYCIN INJ 500 MG in SODIUM CHLOR 0.9% 250 ML INJ 250 ML IV SCH (00:16)
[2017-10-31] MEDS: RESP: ALBUTEROL 2.5 MG/IPRATROPIUM 0.5 MG NEB (SCH) INH ×7 (00:26→23:23)
[2017-10-31] MEDS: cefTRIAXone INJ 1,000 MG in SODIUM CHLORIDE 0.9% INJ 100 ML IV SCH ×2 (01:24→13:30)
[2017-10-31] MEDS: CHLORHEXIDINE GLUCONATE 2 % 1 PACK (2 CLOTHS) TOP SCH (03:40)
[2017-10-31] MEDS: LEVOTHYROXINE SODIUM 100 MCG TAB PO SCH (05:50)
[2017-10-31 06:43] LABS: AUTOMATED NEUTROPHIL # 7.9 TH/MM3 (1.8-7.7); BASOPHIL % 0.1 % (0.0-2.0); HEMATOCRIT 31.4 % (35.0-46.0); HEMOGLOBIN 9.5 GM/DL (11.6-15.3); LYMPH % 2.2 % (9.0-44.0); LYMPHOCYTE # 0.2 TH/MM3 (1.0-4.8); MEAN CELL VOLUME 76.5 FL (80.0-100.0); MEAN CORPUSCULAR HEMOGLOBIN 23.1 PG (27.0-34.0); MEAN CORPUSCULAR HGB CONC 30.2 % (32.0-36.0); MEAN PLATELET VOLUME 8.9 FL (7.0-11.0); MONO % 2.2 % (0.0-8.0); MONOCYTE # 0.2 TH/MM3 (0-0.9); NEUT % 95.5 % (16.0-70.0); PLATELET COUNT 306 TH/MM3 (150-450); RED CELL DISTRIBUTION WIDTH 20.9 % (11.6-17.2); WHITE BLOOD COUNT 8.3 TH/MM3 (4.0-11.0)
[2017-10-31 07:09] LABS: CALCIUM 8.4 MG/DL (8.5-10.1); CREATININE 0.34 MG/DL (0.50-1.00)
[2017-10-31] MEDS: DOCUSATE SODIUM 50 MG/SENNA 8.6 MG TAB PO SCH ×2 (09:00→19:21)
[2017-10-31] MEDS: ENALAPRIL MALEATE 10 MG TAB PO SCH (09:30)
[2017-10-31] MEDS: FUROSEMIDE 40 MG TAB PO SCH (09:31)
[2017-10-31] MEDS: ASPIRIN EC 81 MG TABEC PO SCH (09:31)
[2017-10-31] MEDS: POTASSIUM CHLORIDE 20 MEQ CONTROLLED RELEASE TAB PO SCH (09:31)
[2017-10-31] MEDS: ENOXAPARIN SODIUM 60 MG/0.6 ML SYRINGE SQ SCH ×2 (09:32→21:49)
[2017-10-31] MEDS: BACLOFEN 10 MG TAB PO SCH ×3 (09:32→17:45)
[2017-10-31] MEDS: FAMOTIDINE 20 MG/2 ML VIAL IV PUSH SCH (09:32)
[2017-10-31] MEDS: SODIUM CHLORIDE 0.9% FLUSH 10 ML FLUSH IV FLUSH SCH ×2 (09:32→19:20)
[2017-10-31] MEDS: ACETAMINOPHEN/HYDROcodone 325 MG/5 MG TAB PO PRN ×3 (09:45→17:45)
[2017-10-31] MEDS: DIAZEPAM 5 MG TAB PO PRN ×2 (13:33→21:49)
--- NOTE | 2017-10-31 13:49 | HHI.CCPN ---
Subjective Remarks/Hospital Course 10/28: 82-year-old female with past medical history of past medical history of CHF, COPD- on home oxygen, hypertension, anemia, presents to for evaluation of failure to thrive, weakness, shortness of breath for 1 day. Upon EMS arrival the patient home, saturation was 86% on 2 L. She was transported on 6 L O2 nasal cannula. In the emergency department she appears to be tachypneic and using accessory muscles. She was emergently placed on the BiPAP with improvement of her oxygenation immediately. She states she has been intubated in the past. She was admitted with a similar symptoms 10/19 and previously 10/09 with abdominal pain and anemia. 10/29: Remains on BiPAP with full facemask. Cardiology consult noted Subjective: 10/30 Was on Bipap overnight. Now on nasal cannula and is taking some bites of food that her son is feeding her. She is tachypneic and has significant wheezing. She had NSTEMI but cardiology recommends no further ischemic workup given her overall condition. I discussed her condition with her son, Jt, who is at bedside. Discussed code status. He states he believes CODE STATUS should be changed to DNR but he would like to discuss with his brother first. They are contemplating hospice; at home if possible. He indicated he would like to wait a couple days to see if she will improve first. He would like to make sure her anxiety is treated. 10/31: On BiPAP overnight and nasal cannula during daytime. Objective Vital Signs Date Time Temp Pulse Resp B/P (MAP) Pulse Ox O2 Delivery O2 Flow Rate FiO2 10/31/17 13:00 89 31 127/60 (82) 97 10/31/17 12:00 98.0 10/31/17 08:10 Nasal Cannula 3.00 10/31/17 07:33 30 Intake and Output 10/31/17 10/31/17 11/01/17 08:00 16:00 00:00 Intake Total 470 ml Output Total 550 ml Balance -80 ml Result Diagram: 10/31/17 0627 10/31/17 0429 Other Results Microbiology Date/Time Source Procedure Growth Status 10/28/17 19:05 Blood Peripheral Aerobic Blood Culture - Final Staph Sp Coagulase Negative Complete 10/28/17 19:05 Anaerobic Blood Culture - Final Staph Sp Coagulase Negative Complete 10/28/17 18:50 Blood Peripheral Aerobic Blood Culture - Final Staph Sp Coagulase Negative Complete 10/28/17 18:50 Anaerobic Blood Culture - Final Staph Sp Coagulase Negative Complete Imaging Last 24 hours Impressions Chest X-Ray 10/28/17 9722 Signed Impressions: Service Date/Time: Saturday, October 28, 2017 19:16 - CONCLUSION: 1. Stable left lower lobe airspace disease with more apparent small left pleural effusion. Dean Emanuel MD Objective Remarks GENERAL: Elderly cachectic and frail -appearing female tachypneic on NC. SKIN: Warm and dry. HEAD: Normocephalic. EYES: No scleral icterus. No injection or drainage. NECK: Supple, trachea midline. No JVD or lymphadenopathy. CARDIOVASCULAR: Irregular, no murmurs rubs or gallops. RESPIRATORY: Mildly tachypneic but no accessory muscle use. Bilateral expiratory wheezes GASTROINTESTINAL: Abdomen soft, non-tender, nondistended. : Johnson in place with light yellow urine output per MUSCULOSKELETAL: SCDs in place. No edema. NEURO: Alert, awake. Not able to answer questions of orientation. She moves extremities spontaneously. A/P Assessment and Plan NEURO: Anxiety Continue baclofen 10 mg p.o. 3 times daily Restoril as needed for sleep RESP: Acute hypercapnic respiratory Acute COPD exacerbation Moderate to severe emphysema DuoNeb's every 4 hours, every 2 hours as needed. Continue Symbicort 160/4.52 puffs inhaled twice daily. Solu-Medrol 40 mg IV every 8 hour Empiric antibiotics Intermittent BiPAP as needed Son has indicated he does not wish to proceed with intubation CV: NSTEMI Hypertension Hyperlipidemia Cardiology has evaluated and recommended no further ischemic workup Continue aspirin/pravastatin 20 mill grams p.o. daily Continue enalapril 10 mg p.o. daily Continue Lasix 40 mg p.o. daily Has been on Lovenox 1 sal subcut q12 for NSTEMI. Will transition to prophylactic dose. GI: History of peptic ulcer disease Famotidine 20 IV every 12 FEN/RENAL: Johnson in place. Monitor intake and output. Monitor elect lites. Replace I's as indicated. ID: Empiric coverage for community acquired organisms with ceftriaxone and azithromycin 10/29 #2 HEME: Anemia Received transfusion of 1 unit packed red cell ENDO: Hypothyroidism Continue synthroid 100 g p.o. daily PROPH: SCDs for DVT prophylaxis. ACCESS: Peripheral IV providing adequate access at this time Patient has end-stage COPD and emphysema with hypercapnic respiratory failure and 3 hospitalizations in the last month. Her condition is end-stage and she would be appropriate for hospice if that is in keeping with patient/family wishes. She is currently not capacitated for medical decision-making. Her sons are collaborating in decision-making. Palliative care medicine is following. Dr. Schmidt discussed with patient's son, Jt in detail. Jt is contemplating possibly transition to comfort measures. Patient is alternate CODE STATUS with no intubation. Level 3 follow up Geovanni Lincoln MD October 31, 2017 13:49
--- NOTE | 2017-10-31 15:20 | HHI.HCPN ---
Reason for visit a. To assist with evaluation and management of symptoms including:pain, dyspnea b. To assist medical decision maker(s) with: better understanding of current medical conditions; weighing benefits/burdens of medical treatment options; making medical treatment decisions. Subjective/Interval History Patient is remains somewhat confused, but less anxious. She continue to need bipap at night. She is having a hard time recalling eldest son name. Remains dyspneic on conversation. Family/friend interactions I called pt's son Jt today and left voicemail, await call back. Jt has said, he wanted a few days to think about it. It is reported also that pt's other son Kevan is ill today. Advance Directives Living Will: Never completed Health Care Surrogate: Never completed Durable Power of Upkeep Mechanic: Never completed Objective Vital Signs Date Time Temp Pulse Resp B/P (MAP) Pulse Ox O2 Delivery O2 Flow Rate FiO2 10/31/17 13:00 89 31 127/60 (82) 97 10/31/17 13:00 89 10/31/17 12:00 88 10/31/17 12:00 98.0 88 35 132/60 (84) 99 10/31/17 11:00 90 30 132/61 (84) 99 10/31/17 11:00 90 10/31/17 10:00 105 34 152/66 (94) 10/31/17 10:00 105 10/31/17 09:00 88 10/31/17 09:00 88 28 153/67 (95) 97 10/31/17 08:10 96 Nasal Cannula 3.00 10/31/17 08:00 98.1 88 28 144/68 (93) 100 10/31/17 08:00 88 10/31/17 07:33 99 30 10/31/17 07:00 73 10/31/17 07:00 73 28 143/64 (90) 98 10/31/17 06:00 84 144/65 (91) 97 10/31/17 05:00 77 136/65 (88) 93 10/31/17 04:19 97 30 10/31/17 04:00 97.2 90 161/67 (98) 92 10/31/17 03:00 80 143/66 (91) 97 10/31/17 02:00 86 148/66 (93) 98 10/31/17 01:00 87 158/67 (97) 98 10/31/17 00:27 98 30 10/31/17 00:00 98.1 73 141/62 (88) 96 10/30/17 23:00 75 132/61 (84) 98 10/30/17 22:00 79 114/59 (77) 98 10/30/17 21:00 79 147/62 (90) 97 10/30/17 20:46 96 30 10/30/17 20:31 100 Nasal Cannula 3.00 10/30/17 20:00 81 10/30/17 20:00 97.3 78 133/61 (85) 100 10/30/17 18:00 98.1 85 168/70 (102) 100 10/30/17 17:00 98.1 91 151/67 (95) 100 10/30/17 16:00 98.1 91 153/65 (94) 100 Intake & Output 10/31/17 10/31/17 07:00 19:00 Intake Total 470 ml Output Total 550 ml Balance -80 ml Intake Oral 120 ml IV Total 350 ml Output Urine Total 550 ml Physical Exam CONSTITUTIONAL/GENERAL: This is frail elderly lady, dyspneic, confused and less anxious compare to yesterday. TUBES/LINES/DRAINS: SKIN: No jaundice, rashes, or lesions. Ecchymoses on upper extremities. No wounds seen anteriorly. Skin temperature appropriate. Not diaphoretic. HEAD: Atraumatic. Normocephalic. EYES: Pupils equal and round and reactive. Extraocular motions intact. No scleral icterus. No injection or drainage. Fundi not examined. ENT: Hearing grossly normal. Nose without bleeding or purulent drainage. Throat without visible erythema, exudates, masses, or lesions. NECK: Trachea midline. Supple, nontender. No palpable thyroid enlargement or nodularity. CARDIOVASCULAR: Regular rate and rhythm without murmurs, gallops, or rubs. No JVD. Peripheral pulses symmetric. RESPIRATORY/CHEST: Decrease breath sound bilaterally, tachypnea. GASTROINTESTINAL: Abdomen soft, non-tender, nondistended. No hepato-splenomegaly , or palpable masses. No guarding. Bowel sounds present. GENITOURINARY: Without palpable bladder distension. Johnson catheter in place. MUSCULOSKELETAL: Extremities without clubbing, cyanosis, or edema. No joint tenderness or effusion noted. No calf tenderness. No mottling or clubbing. LYMPHATICS: No palpable cervical or supraclavicular adenopathy. NEUROLOGICAL: Awake and alert.confused PSYCHIATRIC: Anxious Diagnostic Tests Laboratory Laboratory Tests Test 10/28/17 18:54 10/28/17 19:05 10/28/17 20:16 10/28/17 22:14 Blood Gas Puncture Site RT RADIAL RT RADIAL Blood Gas Patient Temperature 98.6 98.6 Blood Gas HCO3 32 mmol/L (22-26) 32 mmol/L (22-26) Blood Gas Base Excess 4.1 mmol/L (-2-2) 4.6 mmol/L (-2-2) Blood Gas Oxygen Saturation 97 % (90-100) 93 % (90-100) Arterial Blood pH 7.16 (7.380-7.420) 7.24 (7.380-7.420) Arterial Blood Partial Pressure CO2 96 mmHg (38-42) 77 mmHg (38-42) Arterial Blood Partial Pressure O2 185 mmHG (61-120) 77 mmHG (61-120) Arterial Blood Oxygen Content 10.9 Vol % (12.0-20.0) 9.8 Vol % (12.0-20.0) Arterial Blood Carboxyhemoglobin 1.8 % (0-4) 2.1 % (0-4) Arterial Blood Methemoglobin 0.7 % (0-2) 0.4 % (0-2) Blood Gas Hemoglobin 7.7 G/DL (12.0-16.0) 7.5 G/DL (12.0-16.0) Oxygen Delivery Device NRB BiPAP Blood Gas Liter Flow 12 L/M Blood Gas Inspired Oxygen 100 % 40 % White Blood Count 10.3 TH/MM3 (4.0-11.0) Red Blood Count 3.56 MIL/MM3 (4.00-5.30) Hemoglobin 7.9 GM/DL (11.6-15.3) Hematocrit 28.1 % (35.0-46.0) Mean Corpuscular Volume 78.9 FL (80.0-100.0) Mean Corpuscular Hemoglobin 22.2 PG (27.0-34.0) Mean Corpuscular Hemoglobin Concent 28.2 % (32.0-36.0) Red Cell Distribution Width 20.5 % (11.6-17.2) Platelet Count 296 TH/MM3 (150-450) Mean Platelet Volume 8.3 FL (7.0-11.0) Neutrophils (%) (Auto) 86.6 % (16.0-70.0) Lymphocytes (%) (Auto) 4.5 % (9.0-44.0) Monocytes (%) (Auto) 8.4 % (0.0-8.0) Eosinophils (%) (Auto) 0.1 % (0.0-4.0) Basophils (%) (Auto) 0.4 % (0.0-2.0) Neutrophils # (Auto) 8.9 TH/MM3 (1.8-7.7) Lymphocytes # (Auto) 0.5 TH/MM3 (1.0-4.8) Monocytes # (Auto) 0.9 TH/MM3 (0-0.9) Eosinophils # (Auto) 0.0 TH/MM3 (0-0.4) Basophils # (Auto) 0.0 TH/MM3 (0-0.2) CBC Comment DIFF FINAL Differential Comment Prothrombin Time 10.8 SEC (9.8-11.6) Prothromb Time International Ratio 1.1 RATIO Activated Partial Thromboplast Time 26.2 SEC (24.3-30.1) Blood Urea Nitrogen 23 MG/DL (7-18) Creatinine 0.57 MG/DL (0.50-1.00) Random Glucose 98 MG/DL (74-106) Calcium Level 7.5 MG/DL (8.5-10.1) Magnesium Level 1.5 MG/DL (1.5-2.5) Sodium Level 140 MEQ/L (136-145) Potassium Level 4.0 MEQ/L (3.5-5.1) Chloride Level 102 MEQ/L (98-107) Carbon Dioxide Level 32.0 MEQ/L (21.0-32.0) Anion Gap 6 MEQ/L (5-15) Estimat Glomerular Filtration Rate 102 ML/MIN (>89) Lactic Acid Level 0.9 mmol/L (0.4-2.0) Total Creatine Kinase 557 U/L (26-192) Creatine Kinase MB 32.0 NG/ML (0.5-3.6) Creatine Kinase MB % 5.7 % (0.0-4.0) Troponin I 5.94 NG/ML (0.02-0.05) B-Type Natriuretic Peptide 1685 PG/ML (0-100) Blood Gas Ventilator Setting IPAP15/[id number] Urine Color LIGHT-YELLOW (YELLW/STRAW) Urine Turbidity HAZY (CLEAR) Urine pH 5.5 (5.0-8.5) Urine Specific Beecher 1.015 (1.002-1.035) Urine Protein 30 mg/dL (NEG-TRACE) Urine Glucose (UA) NEG mg/dL (NEG) Urine Ketones TRACE mg/dL (NEG) Urine Occult Blood SMALL (NEG) Urine Nitrite NEG (NEG) Urine Bilirubin NEG (NEG) Urine Urobilinogen LESS THAN 2.0 MG/DL (LESS Urine Leukocyte Esterase NEG (NEG) Urine RBC 2 /hpf (0-3) Urine WBC 19 /hpf (0-5) Urine WBC Clumps MOD (NONE) Urine Squamous Epithelial Cells 10 /hpf (0-5) Urine Transitional Epithelial Cells 1 /hpf (NONE) Urine Bacteria RARE /hpf (NONE) Urine Waxy Casts 15 /lpf (NONE) Urine Mucus FEW /lpf (OCC) Urine Yeast (Budding) OCC (NONE) Microscopic Urinalysis Comment CATH-CULTURE IND Test 10/28/17 22:30 10/29/17 01:50 10/29/17 11:25 10/30/17 06:44 Nasal Screen MRSA (PCR) MRSA NOT DETECTED (NOT White Blood Count 8.9 TH/MM3 (4.0-11.0) 7.1 TH/MM3 (4.0-11.0) Red Blood Count 3.54 MIL/MM3 (4.00-5.30) 3.91 MIL/MM3 (4.00-5.30) Hemoglobin 7.8 GM/DL (11.6-15.3) 8.9 GM/DL (11.6-15.3) Hematocrit 27.7 % (35.0-46.0) 29.6 % (35.0-46.0) Mean Corpuscular Volume 78.4 FL (80.0-100.0) 75.6 FL (80.0-100.0) Mean Corpuscular Hemoglobin 22.1 PG (27.0-34.0) 22.8 PG (27.0-34.0) Mean Corpuscular Hemoglobin Concent 28.2 % (32.0-36.0) 30.2 % (32.0-36.0) Red Cell Distribution Width 20.3 % (11.6-17.2) 20.2 % (11.6-17.2) Platelet Count 305 TH/MM3 (150-450) 319 TH/MM3 (150-450) Mean Platelet Volume 8.4 FL (7.0-11.0) 8.8 FL (7.0-11.0) Neutrophils (%) (Auto) 86.5 % (16.0-70.0) 96.3 % (16.0-70.0) Lymphocytes (%) (Auto) 4.0 % (9.0-44.0) 1.9 % (9.0-44.0) Monocytes (%) (Auto) 9.0 % (0.0-8.0) 1.7 % (0.0-8.0) Eosinophils (%) (Auto) 0.1 % (0.0-4.0) 0.0 % (0.0-4.0) Basophils (%) (Auto) 0.4 % (0.0-2.0) 0.1 % (0.0-2.0) Neutrophils # (Auto) 7.7 TH/MM3 (1.8-7.7) 6.8 TH/MM3 (1.8-7.7) Lymphocytes # (Auto) 0.4 TH/MM3 (1.0-4.8) 0.1 TH/MM3 (1.0-4.8) Monocytes # (Auto) 0.8 TH/MM3 (0-0.9) 0.1 TH/MM3 (0-0.9) Eosinophils # (Auto) 0.0 TH/MM3 (0-0.4) 0.0 TH/MM3 (0-0.4) Basophils # (Auto) 0.0 TH/MM3 (0-0.2) 0.0 TH/MM3 (0-0.2) CBC Comment DIFF FINAL DIFF FINAL Differential Comment Prothrombin Time 11.0 SEC (9.8-11.6) Prothromb Time International Ratio 1.1 RATIO Activated Partial Thromboplast Time 25.2 SEC (24.3-30.1) Blood Urea Nitrogen 21 MG/DL (7-18) 18 MG/DL (7-18) Creatinine 0.70 MG/DL (0.50-1.00) 0.59 MG/DL (0.50-1.00) Random Glucose 111 MG/DL (74-106) 128 MG/DL (74-106) Total Protein 6.0 GM/DL (6.4-8.2) 6.2 GM/DL (6.4-8.2) Albumin 2.8 GM/DL (3.4-5.0) 2.9 GM/DL (3.4-5.0) Calcium Level 7.8 MG/DL (8.5-10.1) 8.5 MG/DL (8.5-10.1) Phosphorus Level 3.5 MG/DL (2.5-4.9) 1.8 MG/DL (2.5-4.9) Magnesium Level 1.7 MG/DL (1.5-2.5) 1.4 MG/DL (1.5-2.5) Alkaline Phosphatase 135 U/L (45-117) 116 U/L (45-117) Aspartate Amino Transf (AST/SGOT) 77 U/L (15-37) 58 U/L (15-37) Alanine Aminotransferase (ALT/SGPT) 22 U/L (10-53) 22 U/L (10-53) Total Bilirubin 0.2 MG/DL (0.2-1.0) 0.3 MG/DL (0.2-1.0) Sodium Level 143 MEQ/L (136-145) 142 MEQ/L (136-145) Potassium Level 3.9 MEQ/L (3.5-5.1) 3.2 MEQ/L (3.5-5.1) Chloride Level 101 MEQ/L (98-107) 99 MEQ/L (98-107) Carbon Dioxide Level 34.9 MEQ/L (21.0-32.0) 34.2 MEQ/L (21.0-32.0) Anion Gap 7 MEQ/L (5-15) 9 MEQ/L (5-15) Estimat Glomerular Filtration Rate 80 ML/MIN (>89) 98 ML/MIN (>89) Lactic Acid Level 3.0 mmol/L (0.4-2.0) Troponin I 5.76 NG/ML (0.02-0.05) 3.92 NG/ML (0.02-0.05) Test 10/30/17 20:51 10/31/17 04:29 10/31/17 06:27 Potassium Level 3.6 MEQ/L (3.5-5.1) 3.3 MEQ/L (3.5-5.1) Phosphorus Level 2.8 MG/DL (2.5-4.9) Magnesium Level 1.4 MG/DL (1.5-2.5) Blood Urea Nitrogen 13 MG/DL (7-18) Creatinine 0.34 MG/DL (0.50-1.00) Random Glucose 102 MG/DL (74-106) Calcium Level 8.4 MG/DL (8.5-10.1) Sodium Level 145 MEQ/L (136-145) Chloride Level 100 MEQ/L (98-107) Carbon Dioxide Level 38.0 MEQ/L (21.0-32.0) Anion Gap 7 MEQ/L (5-15) Estimat Glomerular Filtration Rate 184 ML/MIN (>89) White Blood Count 8.3 TH/MM3 (4.0-11.0) Red Blood Count 4.10 MIL/MM3 (4.00-5.30) Hemoglobin 9.5 GM/DL (11.6-15.3) Hematocrit 31.4 % (35.0-46.0) Mean Corpuscular Volume 76.5 FL (80.0-100.0) Mean Corpuscular Hemoglobin 23.1 PG (27.0-34.0) Mean Corpuscular Hemoglobin Concent 30.2 % (32.0-36.0) Red Cell Distribution Width 20.9 % (11.6-17.2) Platelet Count 306 TH/MM3 (150-450) Mean Platelet Volume 8.9 FL (7.0-11.0) Neutrophils (%) (Auto) 95.5 % (16.0-70.0) Lymphocytes (%) (Auto) 2.2 % (9.0-44.0) Monocytes (%) (Auto) 2.2 % (0.0-8.0) Eosinophils (%) (Auto) 0.0 % (0.0-4.0) Basophils (%) (Auto) 0.1 % (0.0-2.0) Neutrophils # (Auto) 7.9 TH/MM3 (1.8-7.7) Lymphocytes # (Auto) 0.2 TH/MM3 (1.0-4.8) Monocytes # (Auto) 0.2 TH/MM3 (0-0.9) Eosinophils # (Auto) 0.0 TH/MM3 (0-0.4) Basophils # (Auto) 0.0 TH/MM3 (0-0.2) CBC Comment DIFF FINAL Differential Comment Result Diagram: 10/31/17 0627 10/31/17 0429 Microbiology Microbiology Date/Time Source Procedure Growth Status 10/28/17 19:05 Blood Peripheral Aerobic Blood Culture - Final Staph Sp Coagulase Negative Complete 10/28/17 19:05 Anaerobic Blood Culture - Final Staph Sp Coagulase Negative Complete 10/28/17 18:50 Blood Peripheral Aerobic Blood Culture - Final Staph Sp Coagulase Negative Complete 10/28/17 18:50 Anaerobic Blood Culture - Final Staph Sp Coagulase Negative Complete 10/28/17 22:14 Urine Catheterized Urine Urine Culture - Final Bree Gl[place] Complete Imaging Last Impressions Chest X-Ray 10/28/17 1852 Signed Impressions: Service Date/Time: Saturday, October 28, 2017 19:16 - CONCLUSION: 1. Stable left lower lobe airspace disease with more apparent small left pleural effusion. Dean Emanuel MD CT Angiography 10/28/17 0000 Signed Impressions: Service Date/Time: Saturday, October 28, 2017 20:32 - CONCLUSION: 1. Apparently chronic focal filling defect in an isolated right lower lobe pulmonary artery segmental branch. 2. No CT evidence for acute pulmonary artery embolism. 3. Moderate to severe diffuse upper lobe predominant centrilobular emphysema. 4. Small bilateral pleural effusions with minimal airspace consolidation at the lung bases, presumably atelectasis. 5. Mild cardiomegaly. Dean Emanuel MD Assessment and Plan Disease Oriented Problem List: (1) CHF (congestive heart failure) (2) Chronic pain (3) COPD (chronic obstructive pulmonary disease) (4) NSTEMI, initial episode of care Symptom Scale: (1) Dyspnea 0-10 Scale: Unable to quantify (2) Chronic pain 0-10 Scale: Unable to quantify Pertinent Non-Medical Issues Psychosocial: Originally from [place], [place]. - spouse from cancer. Have 2 sons. 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 Spiritual:lutheran. did not give denomination Legal: did not want to complete advance directives today. Ethical issues impacting care: none at this point. Important Contacts Jt Miller- [phone] and Kevan Miller [phone] Prognosis multiple hospital admission for dyspnea, with chf and copd. Complicated by chronic pain. She is appropriate for hospice if goals of care was comforted oriented. Code Status: Alternative Code Plan == capacity to make medical decision- remains confused. Pt's son sees her confusion and said that she has been confused since last GI procedure, which was 3 weeks ago. I do not feel patient at this current time have the ability to weigh the risk and benefits of medical decisions. Pt does have potential to regain capacity to make medical decisions, but I suspect it will not last long given pt's clinical condition. == health care decision maker- Pt has no spouse, and pt's 2 sons who are at bedside are the healthcare proxy under [place] statuets. == code: Alternative code: no reintubation if needed. Yes to bipap, cpr/acls. == goals of treatment: Both myself and therapist physical have spoken to pt's son Jt yesterday. I did tell pt's son, given her significant deconditioning, copd, Nonstemi, right sided hear disease, multiple hospitalization, overall prognosis is poor. She has had 3 hospitalizations this past month, and has functional status has declined. Her ability for convalescent to a functional level is limited, hospice would help her by keeping her comfortable. I have called son today and left voicemail. it is reported pt's other son is ill. He has told me and the therapist physical, he needs a few days to discuss this with brother. == symptoms. dyspnea- 2nd to longstanding copd, with cardiac component. bipap as necessary, continue nebs and other treatment. Pain- has chronic abdominal and back /cervical pain. However given pt is critical condition, and still semi-aggressive goals of care , no further med rec at this current time. Anxiety: seems a bit better, valium available. == palliative care will continue to make recommendations for symptoms, and review goals of treatment as clinical conditions evolves. Attestation To help prompt me to consider important information that might be impacting today's encounter and assessment, information from prior notes written by myself or my colleagues may have been "brought forward" into today's note. My signature on this note, however, is an attestation that I personally performed the exam, history, and/or decision-making noted today, and, unless otherwise indicated, the interactions with patient, family, and staff as well as the review of records all occurred today. I also attest that the listed assessment and stated plan reflect my best clinical judgment today based on the combination of historical information, prior notes, and today's exam/ interactions. When time spent is documented, it refers only to time spent today by the signer, or if indicated, combined time spent today by collaborating physician/nurse practitioner. Jase Estrada MD October 31, 2017 15:20
[2017-10-31] MEDS: PRAVASTATIN SOD 20 MG TAB PO SCH (19:20)
[2017-10-31] MEDS: ZOLPIDEM TARTRATE 10 MG TAB PO SCH (19:20)
[2017-10-31] MEDS: FAMOTIDINE 20 MG TAB PO SCH (19:20)
[2017-11-01] VITALS (25 sets, daily range): BP systolic 123–158; BP diastolic 58–87; PULSE 74–101; RESP 16–35; TEMP 97.7–98.5; O2SAT 79–100
[2017-11-01] MEDS: methylPREDNISolone SOD SUCC 40 MG/1 ML VIAL IV PUSH SCH ×3 (00:38→16:52)
[2017-11-01] MEDS: AZITHROMYCIN INJ 500 MG in SODIUM CHLOR 0.9% 250 ML INJ 250 ML IV SCH (00:38)
[2017-11-01] MEDS: cefTRIAXone INJ 1,000 MG in SODIUM CHLORIDE 0.9% INJ 100 ML IV SCH ×2 (01:42→12:26)
[2017-11-01] MEDS: RESP: ALBUTEROL 2.5 MG/IPRATROPIUM 0.5 MG NEB (SCH) INH ×5 (03:04→21:09)
[2017-11-01] MEDS: CHLORHEXIDINE GLUCONATE 2 % 1 PACK (2 CLOTHS) TOP SCH (03:46)
[2017-11-01] MEDS: LEVOTHYROXINE SODIUM 100 MCG TAB PO SCH (06:00)
[2017-11-01] MEDS: BACLOFEN 10 MG TAB PO SCH ×3 (07:58→16:52)
[2017-11-01] MEDS: ENALAPRIL MALEATE 10 MG TAB PO SCH (07:58)
[2017-11-01] MEDS: DIAZEPAM 5 MG TAB PO PRN ×3 (07:58→16:52)
[2017-11-01] MEDS: FAMOTIDINE 20 MG TAB PO SCH ×2 (07:58→19:51)
[2017-11-01] MEDS: ASPIRIN EC 81 MG TABEC PO SCH (07:58)
[2017-11-01] MEDS: POTASSIUM CHLORIDE 20 MEQ CONTROLLED RELEASE TAB PO SCH (07:58)
[2017-11-01] MEDS: ACETAMINOPHEN/HYDROcodone 325 MG/5 MG TAB PO PRN ×4 (07:59→21:19)
[2017-11-01] MEDS: SODIUM CHLORIDE 0.9% FLUSH 10 ML FLUSH IV FLUSH SCH ×2 (07:59→19:51)
[2017-11-01] MEDS: DOCUSATE SODIUM 50 MG/SENNA 8.6 MG TAB PO SCH ×2 (07:59→19:52)
[2017-11-01] MEDS: FUROSEMIDE 40 MG TAB PO SCH (07:59)
[2017-11-01] MEDS: ENOXAPARIN SODIUM 60 MG/0.6 ML SYRINGE SQ SCH ×2 (10:16→21:19)
--- NOTE | 2017-11-01 16:47 | HHI.HCPN ---
Reason for visit a. To assist with evaluation and management of symptoms including:pain, dyspnea b. To assist medical decision maker(s) with: better understanding of current medical conditions; weighing benefits/burdens of medical treatment options; making medical treatment decisions. Subjective/Interval History Patient is remains somewhat confused, but less anxious. She continue to need bipap at night. Pt's son at bedside. Could not recall hospital, or what has happened. She does remember sons' name today, and that pt's pass away. Patients son at bedside see the memory problems, and inconsistency in reply to questions. He agrees and does see he is confused. She endorse dyspnea, and pain in neck and back, as constant ("always"). Family/friend interactions spoke with patient sons, and they endorse a complete DNR. reviewed patient's underlying lung disease, nstemi, right sided heart problems, and moderate TR. Goals of treatment == DNR but does continue to want bipap. == Hospice was reviewed agian, family at this time wants me to hold off consulting hospice at this time. == Sons see patients' decline, but want a few more days of aggressive measures. == goals remains aggressive short of DNR. Advance Directives Living Will: Never completed Health Care Surrogate: Never completed Durable Power of Shuttle Operator: Never completed Objective Vital Signs Date Time Temp Pulse Resp B/P (MAP) Pulse Ox O2 Delivery O2 Flow Rate FiO2 11/01/17 16:00 82 11/01/17 16:00 97.7 82 25 125/58 (80) 96 11/01/17 15:00 81 11/01/17 15:00 81 23 136/64 (88) 99 11/01/17 14:00 82 11/01/17 14:00 82 28 137/63 (87) 97 11/01/17 13:00 85 26 137/63 (87) 97 11/01/17 13:00 85 11/01/17 12:00 98.1 83 28 123/58 (79) 96 11/01/17 12:00 83 11/01/17 11:00 84 11/01/17 11:00 84 29 144/63 (90) 98 11/01/17 10:00 93 35 141/61 (87) 86 11/01/17 10:00 93 11/01/17 09:00 96 31 154/70 (98) 98 11/01/17 09:00 96 11/01/17 08:02 92 11/01/17 08:00 101 11/01/17 08:00 97.9 92 26 156/72 (100) 96 11/01/17 07:50 99 30 11/01/17 07:00 79 25 158/67 (97) 99 11/01/17 07:00 79 11/01/17 06:00 87 11/01/17 04:01 96 30 11/01/17 04:00 87 11/01/17 04:00 98.1 87 29 155/87 (109) 79 11/01/17 02:00 99 11/01/17 00:57 98 30 11/01/17 00:00 83 11/01/17 00:00 98.5 83 26 147/72 (97) 96 10/31/17 22:00 84 10/31/17 21:39 20 10/31/17 20:00 98.1 86 28 131/62 (85) 98 10/31/17 20:00 86 10/31/17 19:47 99 Nasal Cannula 4.00 10/31/17 18:00 82 10/31/17 17:00 89 10/31/17 17:00 89 29 131/57 (81) 94 Intake & Output 11/01/17 11/01/17 07:00 19:00 Intake Total 350 ml Output Total 450 ml Balance -100 ml IV Total 350 ml Output Urine Total 450 ml # Bowel Movements 1 Physical Exam CONSTITUTIONAL/GENERAL: This is frail elderly lady, dyspneic, confused and less anxious compare to yesterday. TUBES/LINES/DRAINS: SKIN: No jaundice, rashes, or lesions. Ecchymoses on upper extremities. No wounds seen anteriorly. Skin temperature appropriate. Not diaphoretic. HEAD: Atraumatic. Normocephalic. EYES: Pupils equal and round and reactive. Extraocular motions intact. No scleral icterus. No injection or drainage. Fundi not examined. ENT: Hearing grossly normal. Nose without bleeding or purulent drainage. Throat without visible erythema, exudates, masses, or lesions. NECK: Trachea midline. Supple, nontender. No palpable thyroid enlargement or nodularity. CARDIOVASCULAR: Regular rate and rhythm without murmurs, gallops, or rubs. No JVD. Peripheral pulses symmetric. RESPIRATORY/CHEST: Decrease breath sound bilaterally, tachypnea. GASTROINTESTINAL: Abdomen soft, non-tender, nondistended. No hepato-splenomegaly , or palpable masses. No guarding. Bowel sounds present. GENITOURINARY: Without palpable bladder distension. Johnson catheter in place. MUSCULOSKELETAL: Extremities without clubbing, cyanosis, or edema. No joint tenderness or effusion noted. No calf tenderness. No mottling or clubbing. LYMPHATICS: No palpable cervical or supraclavicular adenopathy. NEUROLOGICAL: Awake and alert.confused PSYCHIATRIC: some anxiety noted. Diagnostic Tests Laboratory Laboratory Tests Test 10/30/17 06:44 10/30/17 20:51 10/31/17 04:29 10/31/17 06:27 White Blood Count 7.1 TH/MM3 (4.0-11.0) 8.3 TH/MM3 (4.0-11.0) Red Blood Count 3.91 MIL/MM3 (4.00-5.30) 4.10 MIL/MM3 (4.00-5.30) Hemoglobin 8.9 GM/DL (11.6-15.3) 9.5 GM/DL (11.6-15.3) Hematocrit 29.6 % (35.0-46.0) 31.4 % (35.0-46.0) Mean Corpuscular Volume 75.6 FL (80.0-100.0) 76.5 FL (80.0-100.0) Mean Corpuscular Hemoglobin 22.8 PG (27.0-34.0) 23.1 PG (27.0-34.0) Mean Corpuscular Hemoglobin Concent 30.2 % (32.0-36.0) 30.2 % (32.0-36.0) Red Cell Distribution Width 20.2 % (11.6-17.2) 20.9 % (11.6-17.2) Platelet Count 319 TH/MM3 (150-450) 306 TH/MM3 (150-450) Mean Platelet Volume 8.8 FL (7.0-11.0) 8.9 FL (7.0-11.0) Neutrophils (%) (Auto) 96.3 % (16.0-70.0) 95.5 % (16.0-70.0) Lymphocytes (%) (Auto) 1.9 % (9.0-44.0) 2.2 % (9.0-44.0) Monocytes (%) (Auto) 1.7 % (0.0-8.0) 2.2 % (0.0-8.0) Eosinophils (%) (Auto) 0.0 % (0.0-4.0) 0.0 % (0.0-4.0) Basophils (%) (Auto) 0.1 % (0.0-2.0) 0.1 % (0.0-2.0) Neutrophils # (Auto) 6.8 TH/MM3 (1.8-7.7) 7.9 TH/MM3 (1.8-7.7) Lymphocytes # (Auto) 0.1 TH/MM3 (1.0-4.8) 0.2 TH/MM3 (1.0-4.8) Monocytes # (Auto) 0.1 TH/MM3 (0-0.9) 0.2 TH/MM3 (0-0.9) Eosinophils # (Auto) 0.0 TH/MM3 (0-0.4) 0.0 TH/MM3 (0-0.4) Basophils # (Auto) 0.0 TH/MM3 (0-0.2) 0.0 TH/MM3 (0-0.2) CBC Comment DIFF FINAL DIFF FINAL Differential Comment Blood Urea Nitrogen 18 MG/DL (7-18) 13 MG/DL (7-18) Creatinine 0.59 MG/DL (0.50-1.00) 0.34 MG/DL (0.50-1.00) Random Glucose 128 MG/DL (74-106) 102 MG/DL (74-106) Total Protein 6.2 GM/DL (6.4-8.2) Albumin 2.9 GM/DL (3.4-5.0) Calcium Level 8.5 MG/DL (8.5-10.1) 8.4 MG/DL (8.5-10.1) Phosphorus Level 1.8 MG/DL (2.5-4.9) 2.8 MG/DL (2.5-4.9) Magnesium Level 1.4 MG/DL (1.5-2.5) 1.4 MG/DL (1.5-2.5) Alkaline Phosphatase 116 U/L (45-117) Aspartate Amino Transf (AST/SGOT) 58 U/L (15-37) Alanine Aminotransferase (ALT/SGPT) 22 U/L (10-53) Total Bilirubin 0.3 MG/DL (0.2-1.0) Sodium Level 142 MEQ/L (136-145) 145 MEQ/L (136-145) Potassium Level 3.2 MEQ/L (3.5-5.1) 3.6 MEQ/L (3.5-5.1) 3.3 MEQ/L (3.5-5.1) Chloride Level 99 MEQ/L (98-107) 100 MEQ/L (98-107) Carbon Dioxide Level 34.2 MEQ/L (21.0-32.0) 38.0 MEQ/L (21.0-32.0) Anion Gap 9 MEQ/L (5-15) 7 MEQ/L (5-15) Estimat Glomerular Filtration Rate 98 ML/MIN (>89) 184 ML/MIN (>89) Result Diagram: 10/31/17 0627 10/31/17 0429 Imaging Last Impressions Chest X-Ray 10/28/17 1852 Signed Impressions: Service Date/Time: Saturday, October 28, 2017 19:16 - CONCLUSION: 1. Stable left lower lobe airspace disease with more apparent small left pleural effusion. Dean Emanuel MD CT Angiography 10/28/17 0000 Signed Impressions: Service Date/Time: Saturday, October 28, 2017 20:32 - CONCLUSION: 1. Apparently chronic focal filling defect in an isolated right lower lobe pulmonary artery segmental branch. 2. No CT evidence for acute pulmonary artery embolism. 3. Moderate to severe diffuse upper lobe predominant centrilobular emphysema. 4. Small bilateral pleural effusions with minimal airspace consolidation at the lung bases, presumably atelectasis. 5. Mild cardiomegaly. Dean Emanuel MD Assessment and Plan Disease Oriented Problem List: (1) CHF (congestive heart failure) (2) Chronic pain (3) COPD (chronic obstructive pulmonary disease) (4) NSTEMI, initial episode of care Symptom Scale: (1) Dyspnea 0-10 Scale: Unable to quantify (2) Chronic pain 0-10 Scale: Unable to quantify Pertinent Non-Medical Issues Psychosocial: Originally from [place], [place] in [place]. - spouse from cancer. Have 2 sons. 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 Spiritual:nondenominational. did not give denomination Legal: did not want to complete advance directives today. Ethical issues impacting care: none at this point. Important Contacts Jt Miller- [phone] and Kevan Miller [phone] Prognosis multiple hospital admission for dyspnea, with chf and copd. Complicated by chronic pain. She is appropriate for hospice if goals of care was comforted oriented. Code Status: Alternative Code Plan == capacity to make medical decision- remains confused. Pt's son sees her confusion and said that she has been confused since last GI procedure, which was 3 weeks ago. I do not feel patient at this current time have the ability to weigh the risk and benefits of medical decisions. Pt does have potential to regain capacity to make medical decisions, but I suspect it will not last long given pt's clinical condition. == health care decision maker- Pt has no spouse, and pt's 2 sons who are at bedside are the healthcare proxy under [place] statuets. == code: DNR == goals of treatment: * == DNR but does continue to want bipap. * == Hospice was reviewed [facility], family at this time wants me to hold off consulting hospice at this time. * == Sons see patients' decline, but want a few more days of aggressive measures. * == goals remains aggressive short of DNR. == symptoms. dyspnea- 2nd to longstanding copd, with cardiac component. bipap as necessary, continue nebs and other treatment. Pain- has chronic abdominal and back /cervical pain. However given pt is critical condition, and still semi-aggressive goals of care , no further med rec at this current time. Anxiety: seems a bit better, valium available. == palliative care will continue to make recommendations for symptoms, and review goals of treatment as clinical conditions evolves. Attestation To help prompt me to consider important information that might be impacting today's encounter and assessment, information from prior notes written by myself or my colleagues may have been "brought forward" into today's note. My signature on this note, however, is an attestation that I personally performed the exam, history, and/or decision-making noted today, and, unless otherwise indicated, the interactions with patient, family, and staff as well as the review of records all occurred today. I also attest that the listed assessment and stated plan reflect my best clinical judgment today based on the combination of historical information, prior notes, and today's exam/ interactions. When time spent is documented, it refers only to time spent today by the signer, or if indicated, combined time spent today by collaborating physician/nurse practitioner. Jase Estrada MD November 01, 2017 16:47
--- NOTE | 2017-11-01 17:57 | HHI.PR ---
Subjective Remarks Patient denies cp. Sob is improving, Denies fevers or chills Objective Vitals Vital Signs Date Time Temp Pulse Resp B/P (MAP) Pulse Ox O2 Delivery O2 Flow Rate FiO2 11/01/17 16:00 82 11/01/17 16:00 97.7 82 25 125/58 (80) 96 11/01/17 15:00 81 11/01/17 15:00 81 23 136/64 (88) 99 11/01/17 14:00 82 11/01/17 14:00 82 28 137/63 (87) 97 11/01/17 13:00 85 26 137/63 (87) 97 11/01/17 13:00 85 11/01/17 12:00 98.1 83 28 123/58 (79) 96 11/01/17 12:00 83 11/01/17 11:00 84 11/01/17 11:00 84 29 144/63 (90) 98 11/01/17 10:00 93 35 141/61 (87) 86 11/01/17 10:00 93 11/01/17 09:00 96 31 154/70 (98) 98 11/01/17 09:00 96 11/01/17 08:02 92 11/01/17 08:00 101 11/01/17 08:00 97.9 92 26 156/72 (100) 96 11/01/17 07:50 99 30 11/01/17 07:00 79 25 158/67 (97) 99 11/01/17 07:00 79 11/01/17 06:00 87 11/01/17 04:01 96 30 11/01/17 04:00 87 11/01/17 04:00 98.1 87 29 155/87 (109) 79 11/01/17 02:00 99 11/01/17 00:57 98 30 11/01/17 00:00 83 11/01/17 00:00 98.5 83 26 147/72 (97) 96 10/31/17 22:00 84 10/31/17 21:39 20 10/31/17 20:00 98.1 86 28 131/62 (85) 98 10/31/17 20:00 86 10/31/17 19:47 99 Nasal Cannula 4.00 10/31/17 18:00 82 I/O 10/31/17 10/31/17 10/31/17 11/01/17 11/01/17 11/01/17 07:00 15:00 23:00 07:00 15:00 23:00 Intake Total 470 ml 720 ml 350 ml Output Total 550 ml 700 ml 450 ml Balance -80 ml 20 ml -100 ml Intake Oral 120 ml 720 ml IV Total 350 ml 350 ml Output Urine Total 550 ml 700 ml 450 ml # Bowel Movements 1 1 Result Diagram: 10/31/17 0627 10/31/17 0429 Imaging Last Impressions Chest X-Ray 10/28/17 1852 Signed Impressions: Service Date/Time: Saturday, October 28, 2017 19:16 - CONCLUSION: 1. Stable left lower lobe airspace disease with more apparent small left pleural effusion. Dean Emanuel MD CT Angiography 10/28/17 0000 Signed Impressions: Service Date/Time: Saturday, October 28, 2017 20:32 - CONCLUSION: 1. Apparently chronic focal filling defect in an isolated right lower lobe pulmonary artery segmental branch. 2. No CT evidence for acute pulmonary artery embolism. 3. Moderate to severe diffuse upper lobe predominant centrilobular emphysema. 4. Small bilateral pleural effusions with minimal airspace consolidation at the lung bases, presumably atelectasis. 5. Mild cardiomegaly. Dean Emanuel MD Objective Remarks GENERAL: Elderly cachectic and frail -appearing female tachypneic on NC. SKIN: Warm and dry. HEAD: Normocephalic. EYES: No scleral icterus. No injection or drainage. NECK: Supple, trachea midline. No JVD or lymphadenopathy. CARDIOVASCULAR: Irregular, no murmurs rubs or gallops. RESPIRATORY: Mildly tachypneic but no accessory muscle use. Diminished breath sounds BL. GASTROINTESTINAL: Abdomen soft, non-tender, nondistended. : Johnson in place with light yellow urine output per MUSCULOSKELETAL: SCDs in place. No edema. NEURO: Alert, awake. Not able to answer questions of orientation. She moves extremities spontaneously. A/P Problem List: (1) Acute hypercapnic respiratory failure ICD Code: J96.02 - Acute respiratory failure with hypercapnia Plan: Due to COPD exacerbation and suspected healthcare associated pneumonia. Status post BiPAP. Continue supplemental oxygen to keep oxygen saturation more than 90%. Continue DuoNeb treatments. Continue IV antibiotics -patient currently on IV Rocephin and IV azithromycin. Chest x-ray on admission shows stable left lower lobe airspace disease with more apparent small right pleural effusion. (2) COPD exacerbation ICD Code: J44.1 - Chronic obstructive pulmonary disease with (acute) exacerbation Status: Acute Plan: Continue IV Solu-Medrol. Supplemental oxygen DuoNeb treatments IV antibiotics as above. (3) UTI (urinary tract infection) ICD Code: N39.0 - Urinary tract infection, site not specified Plan: UA positive and urine culture growing Bree glabrata. Start the patient on oral fluconazole. (4) Elevated troponin ICD Code: R74.8 - Abnormal levels of other serum enzymes Plan: Troponin elevated on admission at 5.94, trending down. Suspect due to demand ischemia. We will recheck troponin. patient is quite frail and palliative care has been consulted. Due to her end stage COPD she is not likely to be a good candidate for intervention at this time. (5) Hypokalemia ICD Code: E87.6 - Hypokalemia Plan: Replace and monitor BMP. (6) Hypomagnesemia ICD Code: E83.42 - Hypomagnesemia Plan: Replace with IV magnesium sulfate as needed. Monitor magnesium. (7) Hypothyroidism ICD Code: E03.9 - Hypothyroidism, unspecified Status: Chronic Plan: Continue levothyroxine. Check TSH and free T4 in a.m. (8) HTN (hypertension) ICD Code: I10 - Essential (primary) hypertension Plan: BP seems to be stable. Continue current antihypertensive medications. Patient currently on Avapro. (9) HLD (hyperlipidemia) ICD Code: E78.5 - Hyperlipidemia, unspecified Plan: On statin. Continue. Assessment and Plan DVT prophylaxis: Lovenox subcutaneously. Discharge Planning Okay to transfer to the medical floor. Problem Qualifiers (1) Hypothyroidism: Qualified Codes: E03.9 - Hypothyroidism, unspecified (2) HTN (hypertension): Qualified Codes: I10 - Essential (primary) hypertension (3) HLD (hyperlipidemia): Qualified Codes: E78.5 - Hyperlipidemia, unspecified Mark Carpenter MD November 01, 2017 17:57
[2017-11-01] MEDS ORDERED: POTASSIUM CHLORIDE 10 MEQ CONTROLLED RELEASE TAB PO ONE (18:15)
[2017-11-01] MEDS: ZOLPIDEM TARTRATE 10 MG TAB PO SCH (19:51)
[2017-11-01] MEDS: PRAVASTATIN SOD 20 MG TAB PO SCH (19:52)
[2017-11-01] MEDS: FLUCONAZOLE 100 MG TAB PO SCH (21:18)
[2017-11-02] VITALS (19 sets, daily range): BP systolic 112–169; BP diastolic 56–77; PULSE 65–85; RESP 13–27; TEMP 97.8–98.4; O2SAT 95–100
[2017-11-02] MEDS: methylPREDNISolone SOD SUCC 40 MG/1 ML VIAL IV PUSH SCH ×2 (01:42→08:04)
[2017-11-02] MEDS: AZITHROMYCIN INJ 500 MG in SODIUM CHLOR 0.9% 250 ML INJ 250 ML IV SCH (01:42)
[2017-11-02] MEDS: cefTRIAXone INJ 1,000 MG in SODIUM CHLORIDE 0.9% INJ 100 ML IV SCH ×2 (02:49→14:00)
[2017-11-02] MEDS: CHLORHEXIDINE GLUCONATE 2 % 1 PACK (2 CLOTHS) TOP SCH (02:49)
[2017-11-02] MEDS: LEVOTHYROXINE SODIUM 100 MCG TAB PO SCH (06:02)
[2017-11-02] MEDS: ACETAMINOPHEN/HYDROcodone 325 MG/5 MG TAB PO PRN ×3 (06:28→20:44)
[2017-11-02 06:53] LABS: AUTOMATED NEUTROPHIL # 9.5 TH/MM3 (1.8-7.7); BASOPHIL % 0.1 % (0.0-2.0); EOSINOPHIL # 0.1 TH/MM3 (0-0.4); EOSINOPHIL % 0.6 % (0.0-4.0); HEMATOCRIT 37.6 % (35.0-46.0); HEMOGLOBIN 10.7 GM/DL (11.6-15.3); LYMPH % 1.8 % (9.0-44.0); LYMPHOCYTE # 0.2 TH/MM3 (1.0-4.8); MEAN CELL VOLUME 79.5 FL (80.0-100.0); MEAN CORPUSCULAR HEMOGLOBIN 22.7 PG (27.0-34.0); MEAN CORPUSCULAR HGB CONC 28.5 % (32.0-36.0); MEAN PLATELET VOLUME 8.9 FL (7.0-11.0); MONO % 2.7 % (0.0-8.0); MONOCYTE # 0.3 TH/MM3 (0-0.9); NEUT % 94.8 % (16.0-70.0); PLATELET COUNT 190 TH/MM3 (150-450); RED BLOOD COUNT 4.73 MIL/MM3 (4.00-5.30); RED CELL DISTRIBUTION WIDTH 21.6 % (11.6-17.2)
[2017-11-02 07:06] LABS: ALBUMIN 2.8 GM/DL (3.4-5.0); ALKALINE PHOSPHATASE 102 U/L (45-117); ALT (GPT) 21 U/L (10-53); AST (GOT) 25 U/L (15-37); BICARBONATE 33.9 MEQ/L (21.0-32.0); BLOOD UREA NITROGEN 15 MG/DL (7-18); CALCIUM 8.1 MG/DL (8.5-10.1); CHLORIDE 98 MEQ/L (98-107); CREATININE 0.48 MG/DL (0.50-1.00); GLOMERULAR FILTRATION RATE 124 ML/MIN (>89); GLUCOSE,RANDOM 111 MG/DL (74-106); MAGNESIUM 1.5 MG/DL (1.5-2.5); PHOSPHORUS 4.1 MG/DL (2.5-4.9); SODIUM (NA) 138 MEQ/L (136-145); TOTAL BILIRUBIN ADULT 0.1 MG/DL (0.2-1.0); TOTAL PROTEIN 6.2 GM/DL (6.4-8.2)
[2017-11-02 07:10] LABS: TROPONIN I 0.77 NG/ML (0.02-0.05)
[2017-11-02] MEDS: DOCUSATE SODIUM 50 MG/SENNA 8.6 MG TAB PO SCH ×2 (08:05→19:58)
[2017-11-02] MEDS: DIAZEPAM 5 MG TAB PO PRN (08:05)
[2017-11-02] MEDS: FUROSEMIDE 40 MG TAB PO SCH (08:06)
[2017-11-02] MEDS: ENALAPRIL MALEATE 10 MG TAB PO SCH (08:06)
[2017-11-02] MEDS: FAMOTIDINE 20 MG TAB PO SCH ×2 (08:06→19:57)
[2017-11-02] MEDS: FLUCONAZOLE 100 MG TAB PO SCH (08:07)
[2017-11-02] MEDS: ASPIRIN EC 81 MG TABEC PO SCH (08:07)
[2017-11-02] MEDS: SODIUM CHLORIDE 0.9% FLUSH 10 ML FLUSH IV FLUSH SCH ×2 (08:07→19:57)
[2017-11-02] MEDS: BACLOFEN 10 MG TAB PO SCH ×3 (08:07→17:23)
[2017-11-02] MEDS: POTASSIUM CHLORIDE 20 MEQ CONTROLLED RELEASE TAB PO SCH (08:58)
[2017-11-02 09:04] LABS: OVALOCYTES 1+ (NORMAL)
[2017-11-02] MEDS: ENOXAPARIN SODIUM 60 MG/0.6 ML SYRINGE SQ SCH ×2 (10:53→20:43)
--- NOTE | 2017-11-02 16:02 | HHI.PR ---
Subjective Remarks The patient denies chest pain or shortness of breath. Oxygen requirement improving. The patient is down to 3 L nasal cannula. As per RN report the patient has been complaining of headache earlier today. Objective Vitals Vital Signs Date Time Temp Pulse Resp B/P (MAP) Pulse Ox O2 Delivery O2 Flow Rate FiO2 11/02/17 14:54 18 11/02/17 14:00 82 11/02/17 12:00 75 11/02/17 12:00 97.8 75 14 136/62 (86) 98 11/02/17 10:00 85 11/02/17 09:52 Nasal Cannula 3.00 11/02/17 08:00 98.4 83 18 150/66 (94) 98 11/02/17 08:00 80 11/02/17 06:00 81 11/02/17 04:00 98.0 73 16 127/60 (82) 95 11/02/17 04:00 73 11/02/17 03:00 75 15 112/59 (76) 99 11/02/17 02:00 70 13 117/56 (76) 100 11/02/17 02:00 70 11/02/17 01:00 65 15 125/60 (81) 99 11/02/17 00:00 68 11/02/17 00:00 97.9 68 16 118/58 (78) 97 11/01/17 23:00 76 16 125/60 (81) 100 11/01/17 22:00 74 11/01/17 22:00 74 19 141/65 (90) 99 11/01/17 21:09 99 Nasal Cannula 4.00 11/01/17 21:00 80 26 129/62 (84) 99 11/01/17 20:00 83 11/01/17 20:00 97.8 83 29 147/68 (94) 98 11/01/17 19:00 80 27 132/60 (84) 98 11/01/17 18:00 82 I/O 11/01/17 11/01/17 11/01/17 11/02/17 11/02/17 11/02/17 07:00 15:00 23:00 07:00 15:00 23:00 Intake Total 350 ml 100 ml 720 ml 600 ml Output Total 450 ml 900 ml 550 ml Balance -100 ml 100 ml -180 ml 50 ml Intake Oral 720 ml 250 ml IV Total 350 ml 100 ml 350 ml Output Urine Total 450 ml 900 ml 550 ml # Bowel Movements 1 0 0 Result Diagram: 11/02/1761911/02/17619 Objective Remarks GENERAL: Elderly cachectic and frail -appearing female tachypneic on NC. SKIN: Warm and dry. HEAD: Normocephalic. EYES: No scleral icterus. No injection or drainage. NECK: Supple, trachea midline. No JVD or lymphadenopathy. CARDIOVASCULAR: Irregular, no murmurs rubs or gallops. RESPIRATORY: Mildly tachypneic but no accessory muscle use. Diminished breath sounds BL. GASTROINTESTINAL: Abdomen soft, non-tender, nondistended. : Johnson in place with light yellow urine output per MUSCULOSKELETAL: SCDs in place. No edema. NEURO: Alert, awake. Not able to answer questions of orientation. She moves extremities spontaneously. A/P Problem List: (1) Acute hypercapnic respiratory failure ICD Code: J96.02 - Acute respiratory failure with hypercapnia Plan: Due to COPD exacerbation and suspected healthcare associated pneumonia. Status post BiPAP. Continue supplemental oxygen to keep oxygen saturation more than 90%. Continue DuoNeb treatments. Continue IV antibiotics -patient currently on IV Rocephin and IV azithromycin. Chest x-ray on admission shows stable left lower lobe airspace disease with more apparent small right pleural effusion. 11/02 patient states she is on home oxygen at 3 L nasal cannula at home. (2) COPD exacerbation ICD Code: J44.1 - Chronic obstructive pulmonary disease with (acute) exacerbation Status: Acute Plan: Continue IV Solu-Medrol. Supplemental oxygen DuoNeb treatments IV antibiotics as above. 11/02 discontinue IV Solu-Medrol and start the patient oral prednisone. (3) UTI (urinary tract infection) ICD Code: N39.0 - Urinary tract infection, site not specified Plan: UA positive and urine culture growing Bree glabrata. Continue oral fluconazole. (4) Elevated troponin ICD Code: R74.8 - Abnormal levels of other serum enzymes Plan: Troponin elevated on admission at 5.94, trending down. Suspect due to demand ischemia. We will recheck troponin. Patient has been seen by cardiology on a previous admission. As per cardiology report on 10/20 patient is quite frail and palliative care has been consulted. Due to her end stage COPD she is not likely to be a good candidate for intervention at this time. (5) Hypokalemia ICD Code: E87.6 - Hypokalemia Plan: Replace and monitor BMP. (6) Hypomagnesemia ICD Code: E83.42 - Hypomagnesemia Status: Resolved Plan: Replace with IV magnesium sulfate as needed. Monitor magnesium. (7) Hypothyroidism ICD Code: E03.9 - Hypothyroidism, unspecified Status: Chronic Plan: Continue levothyroxine. TSH could be followed as an outpatient. (8) HTN (hypertension) ICD Code: I10 - Essential (primary) hypertension Plan: BP seems to be stable. Continue current antihypertensive medications. Patient currently on Avapro. (9) HLD (hyperlipidemia) ICD Code: E78.5 - Hyperlipidemia, unspecified Plan: On statin. Continue. Assessment and Plan DVT prophylaxis: Lovenox subcutaneously. Discharge Planning Okay to transfer to the medical floor. Discharge in a.m. Physical therapy is recommended rehab placement. Discharge planning. Problem Qualifiers (1) Hypothyroidism: Qualified Codes: E03.9 - Hypothyroidism, unspecified (2) HTN (hypertension): Qualified Codes: I10 - Essential (primary) hypertension (3) HLD (hyperlipidemia): Qualified Codes: E78.5 - Hyperlipidemia, unspecified Mark Carpenter MD November 02, 2017 16:02
--- NOTE | 2017-11-02 19:14 | HHI.HCPN ---
Reason for visit a. To assist with evaluation and management of symptoms including:pain, dyspnea b. To assist medical decision maker(s) with: better understanding of current medical conditions; weighing benefits/burdens of medical treatment options; making medical treatment decisions. Subjective/Interval History Patient is remains somewhat confused, but memory is better. Continue to endorse dyspnea, and pain of neck and abdomen (constant). She is did say she wants to go home. I explained that for her to go home, with the way her condition is would be hospice. Patient appears confuse and just want to go home. Family/friend interactions not at bedside today. Advance Directives Living Will: Never completed Health Care Surrogate: Never completed Durable Power of Radio Mechanic: Never completed Objective Vital Signs Date Time Temp Pulse Resp B/P (MAP) Pulse Ox O2 Delivery O2 Flow Rate FiO2 11/02/17 18:00 79 11/02/17 16:00 98.0 70 18 169/77 (107) 98 11/02/17 16:00 74 11/02/17 14:54 18 11/02/17 14:00 82 11/02/17 12:00 75 11/02/17 12:00 97.8 75 14 136/62 (86) 98 11/02/17 10:00 85 11/02/17 09:52 Nasal Cannula 3.00 11/02/17 08:00 98.4 83 18 150/66 (94) 98 11/02/17 08:00 80 11/02/17 06:00 81 11/02/17 04:00 98.0 73 16 127/60 (82) 95 11/02/17 04:00 73 11/02/17 03:00 75 15 112/59 (76) 99 11/02/17 02:00 70 13 117/56 (76) 100 11/02/17 02:00 70 11/02/17 01:00 65 15 125/60 (81) 99 11/02/17 00:00 68 11/02/17 00:00 97.9 68 16 118/58 (78) 97 11/01/17 23:00 76 16 125/60 (81) 100 11/01/17 22:00 74 11/01/17 22:00 74 19 141/65 (90) 99 11/01/17 21:09 99 Nasal Cannula 4.00 11/01/17 21:00 80 26 129/62 (84) 99 11/01/17 20:00 83 11/01/17 20:00 97.8 83 29 147/68 (94) 98 Physical Exam CONSTITUTIONAL/GENERAL: This is frail elderly lady, dyspneic, confused . TUBES/LINES/DRAINS: SKIN: No jaundice, rashes, or lesions. Ecchymoses on upper extremities. No wounds seen anteriorly. Skin temperature appropriate. Not diaphoretic. HEAD: Atraumatic. Normocephalic. EYES: Pupils equal and round and reactive. Extraocular motions intact. No scleral icterus. No injection or drainage. Fundi not examined. ENT: Hearing grossly normal. Nose without bleeding or purulent drainage. Throat without visible erythema, exudates, masses, or lesions. NECK: Trachea midline. Supple, nontender. No palpable thyroid enlargement or nodularity. CARDIOVASCULAR: Regular rate and rhythm without murmurs, gallops, or rubs. No JVD. Peripheral pulses symmetric. RESPIRATORY/CHEST: Decrease breath sound bilaterally, tachypnea. GASTROINTESTINAL: Abdomen soft, non-tender, nondistended. No hepato-splenomegaly , or palpable masses. No guarding. Bowel sounds present. GENITOURINARY: Without palpable bladder distension. Johnson catheter in place. MUSCULOSKELETAL: Extremities without clubbing, cyanosis, or edema. No joint tenderness or effusion noted. No calf tenderness. No mottling or clubbing. LYMPHATICS: No palpable cervical or supraclavicular adenopathy. NEUROLOGICAL: Awake and alert.confused PSYCHIATRIC: some anxiety noted. Diagnostic Tests Laboratory Laboratory Tests Test 10/30/17 20:51 10/31/17 04:29 10/31/17 06:27 11/02/17 06:20 Potassium Level 3.6 MEQ/L (3.5-5.1) 3.3 MEQ/L (3.5-5.1) 5.2 MEQ/L (3.5-5.1) Phosphorus Level 2.8 MG/DL (2.5-4.9) 4.1 MG/DL (2.5-4.9) Magnesium Level 1.4 MG/DL (1.5-2.5) 1.5 MG/DL (1.5-2.5) Blood Urea Nitrogen 13 MG/DL (7-18) 15 MG/DL (7-18) Creatinine 0.34 MG/DL (0.50-1.00) 0.48 MG/DL (0.50-1.00) Random Glucose 102 MG/DL (74-106) 111 MG/DL (74-106) Calcium Level 8.4 MG/DL (8.5-10.1) 8.1 MG/DL (8.5-10.1) Sodium Level 145 MEQ/L (136-145) 138 MEQ/L (136-145) Chloride Level 100 MEQ/L (98-107) 98 MEQ/L (98-107) Carbon Dioxide Level 38.0 MEQ/L (21.0-32.0) 33.9 MEQ/L (21.0-32.0) Anion Gap 7 MEQ/L (5-15) 6 MEQ/L (5-15) Estimat Glomerular Filtration Rate 184 ML/MIN (>89) 124 ML/MIN (>89) White Blood Count 8.3 TH/MM3 (4.0-11.0) 10.0 TH/MM3 (4.0-11.0) Red Blood Count 4.10 MIL/MM3 (4.00-5.30) 4.73 MIL/MM3 (4.00-5.30) Hemoglobin 9.5 GM/DL (11.6-15.3) 10.7 GM/DL (11.6-15.3) Hematocrit 31.4 % (35.0-46.0) 37.6 % (35.0-46.0) Mean Corpuscular Volume 76.5 FL (80.0-100.0) 79.5 FL (80.0-100.0) Mean Corpuscular Hemoglobin 23.1 PG (27.0-34.0) 22.7 PG (27.0-34.0) Mean Corpuscular Hemoglobin Concent 30.2 % (32.0-36.0) 28.5 % (32.0-36.0) Red Cell Distribution Width 20.9 % (11.6-17.2) 21.6 % (11.6-17.2) Platelet Count 306 TH/MM3 (150-450) 190 TH/MM3 (150-450) Mean Platelet Volume 8.9 FL (7.0-11.0) 8.9 FL (7.0-11.0) Neutrophils (%) (Auto) 95.5 % (16.0-70.0) 94.8 % (16.0-70.0) Lymphocytes (%) (Auto) 2.2 % (9.0-44.0) 1.8 % (9.0-44.0) Monocytes (%) (Auto) 2.2 % (0.0-8.0) 2.7 % (0.0-8.0) Eosinophils (%) (Auto) 0.0 % (0.0-4.0) 0.6 % (0.0-4.0) Basophils (%) (Auto) 0.1 % (0.0-2.0) 0.1 % (0.0-2.0) Neutrophils # (Auto) 7.9 TH/MM3 (1.8-7.7) 9.5 TH/MM3 (1.8-7.7) Lymphocytes # (Auto) 0.2 TH/MM3 (1.0-4.8) 0.2 TH/MM3 (1.0-4.8) Monocytes # (Auto) 0.2 TH/MM3 (0-0.9) 0.3 TH/MM3 (0-0.9) Eosinophils # (Auto) 0.0 TH/MM3 (0-0.4) 0.1 TH/MM3 (0-0.4) Basophils # (Auto) 0.0 TH/MM3 (0-0.2) 0.0 TH/MM3 (0-0.2) CBC Comment DIFF FINAL AUTO DIFF Differential Comment AUTO DIFF CONFIRMED Ovalocytes 1+ (NORMAL) Hematology Comments Total Protein 6.2 GM/DL (6.4-8.2) Albumin 2.8 GM/DL (3.4-5.0) Alkaline Phosphatase 102 U/L (45-117) Aspartate Amino Transf (AST/SGOT) 25 U/L (15-37) Alanine Aminotransferase (ALT/SGPT) 21 U/L (10-53) Total Bilirubin 0.1 MG/DL (0.2-1.0) Troponin I 0.77 NG/ML (0.02-0.05) Result Diagram: 11/02/1761911/02/17619 Assessment and Plan Disease Oriented Problem List: (1) CHF (congestive heart failure) (2) Chronic pain (3) COPD (chronic obstructive pulmonary disease) (4) NSTEMI, initial episode of care Symptom Scale: (1) Dyspnea 0-10 Scale: Unable to quantify (2) Chronic pain 0-10 Scale: Unable to quantify Pertinent Non-Medical Issues Psychosocial: Originally from [place], [place]. - spouse from cancer. Have 2 sons. 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 Spiritual:christianity. did not give denomination Legal: did not want to complete advance directives today. Ethical issues impacting care: none at this point. Important Contacts Jt Miller- [phone] and Kevan Miller [phone] Prognosis multiple hospital admission for dyspnea, with chf and copd. Complicated by chronic pain. She is appropriate for hospice if goals of care was comforted oriented. Code Status: Alternative Code Plan == capacity to make medical decision- remains confused. Pt's son sees her confusion and said that she has been confused since last GI procedure, which was 3 weeks ago. I do not feel patient at this current time have the ability to weigh the risk and benefits of medical decisions. Pt does have potential to regain capacity to make medical decisions, but I suspect it will not last long given pt's clinical condition. == health care decision maker- Pt has no spouse, and pt's 2 sons who are at bedside are the healthcare proxy under [place] statuets. == code: DNR == goals of treatment: palliative care have seen patient multiple times. I have spoken with son multiple times review pt's respiratory status, NSTEMI, right sided heart problem. She is not a candidate for any invasive therapy. Patient son, especially Jt has been offered hospice for mother multiple times, continue to ask me for a few more days, and to hold off hospice consultation. * == Hospice was reviewed agian, family at this time wants me to hold off consulting hospice at this time. * == Sons see patients' decline, but want a few more days of aggressive measures. * == goals remains aggressive short of DNR. == symptoms. dyspnea- 2nd to longstanding copd, with cardiac component. bipap as necessary, continue nebs and other treatment. Pain- has chronic abdominal and back /cervical pain. However given pt is critical condition, and still semi-aggressive goals of care , no further med rec at this current time. Anxiety: seems a bit better, valium available. == palliative care will continue to make recommendations for symptoms, and review goals of treatment as clinical conditions evolves. Attestation To help prompt me to consider important information that might be impacting today's encounter and assessment, information from prior notes written by myself or my colleagues may have been "brought forward" into today's note. My signature on this note, however, is an attestation that I personally performed the exam, history, and/or decision-making noted today, and, unless otherwise indicated, the interactions with patient, family, and staff as well as the review of records all occurred today. I also attest that the listed assessment and stated plan reflect my best clinical judgment today based on the combination of historical information, prior notes, and today's exam/ interactions. When time spent is documented, it refers only to time spent today by the signer, or if indicated, combined time spent today by collaborating physician/nurse practitioner. Jase Estrada MD November 02, 2017 19:14
--- NOTE | 2017-11-02 19:26 | ECHRPT ---
Indication: HEART FAILURE CONCLUSIONS Normal left ventricular size. Mild concentric left ventricular hypertrophy. The left ventricular systolic function is hyperdynamic with an estimated ejection fraction in the ra nge of 65- 70%. The right atrial size is mildly dilated. A patent foramen ovale is present with a ljdb-or-nkjkv shunt demonstrated by color flow Doppler interrogation. Xvqu-wc-ktsvgtco mitral valve regurgitation. Aortic valve sclerosis is present. Juwf-qb-omyaqpuf aortic valve regurgitation. There is moderate tricuspid regurgitation. The estimated pulmonary arterial pressure is 74.3 mmHg. There is estimated severe pulmonary hypertension present ( > 70 mmHg). Mild to moderate pulmonary valve regurgitation. A large right sided pleural effusion is present. Trace pericardial effusion. BP: 150 / 66 HR: 80 Rhythm: Sinus MEASUREMENTS (Male / Female) Normal Values Technical Quality:Fair 2D ECHO LV Diastolic Diameter PLAX 4.5 cm 4.2 - 5.9 / 3.9 - 5.3 cm LV Systolic Diameter PLAX 3.1 cm IVS Diastolic Thickness 1.2 cm 0.6 - 1.0 / 0.6 - 0.9 cm LVPW Diastolic Thickness 1.2 cm 0.6 - 1.0 / 0.6 - 0.9 cm LV Relative Wall Thickness 0.5 RV Internal Dim ED PLAX 3.7 cm LVOT Diameter 1.9 cm Aortic Root Diameter 3.1 cm LA Systolic Diameter LX 3.8 cm 3.0 - 4.0 / 2.7 - 3.8 cm M-MODE AV Cusp Separation MM 1.8 cm DOPPLER AI Peak Velocity 389.0 cm/s AI Peak Gradient 60.5 mmHg AI Pressure Half Time 331.0 ms LVOT Peak Velocity 119.0 cm/s LVOT Peak Gradient 5.7 mmHg LVOT Velocity Time Integral 20.5 cm Mitral E Point Velocity 91.8 cm/s Mitral A Point Velocity 141.0 cm/s Mitral E to A Ratio 0.7 LV E' Lateral Velocity 4.9 cm/s Mitral E to LV E' Lateral Ratio 18.9 LV E' Septal Velocity 5.0 cm/s Mitral E to LV E' Septal Ratio 18.5 TR Peak Velocity 385.0 cm/s TR Peak Gradient 59.3 mmHg Right Atrial Pressure 15.0 mmHg Pulmonary Artery Systolic Pressu 74.3 mmHg Right Ventricular Systolic Press 74.3 mmHg PV Peak Velocity 75.9 cm/s PV Peak Gradient 2.3 mmHg FINDINGS LEFT VENTRICLE Normal left ventricular size. Mild concentric left ventricular hypertrophy. The left ventricular systolic function is hyperdynamic with an estimated ejection fraction in the ra nge of 65- 70%. RIGHT VENTRICLE Normal right ventricular size and systolic function. LEFT ATRIUM The left atrial size is normal. RIGHT ATRIUM The right atrial size is mildly dilated. ATRIAL SEPTUM A patent foramen ovale is present with a uxls-iw-gsugi shunt demonstrated by color flow Doppler interrogation. AORTA The aortic root and proximal ascending aorta are normal in size on limited imaging. MITRAL VALVE Llnw-wi-aqmystsq mitral valve regurgitation. AORTIC VALVE Aortic valve sclerosis is present. Jqhy-yw-esdagevz aortic valve regurgitation. TRICUSPID VALVE There is moderate tricuspid regurgitation. The estimated pulmonary arterial pressure is 74.3 mmHg. There is estimated severe pulmonary hypertension present ( > 70 mmHg). PULMONARY VALVE Mild to moderate pulmonary valve regurgitation. VESSELS The inferior vena cava is normal in size. PERICARDIUM A large right sided pleural effusion is present. Trace pericardial effusion. Gene Fuentes MD, FACC (Electronically Signed) Final Date:02 Nov 2017 19:25
[2017-11-02] MEDS: ZOLPIDEM TARTRATE 10 MG TAB PO SCH (19:57)
[2017-11-02] MEDS: predniSONE 20 MG TAB PO SCH (19:57)
[2017-11-02] MEDS: PRAVASTATIN SOD 20 MG TAB PO SCH (19:58)
[2017-11-03] VITALS (16 sets, daily range): BP systolic 107–136; BP diastolic 50–63; PULSE 63–139; RESP 14–30; TEMP 97.8–98.8; O2SAT 95–100
[2017-11-03] MEDS: AZITHROMYCIN INJ 500 MG in SODIUM CHLOR 0.9% 250 ML INJ 250 ML IV SCH (01:27)
[2017-11-03] MEDS: DIAZEPAM 5 MG TAB PO PRN ×3 (02:21→20:21)
[2017-11-03] MEDS: CHLORHEXIDINE GLUCONATE 2 % 1 PACK (2 CLOTHS) TOP SCH (02:21)
[2017-11-03] MEDS: cefTRIAXone INJ 1,000 MG in SODIUM CHLORIDE 0.9% INJ 100 ML IV SCH ×2 (02:21→14:13)
[2017-11-03] MEDS: LEVOTHYROXINE SODIUM 100 MCG TAB PO SCH (05:37)
[2017-11-03] MEDS: ACETAMINOPHEN/HYDROcodone 325 MG/5 MG TAB PO PRN ×4 (05:58→21:33)
[2017-11-03] MEDS: RESP: ALBUTEROL 2.5 MG/IPRATROPIUM 0.5 MG NEB (PRN) INH (06:24)
[2017-11-03] MEDS: FLUCONAZOLE 100 MG TAB PO SCH (09:18)
[2017-11-03] MEDS: ENALAPRIL MALEATE 10 MG TAB PO SCH (09:18)
[2017-11-03] MEDS: ASPIRIN EC 81 MG TABEC PO SCH (09:18)
[2017-11-03] MEDS: FUROSEMIDE 40 MG TAB PO SCH (09:18)
[2017-11-03] MEDS: BACLOFEN 10 MG TAB PO SCH ×3 (09:18→16:42)
[2017-11-03] MEDS: DOCUSATE SODIUM 50 MG/SENNA 8.6 MG TAB PO SCH ×2 (09:18→20:21)
[2017-11-03] MEDS: POTASSIUM CHLORIDE 20 MEQ CONTROLLED RELEASE TAB PO SCH (09:19)
[2017-11-03] MEDS: FAMOTIDINE 20 MG TAB PO SCH ×2 (09:19→20:21)
[2017-11-03] MEDS: predniSONE 20 MG TAB PO SCH ×2 (09:19→20:21)
[2017-11-03] MEDS: SODIUM CHLORIDE 0.9% FLUSH 10 ML FLUSH IV FLUSH SCH ×2 (09:19→20:21)
[2017-11-03] MEDS: ENOXAPARIN SODIUM 60 MG/0.6 ML SYRINGE SQ SCH ×2 (09:19→20:21)
--- NOTE | 2017-11-03 15:35 | HHI.PR ---
Subjective Remarks f/u CHF Patient's shortness of breath better, on nasal cannula. No overnight events. Objective Vitals Vital Signs Date Time Temp Pulse Resp B/P (MAP) Pulse Ox O2 Delivery O2 Flow Rate FiO2 11/03/17 14:00 76 11/03/17 12:32 20 11/03/17 12:00 79 11/03/17 12:00 98.0 79 25 136/62 (86) 95 11/03/17 11:11 16 11/03/17 10:00 80 11/03/17 09:00 95 Nasal Cannula 3.00 11/03/17 08:00 139 11/03/17 08:00 98.8 139 27 134/63 (86) 97 11/03/17 06:00 79 11/03/17 04:00 98.0 69 14 121/60 (80) 100 11/03/17 04:00 69 11/03/17 03:00 69 18 109/54 (72) 98 11/03/17 02:00 89 30 131/60 (83) 98 11/03/17 02:00 89 11/03/17 01:00 63 16 114/53 (73) 98 11/03/17 00:00 69 11/03/17 00:00 97.8 69 18 123/58 (79) 99 11/02/17 23:00 70 18 128/63 (84) 98 11/02/17 22:00 71 11/02/17 22:00 71 21 123/56 (78) 95 11/02/17 21:02 98 Nasal Cannula 3.00 11/02/17 21:00 73 24 127/61 (83) 95 11/02/17 20:00 76 27 97 11/02/17 20:00 76 11/02/17 19:12 98.4 75 25 125/58 (80) 97 11/02/17 19:00 74 23 98 11/02/17 18:00 79 11/02/17 16:00 98.0 70 18 169/77 (107) 98 11/02/17 16:00 74 I/O 11/02/17 11/02/17 11/02/17 11/03/17 11/03/17 11/03/17 07:00 15:00 23:00 07:00 15:00 23:00 Intake Total 600 ml 100 ml 300 ml 500 ml 100 ml Output Total 550 ml 1000 ml 1000 ml Balance 50 ml 100 ml -700 ml -500 ml 100 ml Intake Oral 250 ml 300 ml 150 ml IV Total 350 ml 100 ml 350 ml 100 ml Output Urine Total 550 ml 1000 ml 1000 ml # Bowel Movements 0 0 2 Result Diagram: 11/02/1761911/02/17619 Objective Remarks GENERAL: Elderly cachectic and frail -appearing female CARDIOVASCULAR: Irregular, no murmurs rubs or gallops. RESPIRATORY: Diminished bilaterally, no wheezing. GASTROINTESTINAL: Abdomen soft, non-tender, nondistended. MUSCULOSKELETAL: SCDs in place. No edema. NEURO: Alert, awake, oriented to place, person and month. Moves extremities spontaneously. A/P Problem List: (1) Acute hypercapnic respiratory failure ICD Code: J96.02 - Acute respiratory failure with hypercapnia (2) COPD exacerbation ICD Code: J44.1 - Chronic obstructive pulmonary disease with (acute) exacerbation Status: Acute (3) UTI (urinary tract infection) ICD Code: N39.0 - Urinary tract infection, site not specified (4) Elevated troponin ICD Code: R74.8 - Abnormal levels of other serum enzymes (5) Hypokalemia ICD Code: E87.6 - Hypokalemia (6) Hypomagnesemia ICD Code: E83.42 - Hypomagnesemia Status: Resolved (7) Hypothyroidism ICD Code: E03.9 - Hypothyroidism, unspecified Status: Chronic (8) HTN (hypertension) ICD Code: I10 - Essential (primary) hypertension (9) HLD (hyperlipidemia) ICD Code: E78.5 - Hyperlipidemia, unspecified Assessment and Plan Acute hypercapnic respiratory failure secondary to COPD exacerbation and pneumonia-status post BiPAP, continue oxygen supplementation, duo nebs, antibiotics ceftriaxone and azithromycin, finished azithromycin, switch ceftriaxone to Ceftin.. Chest x-ray showed left lower lobe airspace disease with right pleural effusion. She is on 2 L of oxygen at home. Continue steroids taper orally. UTI-UA positive and urine culture growing Bree glabrata. Continue oral fluconazole. Elevated troponin-troponin elevated on admission at 5.94, trending down.Suspect due to demand ischemia. Patient has been seen by cardiology on a previous admission. As per cardiology report on 10/20 patient is quite frail and palliative care has been consulted. Due to her end stage COPD she is not likely to be a good candidate for intervention at this time. Hypertension-continue antihypertensives Hypothyroidism-continue medications DVT prophylaxis: Lovenox Transfer to [facility], physical therapy. Problem Qualifiers (1) Hypothyroidism: Qualified Codes: E03.9 - Hypothyroidism, unspecified (2) HTN (hypertension): Qualified Codes: I10 - Essential (primary) hypertension (3) HLD (hyperlipidemia): Qualified Codes: E78.5 - Hyperlipidemia, unspecified Sabas Harvey MD November 03, 2017 15:35
[2017-11-03] MEDS: RESP: ALBUTEROL 2.5 MG/IPRATROPIUM 0.5 MG NEB (SCH) NEB (20:04)
[2017-11-03] MEDS: CEFUROXIME AXETIL 500 MG TAB PO SCH (20:21)
[2017-11-03] MEDS: ZOLPIDEM TARTRATE 10 MG TAB PO SCH (20:21)
[2017-11-03] MEDS: PRAVASTATIN SOD 20 MG TAB PO SCH (20:21)
[2017-11-04] VITALS (14 sets, daily range): BP systolic 111–143; BP diastolic 53–65; PULSE 63–90; RESP 14–28; TEMP 97.9–98.5; O2SAT 91–98
[2017-11-04] MEDS: CHLORHEXIDINE GLUCONATE 2 % 1 PACK (2 CLOTHS) TOP SCH (03:31)
[2017-11-04] MEDS: LEVOTHYROXINE SODIUM 100 MCG TAB PO SCH (06:18)
[2017-11-04 06:43] LABS: AUTOMATED NEUTROPHIL # 9.5 TH/MM3 (1.8-7.7); BASOPHIL % 0.1 % (0.0-2.0); HEMATOCRIT 33.9 % (35.0-46.0); HEMOGLOBIN 9.9 GM/DL (11.6-15.3); LYMPH % 2.3 % (9.0-44.0); LYMPHOCYTE # 0.2 TH/MM3 (1.0-4.8); MEAN CELL VOLUME 77.6 FL (80.0-100.0); MEAN CORPUSCULAR HEMOGLOBIN 22.7 PG (27.0-34.0); MEAN PLATELET VOLUME 8.2 FL (7.0-11.0); MONO % 4.5 % (0.0-8.0); MONOCYTE # 0.5 TH/MM3 (0-0.9); NEUT % 93.1 % (16.0-70.0); PLATELET COUNT 270 TH/MM3 (150-450); RED BLOOD COUNT 4.37 MIL/MM3 (4.00-5.30); RED CELL DISTRIBUTION WIDTH 21.7 % (11.6-17.2); WHITE BLOOD COUNT 10.2 TH/MM3 (4.0-11.0)
[2017-11-04] MEDS: ACETAMINOPHEN/HYDROcodone 325 MG/5 MG TAB PO PRN ×3 (06:58→22:04)
[2017-11-04 07:02] LABS: CALCIUM 7.7 MG/DL (8.5-10.1); CREATININE 0.41 MG/DL (0.50-1.00)
[2017-11-04 07:17] LABS: MEAN CORPUSCULAR HGB CONC 29.2 % (32.0-36.0)
[2017-11-04] MEDS: RESP: ALBUTEROL 2.5 MG/IPRATROPIUM 0.5 MG NEB (SCH) NEB ×3 (07:37→20:06)
[2017-11-04] MEDS: FAMOTIDINE 20 MG TAB PO SCH ×2 (08:55→22:06)
[2017-11-04] MEDS: DOCUSATE SODIUM 50 MG/SENNA 8.6 MG TAB PO SCH ×2 (08:55→22:04)
[2017-11-04] MEDS: POTASSIUM CHLORIDE 20 MEQ CONTROLLED RELEASE TAB PO SCH (08:55)
[2017-11-04] MEDS: predniSONE 20 MG TAB PO SCH ×2 (08:55→22:06)
[2017-11-04] MEDS: FUROSEMIDE 40 MG TAB PO SCH (08:55)
[2017-11-04] MEDS: CEFUROXIME AXETIL 500 MG TAB PO SCH ×2 (08:55→22:05)
[2017-11-04] MEDS: BACLOFEN 10 MG TAB PO SCH ×3 (08:55→17:07)
[2017-11-04] MEDS: ENALAPRIL MALEATE 10 MG TAB PO SCH (08:56)
[2017-11-04] MEDS: ASPIRIN EC 81 MG TABEC PO SCH (08:56)
[2017-11-04] MEDS: SODIUM CHLORIDE 0.9% FLUSH 10 ML FLUSH IV FLUSH SCH ×2 (08:56→22:08)
[2017-11-04] MEDS: FLUCONAZOLE 100 MG TAB PO SCH (08:56)
[2017-11-04] MEDS: ENOXAPARIN SODIUM 60 MG/0.6 ML SYRINGE SQ SCH ×2 (08:57→22:07)
--- NOTE | 2017-11-04 14:51 | HHI.PR ---
Subjective Remarks Follow-up for shortness of breath Shortness of breath better today than yesterday a nasal cannula. Still with generalized weakness, physical therapy needs to see the patient. CO2 is elevated. Objective Vitals Vital Signs Date Time Temp Pulse Resp B/P (MAP) Pulse Ox O2 Delivery O2 Flow Rate FiO2 11/04/17 12:00 83 11/04/17 12:00 98.3 11/04/17 12:00 98.2 83 28 132/60 (84) 92 11/04/17 10:00 84 11/04/17 08:00 98.5 82 23 143/65 (91) 95 11/04/17 08:00 82 11/04/17 07:58 16 11/04/17 07:37 93 Nasal Cannula 3.00 11/04/17 07:00 93 Nasal Cannula 4.00 11/04/17 06:00 67 11/04/17 04:00 65 11/04/17 04:00 97.9 64 15 111/53 (72) 98 11/04/17 02:00 63 11/04/17 00:00 97.9 70 14 126/58 (80) 98 11/04/17 00:00 71 11/03/17 22:00 74 11/03/17 20:04 97 Nasal Cannula 3.00 11/03/17 20:00 98.1 78 25 107/50 (69) 97 11/03/17 20:00 75 11/03/17 18:00 88 11/03/17 16:00 83 11/03/17 16:00 83 27 133/60 (84) 96 I/O 11/03/17 11/03/17 11/03/17 11/04/17 11/04/17 11/04/17 07:00 15:00 23:00 07:00 15:00 23:00 Intake Total 500 ml 100 ml 720 ml 240 ml Output Total 1000 ml 1050 ml 1250 ml Balance -500 ml 100 ml -330 ml -1010 ml Intake Oral 150 ml 720 ml 240 ml IV Total 350 ml 100 ml Output Urine Total 1000 ml 1050 ml 1250 ml # Bowel Movements 2 0 0 Result Diagram: 11/04/1761411/04/17614 Objective Remarks GENERAL: Elderly cachectic and frail -appearing female CARDIOVASCULAR: Irregular, no murmurs rubs or gallops. RESPIRATORY: Diminished bilaterally, no wheezing. GASTROINTESTINAL: Abdomen soft, non-tender, nondistended. MUSCULOSKELETAL: SCDs in place. No edema. NEURO: Alert, awake, oriented to place, person and month. Moves extremities spontaneously. A/P Problem List: (1) Acute hypercapnic respiratory failure ICD Code: J96.02 - Acute respiratory failure with hypercapnia (2) COPD exacerbation ICD Code: J44.1 - Chronic obstructive pulmonary disease with (acute) exacerbation Status: Acute (3) UTI (urinary tract infection) ICD Code: N39.0 - Urinary tract infection, site not specified (4) Elevated troponin ICD Code: R74.8 - Abnormal levels of other serum enzymes (5) Hypokalemia ICD Code: E87.6 - Hypokalemia (6) Hypomagnesemia ICD Code: E83.42 - Hypomagnesemia Status: Resolved (7) Hypothyroidism ICD Code: E03.9 - Hypothyroidism, unspecified Status: Chronic (8) HTN (hypertension) ICD Code: I10 - Essential (primary) hypertension (9) HLD (hyperlipidemia) ICD Code: E78.5 - Hyperlipidemia, unspecified Assessment and Plan Acute hypercapnic respiratory failure secondary to COPD exacerbation and pneumonia-status post BiPAP, continue oxygen supplementation, duo nebs, antibiotics ceftriaxone and azithromycin, finished azithromycin, switch ceftriaxone to Ceftin. Chest x-ray showed left lower lobe airspace disease with right pleural effusion. She is on 2 L of oxygen at home. Continue steroids taper orally. Blood culture grew coagulase-negative staph both bottles , could be contaminated, CBC has been stable with no leukocytosis, no fever while on ceftriaxone/Ceftin. Repeat blood culture. Clinically not behaving like bacteremia. Repeat chest x-ray tomorrow. UTI-UA positive and urine culture growing Bree glabrata. Continue oral fluconazole. Elevated troponin-troponin elevated on admission at 5.94, trending down.Suspect due to demand ischemia. Patient has been seen by cardiology on a previous admission. As per cardiology report on 10/20 patient is quite frail and palliative care has been consulted. Due to her end stage COPD she is not likely to be a good candidate for intervention at this time. Hypertension-continue antihypertensives Hypothyroidism-continue medications DVT prophylaxis: Lovenox Transfer to [facility], physical therapy. Would likely need SNF Discharge Planning d/c tomorrow once with placement. Problem Qualifiers (1) Hypothyroidism: Qualified Codes: E03.9 - Hypothyroidism, unspecified (2) HTN (hypertension): Qualified Codes: I10 - Essential (primary) hypertension (3) HLD (hyperlipidemia): Qualified Codes: E78.5 - Hyperlipidemia, unspecified Sabas Harvey MD November 04, 2017 14:51
[2017-11-04] MEDS: SUMAtriptan SUCCINATE 50 MG TAB PO PRN (17:08)
[2017-11-04] MEDS: DIAZEPAM 5 MG TAB PO PRN (17:08)
[2017-11-04] MEDS: PRAVASTATIN SOD 20 MG TAB PO SCH (22:06)
[2017-11-04] MEDS: ZOLPIDEM TARTRATE 10 MG TAB PO SCH (22:06)
[2017-11-04] MEDS: ONDANSETRON HCL 4 MG/2 ML VIAL IV PUSH PRN (22:07)
[2017-11-05] VITALS (14 sets, daily range): BP systolic 112–141; BP diastolic 54–65; PULSE 67–85; RESP 14–27; TEMP 97.3–98.2; O2SAT 95–97
[2017-11-05] MEDS: CHLORHEXIDINE GLUCONATE 2 % 1 PACK (2 CLOTHS) TOP SCH (04:00)
[2017-11-05] MEDS: LEVOTHYROXINE SODIUM 100 MCG TAB PO SCH (05:37)
[2017-11-05] MEDS: ACETAMINOPHEN/HYDROcodone 325 MG/5 MG TAB PO PRN ×4 (05:37→20:34)
[2017-11-05] MEDS: RESP: ALBUTEROL 2.5 MG/IPRATROPIUM 0.5 MG NEB (SCH) NEB ×2 (07:53→14:00)
[2017-11-05] MEDS: FAMOTIDINE 20 MG TAB PO SCH ×2 (08:47→20:18)
[2017-11-05] MEDS: ENALAPRIL MALEATE 10 MG TAB PO SCH (08:48)
[2017-11-05] MEDS: FLUCONAZOLE 100 MG TAB PO SCH (08:48)
[2017-11-05] MEDS: POTASSIUM CHLORIDE 20 MEQ CONTROLLED RELEASE TAB PO SCH (08:48)
[2017-11-05] MEDS: BACLOFEN 10 MG TAB PO SCH ×3 (08:48→18:24)
[2017-11-05] MEDS: CEFUROXIME AXETIL 500 MG TAB PO SCH ×2 (08:48→20:18)
[2017-11-05] MEDS: SODIUM CHLORIDE 0.9% FLUSH 10 ML FLUSH IV FLUSH SCH ×2 (08:48→20:17)
[2017-11-05] MEDS: FUROSEMIDE 40 MG TAB PO SCH (08:48)
[2017-11-05] MEDS: predniSONE 20 MG TAB PO SCH ×2 (08:48→20:18)
[2017-11-05] MEDS: ASPIRIN EC 81 MG TABEC PO SCH (08:48)
[2017-11-05] MEDS: ENOXAPARIN SODIUM 60 MG/0.6 ML SYRINGE SQ SCH ×2 (08:49→20:18)
[2017-11-05] MEDS: DOCUSATE SODIUM 50 MG/SENNA 8.6 MG TAB PO SCH ×2 (08:49→20:18)
--- NOTE | 2017-11-05 11:15 | HHI.PR ---
Subjective Remarks Patient is mildly confused today (baseline). She wishes to return home. Family is not yet willing to take her home immediately. Family is also not yet ready to discharge to hospice. SNF would be an alternative option in this scenario. However, repeat blood cultures are still pending. Patient not yet ready for discharge. Objective Vital Signs Date Time Temp Pulse Resp B/P (MAP) Pulse Ox O2 Delivery O2 Flow Rate FiO2 11/05/17 08:00 84 11/05/17 08:00 97.9 84 22 137/63 (87) 96 11/05/17 07:53 95 Nasal Cannula 2.00 11/05/17 04:00 67 11/05/17 04:00 98.0 67 19 115/56 (75) 95 11/05/17 02:00 69 11/05/17 00:00 98.2 85 22 112/54 (73) 96 11/05/17 00:00 85 11/04/17 23:04 22 11/04/17 22:00 88 11/04/17 20:06 97 Nasal Cannula 3.00 11/04/17 20:00 96 Nasal Cannula 4.00 11/04/17 20:00 83 11/04/17 20:00 98.4 83 25 128/59 (82) 96 11/04/17 18:08 18 11/04/17 18:00 80 11/04/17 16:00 98.0 90 25 138/62 (87) 91 11/04/17 16:00 90 11/04/17 14:00 85 11/04/17 12:00 83 11/04/17 12:00 98.3 11/04/17 12:00 98.2 83 28 132/60 (84) 92 I/O 11/04/17 11/04/17 11/04/17 11/05/17 11/05/17 11/05/17 07:00 15:00 23:00 07:00 15:00 23:00 Intake Total 240 ml 1200 ml 120 ml Output Total 1250 ml 1350 ml 750 ml Balance -1010 ml -150 ml -630 ml Intake Oral 240 ml 1200 ml 120 ml Output Urine Total 1250 ml 1350 ml 750 ml # Bowel Movements 0 0 1 Result Diagram: 11/04/1715 11/04/17614 Objective Remarks GENERAL: NAD, A&Ox1 HEAD: Normocephalic. NECK: Supple, trachea midline. No lymphadenopathy. EYES: No scleral icterus. No injection or drainage. CARDIOVASCULAR: Regular rate and rhythm without murmurs, gallops, or rubs. RESPIRATORY: Breath sounds equal bilaterally. No accessory muscle use. GASTROINTESTINAL: Abdomen soft, non-tender, nondistended. MUSCULOSKELETAL: No cyanosis, or edema. SKIN: Warm and dry. NEURO: No focal neurological deficitis. A/P Problem List: (1) COPD exacerbation ICD Code: J44.1 - Chronic obstructive pulmonary disease with (acute) exacerbation Status: Acute (2) Acute hypercapnic respiratory failure ICD Code: J96.02 - Acute respiratory failure with hypercapnia Assessment and Plan 82 year old female admitted with COPD Exacerbation and Pneumonia Acute hypercapnic respiratory failure COPD exacerbation Chronic respiratory failure pneumonia Continue oxygen Continue duo nebs Continue ceftriaxone Continue azithromycin Bacteremia Follow blood cultures Bree UTI Continue fluconazole Coronary artery disease Cardiac ischemia Elevated troponin Palliative CARE Poor candidate for intervention Medical management Hypertension Continue baseline treatment Follow blood pressures Adjust treatments as needed Hypothyroidism Continue medications Follows an outpatient DVT prophylaxis Lovenox Discharge Planning Follow blood cultures, if negative can consider discharge. At this point plan to discharge to [facility] facility unless family agrees to hospice Pete Chávez MD November 05, 2017 11:15
[2017-11-05] MEDS ORDERED: HYDR-3516 PO (11:24)
[2017-11-05] MEDS ORDERED: DIAZ5 PO (11:24)
[2017-11-05] MEDS ORDERED: MAGN30S PO (11:24)
[2017-11-05] MEDS ORDERED: PRED20 PO (11:24)
[2017-11-05] MEDS: PRAVASTATIN SOD 20 MG TAB PO SCH (20:18)
[2017-11-05] MEDS: ZOLPIDEM TARTRATE 10 MG TAB PO SCH (20:18)
[2017-11-06] VITALS (14 sets, daily range): BP systolic 113–172; BP diastolic 54–70; PULSE 63–83; RESP 17–26; TEMP 97.6–98; O2SAT 92–100
[2017-11-06] MEDS: CHLORHEXIDINE GLUCONATE 2 % 1 PACK (2 CLOTHS) TOP SCH (03:39)
[2017-11-06] MEDS: ACETAMINOPHEN/HYDROcodone 325 MG/5 MG TAB PO PRN ×4 (04:00→20:52)
[2017-11-06] MEDS: LEVOTHYROXINE SODIUM 100 MCG TAB PO SCH (05:38)
[2017-11-06] MEDS: ONDANSETRON HCL 4 MG/2 ML VIAL IV PUSH PRN (05:43)
[2017-11-06] MEDS: RESP: ALBUTEROL 2.5 MG/IPRATROPIUM 0.5 MG NEB (SCH) NEB ×3 (07:24→20:31)
[2017-11-06] MEDS: ENOXAPARIN SODIUM 60 MG/0.6 ML SYRINGE SQ SCH ×2 (08:52→21:02)
[2017-11-06] MEDS: DIAZEPAM 5 MG TAB PO PRN ×2 (08:52→20:53)
[2017-11-06] MEDS: FUROSEMIDE 40 MG TAB PO SCH (08:53)
[2017-11-06] MEDS: BACLOFEN 10 MG TAB PO SCH ×3 (08:53→17:46)
[2017-11-06] MEDS: POTASSIUM CHLORIDE 20 MEQ CONTROLLED RELEASE TAB PO SCH (08:53)
[2017-11-06] MEDS: CEFUROXIME AXETIL 500 MG TAB PO SCH ×2 (08:53→20:56)
[2017-11-06] MEDS: ASPIRIN EC 81 MG TABEC PO SCH (08:53)
[2017-11-06] MEDS: ENALAPRIL MALEATE 10 MG TAB PO SCH (08:53)
[2017-11-06] MEDS: predniSONE 20 MG TAB PO SCH ×2 (08:53→20:51)
[2017-11-06] MEDS: FLUCONAZOLE 100 MG TAB PO SCH (08:53)
[2017-11-06] MEDS: FAMOTIDINE 20 MG TAB PO SCH ×2 (08:54→20:53)
[2017-11-06] MEDS: SODIUM CHLORIDE 0.9% FLUSH 10 ML FLUSH IV FLUSH SCH ×2 (08:54→20:58)
[2017-11-06] MEDS: DOCUSATE SODIUM 50 MG/SENNA 8.6 MG TAB PO SCH ×2 (09:00→20:51)
--- NOTE | 2017-11-06 09:12 | HHI.PR ---
Subjective Remarks Blood cultures negative at 24 hours. We will wait for 72 hour macrina prior to discharge. Patient still wants to leave the hospital. Patient is at baseline confusion status. Objective Vital Signs Date Time Temp Pulse Resp B/P (MAP) Pulse Ox O2 Delivery O2 Flow Rate FiO2 11/06/17 06:00 75 25 172/70 (104) 95 11/06/17 05:00 83 26 160/66 (97) 92 11/06/17 04:00 97.6 75 23 150/66 (94) 95 11/06/17 03:00 66 21 138/66 (90) 95 11/06/17 02:00 72 20 132/60 (84) 95 11/06/17 01:00 73 17 127/59 (81) 99 11/06/17 00:00 63 18 113/54 (73) 97 11/05/17 23:00 97.5 76 14 120/58 (78) 95 11/05/17 22:00 79 22 130/61 (84) 97 11/05/17 21:00 72 27 120/59 (79) 96 11/05/17 20:00 73 11/05/17 20:00 97.3 85 20 141/65 (90) 96 11/05/17 20:00 97 Nasal Cannula 4.00 11/05/17 18:00 76 11/05/17 16:00 97.9 76 22 126/60 (82) 95 11/05/17 16:00 76 11/05/17 15:47 23 11/05/17 14:00 82 11/05/17 12:00 84 11/05/17 12:00 98.2 84 24 134/63 (86) 96 11/05/17 10:00 82 I/O 11/05/17 11/05/17 11/05/17 11/06/17 11/06/17 11/06/17 07:00 15:00 23:00 07:00 15:00 23:00 Intake Total 120 ml 850 ml 480 ml Output Total 750 ml 650 ml 700 ml Balance -630 ml 200 ml -220 ml Intake Oral 120 ml 850 ml 480 ml Output Urine Total 750 ml 650 ml 700 ml # Voids 1 # Bowel Movements 1 Result Diagram: 11/04/1761411/04/17614 Objective Remarks GENERAL: NAD, A&Ox1 HEAD: Normocephalic. NECK: Supple, trachea midline. No lymphadenopathy. EYES: No scleral icterus. No injection or drainage. CARDIOVASCULAR: Regular rate and rhythm without murmurs, gallops, or rubs. RESPIRATORY: Breath sounds equal bilaterally. No accessory muscle use. GASTROINTESTINAL: Abdomen soft, non-tender, nondistended. MUSCULOSKELETAL: No cyanosis, or edema. SKIN: Warm and dry. NEURO: No focal neurological deficitis. A/P Problem List: (1) COPD exacerbation ICD Code: J44.1 - Chronic obstructive pulmonary disease with (acute) exacerbation Status: Acute (2) Acute hypercapnic respiratory failure ICD Code: J96.02 - Acute respiratory failure with hypercapnia Assessment and Plan 82 year old female admitted with COPD Exacerbation and Pneumonia Continue to monitor blood cultures. If repeat blood cultures negative at 72 hours we will discharge to a prison facility unless family decides on hospice. Acute hypercapnic respiratory failure COPD exacerbation Chronic respiratory failure pneumonia Continue oxygen Continue duo nebs Continue ceftriaxone Continue azithromycin Bacteremia Follow blood cultures Bree UTI Continue fluconazole Coronary artery disease Cardiac ischemia Elevated troponin Palliative CARE Poor candidate for intervention Medical management Hypertension Continue baseline treatment Follow blood pressures Adjust treatments as needed Hypothyroidism Continue medications Follows an outpatient DVT prophylaxis Lovenox Discharge Planning Follow blood cultures, if negative can consider discharge. At this point plan to discharge to prison facility unless family agrees to hospice Pete Chávez MD November 06, 2017 09:12
[2017-11-06] MEDS: PRAVASTATIN SOD 20 MG TAB PO SCH (20:52)
[2017-11-06] MEDS: ZOLPIDEM TARTRATE 10 MG TAB PO SCH (20:53)
[2017-11-07] VITALS (15 sets, daily range): BP systolic 116–174; BP diastolic 56–100; PULSE 61–95; RESP 16–31; TEMP 97.2–98.4; O2SAT 85–98
[2017-11-07] MEDS: ACETAMINOPHEN/HYDROcodone 325 MG/5 MG TAB PO PRN ×5 (00:52→16:38)
[2017-11-07] MEDS: CHLORHEXIDINE GLUCONATE 2 % 1 PACK (2 CLOTHS) TOP SCH ×2 (04:00→20:53)
[2017-11-07] MEDS: LEVOTHYROXINE SODIUM 100 MCG TAB PO SCH (05:00)
[2017-11-07] MEDS: ONDANSETRON HCL 4 MG/2 ML VIAL IV PUSH PRN (05:09)
[2017-11-07] MEDS: RESP: ALBUTEROL 2.5 MG/IPRATROPIUM 0.5 MG NEB (SCH) NEB ×2 (07:31→12:54)
[2017-11-07] MEDS ORDERED: BACT800T5 PO (07:48)
[2017-11-07] MEDS ORDERED: FLUC200T2 PO (07:48)
[2017-11-07] MEDS ORDERED: LACTTAB8 PO (07:48)
[2017-11-07] MEDS: SODIUM CHLORIDE 0.9% FLUSH 10 ML FLUSH IV FLUSH SCH ×2 (09:00→20:51)
[2017-11-07] MEDS: POTASSIUM CHLORIDE 20 MEQ CONTROLLED RELEASE TAB PO SCH (09:00)
[2017-11-07] MEDS: FAMOTIDINE 20 MG TAB PO SCH ×2 (09:00→20:50)
[2017-11-07] MEDS: predniSONE 20 MG TAB PO SCH ×2 (09:00→20:50)
[2017-11-07] MEDS: ASPIRIN EC 81 MG TABEC PO SCH (09:00)
[2017-11-07] MEDS: DOCUSATE SODIUM 50 MG/SENNA 8.6 MG TAB PO SCH ×2 (09:00→20:51)
[2017-11-07] MEDS: CEFUROXIME AXETIL 500 MG TAB PO SCH ×2 (09:00→20:51)
[2017-11-07] MEDS: ENALAPRIL MALEATE 10 MG TAB PO SCH (09:00)
[2017-11-07] MEDS: BACLOFEN 10 MG TAB PO SCH ×3 (09:00→17:22)
[2017-11-07] MEDS: FLUCONAZOLE 100 MG TAB PO SCH (09:00)
[2017-11-07] MEDS: FUROSEMIDE 40 MG TAB PO SCH (09:00)
--- NOTE | 2017-11-07 09:18 | HHI.PR ---
Subjective Remarks Complaint of abdominal pain. No growth on repeat blood cultures at 48 hours. Patient is hoping to return to home. She does not want SNF. Objective Vital Signs Date Time Temp Pulse Resp B/P (MAP) Pulse Ox O2 Delivery O2 Flow Rate FiO2 11/07/17 07:31 96 Nasal Cannula 2.00 11/07/17 04:00 61 11/07/17 04:00 97.9 61 17 120/56 (77) 94 11/07/17 00:00 64 11/07/17 00:00 97.7 64 16 116/58 (77) 95 11/06/17 20:32 99 Nasal Cannula 2.00 11/06/17 20:00 95 Nasal Cannula 4.00 11/06/17 20:00 97.8 69 19 117/56 (76) 97 11/06/17 20:00 69 11/06/17 16:00 80 11/06/17 16:00 98.0 80 22 116/56 (76) 95 11/06/17 12:00 97.9 76 21 118/59 (78) 100 11/06/17 11:45 97 Nasal Cannula 2.00 11/06/17 09:52 24 I/O 11/06/17 11/06/17 11/06/17 11/07/17 11/07/17 11/07/17 07:00 15:00 23:00 07:00 15:00 23:00 Intake Total 480 ml 840 ml 240 ml Output Total 700 ml 1250 ml 500 ml Balance -220 ml -410 ml -260 ml Intake Oral 480 ml 840 ml 240 ml Output Urine Total 700 ml 1250 ml 500 ml # Voids 2 # Bowel Movements 0 0 Result Diagram: 11/04/17 0615 11/04/17 0615 Objective Remarks GENERAL: NAD, A&Ox1 HEAD: Normocephalic. NECK: Supple, trachea midline. No lymphadenopathy. EYES: No scleral icterus. No injection or drainage. CARDIOVASCULAR: Regular rate and rhythm without murmurs, gallops, or rubs. RESPIRATORY: Breath sounds equal bilaterally. No accessory muscle use. GASTROINTESTINAL: Abdomen soft, non-tender, nondistended. MUSCULOSKELETAL: No cyanosis, or edema. SKIN: Warm and dry. NEURO: No focal neurological deficitis. A/P Problem List: (1) COPD exacerbation ICD Code: J44.1 - Chronic obstructive pulmonary disease with (acute) exacerbation Status: Acute (2) Acute hypercapnic respiratory failure ICD Code: J96.02 - Acute respiratory failure with hypercapnia Assessment and Plan 82 year old female admitted with COPD Exacerbation and Pneumonia Imaging ordered for new complaint of abdominal pain. Continue to monitor blood cultures. If repeat blood cultures negative at 72 hours we will discharge to a jail facility unless family decides on hospice. Acute hypercapnic respiratory failure COPD exacerbation Chronic respiratory failure pneumonia Continue oxygen Continue duo nebs Continue ceftriaxone Continue azithromycin Bacteremia Follow blood cultures Bree UTI Continue fluconazole Coronary artery disease Cardiac ischemia Elevated troponin Palliative CARE Poor candidate for intervention Medical management Hypertension Continue baseline treatment Follow blood pressures Adjust treatments as needed Hypothyroidism Continue medications Follows an outpatient DVT prophylaxis Lovenox Discharge Planning Follow blood cultures, if negative can consider discharge. At this point plan to discharge to jail facility unless family agrees to hospice Pete Chávez MD November 07, 2017 09:18
[2017-11-07] MEDS: ENOXAPARIN SODIUM 60 MG/0.6 ML SYRINGE SQ SCH ×2 (10:00→20:52)
--- NOTE | 2017-11-07 10:52 | RADRPT ---
EXAM DATE: 11/07/2017 10:16 AM EDT AGE/SEX: 82 years / Female INDICATIONS: Abdominal pain and distention. CLINICAL DATA: This is the patient's subsequent encounter. Patient reports that signs and symptoms h ave been present for 3 days and indicates a pain score of 8/10. MEDICAL/SURGICAL HISTORY: Congestive heart failure. Chronic obstructive pulmonary disease. Hy pertension. TIA. Emphysema. Cholecystectomy. Appendectomy. Hysterectomy. Cervical fusion. COMPARISON: [facility] – [place], CHEST SINGLE AP, 10/28/2017. . FINDINGS: A single AP supine portable view of the abdomen and pelvis was obtained and demonstrates a moderate amount of stool in the colon. There are surgical clips and [place] in right upper quadrant consistent with prior cholecystectomy. Abnormal opacity remains at the left lung base. There is no evidence of free air or mass effect. Ther e is a moderate scoliosis of the lumbar spine with degenerative change and osteopenia. CONCLUSION: Nonobstructive bowel gas pattern with moderate amount of stool. Electronically signed by: Jason Brady MD 11/07/2017 10:51 AM EDT
[2017-11-07] MEDS: DIAZEPAM 5 MG TAB PO PRN ×2 (12:41→16:38)
--- NOTE | 2017-11-07 14:02 | HHI.FF ---
Face to Face Verification Diagnosis: (1) COPD exacerbation (2) Acute hypercapnic respiratory failure Physical Therapy Order: Evaluate and Treat, Improve ambulation, Strength and gait training I have seen patient Betty Moy on 11/07/17. My clinical findings support the need for the requested home health care services because: Ltd mobility - disease progression Patient has SOB Deconditioned w/ increased weakness Limited ability to care for self Need for psychosocial assistance Impaired cognition/judgement High risk of falls I certify that my clinical findings support that this patient is homebound because: Impaired cognitive ability/safety Unsteady gait/balance Unsafe to leave home unassisted [id number] bed/chair Unable to use public transportation Pete Chávez MD November 07, 2017 14:02
--- NOTE | 2017-11-07 14:05 | HHI.DS ---
Discharge Summary Admission Date October 28, 2017 at 20:48 Discharge Date: November 07, 2017 Admitting Diagnosis CHF exacerbation, NSTEMI, hypoxia (1) Acute hypercapnic respiratory failure ICD Code: J96.02 - Acute respiratory failure with hypercapnia Diagnosis: Principal (2) COPD exacerbation ICD Code: J44.1 - Chronic obstructive pulmonary disease with (acute) exacerbation Diagnosis: Principal Status: Acute (3) UTI (urinary tract infection) ICD Code: N39.0 - Urinary tract infection, site not specified Diagnosis: Principal (4) Elevated troponin ICD Code: R74.8 - Abnormal levels of other serum enzymes Diagnosis: Principal (5) Hypokalemia ICD Code: E87.6 - Hypokalemia Diagnosis: Principal (6) Hypomagnesemia ICD Code: E83.42 - Hypomagnesemia Diagnosis: Principal Status: Resolved (7) Hypothyroidism ICD Code: E03.9 - Hypothyroidism, unspecified Diagnosis: Principal Status: Chronic (8) HTN (hypertension) ICD Code: I10 - Essential (primary) hypertension Diagnosis: Principal (9) HLD (hyperlipidemia) ICD Code: E78.5 - Hyperlipidemia, unspecified Diagnosis: Principal Procedures None Brief History - From Admission 82-year-old female with past medical history of past medical history of CHF, COPD- on home oxygen, hypertension, anemia, presents to for evaluation of failure to thrive, weakness, shortness of breath for 1 day. Upon EMS arrival the patient home, saturation was 86% on 2 L. She was transported on 6 L O2 nasal cannula. In the emergency department she appears to be tachypneic and using accessory muscles. She was emergently placed on the BiPAP with improvement of her oxygenation immediately. She states she has been intubated in the past. She was admitted with a similar symptoms 10/19 and previously 10/09 with abdominal pain and anemia. CBC/BMP: 11/04/17 0615 11/04/17 0615 PE at Discharge GENERAL: Elderly cachectic and frail -appearing female CARDIOVASCULAR: Irregular, no murmurs rubs or gallops. RESPIRATORY: Diminished bilaterally, no wheezing. GASTROINTESTINAL: Abdomen soft, non-tender, nondistended. MUSCULOSKELETAL: SCDs in place. No edema. NEURO: Alert, awake, oriented to place, person and month. Moves extremities spontaneously. Hospital Course Mrs. Moy is an 82 year old female. She was admitted due to a graduating decline in her mental and health status. She used oxygen at baseline, but entered respiratory failure. She was treated in the hospital for a COPD exacerbation and UTI (gabriele). Bacteremia was also present and has resolved on treatment. She is at this point trending towards her prior baseline and wishes to discharge to home. SNF was offered, patient declined. Hospice was offered, no interest at this time. Medically stable and clear for discharge to home today. Pt Condition on Discharge: Stable Discharge Disposition: Disch w/ Home Health Serv Discharge Time: <= 30 minutes Discharge Instructions DIET: Follow Instructions for: Heart Healthy Diet Activities you can perform: Regular-No Restrictions Pete Chávez MD November 07, 2017 14:05
[2017-11-07] MEDS ORDERED: OXYGENDME NAS.CANULA (14:06)
[2017-11-07] MEDS ORDERED: SOD PHOSPHATE/SOD BIPHOSPHATE (ADULT) ENEMA 133ML RECTAL PRN (15:15)
[2017-11-07] MEDS: SUMAtriptan SUCCINATE 50 MG TAB PO PRN (16:42)
[2017-11-07] MEDS: PRAVASTATIN SOD 20 MG TAB PO SCH (20:51)
[2017-11-07] MEDS: ZOLPIDEM TARTRATE 10 MG TAB PO SCH (20:52)
[2017-11-08] VITALS: BP 189/77; PULSE 84; RESP 20; TEMP 98; O2SAT 96
[2017-11-08] MEDS: ACETAMINOPHEN/HYDROcodone 325 MG/5 MG TAB PO PRN ×4 (00:35→23:07)
[2017-11-08] MEDS: LEVOTHYROXINE SODIUM 100 MCG TAB PO SCH (05:29)
[2017-11-08] MEDS: DIAZEPAM 5 MG TAB PO PRN ×2 (05:31→15:06)
[2017-11-08 08:00] VITALS: BP 157/69; PULSE 90; RESP 18; TEMP 97.8; O2SAT 91
[2017-11-08] MEDS: SODIUM CHLORIDE 0.9% FLUSH 10 ML FLUSH IV FLUSH SCH ×2 (08:53→21:59)
[2017-11-08] MEDS: CEFUROXIME AXETIL 500 MG TAB PO SCH ×2 (08:53→21:57)
[2017-11-08] MEDS: BACLOFEN 10 MG TAB PO SCH ×3 (08:53→17:05)
[2017-11-08] MEDS: predniSONE 20 MG TAB PO SCH ×2 (08:53→21:57)
[2017-11-08] MEDS: FLUCONAZOLE 100 MG TAB PO SCH (08:53)
[2017-11-08] MEDS: ENALAPRIL MALEATE 10 MG TAB PO SCH (08:53)
[2017-11-08] MEDS: FUROSEMIDE 40 MG TAB PO SCH (08:54)
[2017-11-08] MEDS: FAMOTIDINE 20 MG TAB PO SCH ×2 (08:54→21:57)
[2017-11-08] MEDS: POTASSIUM CHLORIDE 20 MEQ CONTROLLED RELEASE TAB PO SCH (08:54)
[2017-11-08] MEDS: DOCUSATE SODIUM 50 MG/SENNA 8.6 MG TAB PO SCH ×2 (08:54→21:57)
[2017-11-08] MEDS: ASPIRIN EC 81 MG TABEC PO SCH (08:54)
[2017-11-08] MEDS: ENOXAPARIN SODIUM 60 MG/0.6 ML SYRINGE SQ SCH ×2 (08:55→21:57)
[2017-11-08] MEDS: SUMAtriptan SUCCINATE 50 MG TAB PO PRN (11:53)
[2017-11-08 12:00] VITALS: BP 109/55; PULSE 94; RESP 17; TEMP 97.8; O2SAT 92
[2017-11-08 16:00] VITALS: BP 136/60; PULSE 90; RESP 17; TEMP 97.7; O2SAT 94
[2017-11-08] MEDS ORDERED: POLYETHYLENE GLYCOL 17 GM PKG PO ONE (16:45)
--- NOTE | 2017-11-08 16:45 | HHI.PR ---
Subjective Remarks Patient c/o abdominal pain Denies fevers or chills, denies nausea, vomiting Had a BM yesterday Objective Vitals Vital Signs Date Time Temp Pulse Resp B/P (MAP) Pulse Ox O2 Delivery O2 Flow Rate FiO2 11/08/17 16:00 97.7 90 17 136/60 (85) 94 11/08/17 12:53 20 11/08/17 12:00 97.8 94 17 109/55 (73) 92 11/08/17 10:01 16 11/08/17 09:30 Nasal Cannula 4.00 11/08/17 08:00 97.8 90 18 157/69 (98) 91 11/08/17 00:00 98.0 84 20 189/77 (114) 96 11/07/17 20:00 97.5 74 18 133/77 (95) 98 11/07/17 18:09 97.2 83 17 137/64 (88) 96 11/07/17 18:09 Nasal Cannula 4.00 11/07/17 17:00 89 27 145/65 (91) 94 I/O 11/07/17 11/07/17 11/07/17 11/08/17 11/08/17 11/08/17 06:59 14:59 22:59 06:59 14:59 22:59 Intake Total 240 ml 900 ml 360 ml Output Total 500 ml 700 ml Balance -260 ml 200 ml 360 ml Intake Oral 240 ml 900 ml 360 ml Output Urine Total 500 ml 700 ml Bladder Scan Volume Amount 153 ml # Voids 5 # Bowel Movements 0 0 3 Result Diagram: 11/04/17 0615 11/04/17 0615 Imaging Last 72 hours Impressions Abdomen X-Ray 11/07/17 0000 Signed Impressions: CONCLUSION: Nonobstructive bowel gas pattern with moderate amount of stool. Objective Remarks GENERAL: Elderly cachectic and frail -appearing female tachypneic on NC. SKIN: Warm and dry. HEAD: Normocephalic. EYES: No scleral icterus. No injection or drainage. NECK: Supple, trachea midline. No JVD or lymphadenopathy. CARDIOVASCULAR: Irregular, no murmurs rubs or gallops. RESPIRATORY: Mildly tachypneic but no accessory muscle use. Diminished breath sounds BL. GASTROINTESTINAL: Abdomen soft, non-tender, nondistended. : Johnson in place with light yellow urine output per MUSCULOSKELETAL: SCDs in place. No edema. NEURO: Alert, awake. Not able to answer questions of orientation. She moves extremities spontaneously. Procedures None A/P Problem List: (1) Acute hypercapnic respiratory failure ICD Code: J96.02 - Acute respiratory failure with hypercapnia (2) COPD exacerbation ICD Code: J44.1 - Chronic obstructive pulmonary disease with (acute) exacerbation Status: Acute (3) UTI (urinary tract infection) ICD Code: N39.0 - Urinary tract infection, site not specified (4) Elevated troponin ICD Code: R74.8 - Abnormal levels of other serum enzymes (5) Hypokalemia ICD Code: E87.6 - Hypokalemia (6) Hypomagnesemia ICD Code: E83.42 - Hypomagnesemia Status: Resolved (7) Hypothyroidism ICD Code: E03.9 - Hypothyroidism, unspecified Status: Chronic (8) HTN (hypertension) ICD Code: I10 - Essential (primary) hypertension (9) HLD (hyperlipidemia) ICD Code: E78.5 - Hyperlipidemia, unspecified Assessment and Plan 82 year old female admitted with COPD Exacerbation and Pneumonia Acute hypercapnic respiratory failure COPD exacerbation Chronic respiratory failure pneumonia Continue oxygen Continue duo nebs Continue ceftriaxone Continue azithromycin Bacteremia Follow blood cultures Bree UTI Continue fluconazole Coronary artery disease Cardiac ischemia Elevated troponin Palliative CARE Poor candidate for intervention Medical management Hypertension Continue baseline treatment Follow blood pressures Adjust treatments as needed Hypothyroidism Continue medications Follows an outpatient Abdominal pain abd x ray with non obstructive bowel gas pattern. Will give Miralax and obtain a CT abdomen and pelvis. Continue [place] for pain control. DVT prophylaxis Lovenox DVT prophylaxis: Lovenox subcutaneously. Discharge Planning Pending abdomen CT. Problem Qualifiers (1) Hypothyroidism: Qualified Codes: E03.9 - Hypothyroidism, unspecified (2) HTN (hypertension): Qualified Codes: I10 - Essential (primary) hypertension (3) HLD (hyperlipidemia): Qualified Codes: E78.5 - Hyperlipidemia, unspecified Mark Carpenter MD November 08, 2017 16:45
[2017-11-08] MEDS ORDERED: DIATRIZOATE MEGLUM/DIATRIZOATE SOD 9 ML CUP PO ONE (16:58)
[2017-11-08] MEDS ORDERED: BISACODYL 10 MG SUPP RECTAL ONE (17:00)
[2017-11-08 20:00] VITALS: BP 135/62; PULSE 98; RESP 20; TEMP 98; O2SAT 97
[2017-11-08] MEDS ORDERED: IOHEXOL 350 MG/ML 10 ML VIAL (for RAD DIAG) IVCONTRAST ONE (21:30)
--- NOTE | 2017-11-08 21:44 | RADRPT ---
EXAM DATE: 11/08/2017 9:32 PM EDT AGE/SEX: 82 years / Female INDICATIONS: Abdominal pain, nausea. CLINICAL DATA: This is the patient's initial encounter. Patient reports that signs and symptoms have been present for 1 day and indicates a pain score of 3/10. MEDICAL/SURGICAL HISTORY: Cerebrovascular disease. Chronic obstructive pulmonary disease. Con gestive heart failure. Hypertension, emphysema, kidney stones Hysterectomy. Cholecystectomy. Appe ndectomy. ORAL CONTRAST: Prescribed oral contrast ingested. RADIATION DOSE: 4.81 CTDI (mGy) COMPARISON: [facility] – [place] ABDOMEN & PELVIS W CONTRAST, 10/09/2017. . TECHNIQUE: Multiple contiguous axial images were obtained through the abdomen and pelvis following b olus infusion of 95 ml Omnipaque 350 (iohexol) nonionic water-soluble contrast as a single exam dos e. Prescribed oral contrast ingested. Using automated exposure control and adjustment of the mA and/ or kV according to patient size, the radiation dose was kept as low as reasonably achievable to obtai n optimal diagnostic quality images. FINDINGS: Lower chest: There are small bilateral pleural effusions with associated compressive atelectasis. Hepatobiliary: No focal liver lesion is identified. Hepatic vasculature demonstrates no abnormality. Gallbladder is absent with clips in the gallbladder fossa. There is stable pneumobilia and mild enlar gement of the common duct. Kidneys: No hydronephrosis or stone. Left kidney has a lobulated contour. There is a stable hyperdens e lesion at the lower pole of the left kidney measuring approximately 13 mm. Adrenal Glands: Stable mild thickening of the left adrenal gland. Right adrenal gland is within kj l limits. Spleen: Within normal limits. Pancreas: Within normal limits. Vascular: The aorta is nonaneurysmal. There is severe atherosclerotic disease. Bowel/Mesentery: Stomach demonstrates no acute finding. The small bowel is essentially entirely in th e right abdomen and colon mostly on the left suggesting nonrotation of the bowel. This is a stable fi nding. No free air or free fluid is visualized. Abdominal Wall: There is abnormal thickening of the left rectus abdominis muscle measuring approximat nelly 4.6 x 4.1 cm and measuring approximately 11.3 cm in length. This is a new finding. Postsurgical c hanges are present in the midline abdomen. Anasarca is present. Retroperitoneum: No lymphadenopathy. Bladder: No wall thickening or mass. Reproductive: The uterus is absent. No adnexal abnormality is seen. Inguinal: No lymphadenopathy or hernia. Musculoskeletal: No acute osseous abnormality is identified. There are degenerative changes of the gisella mbar spine. CONCLUSION: 1. There is abnormal thickening of the left rectus abdominis muscle, as above. This most likely repr esents a hematoma. This typically seen in patients over anticoagulated. No active bleeding is identif ied. Suggest follow-up to confirm resolution. 2. Anasarca. Also, there are new small bilateral pleural effusions with compressive atelectasis in t he lower lobes. 3. Nonacute findings include severe atherosclerotic disease and stable hyperdense left lower pole re nal lesion measuring 1.3 cm. Electronically signed by: Darrell Hutson MD 11/08/2017 9:43 PM EDT
[2017-11-08] MEDS: PRAVASTATIN SOD 20 MG TAB PO SCH (21:57)
[2017-11-08] MEDS: ZOLPIDEM TARTRATE 10 MG TAB PO SCH (21:57)
[2017-11-09] VITALS (8 sets, daily range): BP systolic 121–149; BP diastolic 58–78; PULSE 76–98; RESP 16–22; TEMP 97.2–98.4; O2SAT 89–99
[2017-11-09] MEDS: CHLORHEXIDINE GLUCONATE 2 % 1 PACK (2 CLOTHS) TOP SCH ×2 (04:00→21:22)
[2017-11-09] MEDS: ACETAMINOPHEN/HYDROcodone 325 MG/5 MG TAB PO PRN ×3 (05:46→21:31)
[2017-11-09] MEDS: LEVOTHYROXINE SODIUM 100 MCG TAB PO SCH (05:46)
[2017-11-09] MEDS: ASPIRIN EC 81 MG TABEC PO SCH (08:23)
[2017-11-09] MEDS: FAMOTIDINE 20 MG TAB PO SCH ×2 (08:24→21:21)
[2017-11-09] MEDS: ENALAPRIL MALEATE 10 MG TAB PO SCH (08:24)
[2017-11-09] MEDS: POTASSIUM CHLORIDE 20 MEQ CONTROLLED RELEASE TAB PO SCH (08:24)
[2017-11-09] MEDS: SODIUM CHLORIDE 0.9% FLUSH 10 ML FLUSH IV FLUSH SCH ×2 (08:24→21:21)
[2017-11-09] MEDS: FLUCONAZOLE 100 MG TAB PO SCH (08:24)
[2017-11-09] MEDS: FUROSEMIDE 40 MG TAB PO SCH ×2 (08:24→21:21)
[2017-11-09] MEDS: DOCUSATE SODIUM 50 MG/SENNA 8.6 MG TAB PO SCH ×2 (08:24→21:00)
[2017-11-09] MEDS: CEFUROXIME AXETIL 500 MG TAB PO SCH ×2 (08:24→21:21)
[2017-11-09] MEDS: predniSONE 20 MG TAB PO SCH ×2 (08:24→21:21)
[2017-11-09] MEDS: BACLOFEN 10 MG TAB PO SCH ×3 (08:24→17:40)
[2017-11-09] MEDS: ENOXAPARIN SODIUM 60 MG/0.6 ML SYRINGE SQ SCH (08:42)
[2017-11-09 14:10] LABS: AUTOMATED NEUTROPHIL # 14.8 TH/MM3 (1.8-7.7); BASOPHIL % 0.2 % (0.0-2.0); HEMATOCRIT 30.1 % (35.0-46.0); HEMOGLOBIN 8.8 GM/DL (11.6-15.3); LYMPH % 1.7 % (9.0-44.0); LYMPHOCYTE # 0.3 TH/MM3 (1.0-4.8); MEAN CELL VOLUME 76.6 FL (80.0-100.0); MEAN CORPUSCULAR HEMOGLOBIN 22.5 PG (27.0-34.0); MEAN PLATELET VOLUME 9.2 FL (7.0-11.0); MONO % 5.6 % (0.0-8.0); MONOCYTE # 0.9 TH/MM3 (0-0.9); NEUT % 92.5 % (16.0-70.0); PLATELET COUNT 167 TH/MM3 (150-450); RED BLOOD COUNT 3.93 MIL/MM3 (4.00-5.30); RED CELL DISTRIBUTION WIDTH 22.6 % (11.6-17.2)
[2017-11-09 14:12] LABS: MEAN CORPUSCULAR HGB CONC 29.3 % (32.0-36.0)
[2017-11-09 14:41] LABS: ALBUMIN 2.7 GM/DL (3.4-5.0); AST (GOT) 25 U/L (15-37); BICARBONATE 36.5 MEQ/L (21.0-32.0); BLOOD UREA NITROGEN 16 MG/DL (7-18); CALCIUM 8.5 MG/DL (8.5-10.1); CHLORIDE 91 MEQ/L (98-107); GLOMERULAR FILTRATION RATE 213 ML/MIN (>89); GLUCOSE,RANDOM 117 MG/DL (74-106); MAGNESIUM 1.8 MG/DL (1.5-2.5); SODIUM (NA) 135 MEQ/L (136-145)
[2017-11-09 14:42] LABS: ALT (GPT) 30 U/L (10-53); PHOSPHORUS 3.6 MG/DL (2.5-4.9)
[2017-11-09 14:44] LABS: ALKALINE PHOSPHATASE 75 U/L (45-117); TOTAL BILIRUBIN ADULT 0.3 MG/DL (0.2-1.0); TOTAL PROTEIN 5.7 GM/DL (6.4-8.2)
--- NOTE | 2017-11-09 14:53 | HHI.PR ---
Subjective Remarks Patient still has abdominal pain. As per RN the patient has not had a stool today. Patient also noted to be in respiratory distress. Denies chest pain Objective Vitals Vital Signs Date Time Temp Pulse Resp B/P (MAP) Pulse Ox O2 Delivery O2 Flow Rate FiO2 11/09/17 12:00 97.8 92 18 123/58 (79) 94 11/09/17 08:29 Nasal Cannula 4.00 11/09/17 08:00 97.8 98 17 149/78 (101) 97 11/09/17 00:00 97.2 94 18 134/59 (84) 93 11/08/17 20:21 97 Nasal Cannula 4.00 11/08/17 20:00 98.0 98 20 135/62 (86) 97 11/08/17 17:04 16 11/08/17 16:00 97.7 90 17 136/60 (85) 94 I/O 11/08/17 11/08/17 11/08/17 11/09/17 11/09/17 11/09/17 07:00 15:00 23:00 07:00 15:00 23:00 Intake Total 360 ml 300 ml Balance 360 ml 300 ml Intake Oral 360 ml 300 ml Bladder Scan Volume Amount 153 ml # Voids 5 9 4 1 # Bowel Movements 3 1 1 Result Diagram: 11/09/17 1337 11/09/17 1337 Imaging Last 72 hours Impressions Abdomen/Pelvis CT 11/08/17 0000 Signed Impressions: CONCLUSION: 1. There is abnormal thickening of the left rectus abdominis muscle, as above. This most likely represents a hematoma. This typically seen in patients over a nticoagulated. No active bleeding is identified. Suggest follow-up to confirm r esolution. 2. Anasarca. Also, there are new small bilateral pleural effusions with compre ssive atelectasis in the lower lobes. 3. Nonacute findings include severe atherosclerotic disease and stable hyperde nse left lower pole renal lesion measuring 1.3 cm. Abdomen X-Ray 11/07/17 0000 Signed Impressions: CONCLUSION: Nonobstructive bowel gas pattern with moderate amount of stool. Objective Remarks GENERAL: Elderly cachectic and frail -appearing female tachypneic with moderate respiratory distress SKIN: Warm and dry. HEAD: Normocephalic. EYES: No scleral icterus. No injection or drainage. NECK: Supple, trachea midline. No JVD or lymphadenopathy. CARDIOVASCULAR: Irregular, no murmurs rubs or gallops. RESPIRATORY: Patient is tachypneic with use of accessory muscles. There is mildly decreased breath sounds auscultated with some diffuse expiratory wheezing. GASTROINTESTINAL: Abdomen is very tender with induration on the left side of the abdomen. MUSCULOSKELETAL: SCDs in place. No edema. NEURO: Alert, awake. Not able to answer questions of orientation. She moves extremities spontaneously. Procedures None A/P Problem List: (1) Acute hypercapnic respiratory failure ICD Code: J96.02 - Acute respiratory failure with hypercapnia (2) COPD exacerbation ICD Code: J44.1 - Chronic obstructive pulmonary disease with (acute) exacerbation Status: Acute (3) UTI (urinary tract infection) ICD Code: N39.0 - Urinary tract infection, site not specified (4) Elevated troponin ICD Code: R74.8 - Abnormal levels of other serum enzymes (5) Hypokalemia ICD Code: E87.6 - Hypokalemia (6) Hypomagnesemia ICD Code: E83.42 - Hypomagnesemia Status: Resolved (7) Hypothyroidism ICD Code: E03.9 - Hypothyroidism, unspecified Status: Chronic (8) HTN (hypertension) ICD Code: I10 - Essential (primary) hypertension (9) HLD (hyperlipidemia) ICD Code: E78.5 - Hyperlipidemia, unspecified Assessment and Plan 82 year old female admitted with COPD Exacerbation and Pneumonia Acute hypercapnic respiratory failure COPD exacerbation Chronic respiratory failure pneumonia Continue oxygen Continue duo nebs Status post IV Rocephin and IV azithromycin. Currently on oral Ceftin. 11/09 patient in moderate respiratory distress. Likely suspect COPD exacerbation and also complement of acute on chronic diastolic heart failure. Stat chest x-ray, stat BNP, I will give a dose of Solu-Medrol 125 mg IV once and then placed on 60 mg IV every 6 hours. Will give Lasix 40 mg IV once. Check serial troponins and EKG. Bacteremia Initial blood cultures drawn on 11/01/17 showed staph coagulase negative in all 4 bottles. Repeat blood cultures on 11/04 are negative 5 days Bree UTI Continue fluconazole Coronary artery disease Cardiac ischemia Elevated troponin Palliative CARE Poor candidate for intervention Medical management Hypertension Continue baseline treatment Follow blood pressures Adjust treatments as needed Hypothyroidism Continue medications Follows an outpatient Abdominal pain Left rectus abdominis muscle hematoma. abd x ray with non obstructive bowel gas pattern. Will give Miralax and obtain a CT abdomen and pelvis. Continue [place] for pain control. 11/09 the patient still complaining of severe abdominal pain. CT of the abdomen pelvis show abnormal thickening on the left rectus abdominis muscle. This likely represents a hematoma. Follow-up subcutaneous Lovenox. Hold aspirin. I will consult general surgery. Discussed the case with Dr. Masters. DVT prophylaxis Lovenox DVT prophylaxis: Lovenox subcutaneously. 35 minutes of critical care time spent on patient care. Discharge Planning Pending clinical improvement. General surgery consultation. Problem Qualifiers (1) Hypothyroidism: Qualified Codes: E03.9 - Hypothyroidism, unspecified (2) HTN (hypertension): Qualified Codes: I10 - Essential (primary) hypertension (3) HLD (hyperlipidemia): Qualified Codes: E78.5 - Hyperlipidemia, unspecified Mark Carpenter MD Nov 09, 2017 14:53
[2017-11-09] MEDS ORDERED: FUROSEMIDE 40 MG/4 ML VIAL IV PUSH ONE (16:00)
[2017-11-09] MEDS ORDERED: methylPREDNISolone SOD SUCC 125 MG/2 ML VIAL IV PUSH ONE (16:00)
[2017-11-09] MEDS ORDERED: MORPHINE SULFATE 2 MG/ML SYRINGE IV PUSH ONE (16:00)
[2017-11-09] MEDS: RESP: ALBUTEROL 2.5 MG/IPRATROPIUM 0.5 MG NEB (PRN) INH (16:23)
--- NOTE | 2017-11-09 16:29 | RADRPT ---
EXAM DATE: 11/09/2017 4:19 PM EDT AGE/SEX: 82 years / Female INDICATIONS: Shortness of breath for one day. CLINICAL DATA: This is the patient's initial encounter. Patient reports that signs and symptoms have been present for 1 day and indicates a pain score of 0/10. MEDICAL/SURGICAL HISTORY: . Congestive heart failure. Chronic obstructive pulmonary disease. Hy pertension. TIA. Emphysema. . Cholecystectomy. Appendectomy. Hysterectomy. Cervical fusion. COMPARISON: [facility] [place], CHEST SINGLE AP, 10/28/2017. . FINDINGS: A single AP portable semierect view of the chest was obtained. Abnormal opacity is again noted in the left lung base with obscuration of left hemidiaphragm and blunting the costophrenic angle. The heart size appears mildly prominent. There are no new infiltrates. The bony thorax is intact with diffuse osteopenia. Postoperative changes again noted in the cervical spine status post multilevel fusion. CONCLUSION: Abnormal opacity remains in the left lung base with blunting the costophrenic angle. This may represe nt infiltrate and/or effusion. Electronically signed by: Jason Brady MD 11/09/2017 4:28 PM EDT
[2017-11-09] MEDS ORDERED: MORPHINE SULFATE 4 MG/ML INJ IV PUSH ONE (16:30)
[2017-11-09] MEDS: SUMAtriptan SUCCINATE 50 MG TAB PO PRN (17:41)
[2017-11-09] MEDS: ZOLPIDEM TARTRATE 10 MG TAB PO SCH (21:21)
[2017-11-09] MEDS: PRAVASTATIN SOD 20 MG TAB PO SCH (21:22)
[2017-11-09] MEDS: methylPREDNISolone SOD SUCC 40 MG/1 ML VIAL IV PUSH SCH (23:55)
[2017-11-10] VITALS: BP 129/58; PULSE 68; RESP 22; TEMP 97.2; O2SAT 99
[2017-11-10 04:53] LABS: AUTOMATED NEUTROPHIL # 9.6 TH/MM3 (1.8-7.7); BASOPHIL % 0.4 % (0.0-2.0); HEMATOCRIT 31.9 % (35.0-46.0); HEMOGLOBIN 9.6 GM/DL (11.6-15.3); LYMPH % 2.3 % (9.0-44.0); LYMPHOCYTE # 0.2 TH/MM3 (1.0-4.8); MEAN CELL VOLUME 77.5 FL (80.0-100.0); MEAN CORPUSCULAR HEMOGLOBIN 23.3 PG (27.0-34.0); MEAN CORPUSCULAR HGB CONC 30.1 % (32.0-36.0); MEAN PLATELET VOLUME 9.2 FL (7.0-11.0); MONO % 5.5 % (0.0-8.0); MONOCYTE # 0.6 TH/MM3 (0-0.9); NEUT % 91.8 % (16.0-70.0); PLATELET COUNT 145 TH/MM3 (150-450); RED BLOOD COUNT 4.12 MIL/MM3 (4.00-5.30); RED CELL DISTRIBUTION WIDTH 22.6 % (11.6-17.2); WHITE BLOOD COUNT 10.5 TH/MM3 (4.0-11.0)
[2017-11-10 05:29] LABS: ALBUMIN 3.1 GM/DL (3.4-5.0); BICARBONATE 36.5 MEQ/L (21.0-32.0); BLOOD UREA NITROGEN 24 MG/DL (7-18); CALCIUM 8.9 MG/DL (8.5-10.1); CHLORIDE 88 MEQ/L (98-107); CREATININE 0.55 MG/DL (0.50-1.00); GLOMERULAR FILTRATION RATE 106 ML/MIN (>89); GLUCOSE,RANDOM 134 MG/DL (74-106); SODIUM (NA) 134 MEQ/L (136-145)
[2017-11-10 05:31] LABS: ALT (GPT) 35 U/L (10-53); AST (GOT) 31 U/L (15-37)
[2017-11-10 05:32] LABS: ALKALINE PHOSPHATASE 89 U/L (45-117); TOTAL BILIRUBIN ADULT 0.3 MG/DL (0.2-1.0); TOTAL PROTEIN 6.7 GM/DL (6.4-8.2)
[2017-11-10] MEDS: LEVOTHYROXINE SODIUM 100 MCG TAB PO SCH (06:03)
[2017-11-10] MEDS: methylPREDNISolone SOD SUCC 40 MG/1 ML VIAL IV PUSH SCH ×4 (06:03→23:38)
[2017-11-10 08:00] VITALS: BP 154/76; PULSE 86; RESP 18; TEMP 97.8; O2SAT 94
[2017-11-10] MEDS: SODIUM CHLORIDE 0.9% FLUSH 10 ML FLUSH IV FLUSH SCH ×2 (08:38→20:46)
[2017-11-10] MEDS: SUMAtriptan SUCCINATE 50 MG TAB PO PRN (08:39)
[2017-11-10] MEDS: DOCUSATE SODIUM 50 MG/SENNA 8.6 MG TAB PO SCH ×2 (08:39→20:46)
[2017-11-10] MEDS: POTASSIUM CHLORIDE 20 MEQ CONTROLLED RELEASE TAB PO SCH (08:39)
[2017-11-10] MEDS: ENALAPRIL MALEATE 10 MG TAB PO SCH (08:39)
[2017-11-10] MEDS: FAMOTIDINE 20 MG TAB PO SCH ×2 (08:40→20:46)
[2017-11-10] MEDS: FUROSEMIDE 40 MG TAB PO SCH ×2 (08:40→20:46)
[2017-11-10] MEDS: CEFUROXIME AXETIL 500 MG TAB PO SCH (08:40)
[2017-11-10] MEDS: predniSONE 20 MG TAB PO SCH ×2 (08:40→20:46)
[2017-11-10] MEDS: FLUCONAZOLE 100 MG TAB PO SCH (08:40)
[2017-11-10] MEDS: BACLOFEN 10 MG TAB PO SCH ×3 (08:40→17:22)
[2017-11-10] MEDS: DIAZEPAM 5 MG TAB PO PRN ×2 (08:44→16:36)
--- NOTE | 2017-11-10 10:51 | PD.CAR.PN ---
CVT Progress Note Subjective/Hospital Course: 82-year-old female with multiple medical problems and some abdominal pain for which she underwent CT scan of the abdomen. This reveals a left rectus sheath hematoma. Usually rectus sheath hematomas are occurring a little people with anticoagulation excessive amount of anticoagulants causing hypocoagulable state. At this point abdomen soft active bowel sounds tender in the rectus sheath area however this is a contained hematoma and should be left alone It will absorb on its own no drainage is necessary Nothing to add from surgical point at this time Objective: Vital Signs Date Time Temp Pulse Resp B/P (MAP) Pulse Ox O2 Delivery O2 Flow Rate FiO2 11/10/17 08:00 Nasal Cannula 3.00 21 11/10/17 08:00 97.8 86 18 154/76 (102) 94 11/10/17 00:00 97.2 68 22 129/58 (81) 99 11/09/17 21:37 Nasal Cannula 3.00 11/09/17 20:00 97.5 76 22 145/64 (91) 99 11/09/17 18:51 16 11/09/17 16:54 22 11/09/17 16:50 95 3.00 11/09/17 16:40 97.5 95 16 121/58 (79) 89 11/09/17 16:23 93 Nasal Cannula 3.00 11/09/17 16:00 98.4 95 18 145/64 (91) 95 11/09/17 12:00 97.8 92 18 123/58 (79) 94 Labs: Laboratory Tests Test 11/10/17 03:59 White Blood Count 10.5 TH/MM3 (4.0-11.0) Red Blood Count 4.12 MIL/MM3 (4.00-5.30) Hemoglobin 9.6 GM/DL (11.6-15.3) Hematocrit 31.9 % (35.0-46.0) Mean Corpuscular Volume 77.5 FL (80.0-100.0) Mean Corpuscular Hemoglobin 23.3 PG (27.0-34.0) Mean Corpuscular Hemoglobin Concent 30.1 % (32.0-36.0) Red Cell Distribution Width 22.6 % (11.6-17.2) Platelet Count 145 TH/MM3 (150-450) Mean Platelet Volume 9.2 FL (7.0-11.0) Neutrophils (%) (Auto) 91.8 % (16.0-70.0) Lymphocytes (%) (Auto) 2.3 % (9.0-44.0) Monocytes (%) (Auto) 5.5 % (0.0-8.0) Eosinophils (%) (Auto) 0.0 % (0.0-4.0) Basophils (%) (Auto) 0.4 % (0.0-2.0) Neutrophils # (Auto) 9.6 TH/MM3 (1.8-7.7) Lymphocytes # (Auto) 0.2 TH/MM3 (1.0-4.8) Monocytes # (Auto) 0.6 TH/MM3 (0-0.9) Eosinophils # (Auto) 0.0 TH/MM3 (0-0.4) Basophils # (Auto) 0.0 TH/MM3 (0-0.2) CBC Comment DIFF FINAL Differential Comment Blood Urea Nitrogen 24 MG/DL (7-18) Creatinine 0.55 MG/DL (0.50-1.00) Random Glucose 134 MG/DL (74-106) Total Protein 6.7 GM/DL (6.4-8.2) Albumin 3.1 GM/DL (3.4-5.0) Calcium Level 8.9 MG/DL (8.5-10.1) Alkaline Phosphatase 89 U/L (45-117) Aspartate Amino Transf (AST/SGOT) 31 U/L (15-37) Alanine Aminotransferase (ALT/SGPT) 35 U/L (10-53) Total Bilirubin 0.3 MG/DL (0.2-1.0) Sodium Level 134 MEQ/L (136-145) Potassium Level 4.2 MEQ/L (3.5-5.1) Chloride Level 88 MEQ/L (98-107) Carbon Dioxide Level 36.5 MEQ/L (21.0-32.0) Anion Gap 10 MEQ/L (5-15) Estimat Glomerular Filtration Rate 106 ML/MIN (>89) Result Diagram: 11/10/1735811/10/17358 (1) Dyspnea (2) Pulmonary hypertension (3) NSTEMI, initial episode of care (4) CHF (congestive heart failure) Problem Qualifiers (1) CHF (congestive heart failure): Qualified Codes: I50.9 - Heart failure, unspecified Bong Ruby MD Nov 10, 2017 10:51
[2017-11-10 12:00] VITALS: BP 133/61; PULSE 85; RESP 18; TEMP 98; O2SAT 95
[2017-11-10 13:03] VITALS: O2SAT 94
[2017-11-10 16:00] VITALS: BP 139/65; PULSE 80; RESP 18; TEMP 97.7; O2SAT 93
[2017-11-10] MEDS: ACETAMINOPHEN/HYDROcodone 325 MG/5 MG TAB PO PRN ×2 (16:37→23:38)
--- NOTE | 2017-11-10 17:28 | HHI.PR ---
Subjective Remarks The patient states that she is feeling better. Denies chest pain States her breathing has improved although looks tachypneic. Denies fevers or chills, denies cough. Objective Vitals Vital Signs Date Time Temp Pulse Resp B/P (MAP) Pulse Ox O2 Delivery O2 Flow Rate FiO2 11/10/17 13:03 94 Nasal Cannula 3.00 11/10/17 12:00 98.0 85 18 133/61 (85) 95 11/10/17 08:00 Nasal Cannula 3.00 21 11/10/17 08:00 97.8 86 18 154/76 (102) 94 11/10/17 00:00 97.2 68 22 129/58 (81) 99 11/09/17 21:37 Nasal Cannula 3.00 11/09/17 20:00 97.5 76 22 145/64 (91) 99 11/09/17 18:51 16 I/O 11/09/17 11/09/17 11/09/17 11/10/17 11/10/17 11/10/17 06:59 14:59 22:59 06:59 14:59 22:59 Intake Total 740 ml 0 ml 480 ml Output Total 100 ml Balance 740 ml 0 ml 380 ml Intake Oral 740 ml 0 ml 480 ml Output Urine Total 100 ml # Voids 4 1 3 3 # Bowel Movements 1 0 Result Diagram: 11/10/17 0359 11/10/17 0359 Imaging Last 72 hours Impressions Chest X-Ray 11/09/17 0000 Signed Impressions: CONCLUSION: Abnormal opacity remains in the left lung base with blunting the costophrenic a ngle. This may represent infiltrate and/or effusion. Abdomen/Pelvis CT 11/08/17 0000 Signed Impressions: CONCLUSION: 1. There is abnormal thickening of the left rectus abdominis muscle, as above. This most likely represents a hematoma. This typically seen in patients over a nticoagulated. No active bleeding is identified. Suggest follow-up to confirm r esolution. 2. Anasarca. Also, there are new small bilateral pleural effusions with compre ssive atelectasis in the lower lobes. 3. Nonacute findings include severe atherosclerotic disease and stable hyperde nse left lower pole renal lesion measuring 1.3 cm. Objective Remarks GENERAL: Elderly cachectic and frail -appearing female tachypneic mild to moderate respiratory distress. SKIN: Warm and dry. HEAD: Normocephalic. EYES: No scleral icterus. No injection or drainage. NECK: Supple, trachea midline. No JVD or lymphadenopathy. CARDIOVASCULAR: Irregular, no murmurs rubs or gallops. RESPIRATORY: Patient is tachypneic with use of accessory muscles. Improved air entry bilaterally, no wheezing, rales or rhonchi auscultated. GASTROINTESTINAL: Abdomen is very tender with induration on the left side of the abdomen. MUSCULOSKELETAL: SCDs in place. No edema. NEURO: Alert, awake. Not able to answer questions of orientation. She moves extremities spontaneously. Procedures None A/P Problem List: (1) Acute hypercapnic respiratory failure ICD Code: J96.02 - Acute respiratory failure with hypercapnia (2) COPD exacerbation ICD Code: J44.1 - Chronic obstructive pulmonary disease with (acute) exacerbation Status: Acute (3) UTI (urinary tract infection) ICD Code: N39.0 - Urinary tract infection, site not specified (4) Elevated troponin ICD Code: R74.8 - Abnormal levels of other serum enzymes (5) Hypokalemia ICD Code: E87.6 - Hypokalemia (6) Hypomagnesemia ICD Code: E83.42 - Hypomagnesemia Status: Resolved (7) Hypothyroidism ICD Code: E03.9 - Hypothyroidism, unspecified Status: Chronic (8) HTN (hypertension) ICD Code: I10 - Essential (primary) hypertension (9) HLD (hyperlipidemia) ICD Code: E78.5 - Hyperlipidemia, unspecified Assessment and Plan 82 year old female admitted with COPD Exacerbation and Pneumonia Acute hypercapnic respiratory failure COPD exacerbation Chronic respiratory failure pneumonia Continue oxygen Continue duo nebs Status post IV Rocephin and IV azithromycin. Currently on oral Ceftin. 11/09 patient in moderate respiratory distress. Likely suspect COPD exacerbation and also complement of acute on chronic diastolic heart failure. Stat chest x-ray, stat BNP, I will give a dose of Solu-Medrol 125 mg IV once and then placed on 60 mg IV every 6 hours. Will give Lasix 40 mg IV once. Check serial troponins and EKG. 11/10 breathing much improved. Start steroid taper. Decrease Solu-Medrol dose to 40 mg IV every 8 hours. Continue Lasix 40 mg p.o. twice daily. Discussed the case extensively with the patient and the patient's son's who is at bedside. Recommended palliative care and hospice consult. The patient states she wants to be discharged home and then will consider consulting hospice from home. Chest x-ray obtained yesterday showed some abnormal opacity which remains in the left lung base with blunting of the costophrenic angle. The seems to be stable when compared with an chest x-ray obtained on 10/28. We will switch cefuroxime to doxycycline orally for broader coverage. Continue supplemental oxygen to keep oxygen saturation more than 92%. Bacteremia Initial blood cultures drawn on 11/01/17 showed staph coagulase negative in all 4 bottles. Repeat blood cultures on 11/04 are negative 5 days Bree UTI Continue fluconazole Coronary artery disease Cardiac ischemia Elevated troponin Palliative CARE Poor candidate for intervention Medical management Hypertension Continue baseline treatment Follow blood pressures Adjust treatments as needed Hypothyroidism Continue medications Follows an outpatient Abdominal pain Left rectus abdominis muscle hematoma. abd x ray with non obstructive bowel gas pattern. Will give Miralax and obtain a CT abdomen and pelvis. Continue Weatherby for pain control. 11/09 the patient still complaining of severe abdominal pain. CT of the abdomen pelvis show abnormal thickening on the left rectus abdominis muscle. This likely represents a hematoma. Follow-up subcutaneous Lovenox. Hold aspirin. I will consult general surgery. Discussed the case with Dr. Masters. 11/10 appreciate general surgery recommendations. Patient with a left breast to his sheath hematoma likely secondary to the correlation which has been discontinued. Continue conservative management. DVT prophylaxis: Lovenox subcutaneously discontinued secondary to left rectus sheath hematoma. Continue SCDs. Discharge Planning Possible discharge in a.m. pending clinical improvement. Problem Qualifiers (1) Hypothyroidism: Qualified Codes: E03.9 - Hypothyroidism, unspecified (2) HTN (hypertension): Qualified Codes: I10 - Essential (primary) hypertension (3) HLD (hyperlipidemia): Qualified Codes: E78.5 - Hyperlipidemia, unspecified Mark Carpenter MD Nov 10, 2017 17:28
[2017-11-10 20:00] VITALS: BP 142/63; PULSE 90; RESP 16; TEMP 97.4; O2SAT 93
[2017-11-10] MEDS: ZOLPIDEM TARTRATE 10 MG TAB PO SCH (20:46)
[2017-11-10] MEDS: PRAVASTATIN SOD 20 MG TAB PO SCH (20:46)
[2017-11-10] MEDS: DOXYCYCLINE HYCLATE 100 MG TAB PO SCH (20:53)
[2017-11-10] MEDS: CHLORHEXIDINE GLUCONATE 2 % 1 PACK (2 CLOTHS) TOP SCH (23:40)
[2017-11-10] MEDS ORDERED: ONDANSETRON ODT 4 MG TAB PO PRN (23:45)
[2017-11-11] VITALS: BP 131/60; PULSE 68; RESP 16; TEMP 97.3; O2SAT 98
[2017-11-11] MEDS: LEVOTHYROXINE SODIUM 100 MCG TAB PO SCH (05:45)
[2017-11-11] MEDS: methylPREDNISolone SOD SUCC 40 MG/1 ML VIAL IV PUSH SCH (05:46)
[2017-11-11] MEDS: ACETAMINOPHEN/HYDROcodone 325 MG/5 MG TAB PO PRN ×2 (05:46→08:35)
[2017-11-11 08:00] VITALS: BP 135/63; PULSE 82; RESP 17; TEMP 97.4; O2SAT 95
[2017-11-11] MEDS: SUMAtriptan SUCCINATE 50 MG TAB PO PRN (08:33)
[2017-11-11] MEDS: DIAZEPAM 5 MG TAB PO PRN (08:35)
[2017-11-11] MEDS: BACLOFEN 10 MG TAB PO SCH (08:36)
[2017-11-11] MEDS: ENALAPRIL MALEATE 10 MG TAB PO SCH (08:37)
[2017-11-11] MEDS: FUROSEMIDE 40 MG TAB PO SCH (08:37)
[2017-11-11] MEDS: FAMOTIDINE 20 MG TAB PO SCH (08:37)
[2017-11-11] MEDS: DOCUSATE SODIUM 50 MG/SENNA 8.6 MG TAB PO SCH (08:37)
[2017-11-11] MEDS: POTASSIUM CHLORIDE 20 MEQ CONTROLLED RELEASE TAB PO SCH (08:38)
[2017-11-11] MEDS: SODIUM CHLORIDE 0.9% FLUSH 10 ML FLUSH IV FLUSH SCH (08:38)
[2017-11-11] MEDS: FLUCONAZOLE 100 MG TAB PO SCH (08:38)
[2017-11-11] MEDS: DOXYCYCLINE HYCLATE 100 MG TAB PO SCH (08:38)
[2017-11-11] MEDS: predniSONE 20 MG TAB PO SCH (08:38)
--- NOTE | 2017-11-11 11:08 | HHI.DS ---
Discharge Summary Admission Date October 28, 2017 at 20:48 Discharge Date: Nov 11, 2017 Admitting Diagnosis CHF exacerbation, NSTEMI, hypoxia (1) Chronic respiratory failure ICD Code: J96.10 - Chronic respiratory failure, unspecified whether with hypoxia or hypercapnia Diagnosis: Principal Status: Chronic (2) NSTEMI (non-ST elevated myocardial infarction) ICD Code: I21.4 - Non-ST elevation (NSTEMI) myocardial infarction Diagnosis: Principal Status: Acute (3) Acute hypercapnic respiratory failure ICD Code: J96.02 - Acute respiratory failure with hypercapnia Diagnosis: Principal Status: Resolved (4) COPD exacerbation ICD Code: J44.1 - Chronic obstructive pulmonary disease with (acute) exacerbation Diagnosis: Principal Status: Acute (5) UTI (urinary tract infection) ICD Code: N39.0 - Urinary tract infection, site not specified Diagnosis: Principal Status: Resolved (6) Elevated troponin ICD Code: R74.8 - Abnormal levels of other serum enzymes Diagnosis: Principal Status: Acute (7) Hypokalemia ICD Code: E87.6 - Hypokalemia Diagnosis: Principal Status: Resolved (8) Hypomagnesemia ICD Code: E83.42 - Hypomagnesemia Diagnosis: Principal Status: Resolved (9) Hypothyroidism ICD Code: E03.9 - Hypothyroidism, unspecified Diagnosis: Secondary Status: Chronic (10) HTN (hypertension) ICD Code: I10 - Essential (primary) hypertension Diagnosis: Secondary Status: Chronic (11) HLD (hyperlipidemia) ICD Code: E78.5 - Hyperlipidemia, unspecified Diagnosis: Secondary Status: Chronic Procedures None Brief History - From Admission 82-year-old female with past medical history of past medical history of CHF, COPD- on home oxygen, hypertension, anemia, presents to for evaluation of failure to thrive, weakness, shortness of breath for 1 day. Upon EMS arrival the patient home, saturation was 86% on 2 L. She was transported on 6 L O2 nasal cannula. In the emergency department she appears to be tachypneic and using accessory muscles. She was emergently placed on the BiPAP with improvement of her oxygenation immediately. She states she has been intubated in the past. She was admitted with a similar symptoms 10/19 and previously 10/09 with abdominal pain and anemia. CBC/BMP: 11/10/17 0359 11/10/17 0359 Significant Findings Laboratory Tests Test 11/09/17 13:37 11/10/17 03:59 White Blood Count 16.0 TH/MM3 (4.0-11.0) Red Blood Count 3.93 MIL/MM3 (4.00-5.30) Hemoglobin 8.8 GM/DL (11.6-15.3) 9.6 GM/DL (11.6-15.3) Hematocrit 30.1 % (35.0-46.0) 31.9 % (35.0-46.0) Mean Corpuscular Volume 76.6 FL (80.0-100.0) 77.5 FL (80.0-100.0) Mean Corpuscular Hemoglobin 22.5 PG (27.0-34.0) 23.3 PG (27.0-34.0) Mean Corpuscular Hemoglobin Concent 29.3 % (32.0-36.0) 30.1 % (32.0-36.0) Red Cell Distribution Width 22.6 % (11.6-17.2) 22.6 % (11.6-17.2) Neutrophils (%) (Auto) 92.5 % (16.0-70.0) 91.8 % (16.0-70.0) Lymphocytes (%) (Auto) 1.7 % (9.0-44.0) 2.3 % (9.0-44.0) Neutrophils # (Auto) 14.8 TH/MM3 (1.8-7.7) 9.6 TH/MM3 (1.8-7.7) Lymphocytes # (Auto) 0.3 TH/MM3 (1.0-4.8) 0.2 TH/MM3 (1.0-4.8) Creatinine 0.30 MG/DL (0.50-1.00) Random Glucose 117 MG/DL (74-106) 134 MG/DL (74-106) Total Protein 5.7 GM/DL (6.4-8.2) Albumin 2.7 GM/DL (3.4-5.0) 3.1 GM/DL (3.4-5.0) Sodium Level 135 MEQ/L (136-145) 134 MEQ/L (136-145) Chloride Level 91 MEQ/L (98-107) 88 MEQ/L (98-107) Carbon Dioxide Level 36.5 MEQ/L (21.0-32.0) 36.5 MEQ/L (21.0-32.0) Platelet Count 145 TH/MM3 (150-450) Blood Urea Nitrogen 24 MG/DL (7-18) Imaging Last Impressions Chest X-Ray 11/09/17 0000 Signed Impressions: CONCLUSION: Abnormal opacity remains in the left lung base with blunting the costophrenic a ngle. This may represent infiltrate and/or effusion. Abdomen/Pelvis CT 11/08/17 0000 Signed Impressions: CONCLUSION: 1. There is abnormal thickening of the left rectus abdominis muscle, as above. This most likely represents a hematoma. This typically seen in patients over a nticoagulated. No active bleeding is identified. Suggest follow-up to confirm r esolution. 2. Anasarca. Also, there are new small bilateral pleural effusions with compre ssive atelectasis in the lower lobes. 3. Nonacute findings include severe atherosclerotic disease and stable hyperde nse left lower pole renal lesion measuring 1.3 cm. Abdomen X-Ray 11/07/17 0000 Signed Impressions: CONCLUSION: Nonobstructive bowel gas pattern with moderate amount of stool. CT Angiography 10/28/17 0000 Signed Impressions: Service Date/Time: Saturday, October 28, 2017 20:32 - CONCLUSION: 1. Apparently chronic focal filling defect in an isolated right lower lobe pulmonary artery segmental branch. 2. No CT evidence for acute pulmonary artery embolism. 3. Moderate to severe diffuse upper lobe predominant centrilobular emphysema. 4. Small bilateral pleural effusions with minimal airspace consolidation at the lung bases, presumably atelectasis. 5. Mild cardiomegaly. Dean Emanuel MD PE at Discharge GENERAL: Elderly cachectic and frail -appearing female tachypneic mild to moderate respiratory distress. SKIN: Warm and dry. HEAD: Normocephalic. EYES: No scleral icterus. No injection or drainage. NECK: Supple, trachea midline. No JVD or lymphadenopathy. CARDIOVASCULAR: Irregular, no murmurs rubs or gallops. RESPIRATORY: Patient is tachypneic with use of accessory muscles. Improved air entry bilaterally, no wheezing, rales or rhonchi auscultated. GASTROINTESTINAL: Abdomen is very tender with induration on the left side of the abdomen. MUSCULOSKELETAL: SCDs in place. No edema. NEURO: Alert, awake. Not able to answer questions of orientation. She moves extremities spontaneously. Pt update on day of discharge The patient denies chest pain. States her breathing is much better. Denies fevers or chills. The patient is inquiring about going home. Hospital Course This is an 82-year-old female with past medical history of CHF COPD, chronic respiratory failure on home oxygen, hypertension, anemia, hypothyroidism who presented for evaluation failure to thrive, weakness and shortness of breath for 1 day. As per medical records upon arrival of EMS to the patient's house oxygen saturation was 86% on 2 L nasal cannula. The patient was transported on 6 L oxygen nasal cannula. The patient appeared to be tachypneic in the emergency department and using accessory muscles. She was placed emergently on BiPAP and admitted to intensive care unit. Patient was found to have a COPD exacerbation and was started on duo nebs, treated with IV steroids,. Antibiotics, BiPAP as needed. Palliative care consulted. Patient also was found to have elevated troponins likely secondary to end NSTEMI. The patient was awake and related by cardiology who recommended medical management. The patient also was started at the time on Lovenox 1 mg/kg every 12 hours. Serial EKGs and troponins were also followed. For CHF the patient was continue enalapril Lasix. Patient had anemia and all those complications this admission the patient was confused 1 unit of PRBCs. Pravastatin was continued for hyperlipidemia as well as levothyroxine for hypothyroidism. Patient was placed on IV Pepcid for history of peptic ulcer disease. The patient slowly improved and was eventually transferred to the medical floor. In the medical floor the patient started complaining of abdominal pain. A CT of the abdomen and pelvis was obtained and it shows some abnormal thickening of the left rectus abdominis muscle which most likely representing a hematoma. General surgery was consulted. Dr. Masters evaluated the patient and recommended observation. All blood thinners were discontinued as well. Patient also was found to have anasarca on CT of the abdomen and pelvis. On 11/09 the patient went into moderate respiratory distress. On exam the patient had bilateral expiratory wheezing and decreased breath sounds. Patient was treated with IV Solu-Medrol and IV Lasix emergently. Patient condition improved in the next 2 days. Patient was also found to be bacteremic since initial blood cultures drawn on showed staph coagulase-negative in all 4 bottles. However repeat blood cultures in 11/04 were negative 5 days. I discussed with the patient and the patient's son at length regarding hospice consultation. The patient states that she would like to see hospice, however not now. She states that she wants to get home with her son and then they will discuss it in the next few days after discharge. assistant restaurant general manager was consulted so that information regarding hospice could be provided. Pt Condition on Discharge: Stable Discharge Disposition: Disch w/ Home Health Serv Discharge Time: > 30 minutes Discharge Instructions DIET: Follow Instructions for: Heart Healthy Diet Activities you can perform: Regular-No Restrictions Other Activity Instructions: oob w assistance Follow up Referrals: PCP Follow-up - 2 Weeks New Medications: Lactobacillus Acidophilus (Lactobacillus Acidophilus) 1 Billion Cell Tab 1 TAB PO TIDAC for Nutritional Supplement, #30 TAB 0 Refills Oxygen (O2) (Oxygen (O2)) Device LITER JUSTINE.CANULA CONTINUOUS for Prevent Hypoxemia, #2 Oxygen Concentrator Portable Gaseous 2 L/min via Nasal Canula Continuous For 99 months Magnesium Hydroxide (Qc Milk of Magnesia) 400 Mg/5 Ml April 30 ML PO Q12H PRN for Mild constipation, #1 BOTTLE Changed Medications: Hydrocodone/Acetaminophen (Hydrocodone-Acetamin 5-325 mg) 5 Mg-325 Mg Tablet 1 TAB PO Q4H PRN for Pain, #30 TAB 0 Refills (Changed from: ; Days) Continued Medications: Aspirin DR (Aspirin DR) 81 Mg Tabdr 81 MG PO DAILY, #30 TAB Baclofen (Baclofen) 10 Mg Tab 10 MG PO TID, TAB 0 Refills Diazepam (Valium) 5 Mg Tab 5 MG PO TID PRN for ANXIETY, #30 TAB 0 Refills (This prescription has been renewed) Enalapril (Vasotec) 10 Mg Tab 10 MG PO DAILY, #30 TAB 0 Refills Fluticasone-Salmeterol Inh (Advair Diskus Inh) 250-50 Mcg/Blist Aer 1 PUFF INH BID PRN for SHORTNESS OF BREATH, #1 INHALER 0 Refills Rinse mouth after use. Furosemide (Lasix) 40 Mg Tab 40 MG PO DAILY, #30 TAB 0 Refills Ipratropium-Albuterol Neb (Duoneb) 0.5-2.5 Mg/3 Ml Neb 3 ML NEB Q6HR PRN for SHORTNESS OF BREATH, #30 NEBULE 0 Refills Levothyroxine (Levothyroxine) 100 Mcg Tab 100 MCG PO DAILY for Thyroid, #30 TAB 0 Refills Ondansetron (Zofran) 4 Mg Tab 4 MG PO DAILY PRN for NAUSEA OR VOMITING, TAB 0 Refills Pantoprazole (Protonix) 40 Mg Tab 40 MG PO DAILY for Reflux, #30 TAB 0 Refills Potassium Chloride ER (Potassium Chloride ER) 20 Meq Tab 20 MEQ PO DAILY for Electrolyte Replacement, #30 TAB 0 Refills Pravastatin (Pravachol) 20 Mg Tab 20 MG PO HS, #30 TAB Sumatriptan (Imitrex) 100 Mg Tab 100 MG PO DAILY PRN for MIGRAINE HEADACHE, TAB 0 Refills If a satisfactory response has not been obtained at 2 hours, a second dose may be administered Tiotropium Inh (Spiriva Handihaler) 18 Mcg Cap 1 PUFF INH DAILY for COPD, #30 CAP 0 Refills Do Not Swallow Capsules Zolpidem (Ambien) 10 Mg Tab 10 MG PO HS, TAB 0 Refills Mark Carpenter MD Nov 11, 2017 11:08
[2017-11-11] MEDS ORDERED: PRED10PA2 PO (11:09)
[2017-11-11] MEDS ORDERED: DOXY100T PO (11:09)
--- NOTE | 2017-11-18 10:51 | PQ ---
Physician Query Response Document PATIENT: DEE CUMMINS : 1935 ADMIT DATE: 10/28/2017 8:48 PM DISCH DATE: 11/11/2017 12:05 PM RESPONDING PROVIDER #: [email or web address] QUERY TEXT: Clarification of Clinical Diagnostic Findings Please clarify documentation or clinical relevance for the clinical / diagnostic findings or whether those are insignificant or unable to be further specified. Concerning your documentation of "also component of ACUTE ON CHRONIC DIASTOLIC heart failure" 1) yes-present on admission 2)yes-not present on admission 3)patient had diastolic CHF without acute exacerbation present on admission(chronic CHF) 4)patient does not have CHF 5)other(please specify) The patient's Clinical Indicators include: Dr Emeka Landry, you documented in Progress Notes of 6-1 and -2 "also component of acute on chr onic diastolic heart failure". This documentation does not appear in your discharge summary. Also please check 11-06 Progress Note of 11-06-[address] REJI KING. AFTER REVIEWING ABOVE PLEASE REVIEW THE QUESTION BELOW AND ANSWER TO THE BEST OF YOUR ABILITY THANK YOU Query created by: Yg Sehth on 11/13/2017 9:35 AM RESPONSE TEXT: I am unable to determine if acute on chronic diastolic heart failure was present on admission as jakob ent was not seen by me. Electronically signed by: Mark Jacob MD 11/18/2017 10:47 AM
== END 2017-11-11 12:05 | disposition home health service (06) | DRG 189 ==
LOC: NEPC 18:37 → NEDA 20:48 → HIMW 22:20 → N07B 11-07 18:05
PROVIDERS: ADMIT Hospitalist; ATTEND Hospitalist
PROC: 5A09357 Assistance with Respiratory Ventilation, Less than 24 Consecutive Hours, Continuous Positive Airway Pressure (ICD-10-PCS; principal; 2017-10-28)
PROC: 0T9B70Z Drainage of Bladder with Drainage Device, Via Natural or Artificial Opening (ICD-10-PCS; 2017-10-28)
PROC: 30233N1 Transfusion of Nonautologous Red Blood Cells into Peripheral Vein, Percutaneous Approach (ICD-10-PCS; 2017-10-29)
DX: J96.22 Acute and chronic respiratory failure with hypercapnia (principal); I21.4 Non-ST elevation (NSTEMI) myocardial infarction; J18.9 Pneumonia, unspecified organism; I50.33 Acute on chronic diastolic (congestive) heart failure; R64 Cachexia; E87.2 Acidosis; J44.0 Chronic obstructive pulmonary disease with (acute) lower respiratory infection; I27.20 Pulmonary hypertension, unspecified; I11.0 Hypertensive heart disease with heart failure; B37.49 Other urogenital candidiasis; J44.1 Chronic obstructive pulmonary disease with (acute) exacerbation; Z68.1 Body mass index [BMI] 19.9 or less, adult; R78.81 Bacteremia; E83.42 Hypomagnesemia; Z79.01 Long term (current) use of anticoagulants; F32.9 Major depressive disorder, single episode, unspecified; R62.7 Adult failure to thrive; F17.210 Nicotine dependence, cigarettes, uncomplicated; I25.10 Atherosclerotic heart disease of native coronary artery without angina pectoris; G43.909 Migraine, unspecified, not intractable, without status migrainosus; Z87.442 Personal history of urinary calculi; K21.9 Gastro-esophageal reflux disease without esophagitis; Z86.73 Personal history of transient ischemic attack (TIA), and cerebral infarction without residual deficits; F41.9 Anxiety disorder, unspecified; M19.90 Unspecified osteoarthritis, unspecified site; Z99.81 Dependence on supplemental oxygen; E78.5 Hyperlipidemia, unspecified; Z87.11 Personal history of peptic ulcer disease; Z90.710 Acquired absence of both cervix and uterus; Z79.82 Long term (current) use of aspirin; Z51.5 Encounter for palliative care; E03.9 Hypothyroidism, unspecified; I07.1 Rheumatic tricuspid insufficiency; G89.29 Other chronic pain; M54.2 Cervicalgia; D64.9 Anemia, unspecified; Z66 Do not resuscitate; E87.6 Hypokalemia; S30.1XXA Contusion of abdominal wall, initial encounter
CPT/HCPCS: 36430; 36600; 71045; 71275; 74018; 74177; 80048; 80053; 81001; 82550; 82552; 82805; 83605; 83735; 83880; 84100; 84132; 84484; 85025; 85610; 85730; 86403; 86850; 86900; 86901; 86920; 87040; 87086; 87205; 87641; 93005; 93306; 94002; 94003; 94640; 94664; J0456; J0696; J1650; J1940; J2060; J2270; J2405; J2920; J2930; J3475; J7050; J7512; P9016; Q9963; Q9967

== ENCOUNTER 2017-11-30 13:54 | Inpatient (IN) | payer MEDICARE, OTHER ==
[~2017-11-30] VITALS: Ht 154.9 cm; Wt 90.1 kg
[~2017-11-30 13:54] MED LIST changes: -DIAZ10 PO; +DIAZ5 PO; +DOXY100T PO; +LACTTAB8 PO; -MACR100C2 PO; +MAGN30S PO; -MONT10TA2 PO; +OXYGENDME NAS.CANULA; +PRED10PA2 PO
[2017-11-30 14:09] VITALS: BP 125/55; PULSE 84; TEMP 97.8; O2SAT 99
[2017-11-30 14:23] VITALS: BP 118/57; PULSE 85; RESP 18; O2SAT 96
--- NOTE | 2017-11-30 14:37 | PD ---
HPI Chief Complaint: Pain: Acute or Chronic Time Seen by Provider: 14:10 Travel History International Travel<30 days: No Contact w/Intl Traveler<30days: No Traveled to known affect area: No History of Present Illness HPI 82-year-old female complains of right arm pain and generalized malaise and weakness and frequent fall. Patient was admitted to [facility] October 28 and discharged November 11 with diagnosis of chronic respiratory failure, NSTEMI, COPD exacerbation, UTI, elevated troponin, electrolyte abnormality, hypothyroidism, hypertension, hyperlipidemia. Patient is on home O2. Patient states that she has increasing generalized malaise and weakness for the past several days. Patient has frequent fall recently. Patient complained of right arm pain. Patient does not know how long the pain has been present in the right arm. Patient is not sure of injury to the right arm. Patient states that the pain is sharp pain localized the right arm. Patient denies any pain radiation. Patient states that she has aching headache. Patient states that headaches aching diffuse over the head. Patient denies any visual change. Patient denies any neck pain. Patient denies any chest pain or shortness of breath. Patient denies abdominal pain. Patient denies any nausea vomiting diarrhea. Patient denies any dysuria frequency. Patient denies any back pain. Patient denies any fever chills. Patient denies any focal weakness or numbness of the extremity. PFSH Past Medical History Hx Anticoagulant Therapy: Yes Arthritis: Yes Asthma: No Anxiety: Yes Depression: Yes Heart Rhythm Problems: No Cancer: No Cardiovascular Problems: Yes High Cholesterol: Yes Chemotherapy: No Chest Pain: Yes Congestive Heart Failure: Yes COPD: Yes Cerebrovascular Accident: Yes Diabetes: No Diminished Hearing: No Endocrine: No Gastrointestinal Disorders: Yes GERD: Yes Genitourinary: Yes Headaches: Yes Hepatitis: No Hiatal Hernia: No Hypertension: Yes Immune Disorder: No Implanted Vascular Access Dvce: Yes Kidney Stones: Yes Musculoskeletal: Yes Neurologic: Yes Psychiatric: No Reproductive: No Respiratory: Yes Migraines: Yes Pneumonia: Yes Radiation Therapy: No Renal Failure: No Seizures: No Sleep Apnea: No Thyroid Disease: No Ulcer: No ?: Not : 2 Para: 2 Past Surgical History Abdominal Surgery: Yes (HYSTERECTOMY ) Appendectomy: Yes Body Medical Devices: plates in neck Cardiac Surgery: No Cholecystectomy: Yes Ear Surgery: No Endocrine Surgery: No Eye Surgery: Yes (BILATERAL EYE IMPLANTS ) Genitourinary Surgery: No Gynecologic Surgery: Yes (HYSTERECTOMY ) Hysterectomy: Yes Neurologic Surgery: Yes (CERVICAL FUSION) Oral Surgery: No Pacemaker: No Thoracic Surgery: No Social History Alcohol Use: Yes (OCCASSIONAL) Tobacco Use: Yes (1 PPD) Substance Use: No Allergies-Medications (Allergen,Severity, Reaction): Coded Allergies: levofloxacin (Verified Allergy, Severe, HEADACHE, NAUSEA, VOMITING, ) meperidine (Verified Adverse Reaction, Unknown, HALLUCINATIONS, 11/30/17) Reported Meds & Prescriptions Reported Meds & Active Scripts Active Oxygen (O2) Device Liter JUSTINE.CANULA CONTINUOUS Oxygen Concentrator Portable Gaseous 2 L/min via Nasal Canula Continuous For 99 months Lactobacillus Acidophilus 1 Billion Cell Tab 1 Tab PO TIDAC Qc Milk of Magnesia (Magnesium Hydroxide) 400 Mg/5 Ml April 30 Ml PO Q12H PRN Valium (Diazepam) 5 Mg Tab 5 Mg PO TID PRN Hydrocodone-Acetamin 5-325 mg (Hydrocodone/Acetaminophen) 5 Mg-325 Mg Tablet 1 Tab PO Q4H PRN Aspirin DR (Aspirin) 81 Mg Tabdr 81 Mg PO DAILY Pravachol (Pravastatin) 20 Mg Tab 20 Mg PO HS Reported Ambien (Zolpidem Tartrate) 10 Mg Tab 10 Mg PO HS Spiriva Handihaler (Tiotropium Inh) 18 Mcg Cap 1 Puff INH DAILY Do Not Swallow Capsules Imitrex (Sumatriptan Succinate) 100 Mg Tab 100 Mg PO DAILY PRN If a satisfactory response has not been obtained at 2 hours, a second dose may be administered Potassium Chloride ER (Potassium Chloride) 20 Meq Tab 20 Meq PO DAILY Zofran (Ondansetron HCl) 4 Mg Tab 4 Mg PO DAILY PRN Levothyroxine (Levothyroxine Sodium) 100 Mcg Tab 100 Mcg PO DAILY Lasix (Furosemide) 40 Mg Tab 40 Mg PO DAILY Advair Diskus Inh (Fluticasone-Salmeterol Inh) 250-50 Mcg/Blist Aer 1 Puff INH BID PRN Rinse mouth after use. Vasotec (Enalapril Maleate) 10 Mg Tab 10 Mg PO DAILY Baclofen 10 Mg Tab 10 Mg PO TID Duoneb (Ipratropium-Albuterol Neb) 0.5-2.5 Mg/3 Ml Neb 3 Ml NEB Q6HR PRN Protonix (Pantoprazole Sodium) 40 Mg Tab 40 Mg PO DAILY Review of Systems General / Constitutional: No: Fever Eyes: No: Visual changes HENT: No: Headaches Cardiovascular: No: Chest Pain or Discomfort Respiratory: No: Shortness of Breath Gastrointestinal: No: Abdominal Pain Genitourinary: No: Dysuria Musculoskeletal: Positive: Pain Skin: No Rash Neurologic: No: Weakness Psychiatric: No: Depression Endocrine: No: Polydipsia Hematologic/Lymphatic: No: Easy Bruising Physical Exam Narrative GENERAL: Well-nourished, well-developed patient. SKIN: Focused skin assessment warm/dry. HEAD: Normocephalic. EYES: No scleral icterus. No injection or drainage. NECK: Supple, trachea midline. No JVD or lymphadenopathy. CARDIOVASCULAR: Regular rate and rhythm without murmurs, gallops, or rubs. RESPIRATORY: Breath sounds equal bilaterally. No accessory muscle use. GASTROINTESTINAL: Abdomen soft, non-tender, nondistended. MUSCULOSKELETAL: Patient has ecchymosis swelling tenderness right upper arm, right forearm and right hand. Limited range of motion of all joints in the right arm. Sensory motor function distally intact. BACK: Nontender without obvious deformity. No CVA tenderness. Data Data Last Documented VS Vital Signs Date Time Temp Pulse Resp B/P (MAP) Pulse Ox O2 Delivery O2 Flow Rate FiO2 11/30/17 14:57 (77) 98 Room Air 11/30/17 14:23 85 18 11/30/17 14:09 97.8 Orders Orders Electrocardiogram (11/30/17 14:21) Complete Blood Count With Diff (11/30/17 14:21) Comprehensive Metabolic Panel (11/30/17 14:21) Creatine Kinase (Cpk) (11/30/17 14:21) Troponin I (11/30/17 14:21) B-Type Natriuretic Peptide (11/30/17 14:21) Prothrombin Time / Inr (Pt) (11/30/17 14:21) Act Partial Throm Time (Ptt) (11/30/17 14:21) Blood Culture (11/30/17 14:21) Urinalysis - C+S If Indicated (11/30/17 14:21) Thyroid Stimulating Hormone (11/30/17 14:21) Chest, Single Ap (11/30/17 14:21) Ct Brain W/O Iv Contrast(Rout) (11/30/17 14:21) Iv Access Insert/Monitor (11/30/17 14:21) Ecg Monitoring (11/30/17 14:21) Oximetry (11/30/17 14:21) Lactic Acid (11/30/17 14:21) Sodium Chlor 0.9% 1000 Ml Inj (Ns 1000 M (11/30/17 14:30) Forearm (2vws) (11/30/17 14:23) Hand, Complete ([id number]) (11/30/17 14:23) Humerus (Min 2vws) (11/30/17 14:23) Labs Laboratory Tests Test 11/30/17 14:20 11/30/17 15:00 11/30/17 15:50 White Blood Count 8.9 TH/MM3 Red Blood Count 3.02 MIL/MM3 Hemoglobin 7.5 GM/DL Hematocrit 24.7 % Mean Corpuscular Volume 82.0 FL Mean Corpuscular Hemoglobin 24.9 PG Mean Corpuscular Hemoglobin Concent 30.4 % Red Cell Distribution Width 26.2 % Platelet Count 323 TH/MM3 Mean Platelet Volume 7.6 FL Neutrophils (%) (Auto) 94.7 % Lymphocytes (%) (Auto) 2.3 % Monocytes (%) (Auto) 2.8 % Eosinophils (%) (Auto) 0.0 % Basophils (%) (Auto) 0.2 % Neutrophils # (Auto) 8.5 TH/MM3 Lymphocytes # (Auto) 0.2 TH/MM3 Monocytes # (Auto) 0.2 TH/MM3 Eosinophils # (Auto) 0.0 TH/MM3 Basophils # (Auto) 0.0 TH/MM3 CBC Comment AUTO DIFF Differential Comment AUTO DIFF CONFIRMED Ovalocytes 1+ Acanthocytes OCC Prothrombin Time 10.4 SEC Prothromb Time International Ratio 1.0 RATIO Activated Partial Thromboplast Time 23.3 SEC Blood Urea Nitrogen 21 MG/DL Creatinine 0.69 MG/DL Random Glucose 132 MG/DL Total Protein 5.7 GM/DL Albumin 2.7 GM/DL Calcium Level 7.7 MG/DL Alkaline Phosphatase 163 U/L Aspartate Amino Transf (AST/SGOT) 26 U/L Alanine Aminotransferase (ALT/SGPT) 15 U/L Total Bilirubin 0.2 MG/DL Sodium Level 138 MEQ/L Potassium Level 5.6 MEQ/L Chloride Level 103 MEQ/L Carbon Dioxide Level 29.3 MEQ/L Anion Gap 6 MEQ/L Estimat Glomerular Filtration Rate 81 ML/MIN Total Creatine Kinase 39 U/L Troponin I 0.03 NG/ML B-Type Natriuretic Peptide 526 PG/ML Thyroid Stimulating Hormone 3rd Gen 1.160 uIU/ML Lactic Acid Level 1.1 mmol/L Urine Color YELLOW Urine Turbidity CLEAR Urine pH 6.0 Urine Specific [place] 1.012 Urine Protein NEG mg/dL Urine Glucose (UA) NEG mg/dL Urine Ketones NEG mg/dL Urine Occult Blood MOD Urine Nitrite NEG Urine Bilirubin NEG Urine Urobilinogen LESS THAN 2 mg/dL Urine Leukocyte Esterase NEG Urine RBC LESS THAN 1 /hpf Urine WBC LESS THAN 1 /hpf Urine Hyaline Casts 3 /lpf Microscopic Urinalysis Comment CULT NOT INDICATED MDM Medical Decision Making Medical Screen Exam Complete: Yes Emergency Medical Condition: Yes Interpretation(s) Last Impressions Radius/Ulna X-Ray 11/30/171422 Signed Impressions: CONCLUSION: Osteopenia, Negative for fracture or dislocation. Followup in 7-10 days is julia cantu if symptoms persist. Humerus X-Ray 11/30/171422 Signed Impressions: CONCLUSION: Impacted fracture of the humerus in near-anatomic alignment. Hand X-Ray 11/30/171422 Signed Impressions: CONCLUSION: Osteopenia with degenerative changes. I do not see a fracture. Osteopenia makes detection of subtle fractures difficult. Head CT 11/30/171420 Signed Impressions: CONCLUSION: 1. Senescent changes with moderate periventricular ischemic white matter demye lination. This is somewhat asymmetric in the posterior parietal high convexitie s but likely chronic. MRI examination may be performed for further evaluation i f there is continued clinical concern. 2. Otherwise, no acute intracranial abnormality. Chest X-Ray 11/30/171420 Signed Impressions: CONCLUSION: Proximal right humeral fracture. Patchy consolidation or atelectasis in the mid left lung. 1645 PM. CBC WBC 8.9. Hemoglobin 7.5 hematocrit 24.7. 94 neutrophil. Potassium 5.6. Lactic acid 1.1. BNP 526. Differential Diagnosis Differential diagnosis including contusion, fracture, dislocation, viral syndrome, acute exacerbation COPD, acute exacerbation of CHF, UTI, dehydration, electrolyte imbalance, sepsis. Narrative Course 82-year-old female with frequent fall, generalized malaise and weakness in right arm ecchymosis and tenderness. Normal saline solution 100 cc an hour. Sling and swath Diagnosis Primary Impression: Fracture of right humerus Qualified Codes: S42.224A - 2-part nondisplaced fracture of surgical neck of right humerus, initial encounter for closed fracture Additional Impression: Weakness Admitting Information Admitting Physician Requests: Observation Lux Stokes MD Nov 30, 2017 14:37
[2017-11-30 14:45] LABS: AUTOMATED NEUTROPHIL # 8.5 TH/MM3 (1.8-7.7); BASOPHIL % 0.2 % (0.0-2.0); HEMATOCRIT 24.7 % (35.0-46.0); HEMOGLOBIN 7.5 GM/DL (11.6-15.3); LYMPH % 2.3 % (9.0-44.0); LYMPHOCYTE # 0.2 TH/MM3 (1.0-4.8); MEAN CORPUSCULAR HEMOGLOBIN 24.9 PG (27.0-34.0); MEAN CORPUSCULAR HGB CONC 30.4 % (32.0-36.0); MEAN PLATELET VOLUME 7.6 FL (7.0-11.0); MONO % 2.8 % (0.0-8.0); MONOCYTE # 0.2 TH/MM3 (0-0.9); NEUT % 94.7 % (16.0-70.0); PLATELET COUNT 323 TH/MM3 (150-450); RED BLOOD COUNT 3.02 MIL/MM3 (4.00-5.30); RED CELL DISTRIBUTION WIDTH 26.2 % (11.6-17.2); WHITE BLOOD COUNT 8.9 TH/MM3 (4.0-11.0)
[2017-11-30 14:53] LABS: PROTHROMBIN TIME - PATIENT 10.4 SEC (9.8-11.6)
[2017-11-30] MEDS: SODIUM CHLOR 0.9% 1000 ML INJ 1,000 ML IV SCH (14:55)
[2017-11-30 14:57] VITALS: O2SAT 98
[2017-11-30 15:03] LABS: ALBUMIN 2.7 GM/DL (3.4-5.0); ALT (GPT) 15 U/L (10-53); AST (GOT) 26 U/L (15-37); BICARBONATE 29.3 MEQ/L (21.0-32.0); BLOOD UREA NITROGEN 21 MG/DL (7-18); CALCIUM 7.7 MG/DL (8.5-10.1); CHLORIDE 103 MEQ/L (98-107); CREATININE 0.69 MG/DL (0.50-1.00); GLOMERULAR FILTRATION RATE 81 ML/MIN (>89); GLUCOSE,RANDOM 132 MG/DL (74-106); SODIUM (NA) 138 MEQ/L (136-145)
[2017-11-30 15:13] LABS: ALKALINE PHOSPHATASE 163 U/L (45-117); TOTAL BILIRUBIN ADULT 0.2 MG/DL (0.2-1.0); TOTAL PROTEIN 5.7 GM/DL (6.4-8.2); TROPONIN I 0.03 NG/ML (0.02-0.05)
--- NOTE | 2017-11-30 15:31 | RADRPT ---
EXAM DATE: 11/30/2017 3:23 PM EDT AGE/SEX: 82 years / Female INDICATIONS: fell 2 weeks ago. CLINICAL DATA: This is the patient's initial encounter. Patient reports that signs and symptoms have been present for 2 weeks and indicates a pain score of 10/10. MEDICAL/SURGICAL HISTORY: Chronic obstructive pulmonary disease. Congestive heart failure. Non e. COMPARISON: [facility] [place], CHEST SINGLE AP, 11/09/2017. . FINDINGS: The heart size appears grossly normal. The patient is rotated. There is some mild patchy density in t he left mid lung. Lungs appear otherwise grossly clear. There is a fracture at the right proximal hum erus at the surgical neck. Surgical hardware is seen in the cervical spine. Clips are seen in the rig ht upper quadrant of the abdomen. CONCLUSION: Proximal right humeral fracture. Patchy consolidation or atelectasis in the mid left lung. Electronically signed by: Darrell Cedillo MD 11/30/2017 3:30 PM EDT
[2017-11-30 15:54] LABS: ACANTHOCYTES OCC (NORMAL); OVALOCYTES 1+ (NORMAL)
--- NOTE | 2017-11-30 16:00 | RADRPT ---
EXAM DATE: 11/30/2017 3:29 PM EDT AGE/SEX: 82 years / Female INDICATIONS: Fell 2 weeks ago. CLINICAL DATA: This is the patient's initial encounter. Patient reports that signs and symptoms have been present for 2 weeks and indicates a pain score of 10/10. MEDICAL/SURGICAL HISTORY: None. None. COMPARISON: No prior exams available for comparison. FINDINGS: There is an impacted fracture of the humerus. This is through the surgical neck of the humerus. The greater tuberosity is probably a free fragment. Clinical acromium are intact. CONCLUSION: Impacted fracture of the humerus in near-anatomic alignment. Electronically signed by: Montez Meek MD 11/30/2017 3:59 PM EDT
--- NOTE | 2017-11-30 16:01 | RADRPT ---
EXAM DATE: 11/30/2017 3:27 PM EDT AGE/SEX: 82 years / Female INDICATIONS: Fell 2 weeks ago CLINICAL DATA: This is the patient's initial encounter. Patient reports that signs and symptoms have been present for 2 weeks and indicates a pain score of 10/10. MEDICAL/SURGICAL HISTORY: None. None. COMPARISON: No prior exams available for comparison. FINDINGS: Bony structures are intact and in normal alignment. Osseous density is normal. Soft tissues are unre markable. No radiopaque foreign bodies seen. CONCLUSION: Osteopenia, Negative for fracture or dislocation. Followup in 7-10 days is suggested if symptoms pers ist. Electronically signed by: Montez Meek MD 11/30/2017 3:59 PM EDT
--- NOTE | 2017-11-30 16:05 | RADRPT ---
EXAM DATE: 11/30/2017 3:25 PM EDT AGE/SEX: 82 years / Female INDICATIONS: Fell 2 weeks ago. CLINICAL DATA: This is the patient's initial encounter. Patient reports that signs and symptoms have been present for 2 weeks and indicates a pain score of 10/10. MEDICAL/SURGICAL HISTORY: None. None. COMPARISON: No prior exams available for comparison. FINDINGS: Bones are osteoporotic. 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 Alignment is anatomic. Fracture is not appreciated. Degenerative changes are seen in the first radiocarpal joint. Carpus is grossly intact. CONCLUSION: Osteopenia with degenerative changes. I do not see a fracture. Osteopenia makes detection of subtle f ractures difficult. Electronically signed by: Montez Meek MD 11/30/2017 4:04 PM EDT
--- NOTE | 2017-11-30 16:25 | RADRPT ---
EXAM DATE: 11/30/2017 4:07 PM EDT AGE/SEX: 82 years / Female INDICATIONS: Cephalgia today. CLINICAL DATA: This is the patient's initial encounter. Patient reports that signs and symptoms have been present for 1 day and indicates a pain score of 7/10. MEDICAL/SURGICAL HISTORY: Stroke. Congestive heart failure. Appendectomy. Cholecystectomy. Hyste rectomy. RADIATION DOSE: 33.97 CTDI (mGy) COMPARISON: No prior exams available for comparison. TECHNIQUE: CT of the head without contrast. Using automated exposure control and adjustment of the mA and/or kV according to patient size, radiation dose was kept as low as reasonably achievable to ob tain optimal diagnostic quality images. DICOM format image data is available electronically for revi ew and comparison. FINDINGS: Cerebrum: Moderate diffuse cerebral atrophy. Moderate periventricular white matter hypodensities wit h asymmetrical white matter hypodensities in the posterior right parietal high convexities. The ventr icles are normal for degree of atrophy. No evidence of midline shift, mass lesion, hemorrhage or acut e infarction. No extraaxial fluid collections are seen. Posterior Fossa: The cerebellum and brainstem are intact. The 4th ventricle is midline. The cerebe llopontine angle is unremarkable. Extracranial: The visualized portion of the orbits is intact. Small of fluid in the left maxillary s inus. Skull: The calvaria is intact. No evidence of skull fracture. CONCLUSION: 1. Senescent changes with moderate periventricular ischemic white matter demyelination. This is some what asymmetric in the posterior parietal high convexities but likely chronic. MRI examination may be performed for further evaluation if there is continued clinical concern. 2. Otherwise, no acute intracranial abnormality. Electronically signed by: Dean Emanuel MD 11/30/2017 4:24 PM EDT
[2017-11-30 17:06] LABS: BILIRUBIN, URINE NEG (NEG); BLOOD, URINE MOD (NEG); GLUCOSE,URINE NEG (NEG); HYALINE CAST, URINE 3 /lpf (RARE); KETONE, URINE NEG (NEG); NITRITE,URINE NEG (NEG); URINE COLOR YELLOW (YELLW/STRAW); URINE LEUKOCYTE ESTERASE NEG (NEG)
[2017-11-30 17:34] VITALS: BP 132/60; PULSE 70; RESP 18; O2SAT 100
--- NOTE | 2017-11-30 18:53 | HHI.HP ---
HPI Service [facility] Hospitalists Primary Care Physician Unknown Admission Diagnosis Fracture right humerus. Weakness. Diagnoses: Chief Complaint: Weakness, malaise and frequent falls as long with right arm pain. Travel History International Travel<30 Days: No Contact w/Intl Traveler <30 Da: No Traveled to Known Affected Are: No History of Present Illness This is an 82-year-old female which is very well-known to me who has a past medical history significant for COPD on home oxygen who presents to [facility] complaining of right arm pain and generalized malaise, fatigue and frequent falls. The patient states that she has been increasingly feeling more fatigued and weak on the past several days. Patient states he has been falling frequently in the past few days. States that she got about 3 AM last night and fell over in her living room hitting her right side with immediate right hip pain. Pain is described as sharp localized in the right arm, nonradiating, at this moment 4/10 intensity. The patient otherwise denies any nausea, vomiting, diarrhea, dysuria, abdominal pain, dizziness or back pain. Patient also denies any fevers or chills, chest pain. Review of Systems As per HPI, other systems reviewed by me and negative. Past Family Social History Past Medical History COPD on home O2 3L CHF HTN HLD ? 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 Stomach ulcers Past Surgical History 2 cervical surgeries portions of intestine removed appendix gallbladder total hysterectomy eye surgery with implants Reported Medications Oxygen (O2) Device Liter JUSTINE.CANULA CONTINUOUS Oxygen Concentrator Portable Gaseous 2 L/min via Nasal Canula Continuous For 99 months Lactobacillus Acidophilus 1 Billion Cell Tab 1 Tab PO TIDAC Qc Milk of Magnesia (Magnesium Hydroxide) 400 Mg/5 Ml April 30 Ml PO Q12H PRN Valium (Diazepam) 5 Mg Tab 5 Mg PO TID PRN Hydrocodone-Acetamin 5-325 mg (Hydrocodone/Acetaminophen) 5 Mg-325 Mg Tablet 1 Tab PO Q4H PRN Aspirin DR (Aspirin) 81 Mg Tabdr 81 Mg PO DAILY Pravachol (Pravastatin) 20 Mg Tab 20 Mg PO HS Ambien (Zolpidem Tartrate) 10 Mg Tab 10 Mg PO HS Spiriva Handihaler (Tiotropium Inh) 18 Mcg Cap 1 Puff INH DAILY Do Not Swallow Capsules Imitrex (Sumatriptan Succinate) 100 Mg Tab 100 Mg PO DAILY PRN If a satisfactory response has not been obtained at 2 hours, a second dose may be administered Potassium Chloride ER (Potassium Chloride) 20 Meq Tab 20 Meq PO DAILY Zofran (Ondansetron HCl) 4 Mg Tab 4 Mg PO DAILY PRN Levothyroxine (Levothyroxine Sodium) 100 Mcg Tab 100 Mcg PO DAILY Lasix (Furosemide) 40 Mg Tab 40 Mg PO DAILY Advair Diskus Inh (Fluticasone-Salmeterol Inh) 250-50 Mcg/Blist Aer 1 Puff INH BID PRN Rinse mouth after use. Vasotec (Enalapril Maleate) 10 Mg Tab 10 Mg PO DAILY Baclofen 10 Mg Tab 10 Mg PO TID Duoneb (Ipratropium-Albuterol Neb) 0.5-2.5 Mg/3 Ml Neb 3 Ml NEB Q6HR PRN Protonix (Pantoprazole Sodium) 40 Mg Tab 40 Mg PO DAILY Allergies: Coded Allergies: levofloxacin (Verified Allergy, Severe, HEADACHE, NAUSEA, VOMITING, ) meperidine (Verified Adverse Reaction, Unknown, HALLUCINATIONS, 11/30/17) Active Ordered Medications Current Medications Medications (Trade) Dose Ordered Sig/Karen Route Start Time Stop Time Status Last Admin Sodium Chloride 1,000 ml @ 100 mls/hr Q10H IV 11/30/17 14:30 11/30/17 14:55 Family History Significant for lung malignancy. Social History Patient lives with her sons and continues to smoke. No history of alcohol or illicit drug abuse Physical Exam Vital Signs Vital Signs Date Time Temp Pulse Resp B/P (MAP) Pulse Ox O2 Delivery O2 Flow Rate FiO2 11/30/17 17:34 70 18 132/60 (84) 100 Nasal Cannula 2.00 11/30/17 14:57 (77) 98 Room Air 11/30/17 14:23 85 18 118/57 (77) 96 Room Air 11/30/17 14:21 75 18 11/30/17 14:09 97.8 84 125/55 (78) 99 Physical Exam GENERAL: Elderly cachectic and frail -appearing female not in acute distress. SKIN: Warm and dry. There is a large ecchymosis over the right upper extremity. HEAD: Normocephalic. EYES: No scleral icterus. No injection or drainage. Pale conjunctivae. NECK: Supple, trachea midline. No JVD or lymphadenopathy. CARDIOVASCULAR: Irregular, no murmurs rubs or gallops. RESPIRATORY:. There is overall decreased breath sounds with good air movement. No rales, rhonchi or wheezing auscultated. GASTROINTESTINAL: Abdomen is soft, nontender nondistended. MUSCULOSKELETAL: There is a sling on the right upper extremity, underneath it is noted the patient's skin has a large ecchymosis. Pulses are +2 and palpable bilaterally. There is good capillary refill in the hands. There is no edema in bilateral extremities. NEURO: Alert, awake. Not able to answer questions of orientation. She moves extremities spontaneously. Laboratory Laboratory Tests Test 11/30/17 14:20 11/30/17 15:00 11/30/17 15:50 White Blood Count 8.9 Red Blood Count 3.02 Hemoglobin 7.5 Hematocrit 24.7 Mean Corpuscular Volume 82.0 Mean Corpuscular Hemoglobin 24.9 Mean Corpuscular Hemoglobin Concent 30.4 Red Cell Distribution Width 26.2 Platelet Count 323 Mean Platelet Volume 7.6 Neutrophils (%) (Auto) 94.7 Lymphocytes (%) (Auto) 2.3 Monocytes (%) (Auto) 2.8 Eosinophils (%) (Auto) 0.0 Basophils (%) (Auto) 0.2 Neutrophils # (Auto) 8.5 Lymphocytes # (Auto) 0.2 Monocytes # (Auto) 0.2 Eosinophils # (Auto) 0.0 Basophils # (Auto) 0.0 CBC Comment AUTO DIFF Differential Comment AUTO DIFF CONFIRMED Ovalocytes 1+ Acanthocytes OCC Prothrombin Time 10.4 Prothromb Time International Ratio 1.0 Activated Partial Thromboplast Time 23.3 Blood Urea Nitrogen 21 Creatinine 0.69 Random Glucose 132 Total Protein 5.7 Albumin 2.7 Calcium Level 7.7 Alkaline Phosphatase 163 Aspartate Amino Transf (AST/SGOT) 26 Alanine Aminotransferase (ALT/SGPT) 15 Total Bilirubin 0.2 Sodium Level 138 Potassium Level 5.6 Chloride Level 103 Carbon Dioxide Level 29.3 Anion Gap 6 Estimat Glomerular Filtration Rate 81 Total Creatine Kinase 39 Troponin I 0.03 B-Type Natriuretic Peptide 526 Thyroid Stimulating Hormone 3rd Gen 1.160 Lactic Acid Level 1.1 Urine Color YELLOW Urine Turbidity CLEAR Urine pH 6.0 Urine Specific [place] 1.012 Urine Protein NEG Urine Glucose (UA) NEG Urine Ketones NEG Urine Occult Blood MOD Urine Nitrite NEG Urine Bilirubin NEG Urine Urobilinogen LESS THAN 2 Urine Leukocyte Esterase NEG Urine RBC LESS THAN 1 Urine WBC LESS THAN 1 Urine Hyaline Casts 3 Microscopic Urinalysis Comment CULT NOT INDICATED Date/Time Source Procedure Growth Status 11/30/17 15:00 Blood Peripheral Aerobic Blood Culture Pending Received 11/30/17 15:00 Blood Peripheral Anaerobic Blood Culture Pending Received Result Diagram: 11/30/17 1420 11/30/17 142 Imaging Last Impressions Radius/Ulna X-Ray 11/30/171422 Signed Impressions: CONCLUSION: Osteopenia, Negative for fracture or dislocation. Followup in 7-10 days is sugg ested if symptoms persist. Humerus X-Ray 11/30/171422 Signed Impressions: CONCLUSION: Impacted fracture of the humerus in near-anatomic alignment. Hand X-Ray 11/30/171422 Signed Impressions: CONCLUSION: Osteopenia with degenerative changes. I do not see a fracture. Osteopenia makes detection of subtle fractures difficult. Head CT 11/30/171420 Signed Impressions: CONCLUSION: 1. Senescent changes with moderate periventricular ischemic white matter demye lination. This is somewhat asymmetric in the posterior parietal high convexitie s but likely chronic. MRI examination may be performed for further evaluation i f there is continued clinical concern. 2. Otherwise, no acute intracranial abnormality. Chest X-Ray 11/30/171420 Signed Impressions: CONCLUSION: Proximal right humeral fracture. Patchy consolidation or atelectasis in the mid left lung. Caprini VTE Risk Assessment Caprini VTE Risk Assessment: Mod/High Risk (score >= 2) VTE Pharm Contraindication: High risk for bleeding Caprini Risk Assessment Model Point Value = 1 Point Value = 2 Point Value = 3 Point Value = 5 Age 41-60 Minor surgery BMI > 25 kg/m2 Swollen legs Varicose veins or History of unexplained or recurrent spontaneous Oral contraceptives or hormone replacement Sepsis (< 1 month) Serious lung disease, including pneumonia (< 1 month) Abnormal pulmonary function Acute myocardial infarction Congestive heart failure (< 1 month) History of inflammatory bowel disease Medical patient at bed rest Age 61-74 Arthroscopic surgery Major open surgery (> 45 min) Laparoscopic surgery (> 45 min) Malignancy Confined to bed (> 72 hours) Immobilizing plaster cast Central venous access Age >= 75 History of VTE Family history of VTE Factor V Leiden Prothrombin [id number] Lupus anticoagulant Anticardiolipin antibodies Elevated serum homocysteine Heparin-induced thrombocytopenia Other congenital or acquired thrombophilia Stroke (< 1 month) Elective arthroplasty Hip, pelvis, or leg fracture Acute spinal cord injury (< 1 month) Prophylaxis Regimen Total Risk Factor Score Risk Level Prophylaxis Regimen 0-1 Low Early ambulation 2 Moderate Order ONE of the following: *Sequential Compression Device (SCD) *Heparin 5000 units SQ BID 3-4 Higher Order ONE of the following medications: *Heparin 5000 units SQ TID *Enoxaparin/Lovenox 40 mg SQ daily (WT < 150 kg, CrCl > 30 mL/min) *Enoxaparin/Lovenox 30 mg SQ daily (WT < 150 kg, CrCl > 10-29 mL/min) *Enoxaparin/Lovenox 30 mg SQ BID (WT < 150 kg, CrCl > 30 mL/min) AND/OR *Sequential Compression Device (SCD) 5 or more Highest Order ONE of the following medications: *Heparin 5000 units SQ TID (Preferred with Epidurals) *Enoxaparin/Lovenox 40 mg SQ daily (WT < 150 kg, CrCl > 30 mL/min) *Enoxaparin/Lovenox 30 mg SQ daily (WT < 150 kg, CrCl > 10-29 mL/min) *Enoxaparin/Lovenox 30 mg SQ BID (WT < 150 kg, CrCl > 30 mL/min) AND *Sequential Compression Device (SCD) Assessment and Plan Problem List: (1) Frequent falls ICD Code: R29.6 - Repeated falls (2) Anemia, posthemorrhagic, acute ICD Code: D62 - Acute posthemorrhagic anemia (3) Humeral fracture ICD Code: S42.309A - Unspecified fracture of shaft of humerus, unspecified arm , initial encounter for closed fracture (4) Weakness ICD Code: R53.1 - Weakness (5) Hyperkalemia ICD Code: E87.5 - Hyperkalemia (6) Hypothyroidism ICD Code: E03.9 - Hypothyroidism, unspecified Status: Chronic (7) COPD (chronic obstructive pulmonary disease) ICD Code: J44.9 - Chronic obstructive pulmonary disease, unspecified Status: Chronic (8) Chronic respiratory failure ICD Code: J96.10 - Chronic respiratory failure, unspecified whether with hypoxia or hypercapnia Assessment and Plan Place the patient outpatient observation. Patient has been having frequent falls, consult PT. Humerus x-ray shows an impacted fracture of the humerus with near anatomic alignment. Consult orthopedic surgery for further recommendations. Patient's hemoglobin dropped from 9.6 on 11/10/17 to 7.5 today. The patient is weak, tired. Likely acute on chronic anemia secondary to hemorrhage. Patient sustained a humeral fracture in the surrounding area is very ecchymotic. Transfuse 1 unit of packed red blood cells and monitor hemoglobin. Potassium elevated at 5.6, will Rx Kayexalate orally. Monitor BMP. Sustained discussion again regarding hospice consultation. The patient states that she would like to have hospice go home and not to be called here. SCDs for DVT prophylaxis. Will not start on chemoprophylaxis given low hemoglobin. Patient COPD seems to be very stable. Continue oxygen, duo nebs, Spiriva. Continue statin for hyperlipidemia. Continue levothyroxine for hypothyroidism. Follow-up as an outpatient. Patient will likely need placement if she agrees. Discussed Condition With Patient, ED physician, patient's son who is at bedside. Problem Qualifiers (1) Humeral fracture: Qualified Codes: S42.224A - 2-part nondisplaced fracture of surgical neck of right humerus, initial encounter for closed fracture (2) Hypothyroidism: Qualified Codes: E03.9 - Hypothyroidism, unspecified (3) COPD (chronic obstructive pulmonary disease): Qualified Codes: J44.9 - Chronic obstructive pulmonary disease, unspecified (4) Chronic respiratory failure: Qualified Codes: J96.10 - Chronic respiratory failure, unspecified whether with hypoxia or hypercapnia Mark Carpenter MD Nov 30, 2017 18:53
[2017-11-30] MEDS ORDERED: LACTULOSE SYRUP 20 GM/30 ML CUP PO PRN (20:00)
[2017-11-30] MEDS ORDERED: NALOXONE HCL 0.4 MG/ML AMP IV PUSH PRN (20:00)
[2017-11-30] MEDS ORDERED: BISACODYL 10 MG SUPP RECTAL PRN (20:00)
[2017-11-30] MEDS ORDERED: MAGNESIUM HYDROXIDE SUSP 30 ML CUP PO PRN (20:00)
[2017-11-30] MEDS ORDERED: SODIUM CHLORIDE 0.9% FLUSH 10 ML FLUSH IV FLUSH PRN (20:00)
[2017-11-30] MEDS ORDERED: SENNOSIDES 8.6 MG TAB PO PRN (20:00)
[2017-11-30] MEDS ORDERED: SODIUM CHLOR 0.9% 250 ML INJ 250 ML IV ONE (20:00)
[2017-11-30] MEDS ORDERED: SUMAtriptan SUCCINATE 50 MG TAB PO PRN (20:15)
[2017-11-30] MEDS ORDERED: RESP: ALBUTEROL 2.5 MG/IPRATROPIUM 0.5 MG NEB (PRN) NEB (20:45)
[2017-11-30] MEDS: SODIUM CHLORIDE 0.9% FLUSH 10 ML FLUSH IV FLUSH SCH (21:00)
[2017-11-30] MEDS ORDERED: SODIUM POLYSTYRENE SULFONATE SUSP 15 GM/60 ML CUP PO ONE (21:00)
[2017-11-30 22:01] VITALS: BP 139/88; PULSE 84; RESP 21; TEMP 97.6; O2SAT 96
[2017-11-30] MEDS: DOCUSATE SODIUM 50 MG/SENNA 8.6 MG TAB PO SCH (22:36)
[2017-11-30] MEDS: PRAVASTATIN SOD 20 MG TAB PO SCH (22:36)
[2017-11-30 23:57] VITALS: BP 122/58; PULSE 90; RESP 22; TEMP 97.6; O2SAT 93
[2017-12-01] VITALS (11 sets, daily range): BP systolic 120–159; BP diastolic 55–68; PULSE 69–100; RESP 16–18; TEMP 97.5–98; O2SAT 91–96
[2017-12-01] MEDS: DIAZEPAM 5 MG TAB PO PRN (02:12)
[2017-12-01] MEDS: ACETAMINOPHEN 325 MG TAB PO PRN (02:13)
[2017-12-01] MEDS ORDERED: MORPHINE SULFATE 4 MG/ML INJ IV PUSH ONE ×2 (03:15→07:45)
[2017-12-01] MEDS: BUDESONIDE-FORMOTEROL 160/4.5 MCG INHALER INH PRN ×2 (06:06→09:55)
[2017-12-01] MEDS: SODIUM CHLOR 0.9% 1000 ML INJ 1,000 ML IV SCH ×3 (07:09→22:19)
[2017-12-01] MEDS: LEVOTHYROXINE SODIUM 100 MCG TAB PO SCH (07:09)
[2017-12-01] MEDS ORDERED: ACETAMINOPHEN/HYDROcodone 325 MG/5 MG TAB PO PRN (07:45)
[2017-12-01 08:07] LABS: HEMOGLOBIN 10.8 GM/DL (11.6-15.3); MEAN CELL VOLUME 82.9 FL (80.0-100.0); MEAN CORPUSCULAR HEMOGLOBIN 25.5 PG (27.0-34.0); MEAN CORPUSCULAR HGB CONC 30.8 % (32.0-36.0); MEAN PLATELET VOLUME 7.5 FL (7.0-11.0); PLATELET COUNT 358 TH/MM3 (150-450); RED BLOOD COUNT 4.23 MIL/MM3 (4.00-5.30); WHITE BLOOD COUNT 9.4 TH/MM3 (4.0-11.0)
[2017-12-01 08:45] LABS: ALBUMIN 1.7 GM/DL (3.4-5.0); ALKALINE PHOSPHATASE 185 U/L (45-117); ALT (GPT) 19 U/L (10-53); AST (GOT) 33 U/L (15-37); BICARBONATE 21.8 MEQ/L (21.0-32.0); BLOOD UREA NITROGEN 11 MG/DL (7-18); CALCIUM 8.3 MG/DL (8.5-10.1); CHLORIDE 106 MEQ/L (98-107); CREATININE 0.51 MG/DL (0.50-1.00); GLOMERULAR FILTRATION RATE 115 ML/MIN (>89); GLUCOSE,RANDOM 83 MG/DL (74-106); SODIUM (NA) 136 MEQ/L (136-145); TOTAL BILIRUBIN ADULT 0.4 MG/DL (0.2-1.0); TOTAL PROTEIN 6.1 GM/DL (6.4-8.2)
[2017-12-01] MEDS: FUROSEMIDE 40 MG TAB PO SCH (08:53)
[2017-12-01] MEDS: SODIUM CHLORIDE 0.9% FLUSH 10 ML FLUSH IV FLUSH SCH ×2 (08:53→22:19)
[2017-12-01] MEDS: PANTOPRAZOLE SOD 40 MG DELAYED RELEASE TAB PO SCH (08:53)
[2017-12-01] MEDS: DOCUSATE SODIUM 50 MG/SENNA 8.6 MG TAB PO SCH ×2 (08:53→21:43)
[2017-12-01] MEDS ORDERED: RESP: ALBUTEROL 2.5 MG/IPRATROPIUM 0.5 MG NEB (PRN) NEB (09:30)
--- NOTE | 2017-12-01 09:34 | HHI.PR ---
Subjective Remarks Follow-up on patient with impacted right humerus fracture. Patient seen and examined. Patient is complaining of pain. She denies any fever or chills. She denies any chest pain. She denies any change in her chronic shortness of breath. She uses 3 L of oxygen at home. She denies any nausea, vomiting or abdominal pain. She is requesting to eat. She is a poor historian. When asked specifically about the cause of her fall resulting in her fracture, patient states that she has had recurrent falls at home in the past month. She states she experiences dizziness and then wakes up on the floor. She denies any history of seizure disorder. She states she has been getting progressively weaker at home. She denies any episodes of tongue biting but does state that she has had some urinary and bowel incontinence although it is unclear from her responses if those events occurred at the time of her syncopal episodes. Objective Vitals Vital Signs Date Time Temp Pulse Resp B/P (MAP) Pulse Ox O2 Delivery O2 Flow Rate FiO2 12/01/17 05:58 2.00 12/01/17 04:28 97.9 69 16 122/68 (86) 96 12/01/17 03:19 18 12/01/17 03:19 18 12/01/17 02:45 97.8 80 18 128/64 94 12/01/17 01:18 97.8 86 18 128/64 95 12/01/17 00:30 97.5 76 18 129/61 94 12/01/17 00:06 97.6 90 18 122/58 94 11/30/17 23:57 97.6 90 22 122/58 (79) 93 11/30/17 22:01 97.6 84 21 139/88 (105) 96 11/30/17 17:34 70 18 132/60 (84) 100 Nasal Cannula 2.00 11/30/17 14:57 (77) 98 Room Air 11/30/17 14:23 85 18 118/57 (77) 96 Room Air 11/30/17 14:21 75 18 11/30/17 14:09 97.8 84 125/55 (78) 99 I/O 11/30/17 11/30/17 11/30/17 12/01/17 12/01/17 12/01/17 07:00 15:00 23:00 07:00 15:00 23:00 Intake Total 200 ml 1100 ml Output Total 500 ml Balance 200 ml 600 ml Intake Oral 200 ml 300 ml Packed Cells 400 ml Blood Product IV Normal Saline Flush 400 ml Output Stool Total 500 ml # Voids 1 # Bowel Movements 1 6 Result Diagram: 12/01/17 0730 11/30/17 1420 Imaging Last Impressions Radius/Ulna X-Ray 11/30/17 1423 Signed Impressions: CONCLUSION: Osteopenia, Negative for fracture or dislocation. Followup in 7-10 days is julia cantu if symptoms persist. Humerus X-Ray 11/30/17 142 Signed Impressions: CONCLUSION: Impacted fracture of the humerus in near-anatomic alignment. Hand X-Ray 11/30/17 142 Signed Impressions: CONCLUSION: Osteopenia with degenerative changes. I do not see a fracture. Osteopenia makes detection of subtle fractures difficult. Head CT 11/30/171420 Signed Impressions: CONCLUSION: 1. Senescent changes with moderate periventricular ischemic white matter demye lination. This is somewhat asymmetric in the posterior parietal high convexitie s but likely chronic. MRI examination may be performed for further evaluation i f there is continued clinical concern. 2. Otherwise, no acute intracranial abnormality. Chest X-Ray 11/30/17 142 Signed Impressions: CONCLUSION: Proximal right humeral fracture. Patchy consolidation or atelectasis in the mid left lung. Objective Remarks GENERAL: Thin cachectic frail appearing elderly female patient, INAD. Awake and alert. Looks uncomfortable secondary to pain in the right shoulder. SKIN: Warm and dry. There is a large ecchymosis over the right upper extremity. RUE in sling. HEENT: Normocephalic. EOMI. No scleral icterus. No injection or drainage. Pale conjunctivae. No nasal drainage. MMM. NECK: Supple, trachea midline. CARDIOVASCULAR: Irregular, no murmurs rubs or gallops. RESPIRATORY: Fair air entry. Decreased breath sounds, clear to auscultation anteriorly. No rales, rhonchi or wheezing auscultated. GASTROINTESTINAL: Abdomen is soft, nontender nondistended. +BS. MUSCULOSKELETAL: There is a sling on the right upper extremity, underneath it is noted the patient's skin has a large ecchymosis. Pulses are +2 and palpable bilaterally. There is good capillary refill in the hands. There is no edema in bilateral extremities. NEURO: Alert, awake. CN II-XII grossly intact. Able to move all extremities spontaneously. No focal neurologic findings appreciated. Normal speech. PSYCHIATRIC: Anxious appearing. Cooperative with exam. Procedures None A/P Problem List: (1) Frequent falls ICD Code: R29.6 - Repeated falls (2) Anemia, posthemorrhagic, acute ICD Code: D62 - Acute posthemorrhagic anemia (3) Humeral fracture ICD Code: S42.309A - Unspecified fracture of shaft of humerus, unspecified arm , initial encounter for closed fracture (4) Weakness ICD Code: R53.1 - Weakness (5) Hyperkalemia ICD Code: E87.5 - Hyperkalemia (6) Hypothyroidism ICD Code: E03.9 - Hypothyroidism, unspecified Status: Chronic (7) COPD (chronic obstructive pulmonary disease) ICD Code: J44.9 - Chronic obstructive pulmonary disease, unspecified Status: Chronic (8) Chronic respiratory failure ICD Code: J96.10 - Chronic respiratory failure, unspecified whether with hypoxia or hypercapnia Assessment and Plan 82-year-old female who has a past medical history significant for COPD on home oxygen, CHF, HTN, questionable hx of previous CVA who presents to [facility] complaining of right arm pain and generalized malaise, fatigue and frequent falls resulting in a right humerus fracture. Right humerus fracture s/p fall Osteopenia -Orthopedics consulted, appreciate assistance -Sling for now RUE until evaluated by orthopedic -check Vit D level -PT/OT eval/treatment -Pain management with bowel regimen Recurrent falls Hx of falls suspect possible syncopal episode, likely vasovagal/orthostatic hypotension. Also suspect component of oversedation secondary to medication side effect as patient takes pain medication, baclofen, Valium and Ambien at home Head CT shows some segment changes, asymmetric changes noted in the posterior parietal high convexities TSH 1.160 Echo 11/02/17 reveals EF of 65-70%, PFO, mild to moderate aortic and pulmonary valve regurg, moderate tricuspid regurg, severe PHTN -Obtain MRI/MRA brain -obtain Carotid US and EEG -check orthostatic BP measurements -neuro checks -PT/OT as above -check phos, vit B12 -fall precautions Microcytic, hypochromic anemia, chronic Hx of PRAVIN -suspect contributing to ongoing weakness and recurrent falls Large ecchymosis RUE secondary to fracture. Acute on chronic anemia secondary to hemorrhage. Hgb 7.5 Patient s/p transfusion 1 unit packed red blood cells, repeat hemoglobin 10.8 -We will obtain iron studies based off of pretransfusion lab specimen, discussed with lab -Monitor H&H closely -obtain stool hemoccult -Monitor for evidence of active bleeding Hypertension -Resume patient on home dose of Vasotec -Monitor BP and adjust treatment accordingly CHF, diastolic, chronic, does not appear to be in acute exacerbation BNP 526, previous BNP 1685 10/28 -Monitor for signs of fluid overload -Continue patient on home dose of Lasix, monitor electrolytes COPD Chronic respiratory failure, O2 dependent CXR shows patchy consolidation or atelectasis in the mid left lung -Continue supplemental oxygen as needed to maintain O2 sats greater than 92% -Continue to monitor respiratory status -Duo nebs as needed -Continue on home dose of Spiriva and Symbicort -IS/acapella Hyperkalemia K 5.6 -Potassium improved to 4.6 status post Kayexalate dose -monitor Severe protein calorie malnutrition -Multivitamin daily -Consult dietitian -Ensure with meals DVT prophylaxis -Chemoprophylaxis contraindicated -Bilateral JAZZY hose/SCDs Problem Qualifiers (1) Humeral fracture: Qualified Codes: S42.224A - 2-part nondisplaced fracture of surgical neck of right humerus, initial encounter for closed fracture (2) Hypothyroidism: Qualified Codes: E03.9 - Hypothyroidism, unspecified (3) COPD (chronic obstructive pulmonary disease): Qualified Codes: J44.9 - Chronic obstructive pulmonary disease, unspecified (4) Chronic respiratory failure: Qualified Codes: J96.10 - Chronic respiratory failure, unspecified whether with hypoxia or hypercapnia Yeni Dewey Dec 01, 2017 09:34
[2017-12-01] MEDS: ENALAPRIL MALEATE 10 MG TAB PO SCH (09:55)
[2017-12-01] MEDS: TIOTROPIUM BROMIDE 18 MCG INH INH SCH (09:56)
[2017-12-01] MEDS ORDERED: LORazepam 1 MG TAB PO ONE (10:30)
[2017-12-01 10:35] LABS: BANDS 1 % (0-6); CORRECTED NUCLEATED RBC 1 /100 WBC (0-0); LYMPHOCYTES 8 % (9-44); MONOCYTES 5 % (0-8); NEUTROPHIL # MANUAL DIFF 8.2 TH/MM3 (1.8-7.7); NUCLEATED RED BLOOD CELL 1 (0-0); POLYS (SEG NEUTROPHILS) 86 % (16-70)
[2017-12-01 10:37] LABS: OVALOCYTES 1+ (NORMAL); POLYCHROMASIA 2.6 % (0.0-1.9)
[2017-12-01 10:38] LABS: TARGET CELLS 1+ (NORMAL)
[2017-12-01 11:41] LABS: HEMOGLOBIN A1C 4.9 % (4.3-6.0)
--- NOTE | 2017-12-01 12:14 | MB ---
cc: Terrell Moran MD DATE: 12/01/2017 REASON FOR CONSULTATION: Right shoulder fracture. HISTORY OF PRESENT ILLNESS: The patient is an 82-year-old female who has a significant medical history for COPD, using oxygen at home. She presented to [facility] after she had a recent fall. She does fall rather frequently. She describes whole body pain, but most of it being around the right shoulder. She says that she has not had any real significant problems around the shoulder in the past. She says that she has had a cervical spine fusion. X-rays were taken at the hospital that shows a proximal humerus fracture. The patient was placed into a sling. She yanez not describe any specific numbness or tingling currently, although she says that in the past she did have numbness about the bilateral hands, which seemed to resolve on its own. PAST MEDICAL HISTORY: As above, plus she has history of CHF, hypertension, hyperlipidemia, possible CVA, stomach ulcers. PAST SURGICAL HISTORY: See the chart. REVIEW OF SYSTEMS: A 12-point review of systems is negative except what is noted in history of present illness. MEDICATIONS: See the chart. They are documented. ALLERGIES: LEVOFLOXACIN AND MEPERIDINE. FAMILY HISTORY: Noncontributory. PHYSICAL EXAMINATION: VITAL SIGNS: The patient's temperature is 97.5, pulse is 94, respirations 18, blood pressure 159/67. GENERAL: The patient is awake, alert and oriented x 3. She has normal affect, insight, and judgment. The patient is in distress due to pain. This is of at least a mild degree, although she seems fairly anxious. HEENT: Patient's head is atraumatic. She does have ecchymosis about the right upper extremity. Oropharynx is moist. Extraocular muscles are intact. NECK: Supple. HEART: Irregular. LUNGS: No audible wheeze, with normal respiratory effort. ABDOMEN: Soft, nontender, and nondistended. BACK: Shows no CVA tenderness. EXTREMITIES: She reacted with the toes well in the bilateral lower extremities. She holds the hips and knees flexed in what seems to be a comfortable position. There is no swelling about the bilateral ankles or knees. She has normal sensation distally about the lower extremities. Her upper extremity has good active range of motion of the fingers. She does have bruising going down to the fingertips. She has normal sensation about the fingertips. LABORATORY STUDIES: Shows a white cell count of 8.9, hematocrit is 24.7, platelets of 323. Creatinine 0.69. IMAGING STUDIES: I have reviewed the images in the report for the right humerus. It does show that the patient has a 3-part proximal humerus fracture which is mildly displaced and angulated. Overall alignment is adequate. X-ray report for the hand shows no fractures with osteopenia. X-ray report of the radius and the ulna is negative with no fractures with osteopenia. Chest x-ray report shows a proximal humerus fracture and patchy consolidated. Head CT shows no acute abnormality, but there is chronic findings. IMPRESSION: 1. Right shoulder 3-part proximal humerus fracture, mildly displaced and angulated. 2. Multiple medical problems including congestive heart failure and chronic obstructive pulmonary disease on home oxygen. MEDICAL DECISION MAKING: Based on the fracture pattern and current medical situation, I do recommend nonoperative management. She will continue with the sling. She understands that if displacement were to occur then surgical management could be recommended. I would like to have her follow up with me in the office in approximately 2 weeks, so I can repeat x-rays of the right shoulder, may be able to start some gentle range of motion at that time. All questions have been answered. MD CONNOR Lawler/DENIS , 11:12 AM , 12:12 PM
--- NOTE | 2017-12-01 12:37 | RADRPT ---
EXAM DATE: 12/01/2017 12:31 PM EDT AGE/SEX: 82 years / Female INDICATIONS: Cerebrovascular accident. CLINICAL DATA: This is the patient's initial encounter. Patient reports that signs and symptoms have been present for 1 day and indicates a pain score of 0/10. MEDICAL/SURGICAL HISTORY: . Hypertension. Hyperlipidemia. COPD. Congestive heart failure. M yocardial infarction. . Appendectomy. Cholecystectomy. Hysterectomy. Cervical fusion. COMPARISON: No prior exams available for comparison. VELOCITY PARAMETERS: ICA/CCA Ratio: Right 1.1 , Left 1.0 ICA: Right 82 cm/sec, Left 58 cm/sec CCA: Right 76 cm/sec, Left 60 cm/sec ECA: Right 120 cm/sec, Left 96 cm/sec Vertebral: Right 44 cm/sec antegrade, Left 35 cm/sec antegrade FINDINGS: Right Carotid: Mild arteriosclerotic plaque is visualized.The waveforms are within normal limits. Left Carotid: Mild arteriosclerotic plaque is visualized. The waveforms are within normal limits. Other: None. CONCLUSION: No hemodynamically significant stenosis in either carotid artery. Electronically signed by: Abhijeet Mahan MD 12/01/2017 12:36 PM EDT
--- NOTE | 2017-12-01 13:24 | RADRPT ---
EXAM DATE: 12/01/2017 1:18 PM EDT AGE/SEX: 82 years / Female INDICATIONS: Dizziness. Frequent falls. CLINICAL DATA: This is the patient's initial encounter. Patient reports that signs and symptoms have been present for 1 day and indicates a pain score of 0/10. MEDICAL/SURGICAL HISTORY: Chronic obstructive pulmonary disease. Congestive heart failure. Hy pertension. Fusion, cervical. Colon resection. Appendectomy. Hysterectomy, Cataracts. COMPARISON: [facility] [place], CT BRAIN W/O CONTRAST, 11/30/2017. . TECHNIQUE: Multiplanar, multisequence examination of the brain was performed without contrast. FINDINGS: Cerebrum: There is high FLAIR abnormality within the right parietal lobe with restricted diffusion co nsistent with subacute infarct. Susceptibility artifact consistent with minimal hemorrhage. 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 The ventricles are normal for age. No evidence of midline shift, m ass lesion or hemorrhage. No extraaxial fluid collections are seen. The pituitary gland and suprase llar cistern are normal in configuration. White Matter: Scattered foci of bright T2 signal abnormalities are seen in the white matter. Posterior Fossa: The brainstem is intact. Old infarct, small in size, left cerebellum. The 4th ventr icle is midline. The cerebellopontine angle is unremarkable. The cerebellar tonsils are normal in p osition. Diffusion Imaging: No focal areas of restricted diffusion are seen. No evidence of acute infarction . Extracranial: The visualized portions of the orbits and paranasal sinuses are unremarkable. CONCLUSION: 1. Subacute infarct right parietal lobe with minimal petechial hemorrhage. 2. 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 Electronically signed by: Abhijeet Mahan MD 12/01/2017 1:23 PM EDT
--- NOTE | 2017-12-01 13:26 | RADRPT ---
EXAM DATE: 12/01/2017 1:18 PM EDT AGE/SEX: 82 years / Female INDICATIONS: Dizziness. Frequent falls. CLINICAL DATA: This is the patient's initial encounter. Patient reports that signs and symptoms have been present for 1 day and indicates a pain score of 0/10. MEDICAL/SURGICAL HISTORY: Chronic obstructive pulmonary disease. Congestive heart failure. Hy pertension. Hysterectomy, Cholecystectomy, cataracts Fusion, cervical. Colon resection. Appendect louis. COMPARISON: No prior exams available for comparison. TECHNIQUE: 3D [id number] MRA was performed. Source images, multiplanar STS MIP, and 3D volum e MIP reconstructions were reviewed. FINDINGS: There is excellent visualization of the major intracranial arteries out to the second-order branch ve ssels. There is no evidence for aneurysm, vessel truncation or stenosis, and no evidence for vascula r malformation. Anterior communicating artery not seen. Small right posterior communicating artery. M ild narrowing within the distal left posterior cerebral artery. There are some intraluminal irregular ities within the distal branches of the middle cerebral arteries. Vertebrobasilar junction normal. CONCLUSION: 1. Scattered atherosclerotic changes and mild narrowing within the distal left posterior cerebral ar arlene. 2. No large vessel stenosis or thrombus. Electronically signed by: Abhijeet Mahan MD 12/01/2017 1:25 PM EDT
[2017-12-01] MEDS: ACETAMINOPHEN/HYDROcodone 325 MG/10 MG TAB PO PRN ×2 (13:52→21:43)
[2017-12-01] MEDS ORDERED: SUMAtriptan SUCCINATE 25 MG TAB PO PRN (15:00)
--- NOTE | 2017-12-01 15:34 | EKG ---
Date Performed: 11/30/2017 Time Performed: 15:36:41 PTAGE: 82 years EKG: Sinus rhythm WITH SHORT DC INTERVAL WITH OCCASIONAL ECTOPIC PREMATURE COMPLEXES MARKED T-WAVE ABNORMALITY, CONSID ER ANTEROLATERAL ISCHEMIA MODERATE T-WAVE ABNORMALITY, CONSIDER INFERIOR ISCHEMIA ABNORMAL ECG Compar ed to PREVIOUS TRACING , the T-wave abnormalities are new. Clinical correlation needed. PREVIOU S TRACIN10/29/2017 03.05 DOCTOR: Polo Barrow Interpretating Date/Time 12/01/2017 15:32:33
[2017-12-01] MEDS: MORPHINE SULFATE 4 MG/ML INJ IV PUSH PRN (16:03)
[2017-12-01 18:34] LABS: % SATURATION IRON PROFILE 7.5 % (20-50); FERRITIN 94 NG/ML (8-252); FOLATE 3.4 NG/ML (3.1-17.5); IRON (FE) 26 MCG/DL (50-170); TOTAL IRON BINDING CAPACITY 347 MCG/DL (250-450); TROPONIN I 0.04 NG/ML (0.02-0.05)
[2017-12-01] MEDS: PRAVASTATIN SOD 20 MG TAB PO SCH (21:43)
[2017-12-02] VITALS (10 sets, daily range): BP systolic 120–174; BP diastolic 58–97; PULSE 80–112; RESP 16–22; TEMP 97.6–98.6; O2SAT 93–97
[2017-12-02] MEDS: ACETAMINOPHEN 325 MG TAB PO PRN (01:43)
[2017-12-02] MEDS: DIAZEPAM 5 MG TAB PO PRN ×2 (01:43→15:13)
[2017-12-02] MEDS: ACETAMINOPHEN/HYDROcodone 325 MG/10 MG TAB PO PRN ×3 (04:01→18:06)
[2017-12-02] MEDS: LEVOTHYROXINE SODIUM 100 MCG TAB PO SCH (07:18)
[2017-12-02] MEDS: SODIUM CHLOR 0.9% 1000 ML INJ 1,000 ML IV SCH ×2 (07:18→18:24)
--- NOTE | 2017-12-02 07:52 | MG ---
cc: Kevan Delgadillo MD, PhD DATE OF STUDY: 12/01/2017 TEST NUMBER: [id number] TECHNIQUE: A 17-channel EEG. DESCRIPTION: Background rhythm reveals symmetrical alpha frequency of 8 Hz, amplitude is about 20 microvolts. There is muscle artifact present. There is beta activity, which is likely related to medication effect. No epileptiform discharges, no lateralizing features are seen. Photic stimulation results in a fairly well-developed driving response. INTERPRETATION: Normal electroencephalogram. Kevan Delgadillo MD, PhD FRANCIS/DENIS , 09:08 PM , 07:49 AM
[2017-12-02 08:00] LABS: AUTOMATED NEUTROPHIL # 7.3 TH/MM3 (1.8-7.7); BASOPHIL % 0.3 % (0.0-2.0); EOSINOPHIL # 0.1 TH/MM3 (0-0.4); EOSINOPHIL % 0.8 % (0.0-4.0); HEMATOCRIT 30.6 % (35.0-46.0); HEMOGLOBIN 9.5 GM/DL (11.6-15.3); LYMPH % 9.3 % (9.0-44.0); LYMPHOCYTE # 0.8 TH/MM3 (1.0-4.8); MEAN CELL VOLUME 81.9 FL (80.0-100.0); MEAN CORPUSCULAR HEMOGLOBIN 25.3 PG (27.0-34.0); MEAN CORPUSCULAR HGB CONC 30.9 % (32.0-36.0); MEAN PLATELET VOLUME 7.3 FL (7.0-11.0); MONO % 9.1 % (0.0-8.0); MONOCYTE # 0.8 TH/MM3 (0-0.9); NEUT % 80.5 % (16.0-70.0); PLATELET COUNT 339 TH/MM3 (150-450); RED BLOOD COUNT 3.74 MIL/MM3 (4.00-5.30); RED CELL DISTRIBUTION WIDTH 24.1 % (11.6-17.2); WHITE BLOOD COUNT 9.1 TH/MM3 (4.0-11.0)
[2017-12-02 08:49] LABS: CORRECTED NUCLEATED RBC 1 /100 WBC (0-0); LYMPHOCYTES 5 % (9-44); MONOCYTES 6 % (0-8); NUCLEATED RED BLOOD CELL 1 (0-0); POLYS (SEG NEUTROPHILS) 88 % (16-70)
[2017-12-02 08:50] LABS: ACANTHOCYTES OCC (NORMAL); TARGET CELLS 1+ (NORMAL)
--- NOTE | 2017-12-02 08:57 | HHI.PR ---
Subjective Remarks Follow up on patient with recurrent falls, right humerus fracture. Patient seen and examined. MRI brain + subacute infarct. Patient denies any headache, dizziness, numbness/tingling or new weakness. +pain in right shoulder. She is requesting to have cookies and a cappuccino. She is alert and oriented x 2 able to correctly identify herself, hospital, city, president but unable to tell me the month or year. She denies any chest pain. Her dyspnea is at baseline. Denies any N/V or abdominal pain. Objective Vitals Vital Signs Date Time Temp Pulse Resp B/P (MAP) Pulse Ox O2 Delivery O2 Flow Rate FiO2 12/02/17 07:17 18 12/02/17 07:06 95 Nasal Cannula 2.00 12/02/17 03:49 18 12/02/17 03:36 98.0 105 18 165/67 (99) 94 12/01/17 23:52 98.0 82 18 125/55 (78) 95 12/01/17 20:03 98.0 86 18 130/60 (83) 92 12/01/17 20:03 95 Nasal Cannula 2.00 12/01/17 17:00 98.0 99 18 120/55 (76) 91 12/01/17 15:32 100 12/01/17 12:30 97.9 95 18 131/62 (85) 92 12/01/17 09:01 97.5 94 18 159/67 (97) 92 I/O 12/01/17 12/01/17 12/01/17 12/02/17 12/02/17 12/02/17 07:00 15:00 23:00 07:00 15:00 23:00 Intake Total 1100 ml 320 ml 900 ml Output Total 500 ml Balance 600 ml 320 ml 900 ml Intake Oral 300 ml 320 ml IV Total 900 ml Packed Cells 400 ml Blood Product IV Normal Saline Flush 400 ml Output Stool Total 500 ml # Bowel Movements 6 4 Result Diagram: 12/02/17 0715 12/01/17 0730 Imaging Last Impressions Head Magnetic Resonance Angiography 12/01/17 0000 Signed Impressions: CONCLUSION: 1. Scattered atherosclerotic changes and mild narrowing within the distal left posterior cerebral artery. 2. No large vessel stenosis or thrombus. Carotid Artery Ultrasound 12/01/17 0000 Signed Impressions: CONCLUSION: No hemodynamically significant stenosis in either carotid artery. Brain MRI 12/01/17 0000 Signed Impressions: CONCLUSION: 1. Subacute infarct right parietal lobe with minimal petechial hemorrhage. 2. 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 Radius/Ulna X-Ray 11/30/171422 Signed Impressions: CONCLUSION: Osteopenia, Negative for fracture or dislocation. Followup in 7-10 days is sugg ested if symptoms persist. Humerus X-Ray 11/30/171422 Signed Impressions: CONCLUSION: Impacted fracture of the humerus in near-anatomic alignment. Hand X-Ray 11/30/171422 Signed Impressions: CONCLUSION: Osteopenia with degenerative changes. I do not see a fracture. Osteopenia makes detection of subtle fractures difficult. Head CT 11/30/171420 Signed Impressions: CONCLUSION: 1. Senescent changes with moderate periventricular ischemic white matter demye lination. This is somewhat asymmetric in the posterior parietal high convexitie s but likely chronic. MRI examination may be performed for further evaluation i f there is continued clinical concern. 2. Otherwise, no acute intracranial abnormality. Chest X-Ray 11/30/171420 Signed Impressions: CONCLUSION: Proximal right humeral fracture. Patchy consolidation or atelectasis in the mid left lung. Objective Remarks GENERAL: Thin cachectic frail appearing elderly female patient, INAD. Awake and alert. Alert, oriented x 2. SKIN: Warm and dry. There is a large ecchymosis over the right upper extremity. RUE in sling. HEENT: Normocephalic. EOMI. No scleral icterus. No injection or drainage. Pale conjunctivae. No nasal drainage. MMM. NECK: Supple, trachea midline. CARDIOVASCULAR: Irregular, no murmurs rubs or gallops. RESPIRATORY: Fair air entry. Decreased breath sounds, clear to auscultation anteriorly. No rales, rhonchi or wheezing auscultated. GASTROINTESTINAL: Abdomen is soft, nontender nondistended. +BS. MUSCULOSKELETAL: There is a sling on the right upper extremity, underneath it is noted the patient's skin has a large ecchymosis. Pulses are +2 and palpable bilaterally. There is good capillary refill in the hands. There is no edema in bilateral extremities. NEURO: Alert, awake. Oriented x 2. CN II-XII grossly intact. Able to move all extremities spontaneously except for RUE. No focal neurologic findings appreciated. Normal speech. PSYCHIATRIC: Cooperative with exam. Procedures None A/P Problem List: (1) Frequent falls ICD Code: R29.6 - Repeated falls (2) Anemia, posthemorrhagic, acute ICD Code: D62 - Acute posthemorrhagic anemia (3) Humeral fracture ICD Code: S42.309A - Unspecified fracture of shaft of humerus, unspecified arm , initial encounter for closed fracture (4) Weakness ICD Code: R53.1 - Weakness (5) Hyperkalemia ICD Code: E87.5 - Hyperkalemia (6) Hypothyroidism ICD Code: E03.9 - Hypothyroidism, unspecified Status: Chronic (7) COPD (chronic obstructive pulmonary disease) ICD Code: J44.9 - Chronic obstructive pulmonary disease, unspecified Status: Chronic (8) Chronic respiratory failure ICD Code: J96.10 - Chronic respiratory failure, unspecified whether with hypoxia or hypercapnia Assessment and Plan 82-year-old female who has a past medical history significant for COPD on home oxygen, CHF, HTN, questionable hx of previous CVA who presents to [facility] complaining of right arm pain and generalized malaise, fatigue and frequent falls resulting in a right humerus fracture. CVA MRI brain subacute infarct right parietal lobe with minimal petechial hemorrhage. 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 Head CT shows some segment changes, asymmetric changes noted in the posterior parietal high convexities MRA brain scattered atherosclerotic changes Carotid US no significant stenosis EEG nl Echo 11/02/17 reveals EF of 65-70%, PFO, mild to moderate aortic and pulmonary valve regurg, moderate tricuspid regurg, severe PHTN -Consult Neurology, appreciate assistance -Consult stroke navigator -NIHSS - for swallow evaluation -nursing bedside swallow eval -PT/OT -continue statin daily. hold anticoagulation for now 2/2 hemorrhage noted on MRI until evaluated by neurology -Consult rehab medicine, appreciate assistance -fall/seizure/aspiration precautions Right humerus fracture s/p fall Osteopenia -Orthopedics consulted, appreciate assistance. Nonoperative management. Continue sling. F/U in 2 weeks. -Sling for now RUE -check Vit D level/pending -PT/OT eval/treatment -Pain management with bowel regimen Microcytic, hypochromic anemia, chronic Hx of PRAVIN -suspect contributing to ongoing weakness and recurrent falls Large ecchymosis RUE secondary to fracture. Acute on chronic anemia secondary to hemorrhage. Hgb 7.5 Patient s/p transfusion 1 unit packed red blood cells, repeat hemoglobin 10.8, dropped to 9.5 Pretransfusion iron studies: iron 26, TIBC 347, %sat 7.5, ferritin 94 -start po ferrous sulfate -Monitor H&H closely -obtain stool hemoccult/pending -Monitor for evidence of active bleeding. Repeat CBC in am. Hypertension -continue patient on home dose of Vasotec -Monitor BP and adjust treatment accordingly CHF, diastolic, chronic, does not appear to be in acute exacerbation BNP 526, previous BNP 1685 10/28 -Monitor for signs of fluid overload -Continue patient on home dose of Lasix, monitor electrolytes COPD Chronic respiratory failure, O2 dependent CXR shows patchy consolidation or atelectasis in the mid left lung -Continue supplemental oxygen as needed to maintain O2 sats greater than 92% -Continue to monitor respiratory status -Duo nebs as needed -Continue on home dose of Spiriva and Symbicort -IS/acapella - encouraged hourly use Hyperkalemia K 5.6 -Potassium improved to 4.6 status post Kayexalate dose -monitor Severe protein calorie malnutrition -Multivitamin daily -Consult dietitian -Ensure with meals DVT prophylaxis -Chemoprophylaxis contraindicated at this time -Bilateral JAZZY hose/SCDs Discharge Planning Not ready for discharge. D/c pending further workup and assessment/recs of neurology, PT/OT/ST. Problem Qualifiers (1) Humeral fracture: Qualified Codes: S42.224A - 2-part nondisplaced fracture of surgical neck of right humerus, initial encounter for closed fracture (2) Hypothyroidism: Qualified Codes: E03.9 - Hypothyroidism, unspecified (3) COPD (chronic obstructive pulmonary disease): Qualified Codes: J44.9 - Chronic obstructive pulmonary disease, unspecified (4) Chronic respiratory failure: Qualified Codes: J96.10 - Chronic respiratory failure, unspecified whether with hypoxia or hypercapnia Yeni Dewey Dec 02, 2017 08:57
[2017-12-02] MEDS: MORPHINE SULFATE 4 MG/ML INJ IV PUSH PRN ×2 (09:10→13:39)
[2017-12-02] MEDS ORDERED: PILL SPLITTER OTHER PRN (09:15)
[2017-12-02] MEDS: FERROUS SULFATE 325 MG (65 MG ELEMENTAL IRON) TAB PO SCH (09:19)
[2017-12-02] MEDS: ONDANSETRON ODT 4 MG TAB PO PRN (09:19)
[2017-12-02] MEDS: ENALAPRIL MALEATE 10 MG TAB PO SCH (09:19)
[2017-12-02] MEDS: MULTIVITAMIN TAB PO SCH (09:19)
[2017-12-02] MEDS: DOCUSATE SODIUM 50 MG/SENNA 8.6 MG TAB PO SCH (09:19)
[2017-12-02] MEDS: PANTOPRAZOLE SOD 40 MG DELAYED RELEASE TAB PO SCH (09:20)
[2017-12-02] MEDS: FUROSEMIDE 40 MG TAB PO SCH (09:20)
[2017-12-02] MEDS: TIOTROPIUM BROMIDE 18 MCG INH INH SCH (09:20)
[2017-12-02] MEDS: SODIUM CHLORIDE 0.9% FLUSH 10 ML FLUSH IV FLUSH SCH ×2 (09:20→21:00)
[2017-12-02] MEDS: ASCORBIC ACID 500 MG TAB PO SCH (09:20)
[2017-12-02] MEDS ORDERED: POLYETHYLENE GLYCOL 17 GM PKG PO ONE (10:00)
[2017-12-02 12:18] LABS: PHOSPHORUS 2.3 MG/DL (2.5-4.9)
[2017-12-02] MEDS ORDERED: ERGOCALCIFEROL (VIT D2) 50,000 UNIT CAP PO SCH (16:00)
[2017-12-02] MEDS ORDERED: POTASSIUM PHOSPHATE/SODIUM PHOSPHATE 250 MG TAB PO ONE (16:00)
[2017-12-02] MEDS ORDERED: GLUCAGON 1 MG/ML VIAL OTHER PRN (16:30)
[2017-12-02] MEDS ORDERED: SODIUM CHLORIDE 0.9% FLUSH 10 ML FLUSH IV FLUSH PRN (16:30)
[2017-12-02] MEDS ORDERED: DEXTROSE 50% IN WATER 50 ML VIAL(D50) IV PUSH PRN (16:30)
[2017-12-02] MEDS: INSULIN ASPART SUPPLEMENTAL SCALE SQ SCH ×2 (17:00→21:00)
--- NOTE | 2017-12-02 17:18 | MB ---
cc: Kevan Delgadillo MD, PhD DATE: 12/02/2017 REASON FOR CONSULTATION: Stroke. HISTORY OF PRESENT ILLNESS: Ms. Moy is a pleasant 82-year-old woman who presented to the hospital on the with generalized weakness, as well as right arm pain. She also has had pain all over. She has been falling frequently the past several days, with no loss of consciousness. PAST MEDICAL HISTORY: Remarkable for COPD, congestive heart failure, hyperlipidemia, hypertension. She states she has had several strokes in the past, gastric defects, cervical spine surgery, portions of intestine removed, cholecystectomy, appendectomy, hysterectomy, eye surgery with implants. CURRENT MEDICATIONS ARE: Drisdol, vitamin C, Theragran, iron sulfate, Imitrex p.r.n., Vasotec p.r.n., Protonix 40 mg daily, morphine sulfate as needed for pain, [place] for pain, levothyroxine, Shannon-Colace, Pravachol, Zofran as needed, valium p.r.n., Tylenol p.r.n., Narcan, Dulcolax p.r.n. PHYSICAL EXAMINATION: VITAL SIGNS: Her blood pressure is 152/66, pulse is 112, temperature 97.6 degrees, respirations are 20. NEUROLOGIC: Higher cortical function, she is alert, oriented. Speech is fluent. Cranial nerves intact. Motor exam: She has essentially normal strength bilaterally in both upper and lower extremities. Reflexes are symmetric. It is difficult to fully assess the right upper extremity, however, due to the pain. IMAGING: CT of the brain shows atrophy and ischemic demyelination, some asymmetry in the posterior parietal high convexities, probably chronic in nature. She had an MRI of the brain, which reveals a subacute stroke in the right parietal lobe with minimal petechial hemorrhage. Old stroke in the left cerebellum and left occipital region. Carotid ultrasound, no significant stenosis is identified. MRA of the brain, there is atherosclerosis in the distal left posterior cerebral artery. Humerus x-ray on the right shows an impacted fracture of the humerus. LABORATORY DATA: The white count is 9100, hemoglobin 9.5, hematocrit 30%, platelet count 339,000. Sodium is 136, potassium 4.6, chloride 106, CO2 22. The BUN is 11, creatinine 0.51, GFR is 115, glucose is 83. PT 10.4, INR 1, aPTT 23.3. ECHOCARDIOGRAM: Shows sinus rhythm. IMPRESSION: Right parietal stroke with petechial hemorrhage. RECOMMENDATIONS: Start aspirin 325 mg daily. Also obtain an echocardiogram to rule out potential embolic source. We will check a lipid panel as well. Kevan Delgadillo MD, PhD FRANCIS/NITIN , 04:14 PM , 05:16 PM
[2017-12-02] MEDS: ASPIRIN 325 MG TAB PO SCH (18:05)
[2017-12-03] VITALS (8 sets, daily range): BP systolic 106–152; BP diastolic 53–86; PULSE 84–106; RESP 13–18; TEMP 97.8–98.7; O2SAT 90–95
[2017-12-03] MEDS: PRAVASTATIN SOD 20 MG TAB PO SCH ×2 (00:18→21:38)
[2017-12-03] MEDS: SODIUM CHLORIDE 0.9% FLUSH 10 ML FLUSH IV FLUSH SCH ×5 (00:18→21:00)
[2017-12-03] MEDS: ACETAMINOPHEN/HYDROcodone 325 MG/10 MG TAB PO PRN ×4 (00:18→21:38)
[2017-12-03] MEDS: DOCUSATE SODIUM 50 MG/SENNA 8.6 MG TAB PO SCH ×3 (00:18→21:38)
[2017-12-03] MEDS: POTASSIUM PHOSPHATE/SODIUM PHOSPHATE 250 MG TAB PO SCH ×5 (00:20→21:38)
[2017-12-03] MEDS: MORPHINE SULFATE 4 MG/ML INJ IV PUSH PRN ×3 (02:54→18:09)
[2017-12-03] MEDS: LEVOTHYROXINE SODIUM 100 MCG TAB PO SCH (05:02)
[2017-12-03] MEDS: DIAZEPAM 5 MG TAB PO PRN (05:02)
[2017-12-03] MEDS: INSULIN ASPART SUPPLEMENTAL SCALE SQ SCH ×4 (08:00→21:00)
[2017-12-03] MEDS: ENALAPRIL MALEATE 10 MG TAB PO SCH (08:31)
[2017-12-03] MEDS: ASCORBIC ACID 500 MG TAB PO SCH (08:31)
[2017-12-03] MEDS: FERROUS SULFATE 325 MG (65 MG ELEMENTAL IRON) TAB PO SCH (08:31)
[2017-12-03] MEDS: MULTIVITAMIN TAB PO SCH (08:31)
[2017-12-03] MEDS: PANTOPRAZOLE SOD 40 MG DELAYED RELEASE TAB PO SCH (08:31)
[2017-12-03] MEDS: ASPIRIN 325 MG TAB PO SCH (08:31)
[2017-12-03] MEDS: ONDANSETRON ODT 4 MG TAB PO PRN (08:45)
[2017-12-03] MEDS: TIOTROPIUM BROMIDE 18 MCG INH INH SCH (09:00)
--- NOTE | 2017-12-03 11:48 | HHI.PR ---
Subjective Remarks Patient feels exhausted. Pain overall is controlled at this time. Feels cooped up here and really wants to go home versus going to a rehab facility. Objective Vitals Vital Signs Date Time Temp Pulse Resp B/P (MAP) Pulse Ox O2 Delivery O2 Flow Rate FiO2 12/03/17 09:23 95 Nasal Cannula 3.00 12/03/17 08:00 98.6 106 14 152/86 (108) 90 12/03/17 06:00 98.1 99 18 137/61 (86) 95 12/03/17 00:00 98.6 93 18 126/60 (82) 93 12/02/17 19:30 98.6 95 20 140/58 (85) 93 12/02/17 18:55 Nasal Cannula 3.00 12/02/17 16:35 98.3 97 22 120/59 (79) 94 12/02/17 15:22 112 12/02/17 14:45 80 152/66 (94) 12/02/17 13:00 97.6 80 20 163/97 (119) 97 I/O 12/02/17 12/02/17 12/02/17 12/03/17 12/03/17 12/03/17 07:00 15:00 23:00 07:00 15:00 23:00 Intake Total 1069 ml 560 ml Balance 1069 ml 560 ml Intake Oral 560 ml IV Total 1069 ml # Voids 1 # Bowel Movements 4 1 Result Diagram: 12/02/17 0715 12/01/17 0730 Objective Remarks GENERAL: This is a well-nourished, well-developed patient, in no apparent distress. CARDIOVASCULAR: Regular rate and rhythm RESPIRATORY: Clear to auscultation. Breath sounds equal bilaterally. No wheezes , rales, or rhonchi. GASTROINTESTINAL: Abdomen soft, non-tender, nondistended. Normal active bowel sounds MUSCULOSKELETAL: Right upper arm in a sling and swath NEURO: Alert & Oriented x4 to person, place, time, situation. Moves all ext x4 Procedures None A/P Problem List: (1) Frequent falls ICD Code: R29.6 - Repeated falls Status: Acute (2) Anemia, posthemorrhagic, acute ICD Code: D62 - Acute posthemorrhagic anemia Status: Acute (3) Humeral fracture ICD Code: S42.309A - Unspecified fracture of shaft of humerus, unspecified arm , initial encounter for closed fracture Status: Acute (4) Weakness ICD Code: R53.1 - Weakness (5) Hyperkalemia ICD Code: E87.5 - Hyperkalemia Status: Resolved (6) Hypothyroidism ICD Code: E03.9 - Hypothyroidism, unspecified Status: Chronic (7) COPD (chronic obstructive pulmonary disease) ICD Code: J44.9 - Chronic obstructive pulmonary disease, unspecified Status: Chronic (8) Chronic respiratory failure ICD Code: J96.10 - Chronic respiratory failure, unspecified whether with hypoxia or hypercapnia Assessment and Plan 82-year-old female who has a past medical history significant for COPD on home oxygen, CHF, HTN, questionable hx of previous CVA who presents to [facility] complaining of right arm pain and generalized malaise, fatigue and frequent falls resulting in a right humerus fracture. Acute CVA with right parietal lobe with minimal petechial hemorrhage Per neurology Dr. Delgadillo go ahead and start aspirin 325 mg p.o. daily MRA brain scattered atherosclerotic changes Carotid US no significant stenosis EEG nl Echo 11/02/17 reveals EF of 65-70%, PFO, mild to moderate aortic and pulmonary valve regurg, moderate tricuspid regurg, severe PHTN -Appreciate neurology consultation and recommendations -Consult stroke navigator -NIHSS -PT/OT -continue statin daily. Aspirin -Consult rehab medicine, appreciate assistance Right humerus fracture s/p fall Osteopenia -Orthopedics consulted, appreciate assistance. Nonoperative management. Continue sling. F/U in 2 weeks. -Sling for now RUE -Vit D level is low with levels less than 4.2. Will initiate supplement -PT/OT eval/treatment -Pain management with bowel regimen Acute on chronic microcytic, hypochromic anemia, due to bleed from fall Large ecchymosis RUE secondary to fracture. Acute on chronic anemia secondary to hemorrhage. Hgb 7.5 Patient s/p transfusion 1 unit packed red blood cells, repeat hemoglobin 10.8, dropped to 9.5 Pretransfusion iron studies: iron 26, TIBC 347, %sat 7.5, ferritin 94 -start po ferrous sulfate -Monitor H&H closely, last hemoglobin 9.5 - Hypertension, chronic essential, overall controlled -continue patient on home dose of Vasotec -Monitor BP and adjust treatment accordingly CHF, diastolic, chronic, does not appear to be in acute exacerbation, chronic -Continue patient on home dose of Lasix, monitor electrolytes COPD, chronic Chronic respiratory failure, O2 dependent -Continue supplemental oxygen as needed to maintain O2 sats greater than 92% -Continue to monitor respiratory status -Duo nebs as needed -Continue on home dose of Spiriva and Symbicort -IS/acapella - encouraged hourly use Hyperkalemia resolved K 5.6 -Potassium improved to 4.6 status post Kayexalate dose -monitor Severe protein calorie malnutrition -Multivitamin daily -Consult dietitian -Ensure with meals DVT prophylaxis -Chemoprophylaxis contraindicated at this time due to acute stroke with petechiae -Bilateral JAZZY hose/SCDs Discharge Planning Recommended patient going to inpatient rehab however patient resistant to the idea would prefer to go home with home health care, will discuss with family in the next 24 hours for final decision. Problem Qualifiers (1) Humeral fracture: Qualified Codes: S42.224A - 2-part nondisplaced fracture of surgical neck of right humerus, initial encounter for closed fracture (2) Hypothyroidism: Qualified Codes: E03.9 - Hypothyroidism, unspecified (3) COPD (chronic obstructive pulmonary disease): Qualified Codes: J44.9 - Chronic obstructive pulmonary disease, unspecified (4) Chronic respiratory failure: Qualified Codes: J96.10 - Chronic respiratory failure, unspecified whether with hypoxia or hypercapnia Mary Montanez MD Dec 03, 2017 11:48
--- NOTE | 2017-12-03 14:31 | PD.CONS ---
Consult Service Palliative Care Consult Requested By Antonette HERBERT . Primary Care Physician Unknown Reason for Consultation a. To assist with evaluation and management of symptoms including: Confusion , arm pain b. To assist medical decision maker(s) with: better understanding of current medical conditions; weighing benefits/burdens of medical treatment options; making medical treatment decisions. HPI History of Present Illness This 82-year-old patient presented to the ED on 11/30/17 with complaints of right arm pain, generalized malaise and weakness and frequent falls. She was noted to have a recent admission here from October 28 - November 11 with chronic respiratory failure, NSTEMI, COPD UTI, troponin elevation. She is on chronic home O2. Patient at this presentation reporting increased generalized malaise and weakness for several days. She also reports recent frequent falls. At presentation she also reported a headache, and otherwise ROS negative. * ER course: Humerus x-ray notes fracture right humerus in near anatomic alignment. RT Hand imaging notes osteopenia with degenerative changes no fracture. RT Radius ulna x-ray notes osteopenia negative for fracture dislocation. CT brain= senescent changes with moderate periventricular ischemic white matter demyelination somewhat asymmetric in the posterior high convexities but likely chronic. MRI may be performed. Otherwise no acute intracranial abnormality. CXR= right proximal humeral fracture. Patchy consolidation or atelectasis left midlung. Anemic hemoglobin 7.5/hematocrit 24.7. WBC 8.9. Potassium 5.6. Lactic acid 1.1. BNP 526. She was admitted for further evaluation and management. Ordered for Kayexalate. Follow BMP. Attending notes discussion regarding hospice consultation patient may want to go home with hospice. Transfused 1 unit RBC. * Potassium improved 4.6 post Kayexalate. Ortho consulted: Ortho-Novum's overall alignment is mildly displaced and angulated. Recommends nonoperative management, continue with sling. Plan for follow-up with Ortho Evra in 2 weeks with repeat x-rays to be obtained. * Neurology was consulted for evaluation for possible CVA 12/02/17. MRI notes subacute stroke in the right parietal lobe with minimal petechial hemorrhage old stroke in the left cerebellum and left occipital region. Carotid ultrasound notes no significant stenosis. MRA brain noted with arthrosclerosis in the left distal posterior cerebral artery. EEG done 12/01= normal EEG. Patient with right parietal stroke with petechial hemorrhage. Ordered for aspirin daily. 2D echo also ordered. Lipid panel pending. * PT and OT following. Recommending rehab at discharge. Patient indicating may not want to do rehab may wish to go home. Upon my initial attempt to see patient, she was out of the room for echocardiogram. Met with son at bedside approximately 35 minutes. Patient arrived back to room completed PE, further discussed with patient's son. Patient is alert, she is anxious at times when asking ROS questions. She is oriented in that she knows she is in the hospital she knows her son is here to support her, and she has a good remote history recall. She has little to no recent history recall and no insight into current acute hospitalization. She gets upset at times and tells me that she just wants to be able to spend quality time with her son's wants to barbecue with them and does not want their time together to be upsetting. She is cooperative, she follows commands. Per review of EMR: Patient with recent admission 10/28-11/11 for shortness of breath, weakness, failure to thrive, NSTEMI. She was felt to be appropriate for hospice if goals were compatible. Palliative followed this patient during that admission. She required BiPAP in the ICU. Sons requested DNR. They also discussed possibility of patient going home with hospice with palliative care however the sons elected to continue treatment and would discuss further.. She is noted to have end-stage COPD, emphysema with hypercapnic respiratory failures with 3 hospitalizations in 1 month. She was alert and partially oriented though not able to make her own decisions independently. Patient was discharged home with home health 11/11/17. Patient with other recent admissions: 10/19-10/20, 10/09-10/15 Function/Cognitive Trajectory Patient noted to be poor historian. Lives at home with 2 sons. Reported to have multiple recent falls. Previously ambulatory with a rolling walker. Required assist for all ADLs. Son has been feeding her meals. She is incontinent of bowel and bladder at times though other times is able to use bedside commode. She is primarily bed to chair bound except for when she wanders around the home. Generally confused though good remote recall. Usually cooperative though little to no safety recall hence her wandering and falling especially at night. Review of Systems ROS Limitations: Clinical Condition, Poor Historian (Patient baseline confused- -limited ROSC per son) Constitutional: COMPLAINS OF: Pain (Right arm pain), Generalized weakness ( Progressive weakness over the past weeks to months), Sleep problems (Wakeful throughout the night, ongoing for weeks, will often wake up and then wanders around the home, gets food), DENIES: Fever, Change in appetite Respiratory: DENIES: Cough, Wheezing, Shortness of breath Cardiovascular: COMPLAINS OF: Lower Extremity Edema (Trace person resolving during acute hospital course), DENIES: Chest pain Gastrointestinal: DENIES: Constipation, Diarrhea, Nausea, Vomiting, Anorexia Musculoskeletal: COMPLAINS OF: Joint pain (Has endorsed arm pain since just before admission) Integumentary: DENIES: Rash Psychiatric: COMPLAINS OF: Confusion Past Family Social History Coded Allergies: levofloxacin (Verified Allergy, Severe, HEADACHE, NAUSEA, VOMITING, ) meperidine (Verified Adverse Reaction, Unknown, HALLUCINATIONS, 11/30/17) Past Medical History COPD on home O2 3L CHF Hypertension Hyperlipidemia ? 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 Past Surgical History 2 cervical surgeries portions of intestine removed appendix gallbladder total hysterectomy eye surgery with implants Reported Medications Oxygen (O2) Device Liter JUSTINE.CANULA CONTINUOUS Oxygen Concentrator Portable Gaseous 2 L/min via Nasal Canula Continuous For 99 months Lactobacillus Acidophilus 1 Billion Cell Tab 1 Tab PO TIDAC Qc Milk of Magnesia (Magnesium Hydroxide) 400 Mg/5 Ml April 30 Ml PO Q12H PRN Valium (Diazepam) 5 Mg Tab 5 Mg PO TID PRN Hydrocodone-Acetamin 5-325 mg (Hydrocodone/Acetaminophen) 5 Mg-325 Mg Tablet 1 Tab PO Q4H PRN Aspirin DR (Aspirin) 81 Mg Tabdr 81 Mg PO DAILY Pravachol (Pravastatin) 20 Mg Tab 20 Mg PO HS Ambien (Zolpidem Tartrate) 10 Mg Tab 10 Mg PO HS Spiriva Handihaler (Tiotropium Inh) 18 Mcg Cap 1 Puff INH DAILY Do Not Swallow Capsules Imitrex (Sumatriptan Succinate) 100 Mg Tab 100 Mg PO DAILY PRN If a satisfactory response has not been obtained at 2 hours, a second dose may be administered Potassium Chloride ER (Potassium Chloride) 20 Meq Tab 20 Meq PO DAILY Zofran (Ondansetron HCl) 4 Mg Tab 4 Mg PO DAILY PRN Levothyroxine (Levothyroxine Sodium) 100 Mcg Tab 100 Mcg PO DAILY Lasix (Furosemide) 40 Mg Tab 40 Mg PO DAILY Advair Diskus Inh (Fluticasone-Salmeterol Inh) 250-50 Mcg/Blist Aer 1 Puff INH BID PRN Rinse mouth after use. Vasotec (Enalapril Maleate) 10 Mg Tab 10 Mg PO DAILY Baclofen 10 Mg Tab 10 Mg PO TID Duoneb (Ipratropium-Albuterol Neb) 0.5-2.5 Mg/3 Ml Neb 3 Ml NEB Q6HR PRN Protonix (Pantoprazole Sodium) 40 Mg Tab 40 Mg PO DAILY . Current Medications Medications (Trade) Dose Ordered Sig/Karen Route Start Time Stop Time Status Last Admin (NS Flush) 2 ml UNSCH PRN IV FLUSH 11/30/17 20:00 (NS Flush) 2 ml BID IV FLUSH 11/30/17 21:00 12/03/17 09:00 (Tylenol) 650 mg Q4H PRN PO 11/30/17 20:00 12/02/17 01:43 (Narcan Inj) 0.4 mg UNSCH PRN IV PUSH 11/30/17 20:00 (Shannon-Colace) 1 tab BID PO 11/30/17 21:00 12/03/17 08:31 (Milk Of Magnesia Liq) 30 ml Q12H PRN PO 11/30/17 20:00 (Senokot) 17.2 mg Q12H PRN PO 11/30/17 20:00 (Dulcolax Supp) 10 mg DAILY PRN RECTAL 11/30/17 20:00 (Lactulose Liq) 30 ml DAILY PRN PO 11/30/17 20:00 (Valium) 5 mg TID PRN PO 11/30/17 20:15 12/03/17 05:02 (Lasix) 40 mg DAILY PO 12/01/17 09:00 Future Hold 12/02/17 09:20 (Synthroid) 100 mcg DAILY@0600 PO 12/01/17 06:00 12/03/17 05:02 (Protonix) 40 mg DAILY PO 12/01/17 09:00 12/03/17 08:31 (Pravachol) 20 mg HS PO 11/30/17 21:00 12/03/17 00:18 (Spiriva Inh) 18 mcg DAILY INH 12/01/17 09:00 12/03/17 09:00 (Symbicort 160-4.5 Mcg Inh) 2 puff BID PRN INH 11/30/17 20:45 12/01/17 09:55 (Zofran Odt) 4 mg DAILY PRN PO 11/30/17 21:00 12/03/17 08:45 (Morphine Inj) 1 mg Q4H PRN IV PUSH 12/01/17 07:45 12/03/17 06:24 (Fulton 5-325 Mg) 1 tab Q6H PRN PO 12/01/17 07:45 (Fulton 10-325 Mg) 1 tab Q6H PRN PO 12/01/17 07:45 12/03/17 08:28 (Duoneb Neb) 1 ampule Q4HR NEB PRN NEB 12/01/17 09:30 (Theragran) 1 tab DAILY PO 12/02/17 09:00 12/03/17 08:31 (Vasotec) 10 mg DAILY PO 12/01/17 09:45 12/03/17 08:31 (Imitrex) 100 mg DAILY PRN PO 12/01/17 15:00 12/03/17 08:45 (Ferrous Sulfate) 325 mg DAILY PO 12/02/17 09:00 12/03/17 08:31 (Vitamin C) 250 mg DAILY PO 12/02/17 10:00 12/03/17 08:31 (Pill Splitter) 1 ea UNSCH PRN OTHER 12/02/17 09:15 (Drisdol) 50,000 units Q7D PO 12/02/17 16:00 12/23/17 16:01 (K-Phos Neutral) 250 mg Q8HR PO 12/02/17 22:00 12/04/17 21:59 12/03/17 05:04 Sodium Chloride 1,000 ml @ 42 mls/hr [id number] IV 12/02/17 16:15 12/02/17 18:24 (NS Flush) 2 ml BID IV FLUSH 12/02/17 21:00 (NS Flush) 2 ml UNSCH PRN IV FLUSH 12/02/17 16:30 (Aspirin) 325 mg DAILY PO 12/02/17 16:30 6/25/18 08:31 (NovoLOG SUPPLEMENTAL SCALE) 1 ACHS SQ 12/02/17 17:00 (D50w (Vial) Inj) 50 ml UNSCH PRN IV PUSH 12/02/17 16:30 (Glucagon Inj) 1 mg UNSCH PRN OTHER 12/02/17 16:30 Family History Significant for lung malignancy. Substance Use Tobacco: Smokes 1/2 ppd x40 years Alcohol: None reported Prescription med abuse: None reported Illicits: None reported . Psychosocial History Lives at home with her sons. One son Kevan has suffered a significant CVA and remains partially dependent for care himself. Originally from [place] though has lived in [place] for many years. spouse from cancer, at a hospice care center after being there for 1 day . 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 Son Jt is primary support and caregiver for patient, as well as her other son and his brother Kevan. He also has some medical concerns and cancer he is dealing with. Spiritual/Cultural Factors Advent ulises, son indicates ash pit worker requests as already been made . Living Will: Never completed Health Care Surrogate: Never completed Durable Power of Template Fitter: Never completed Ethical and Legal Issues Patient is slightly confused, unable to make her own decisions. Appears she has been somewhat confused and a poor historian during multiple recent admissions.Patient with no advance directives. . Supported by 2 adult sons. Per [place] statutes 2 sons would be appropriate legal proxies. Physical Exam Vital Signs Date Time Temp Pulse Resp B/P (MAP) Pulse Ox O2 Delivery O2 Flow Rate FiO2 12/03/17 09:23 95 Nasal Cannula 3.00 12/03/17 08:00 98.6 106 14 152/86 (108) 90 12/03/17 06:00 98.1 99 18 137/61 (86) 95 12/03/17 00:00 98.6 93 18 126/60 (82) 93 12/02/17 19:30 98.6 95 20 140/58 (85) 93 12/02/17 18:55 Nasal Cannula 3.00 12/02/17 16:35 98.3 97 22 120/59 (79) 94 12/02/17 15:22 112 12/02/17 14:45 80 152/66 (94) Exam CONSTITUTIONAL/GENERAL: Frail elderly, confused female, no distress TUBES/LINES/DRAINS: PIV LT UE, NC O2, Sling RUE SKIN: No jaundice, rashes, or lesions. No wounds seen anteriorly. Skin warm/dry HEAD: Atraumatic. Normocephalic. EYES: Pupils equal and round and reactive. Extraocular motions intact. No scleral icterus. No injection or drainage. Fundi not examined. ENT: Hearing grossly normal. Nose without bleeding or purulent drainage. Throat without visible erythema, exudates, masses, or lesions. NECK: Trachea midline. Supple, nontender. No palpable thyroid enlargement or nodularity. CARDIOVASCULAR: irregular rate and rhythm without murmur. No JVD. Peripheral pulses symmetric. RESPIRATORY/CHEST: Symmetric, unlabored respirations. ON NC 3L . Clear to auscultation, decreased air movement. GASTROINTESTINAL: Abdomen soft, flat non-tender, nondistended. No hepato- splenomegaly, or palpable masses. No guarding. Bowel sounds hypoactive. GENITOURINARY: Without palpable bladder distension. MUSCULOSKELETAL: Extremities without clubbing, cyanosis, or edema. No joint tenderness or effusion noted. extremities very thin, + muscle atrophy LYMPHATICS: No palpable cervical or supraclavicular adenopathy. NEUROLOGICAL: Awake and alert. Oriented x2. poor insight into conditions. Cooperative. Follows commands. Cognitively sharp. Moves all 4 extremities with generalized weakness. PSYCHIATRIC: Slightly anxious/tearful at times with ROS questions. No apparent hallucinations or other psychotic thought process. Diagnostic Tests Laboratory Laboratory Tests Test 11/30/17 14:20 11/30/17 15:00 11/30/17 15:50 12/01/17 07:30 White Blood Count 8.9 TH/MM3 (4.0-11.0) 9.4 TH/MM3 (4.0-11.0) Red Blood Count 3.02 MIL/MM3 (4.00-5.30) 4.23 MIL/MM3 (4.00-5.30) Hemoglobin 7.5 GM/DL (11.6-15.3) 10.8 GM/DL (11.6-15.3) Hematocrit 24.7 % (35.0-46.0) 35.0 % (35.0-46.0) Mean Corpuscular Volume 82.0 FL (80.0-100.0) 82.9 FL (80.0-100.0) Mean Corpuscular Hemoglobin 24.9 PG (27.0-34.0) 25.5 PG (27.0-34.0) Mean Corpuscular Hemoglobin Concent 30.4 % (32.0-36.0) 30.8 % (32.0-36.0) Red Cell Distribution Width 26.2 % (11.6-17.2) 24.0 % (11.6-17.2) Platelet Count 323 TH/MM3 (150-450) 358 TH/MM3 (150-450) Mean Platelet Volume 7.6 FL (7.0-11.0) 7.5 FL (7.0-11.0) Neutrophils (%) (Auto) 94.7 % (16.0-70.0) Lymphocytes (%) (Auto) 2.3 % (9.0-44.0) Monocytes (%) (Auto) 2.8 % (0.0-8.0) Eosinophils (%) (Auto) 0.0 % (0.0-4.0) Basophils (%) (Auto) 0.2 % (0.0-2.0) Neutrophils # (Auto) 8.5 TH/MM3 (1.8-7.7) Lymphocytes # (Auto) 0.2 TH/MM3 (1.0-4.8) Monocytes # (Auto) 0.2 TH/MM3 (0-0.9) Eosinophils # (Auto) 0.0 TH/MM3 (0-0.4) Basophils # (Auto) 0.0 TH/MM3 (0-0.2) CBC Comment AUTO DIFF AUTO DIFF Differential Comment AUTO DIFF CONFIRMED FINAL DIFF MANUAL Ovalocytes 1+ (NORMAL) 1+ (NORMAL) Acanthocytes OCC (NORMAL) Prothrombin Time 10.4 SEC (9.8-11.6) Prothromb Time International Ratio 1.0 RATIO Activated Partial Thromboplast Time 23.3 SEC (24.3-30.1) Blood Urea Nitrogen 21 MG/DL (7-18) 11 MG/DL (7-18) Creatinine 0.69 MG/DL (0.50-1.00) 0.51 MG/DL (0.50-1.00) Random Glucose 132 MG/DL (74-106) 83 MG/DL (74-106) Total Protein 5.7 GM/DL (6.4-8.2) 6.1 GM/DL (6.4-8.2) Albumin 2.7 GM/DL (3.4-5.0) 1.7 GM/DL (3.4-5.0) Calcium Level 7.7 MG/DL (8.5-10.1) 8.3 MG/DL (8.5-10.1) Alkaline Phosphatase 163 U/L (45-117) 185 U/L (45-117) Aspartate Amino Transf (AST/SGOT) 26 U/L (15-37) 33 U/L (15-37) Alanine Aminotransferase (ALT/SGPT) 15 U/L (10-53) 19 U/L (10-53) Total Bilirubin 0.2 MG/DL (0.2-1.0) 0.4 MG/DL (0.2-1.0) Sodium Level 138 MEQ/L (136-145) 136 MEQ/L (136-145) Potassium Level 5.6 MEQ/L (3.5-5.1) 4.6 MEQ/L (3.5-5.1) Chloride Level 103 MEQ/L (98-107) 106 MEQ/L (98-107) Carbon Dioxide Level 29.3 MEQ/L (21.0-32.0) 21.8 MEQ/L (21.0-32.0) Anion Gap 6 MEQ/L (5-15) 8 MEQ/L (5-15) Estimat Glomerular Filtration Rate 81 ML/MIN (>89) 115 ML/MIN (>89) Total Creatine Kinase 39 U/L (26-192) Troponin I 0.03 NG/ML (0.02-0.05) B-Type Natriuretic Peptide 526 PG/ML (0-100) Thyroid Stimulating Hormone 3rd Gen 1.160 uIU/ML (0.358-3.740) Lactic Acid Level 1.1 mmol/L (0.4-2.0) Urine Color YELLOW (YELLW/STRAW) Urine Turbidity CLEAR (CLEAR) Urine pH 6.0 (5.0-8.5) Urine Specific Boyds 1.012 (1.002-1.035) Urine Protein NEG mg/dL (NEG-TRACE) Urine Glucose (UA) NEG mg/dL (NEG) Urine Ketones NEG mg/dL (NEG) Urine Occult Blood MOD (NEG) Urine Nitrite NEG (NEG) Urine Bilirubin NEG (NEG) Urine Urobilinogen LESS THAN 2 mg/dL (LESS Urine Leukocyte Esterase NEG (NEG) Urine RBC LESS THAN 1 /hpf (0-3) Urine WBC LESS THAN 1 /hpf (0-5) Urine Hyaline Casts 3 /lpf (RARE) Microscopic Urinalysis Comment CULT NOT INDICATED Differential Total Cells Counted 100 Neutrophils % (Manual) 86 % (16-70) Band Neutrophils % 1 % (0-6) Lymphocytes % 8 % (9-44) Monocytes % 5 % (0-8) Neutrophils # (Manual) 8.2 TH/MM3 (1.8-7.7) Nucleated Red Blood Cells 1 /100 WBC (0-0) Platelet Estimate NORMAL (NORMAL) Platelet Morphology Comment NORMAL (NORMAL) Polychromasia 2.6 % (0.0-1.9) Target Cells 1+ (NORMAL) Test 12/01/17 17:13 12/02/17 07:15 12/02/17 11:20 12/02/17 17:02 Hemoglobin A1c 4.9 % (4.3-6.0) Iron Level 26 MCG/DL (50-170) Total Iron Binding Capacity 347 MCG/DL (250-450) Percent Iron Saturation 7.5 % (20-50) Ferritin 94 NG/ML (8-252) Total Creatine Kinase 22 U/L (26-192) Troponin I 0.04 NG/ML (0.02-0.05) 0.03 NG/ML (0.02-0.05) Vitamin B12 Level 410 PG/ML (193-986) Folate 3.4 NG/ML (3.1-17.5) White Blood Count 9.1 TH/MM3 (4.0-11.0) Red Blood Count 3.74 MIL/MM3 (4.00-5.30) Hemoglobin 9.5 GM/DL (11.6-15.3) Hematocrit 30.6 % (35.0-46.0) Mean Corpuscular Volume 81.9 FL (80.0-100.0) Mean Corpuscular Hemoglobin 25.3 PG (27.0-34.0) Mean Corpuscular Hemoglobin Concent 30.9 % (32.0-36.0) Red Cell Distribution Width 24.1 % (11.6-17.2) Platelet Count 339 TH/MM3 (150-450) Mean Platelet Volume 7.3 FL (7.0-11.0) Neutrophils (%) (Auto) 80.5 % (16.0-70.0) Lymphocytes (%) (Auto) 9.3 % (9.0-44.0) Monocytes (%) (Auto) 9.1 % (0.0-8.0) Eosinophils (%) (Auto) 0.8 % (0.0-4.0) Basophils (%) (Auto) 0.3 % (0.0-2.0) Neutrophils # (Auto) 7.3 TH/MM3 (1.8-7.7) Lymphocytes # (Auto) 0.8 TH/MM3 (1.0-4.8) Monocytes # (Auto) 0.8 TH/MM3 (0-0.9) Eosinophils # (Auto) 0.1 TH/MM3 (0-0.4) Basophils # (Auto) 0.0 TH/MM3 (0-0.2) CBC Comment AUTO DIFF Differential Total Cells Counted 100 Neutrophils % (Manual) 88 % (16-70) Lymphocytes % 5 % (9-44) Monocytes % 6 % (0-8) Eosinophils % 1 % (0-4) Neutrophils # (Manual) 8.0 TH/MM3 (1.8-7.7) Nucleated Red Blood Cells 1 /100 WBC (0-0) Differential Comment FINAL DIFF MANUAL Platelet Estimate NORMAL (NORMAL) Platelet Morphology Comment NORMAL (NORMAL) Target Cells 1+ (NORMAL) Acanthocytes OCC (NORMAL) Phosphorus Level 2.3 MG/DL (2.5-4.9) 25-Hydroxy Vitamin D Total LESS THAN 4.2 ng/ML (30-100) Result Diagram: 12/02/17 0715 12/01/17 0730 Microbiology Microbiology Date/Time Source Procedure Growth Status 11/30/17 15:00 Blood Peripheral Aerobic Blood Culture - Preliminary NO GROWTH IN 3 DAYS Resulted 11/30/17 15:00 Blood Peripheral Anaerobic Blood Culture - Preliminary NO GROWTH IN 3 DAYS Resulted 11/30/17 14:55 Blood Peripheral Aerobic Blood Culture - Preliminary NO GROWTH IN 3 DAYS Resulted 11/30/17 14:55 Blood Peripheral Anaerobic Blood Culture - Preliminary NO GROWTH IN 3 DAYS Resulted Imaging Last Impressions Head Magnetic Resonance Angiography 12/01/17 0000 Signed Impressions: CONCLUSION: 1. Scattered atherosclerotic changes and mild narrowing within the distal left posterior cerebral artery. 2. No large vessel stenosis or thrombus. Carotid Artery Ultrasound 12/01/17 0000 Signed Impressions: CONCLUSION: No hemodynamically significant stenosis in either carotid artery. Brain MRI 12/01/17 0000 Signed Impressions: CONCLUSION: 1. Subacute infarct right parietal lobe with minimal petechial hemorrhage. 2. 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 Radius/Ulna X-Ray 11/30/171422 Signed Impressions: CONCLUSION: Osteopenia, Negative for fracture or dislocation. Followup in 7-10 days is sugg balbird if symptoms persist. Humerus X-Ray 11/30/171422 Signed Impressions: CONCLUSION: Impacted fracture of the humerus in near-anatomic alignment. Hand X-Ray 11/30/171422 Signed Impressions: CONCLUSION: Osteopenia with degenerative changes. I do not see a fracture. Osteopenia makes detection of subtle fractures difficult. Head CT 11/30/171420 Signed Impressions: CONCLUSION: 1. Senescent changes with moderate periventricular ischemic white matter demye lination. This is somewhat asymmetric in the posterior parietal high convexitie s but likely chronic. MRI examination may be performed for further evaluation i f there is continued clinical concern. 2. Otherwise, no acute intracranial abnormality. Chest X-Ray 11/30/171420 Signed Impressions: CONCLUSION: Proximal right humeral fracture. Patchy consolidation or atelectasis in the mid left lung. Patient/Family Conference Family Conference Time (mins): 35 Family Conference Location: Bedside Issues Discussed: Met with son Jt at bedside. He is patient's primary caregiver, he informs her other son Kevan, his brother, is homebound and partially dependent for ADLs due to significant cognitive and functional deficits from a CVA. Discussion included the following: * Palliative care role, purpose, approach * Additional medical, psychosocial, and spiritual history * Patients general health, functional status, and cognitive changes in the months leading up to the current hospitalization * Patient/family understanding of the current medical problems * Patient/family understanding of prognosis * Patients goals of care as best understood from advance directives and/or conversations and/or values * Current medical treatment options and benefits/burdens of those options * Likely scenarios comparing ongoing aggressive care with a transition to comfort measures only-review of hospice role, philosophy and services provided. Son has questions regarding home health care-extensive review of home health care versus hospice And treatment goals with both services. * Review of rehabilitation and limiting factors given patient age, underlying confusion, and debilitated status * Review of legal decision makers per [place] statutes * Review of CODE STATUS-son endorses/confirms DNR status already in place as consistent with patient known wishes * Questions answered to the best of my ability * Palliative care contact information provided Timmy Waters details trajectory of decline over the last many weeks to months. He indicated following her last hospitalization she was not recovered and probably was not ready for discharge and probably should not be on home but should have gone to rehab. He endorses progressive cognitive decline worsening confusion over the past many weeks. Patient had increasing difficulty sleeping she would have periods of wakefulness during the night in which she would get up and wander and try to get food and not be aware of her safety limitations. She would not remember or know to call for help or use a walker etc. she has primarily been bed to chair bound except when she is getting up wandering and falling frequently. At times he is able to assist her onto a bedside commode though she is not always able to make her needs known and frequently is incontinent of bowel and bladder. She does have a good appetite he indicates she will eat small meals/snacks several times throughout the day she will eat a hamburger, beef stew etc. and appears to have a robust appetite. He has not noted any difficulty chewing or swallowing however he does have to feed her. Upon exploration of limited treatment options going for aggressive versus comfort--initial indicates that the patient herself has been wanting to go home and that she likely would not want to proceed with any further invasive measures , especially as they would not restore her to prior level of health before her current debilitated and confused state. He indicates he had been very hopeful that rehab might help her but upon further review with me seems to have understanding that rehab would be of limited benefit to this patient especially since she will not remember most of the rehabilitation strategies taught her. He understands that she remains high risk for ongoing hospitalizations, complications and generalized decline. Upon review of hospice he indicates he would like to meet with them to talk about the possibility of getting her home excepting that she will likely continue to decline, but that her goal would be to at home when her condition is at that point. Assessment and Plan Disease Oriented Problem List: (1) Frequent falls (2) Hyperkalemia (3) Weakness (4) Hypothyroidism (5) Chronic respiratory failure (6) COPD (chronic obstructive pulmonary disease) (7) Fracture of right humerus (8) HLD (hyperlipidemia) (9) HTN (hypertension) Symptom Scale: (1) Confusion 0-10 Scale: Unable to quantify (2) Pain 0-10 Scale: Unable to quantify (3) Shortness of breath 0-10 Scale: Unable to quantify Pertinent Non-Medical Issues Psychosocial:Lives at home with her sons. One son eKvan has suffered a significant CVA and remains partially dependent for care himself. Originally from [place] though has lived in [place] for many years. spouse from cancer, at a hospice care center after being there for 1 day . 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 Timmy Waters is primary support and caregiver for patient, as well as her other son and his brother Kevan. He also has some medical concerns and cancer he is dealing with. Spiritual: [facility] [employer] Legal: Patient is slightly confused, unable to make her own decisions. Appears she has been somewhat confused and a poor historian during multiple recent admissions.Patient with no advance directives. . Supported by 2 adult sons. Per [place] statutes 2 sons would be appropriate legal proxies. Ethical issues impacting care: No ethical issues identified Important Contacts JT CHONG (SON) [phone] Kevan Chong son [phone] . Prognosis This patient was admitted for generalized malaise, weakness and arm pain, as well as multiple recent falls. She was found to have right humerus fracture.Recommended for conservative management and rehabilitation. + CVA during this acute admission. Patient has had general decline over the past few months. Given her advanced age, and multiple chronic medical conditions including end-stage COPD, CHF, likely this trajectory will continue. Appropriate for hospice for end-stage COPD, CHF if goals compatible. Code Status: Full Code Plan * Legal decision maker: Patient is slightly confused, unable to make her own decisions. Appears she has been somewhat confused and a poor historian during multiple recent admissions.Patient with no advance directives. . Supported by 2 adult sons. Per [place] statutes 2 sons would be appropriate legal proxies. * Goals: Met with patient son at length at bedside. He details steady trajectory of decline over the past many weeks to months.Upon exploration of limited treatment options going for aggressive versus comfort--initial indicates that the patient herself has been wanting to go home and that she likely would not want to proceed with any further invasive measures, especially as they would not restore her to prior level of health before her current debilitated and confused state. He indicates he had been very hopeful that rehab might help her but upon further review with me seems to have understanding that rehab would be of limited benefit to this patient especially since she will not remember most of the rehabilitation strategies taught her. He understands that she remains high risk for ongoing hospitalizations, complications and generalized decline. Upon review of hospice he indicates he would like to meet with them to talk about the possibility of getting her home excepting that she will likely continue to decline, but that her goal would be to at home when her condition is at that point. Hospice consultation order placed. * CODE STATUS: DNR * SYMPTOMS: -Arm pain-patient status post recent fall. Positive right humerus fracture. Conservative management per orthopedic follow-up in 2 weeks. Currently maintained in sling, to my exam appears comfortable. Patient denies pain at time of my exam. Has [place] 10 mg has been requiring about 3 doses per day. Also has morphine 1 mg IV available. Has required 2 doses per day yesterday, today. Continue to evaluate for effectiveness, appears effective at this time. -Confusion-patient has had ongoing confusion baseline status. She has possibly been more confused over the past few weeks. MRI brain findings with old cerebellar and occipital stroke identified as well as subacute stroke right parietal lobe with some minimal petechial hemorrhage. Neurology following. Possible thromboembolic in origin. Echocardiogram pending. At this time patient started on aspirin therapy. Confusion can worsen at night per son, she has been on Ambien to try to help her fall asleep however son indicates that she wakes up frequently and does not know to call for help and ends up wandering to the kitchen for food. CT brain also notes senescent changes with moderate periventricular ischemic white matter demyelinization. ? patient may have some underlying vascular dementia. This is not expected to improve going forward. -Dyspnea-patient with history of CHF, COPD. Most recently son endorses her breathing does not seem to be any worse than usual she appears to have been comfortable not particularly short of breath at home. She does have recent admission requiring BiPAP for treatment of underlying COPD, CHF. High risk for respiratory decline. Currently tolerating nasal cannula 3 L. Will continue to evaluate. Should she experience decline and goals are comfort oriented would be appropriate for prn opiates, benzodiazepines. * Palliative care will continue to follow during hospital course as condition evolves, to assist patient/decision-maker with understanding of medical conditions, weighing benefits/burdens of treatment options, for clarification of goals of treatment. Additionally will assist with any symptoms of palliative concern Time Spent Total Floor Time (mins): 70 (Chart review, PE, discussion with nursing, discussion with family at bedside) Thank you for the opportunity to participate in the care of Ms. Moy. Attestation To help prompt me to consider important information that might be impacting today's encounter and assessment, information from prior notes written by myself or my colleagues may have been "brought forward" into today's note. My signature on this note, however, is an attestation that I personally performed the exam, history, and/or decision-making noted today, and, unless otherwise indicated, the interactions with patient, family, and staff as well as the review of records all occurred today. I also attest that the listed assessment and stated plan reflect my best clinical judgment today based on the combination of historical information, prior notes, and today's exam/ interactions. When time spent is documented, it refers only to time spent today by the signer, or if indicated, combined time spent today by collaborating physician/nurse practitioner. Monet Duff Dec 03, 2017 14:31
[2017-12-03 16:01] LABS: HEMOGLOBIN A1C 4.6 % (4.3-6.0)
[2017-12-03] MEDS: SODIUM CHLOR 0.9% 1000 ML INJ 1,000 ML IV SCH (16:04)
--- NOTE | 2017-12-03 17:44 | HHI.PR ---
Review/Management Diagnosis right parietal cva Plan continue asa follow up echocardiogram monitor telemetry r/o afib Diagnosis/Plan: Subjective Subjective Comments No acute events reported Active Medications Current Medications Medications (Trade) Dose Ordered Sig/Karen Route Start Time Stop Time Status Last Admin (NS Flush) 2 ml UNSCH PRN IV FLUSH 11/30/17 20:00 (NS Flush) 2 ml BID IV FLUSH 11/30/17 21:00 12/03/17 09:00 (Tylenol) 650 mg Q4H PRN PO 11/30/17 20:00 12/02/17 01:43 (Narcan Inj) 0.4 mg UNSCH PRN IV PUSH 11/30/17 20:00 (Shannon-Colace) 1 tab BID PO 11/30/17 21:00 12/03/17 08:31 (Milk Of Magnesia Liq) 30 ml Q12H PRN PO 11/30/17 20:00 (Senokot) 17.2 mg Q12H PRN PO 11/30/17 20:00 (Dulcolax Supp) 10 mg DAILY PRN RECTAL 11/30/17 20:00 (Lactulose Liq) 30 ml DAILY PRN PO 11/30/17 20:00 (Valium) 5 mg TID PRN PO 11/30/17 20:15 12/03/17 05:02 (Lasix) 40 mg DAILY PO 12/01/17 09:00 Future Hold 12/02/17 09:20 (Synthroid) 100 mcg DAILY@0600 PO 12/01/17 06:00 12/03/17 05:02 (Protonix) 40 mg DAILY PO 12/01/17 09:00 12/03/17 08:31 (Pravachol) 20 mg HS PO 11/30/17 21:00 12/03/17 00:18 (Spiriva Inh) 18 mcg DAILY INH 12/01/17 09:00 12/03/17 09:00 (Symbicort 160-4.5 Mcg Inh) 2 puff BID PRN INH 11/30/17 20:45 12/01/17 09:55 (Zofran Odt) 4 mg DAILY PRN PO 11/30/17 21:00 12/03/17 08:45 (Morphine Inj) 1 mg Q4H PRN IV PUSH 12/01/17 07:45 12/03/17 06:24 (Timberon 5-325 Mg) 1 tab Q6H PRN PO 12/01/17 07:45 ([place]on 10-325 Mg) 1 tab Q6H PRN PO 12/01/17 07:45 12/03/17 14:22 (Duoneb Neb) 1 ampule Q4HR NEB PRN NEB 12/01/17 09:30 (Theragran) 1 tab DAILY PO 12/02/17 09:00 12/03/17 08:31 (Vasotec) 10 mg DAILY PO 12/01/17 09:45 12/03/17 08:31 (Imitrex) 100 mg DAILY PRN PO 12/01/17 15:00 12/03/17 08:45 (Ferrous Sulfate) 325 mg DAILY PO 12/02/17 09:00 12/03/17 08:31 (Vitamin C) 250 mg DAILY PO 12/02/17 10:00 12/03/17 08:31 (Pill Splitter) 1 ea UNSCH PRN OTHER 12/02/17 09:15 (Drisdol) 50,000 units Q7D PO 12/02/17 16:00 12/23/17 16:01 (K-Phos Neutral) 250 mg Q8HR PO 12/02/17 22:00 12/04/17 21:59 12/03/17 05:04 Sodium Chloride 1,000 ml @ 42 mls/hr [id number] IV 12/02/17 16:15 12/02/17 18:24 (NS Flush) 2 ml BID IV FLUSH 12/02/17 21:00 (NS Flush) 2 ml UNSCH PRN IV FLUSH 12/02/17 16:30 (Aspirin) 325 mg DAILY PO 12/02/17 16:30 12/03/17 08:31 (NovoLOG SUPPLEMENTAL SCALE) 1 ACHS SQ 12/02/17 17:00 (D50w (Vial) Inj) 50 ml UNSCH PRN IV PUSH 12/02/17 16:30 (Glucagon Inj) 1 mg UNSCH PRN OTHER 12/02/17 16:30 Allergies Allergies Coded Allergies levofloxacin (Verified Allergy, Severe, HEADACHE, NAUSEA, VOMITING, 11/30/17) meperidine (Verified Adverse Reaction, Unknown, HALLUCINATIONS, 11/30/17) Exam I&O / VS Vital Signs Date Time Temp Pulse Resp B/P (MAP) Pulse Ox O2 Delivery O2 Flow Rate FiO2 12/03/17 11:00 98.1 85 13 106/53 (70) 12/03/17 09:23 95 Nasal Cannula 3.00 12/03/17 08:00 98.6 106 14 152/86 (108) 90 12/03/17 06:00 98.1 99 18 137/61 (86) 95 12/03/17 00:00 98.6 93 18 126/60 (82) 93 12/02/17 19:30 98.6 95 20 140/58 (85) 93 12/02/17 18:55 Nasal Cannula 3.00 Exam Comments alert, speech normal CN intact MOTOR-4/5 LUE. RIght upper extremity weak due to pain Objective Micro and Labs Date/Time Source Procedure Growth Status 11/30/17 15:00 Blood Peripheral Aerobic Blood Culture - Preliminary NO GROWTH IN 3 DAYS Resulted 11/30/17 15:00 Blood Peripheral Anaerobic Blood Culture - Preliminary NO GROWTH IN 3 DAYS Resulted Kevan Delgadillo MD PhD Dec 03, 2017 17:44
--- NOTE | 2017-12-03 23:44 | HM ---
Date Performed: 12/01/2017 Time Performed: 15:02:00 HOOKUP DATE: 12/01/17 03:02:00 PM Sat ANALYSIS START TIME: 12/01/2017 3:07:00 PM ANALYSIS END TIME: 12/02/2017 2:50:42 PM PATIENT AGE: 82 PATIENT HEIGHT PATIENT WEIGHT DRUG LIST PATIENT DIAGNOSIS TEST NARRATIVE: The patient's average heart rate was 100 BPM. Heart rates greater than 120 BPM were noted 4% of the time. No episodes of bradycardia were noted. No pauses exceeding 2.0 se conds were noted. 1012 ventricular ectopics, which represented 1% of the total beat count, were n oted. The highest ventricular ectopic frequency occurred from 02:00 PM to 03:00 PM Sun. During this time 119 VE(s) occurred. Ventricular ectopics were observed as 972 isolated beat(s) and as 20 coupl et(s). No runs were noted. 8675 supraventricular ectopics, which represented 6% of the total jose miguel t count, were noted. The highest supraventricular ectopic frequency occurred from 02:00 PM to 03:00 PM Sun. During this time 694 SVE(s) occurred. No episodes of ST depression (defined as -1.0 mm o r more) were noted in channel 1. No episodes of ST depression (defined as -1.0 mm or more) were note d in channel 2. No episodes of ST depression (defined as -1.0 mm or more) were noted in channel 3. P ATIENT DIARY WAS NOT RETURNED WITH HOLTER MONITOR.. TEST INTERPRETATION: 1) Underlying Sinus rhythm 2) No pauses noted 3) Rare PAC/PVC 4) Short episodes of tachyarrhythmia, possible PAT, overall appea rs regular so less likely to be AFib 5) No diary returned with symptoms Signed by : Jc Sánchez
[2017-12-04] MEDS: MORPHINE SULFATE 4 MG/ML INJ IV PUSH PRN ×2 (01:05→07:29)
[2017-12-04 03:33] VITALS: BP 134/60; PULSE 87; RESP 18; TEMP 97.8; O2SAT 92
[2017-12-04] MEDS: ACETAMINOPHEN/HYDROcodone 325 MG/10 MG TAB PO PRN ×2 (04:19→12:24)
[2017-12-04] MEDS: POTASSIUM PHOSPHATE/SODIUM PHOSPHATE 250 MG TAB PO SCH ×2 (06:12→14:00)
[2017-12-04] MEDS: LEVOTHYROXINE SODIUM 100 MCG TAB PO SCH (06:12)
[2017-12-04] MEDS: ASCORBIC ACID 500 MG TAB PO SCH (07:29)
[2017-12-04] MEDS: ASPIRIN 325 MG TAB PO SCH (07:30)
[2017-12-04] MEDS: ENALAPRIL MALEATE 10 MG TAB PO SCH (07:30)
[2017-12-04] MEDS: PANTOPRAZOLE SOD 40 MG DELAYED RELEASE TAB PO SCH (07:30)
[2017-12-04] MEDS: DOCUSATE SODIUM 50 MG/SENNA 8.6 MG TAB PO SCH (07:30)
[2017-12-04] MEDS: MULTIVITAMIN TAB PO SCH (07:36)
[2017-12-04] MEDS: FERROUS SULFATE 325 MG (65 MG ELEMENTAL IRON) TAB PO SCH (07:36)
[2017-12-04] MEDS: INSULIN ASPART SUPPLEMENTAL SCALE SQ SCH ×2 (07:40→12:00)
[2017-12-04 08:00] VITALS: BP 112/60; PULSE 89; RESP 17; TEMP 98.3; O2SAT 94
[2017-12-04 08:52] VITALS: O2SAT 93
[2017-12-04] MEDS: TIOTROPIUM BROMIDE 18 MCG INH INH SCH (09:00)
[2017-12-04] MEDS: SODIUM CHLORIDE 0.9% FLUSH 10 ML FLUSH IV FLUSH SCH ×2 (09:00)
--- NOTE | 2017-12-04 09:37 | HHI.DS ---
Discharge Summary Admission Date Dec 02, 2017 at 07:33 Discharge Date: Dec 04, 2017 Admitting Diagnosis Fracture right humerus. Weakness. (1) CVA (cerebral infarction) ICD Code: I63.9 - Cerebral infarction, unspecified Diagnosis: Principal Status: Acute (2) Frequent falls ICD Code: R29.6 - Repeated falls Diagnosis: Principal Status: Acute (3) Anemia, posthemorrhagic, acute ICD Code: D62 - Acute posthemorrhagic anemia Status: Acute (4) Humeral fracture ICD Code: S42.309A - Unspecified fracture of shaft of humerus, unspecified arm , initial encounter for closed fracture Diagnosis: Principal Status: Acute (5) Hyperkalemia ICD Code: E87.5 - Hyperkalemia Diagnosis: Secondary Status: Resolved (6) Hypothyroidism ICD Code: E03.9 - Hypothyroidism, unspecified Status: Chronic (7) COPD (chronic obstructive pulmonary disease) ICD Code: J44.9 - Chronic obstructive pulmonary disease, unspecified Diagnosis: Secondary Status: Chronic (8) Chronic respiratory failure ICD Code: J96.10 - Chronic respiratory failure, unspecified whether with hypoxia or hypercapnia Diagnosis: Secondary Status: Chronic Procedures None Brief History - From Admission This is an 82-year-old female which is very well-known to me who has a past medical history significant for COPD on home oxygen who presents to [facility] complaining of right arm pain and generalized malaise, fatigue and frequent falls. The patient states that she has been increasingly feeling more fatigued and weak on the past several days. Patient states he has been falling frequently in the past few days. States that she got about 3 AM last night and fell over in her living room hitting her right side with immediate right hip pain. Pain is described as sharp localized in the right arm, nonradiating, at this moment 4/10 intensity. The patient otherwise denies any nausea, vomiting, diarrhea, dysuria, abdominal pain, dizziness or back pain. Patient also denies any fevers or chills, chest pain. CBC/BMP: 12/02/17 0715 12/01/17 0730 Significant Findings Laboratory Tests Test 12/01/17 17:13 12/02/17 07:15 12/02/17 11:20 12/02/17 17:02 Iron Level 26 MCG/DL (50-170) Percent Iron Saturation 7.5 % (20-50) Total Creatine Kinase 22 U/L (26-192) Red Blood Count 3.74 MIL/MM3 (4.00-5.30) Hemoglobin 9.5 GM/DL (11.6-15.3) Hematocrit 30.6 % (35.0-46.0) Mean Corpuscular Hemoglobin 25.3 PG (27.0-34.0) Mean Corpuscular Hemoglobin Concent 30.9 % (32.0-36.0) Red Cell Distribution Width 24.1 % (11.6-17.2) Neutrophils (%) (Auto) 80.5 % (16.0-70.0) Monocytes (%) (Auto) 9.1 % (0.0-8.0) Lymphocytes # (Auto) 0.8 TH/MM3 (1.0-4.8) Neutrophils % (Manual) 88 % (16-70) Lymphocytes % 5 % (9-44) Neutrophils # (Manual) 8.0 TH/MM3 (1.8-7.7) Nucleated Red Blood Cells 1 /100 WBC (0-0) Target Cells 1+ (NORMAL) Acanthocytes OCC (NORMAL) Phosphorus Level 2.3 MG/DL (2.5-4.9) 25-Hydroxy Vitamin D Total LESS THAN 4.2 ng/ML (30-100) Imaging Last Impressions Head Magnetic Resonance Angiography 12/01/17 0000 Signed Impressions: CONCLUSION: 1. Scattered atherosclerotic changes and mild narrowing within the distal left posterior cerebral artery. 2. No large vessel stenosis or thrombus. Carotid Artery Ultrasound 12/01/17 0000 Signed Impressions: CONCLUSION: No hemodynamically significant stenosis in either carotid artery. Brain MRI 12/01/17 0000 Signed Impressions: CONCLUSION: 1. Subacute infarct right parietal lobe with minimal petechial hemorrhage. 2. 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 Radius/Ulna X-Ray 11/30/17 142 Signed Impressions: CONCLUSION: Osteopenia, Negative for fracture or dislocation. Followup in 7-10 days is sugg ested if symptoms persist. Humerus X-Ray 11/30/17 488 Signed Impressions: CONCLUSION: Impacted fracture of the humerus in near-anatomic alignment. Hand X-Ray 11/30/17 1423 Signed Impressions: CONCLUSION: Osteopenia with degenerative changes. I do not see a fracture. Osteopenia makes detection of subtle fractures difficult. Head CT 11/30/17 142 Signed Impressions: CONCLUSION: 1. Senescent changes with moderate periventricular ischemic white matter demye lination. This is somewhat asymmetric in the posterior parietal high convexitie s but likely chronic. MRI examination may be performed for further evaluation i f there is continued clinical concern. 2. Otherwise, no acute intracranial abnormality. Chest X-Ray 11/30/171420 Signed Impressions: CONCLUSION: Proximal right humeral fracture. Patchy consolidation or atelectasis in the mid left lung. PE at Discharge GENERAL: This is a well-nourished, well-developed patient, in no apparent distress. CARDIOVASCULAR: Regular rate and rhythm RESPIRATORY: Clear to auscultation. Breath sounds equal bilaterally. No wheezes , rales, or rhonchi. GASTROINTESTINAL: Abdomen soft, non-tender, nondistended. Normal active bowel sounds MUSCULOSKELETAL: Right upper arm in a sling and swath NEURO: Alert & Oriented x4 to person, place, time, situation. Moves all ext x4 Pt update on day of discharge Patient reports her pain is controlled well. She is wanting to go home versus going to rehab. Hospital Course These are the medical issues addressed during this hospitalization: 82-year-old female who has a past medical history significant for COPD on home oxygen, CHF, HTN, questionable hx of previous CVA who presents to [facility] complaining of right arm pain and generalized malaise, fatigue and frequent falls resulting in a right humerus fracture. Acute CVA with right parietal lobe with minimal petechial hemorrhage Per neurology Dr. Delgadillo recommended to start aspirin 325 mg p.o. daily MRA brain scattered atherosclerotic changes Carotid US no significant stenosis EEG nl Echo 11/02/17 reveals EF of 65-70%, PFO, mild to moderate aortic and pulmonary valve regurg, moderate tricuspid regurg, severe PHTN -Appreciate neurology, Dr. Delgadillo consultation and recommendations -Consult stroke navigator for patient education -NIHSS -PT/OT -continue statin daily. Aspirin -Consult rehab medicine, appreciate assistance Right humerus fracture s/p fall Osteopenia -Orthopedics consulted, appreciate assistance. Nonoperative management. Continue sling. F/U in 2 weeks. -Sling for now RUE -Vit D level is low with levels less than 4.2. Will initiate supplement -PT/OT eval/treatment -Pain management with bowel regimen Acute on chronic microcytic, hypochromic anemia, due to bleed from fall Large ecchymosis RUE secondary to fracture. Acute on chronic anemia secondary to hemorrhage. Hgb 7.5 Patient s/p transfusion 1 unit packed red blood cells, repeat hemoglobin 10.8, dropped to 9.5 Pretransfusion iron studies: iron 26, TIBC 347, %sat 7.5, ferritin 94 -start po ferrous sulfate -Monitor H&H closely, last hemoglobin 9.5 - Hypertension, chronic essential, overall controlled -continue patient on home dose of Vasotec -Monitor BP and adjust treatment accordingly CHF, diastolic, chronic, does not appear to be in acute exacerbation, chronic -Continue patient on home dose of Lasix, monitor electrolytes COPD, chronic Chronic respiratory failure, O2 dependent -Continue supplemental oxygen as needed to maintain O2 sats greater than 92% -Continue to monitor respiratory status -Duo nebs as needed -Continue on home dose of Spiriva and Symbicort -IS/acapella - encouraged hourly use Hyperkalemia resolved K 5.6 -Potassium improved to 4.6 status post Kayexalate dose -monitor Severe protein calorie malnutrition -Multivitamin daily -Consult dietitian -Ensure with meals DVT prophylaxis -Chemoprophylaxis contraindicated at this time due to acute stroke with petechiae -Bilateral JAZZY french/MERLEs Palliative care service also was consulted during the hospitalization. Comprehensive discussion with patient's 2 sons and due to patient declining to go to inpatient rehab decision was made to go home with home health care as patient has declined hospice. At this time, patient has gained maximum benefit from hospitalization ready to be discharged to home with home health care Pt Condition on Discharge: Good Discharge Disposition: Hospice/ Home Discharge Time: <= 30 minutes Discharge Instructions DIET: Follow Instructions for: Heart Healthy Diet Activities you can perform: Non Weight Bearing Other Activity Instructions: NWB of right upper extremity Follow up Referrals: PCP Follow-up - 1 Week New Medications: Aspirin (Px Aspirin) 325 Mg Tab 325 MG PO DAILY for Prevent Blood Clot, #30 TAB Continued Medications: Baclofen (Baclofen) 10 Mg Tab 10 MG PO TID, TAB 0 Refills Diazepam (Valium) 5 Mg Tab 5 MG PO TID PRN for ANXIETY, #30 TAB 0 Refills Enalapril (Vasotec) 10 Mg Tab 10 MG PO DAILY, #30 TAB 0 Refills Fluticasone-Salmeterol Inh (Advair Diskus Inh) 250-50 Mcg/Blist Aer 1 PUFF INH BID PRN for SHORTNESS OF BREATH, #1 INHALER 0 Refills Rinse mouth after use. Furosemide (Lasix) 40 Mg Tab 40 MG PO DAILY, #30 TAB 0 Refills Hydrocodone/Acetaminophen (Hydrocodone-Acetamin 5-325 mg) 5 Mg-325 Mg Tablet 1 TAB PO Q4H PRN for Pain, #30 TAB 0 Refills Ipratropium-Albuterol Neb (Duoneb) 0.5-2.5 Mg/3 Ml Neb 3 ML NEB Q6HR PRN for SHORTNESS OF BREATH, #30 NEBULE 0 Refills Lactobacillus Acidophilus (Lactobacillus Acidophilus) 1 Billion Cell Tab 1 TAB PO TIDAC for Nutritional Supplement, #30 TAB 0 Refills Levothyroxine (Levothyroxine) 100 Mcg Tab 100 MCG PO DAILY for Thyroid, #30 TAB 0 Refills Magnesium Hydroxide (Qc Milk of Magnesia) 400 Mg/5 Ml April 30 ML PO Q12H PRN for Mild constipation, #1 BOTTLE Ondansetron (Zofran) 4 Mg Tab 4 MG PO DAILY PRN for NAUSEA OR VOMITING, TAB 0 Refills Oxygen (O2) (Oxygen (O2)) Device LITER JUSTINE.CANULA CONTINUOUS for Prevent Hypoxemia, #2 Oxygen Concentrator Portable Gaseous 2 L/min via Nasal Canula Continuous For 99 months Pantoprazole (Protonix) 40 Mg Tab 40 MG PO DAILY for Reflux, #30 TAB 0 Refills Potassium Chloride ER (Potassium Chloride ER) 20 Meq Tab 20 MEQ PO DAILY for Electrolyte Replacement, #30 TAB 0 Refills Pravastatin (Pravachol) 20 Mg Tab 20 MG PO HS, #30 TAB Sumatriptan (Imitrex) 100 Mg Tab 100 MG PO DAILY PRN for MIGRAINE HEADACHE, TAB 0 Refills If a satisfactory response has not been obtained at 2 hours, a second dose may be administered Tiotropium Inh (Spiriva Handihaler) 18 Mcg Cap 1 PUFF INH DAILY for COPD, #30 CAP 0 Refills Do Not Swallow Capsules Zolpidem (Ambien) 10 Mg Tab 10 MG PO HS, TAB 0 Refills Discontinued Medications: Aspirin (Aspirin DR) 81 Mg Tabdr 81 MG PO DAILY, #30 TAB Mary Montanez MD Dec 04, 2017 09:37
[2017-12-04] MEDS ORDERED: ASA325 PO (09:39)
[2017-12-04 12:00] VITALS: BP 136/63; PULSE 93; RESP 18; TEMP 98.2; O2SAT 94
--- NOTE | 2017-12-04 15:06 | HHI.FF ---
Face to Face Verification Diagnosis: (1) CVA (cerebral infarction) (2) Fracture of right humerus Physical Therapy Order: Evaluate and Treat Home Health Nursing Order: Nursing assessment with vital signs I have seen patient Betty Moy on 12/04/17. My clinical findings support the need for the requested home health care services because: Limited ability to care for self I certify that my clinical findings support that this patient is homebound because: Unsafe to leave home unassisted Mary Montanez MD Dec 04, 2017 15:06
[2017-12-04] MEDS ORDERED: HYDR-3583 PO (15:31)
[2017-12-04] MEDS: SODIUM CHLOR 0.9% 1000 ML INJ 1,000 ML IV SCH (15:53)
[2017-12-04 16:12] VITALS: BP 126/60; PULSE 80; RESP 18; TEMP 97.7; O2SAT 97
== END 2017-12-04 17:45 | disposition home health service (06) | DRG 64 ==
LOC: NEPC 13:54 → NEDA 17:47 → NEPHCDU 21:24 → OBSVTOIN 12-02 07:33 → UNDODISIN 12-02 16:35 → N06A 12-02 16:47
PROVIDERS: ADMIT Family Medicine; ATTEND Family Medicine
PROC: 30233N1 Transfusion of Nonautologous Red Blood Cells into Peripheral Vein, Percutaneous Approach (ICD-10-PCS; principal; 2017-11-30)
DX: I61.1 Nontraumatic intracerebral hemorrhage in hemisphere, cortical (principal); E43 Unspecified severe protein-calorie malnutrition; J96.12 Chronic respiratory failure with hypercapnia; I27.20 Pulmonary hypertension, unspecified; I50.32 Chronic diastolic (congestive) heart failure; I11.0 Hypertensive heart disease with heart failure; Z99.81 Dependence on supplemental oxygen; D62 Acute posthemorrhagic anemia; S42.231A 3-part fracture of surgical neck of right humerus, initial encounter for closed fracture; Q21.1 Atrial septal defect; J98.11 Atelectasis; D50.9 Iron deficiency anemia, unspecified; E87.5 Hyperkalemia; E78.5 Hyperlipidemia, unspecified; J44.9 Chronic obstructive pulmonary disease, unspecified; E03.9 Hypothyroidism, unspecified; I25.2 Old myocardial infarction; K21.9 Gastro-esophageal reflux disease without esophagitis; R29.6 Repeated falls; M85.80 Other specified disorders of bone density and structure, unspecified site; I67.2 Cerebral atherosclerosis; I08.2 Rheumatic disorders of both aortic and tricuspid valves; M19.90 Unspecified osteoarthritis, unspecified site; F17.210 Nicotine dependence, cigarettes, uncomplicated; F32.9 Major depressive disorder, single episode, unspecified; F41.9 Anxiety disorder, unspecified; W18.30XA Fall on same level, unspecified, initial encounter; Y92.008 Other place in unspecified non-institutional (private) residence as the place of occurrence of the external cause; Z66 Do not resuscitate; Z86.73 Personal history of transient ischemic attack (TIA), and cerebral infarction without residual deficits; Z98.1 Arthrodesis status
CPT/HCPCS: 36430; 70450; 70544; 70551; 71045; 73060; 73090; 73130; 80053; 81001; 82306; 82550; 82607; 82728; 82746; 82948; 83036; 83540; 83550; 83605; 83880; 84100; 84443; 84484; 85007; 85025; 85027; 85610; 85730; 86850; 86900; 86901; 86920; 87040; 93005; 93225; 93226; 93306; 93880; 94150; 94667; 95819; G8987-GP; G8988-GP; J2270; J7030; J7050; P9016